=== PATIENT | female | born 1935 | race Caucasian/White ===

== ENCOUNTER → 2018-01-25 09:58 | Outpatient (CLI) | payer MEDICARE, SELFPAY ==
[2018-01-25 15:13] LABS: Absolute Lymphocyte Count 1.61 X10^3/ul (0.83-4.51); Absolute Neutrophil Count 2.5 X10^3/uL (2.0-7.7); Basophil# 0.03 X10^3/uL; Basophil% 0.6 % (0-1); Eosinophil# 0.58 X10^3/uL; Eosinophils% 10.9 % (0-5); Hematocrit 43.2 % (37-47); Hemoglobin 13.8 g/dl (12.0-15.0); Lymphocyte # 1.61 X10^3/ul (4.0); Lymphocyte % 30.4 % (19-41); Mean Corp Hgb Conc 31.9 g/gl (32-36); Mean Corpuscular Hgb 29.7 pg (27.0-32.0); Mean Corpuscular Volume 93.1 fL (81-99); Mean Platelet Vol. 12.2 fl (6.2-12.0); Monocyte# 0.53 X10^3/uL; Neutrophil # 2.53 X10^3/uL (2.7-7.7); Neutrophil % 47.7 % (47-70); Platelet Count 151 K/mm3 (150-450); RBC Distribution Width CV 14.1 % (11.6-14.6); RBC Distribution Width SD 47.9 fl (35.1-43.9); Red Blood Count 4.64 M/mm3 (4.2-5.4); White Blood Count 5.3 K/mm3 (4.4-11.0)
[2018-01-25 15:15] LABS: POSITIVE COUNT NO; POSITIVE DIFFERENTIAL NO; POSITIVE MORPHOLOGY NO
[2018-01-25 15:26] LABS: Vitamin D,25 Hydroxy 16.1 ng/mL (29.95-100.01)
[2018-01-25 15:31] LABS: ALB/GLOB Ratio 0.8 RATIO (0.9-2.4); AST(SGOT) 26 U/L (15-37); Alanine Aminotransfer ALT/SGPT 19 U/L (13-56); Albumin, Serum 3.4 g/dL (3.2-5.0); Alkaline Phosphatase 144 U/L (45-117); Anion Gap 7 (5-15); BUN 20 mg/dL (7-18); BUN/Creat Ratio 24.2 RATIO (10-20); Calcium,Total 8.3 mg/dL (8.5-10.1); Chloride 104 mmol/L (98-107); Creatinine, Serum 0.82 mg/dL (0.55-1.02); EST Glomerular Filtration Rate 70 mL/min (>60); Est Glom Filt Rate - Afr Amer 85 mL/min (>60); Globulin 4.1 g/dL (2.2-4.2); Glucose 105 mg/dL (74-106); Potassium 4.7 mmol/L (3.5-5.1); Protein, Total 7.5 g/dL (6.4-8.2); Sodium Level 142 mmol/L (136-145); Thyroid Stim Hormone (TSH) 3.83 uIU/mL (0.358-3.74)
== END ==
PROVIDERS: Family Provider Family Medicine Geriatric Medicine; PCP Family Medicine Geriatric Medicine; Visit Provider Family Medicine Geriatric Medicine
DX: R53.83 Other fatigue (principal); E55.9 Vitamin D deficiency, unspecified
CPT/HCPCS: 36415; 80053; 82306; 84443; 85025

== ENCOUNTER → 2018-03-12 11:39 | Outpatient (CLI) | payer MEDICARE, SELFPAY ==
[2018-03-12 12:35] LABS: Thyroid Stim Hormone (TSH) 0.64 uIU/mL (0.358-3.74)
== END ==
PROVIDERS: Family Provider Family Medicine Geriatric Medicine; PCP Family Medicine Geriatric Medicine; Visit Provider Family Medicine Geriatric Medicine
DX: E03.9 Hypothyroidism, unspecified (principal)
CPT/HCPCS: 36415; 84443

== ENCOUNTER → 2018-07-05 14:58 | Outpatient (CLI) | payer MEDICARE, SELFPAY ==
--- NOTE | 2018-07-05 15:28 | RAD_ITS ---
STUDY: X-RAY CHEST REASON FOR EXAM: Female, 82 years old. Cough and shortness of breath x1 week TECHNIQUE: PA and lateral views of the chest. COMPARISON: Prior study of 06/30/2013 FINDINGS: The lungs are clear and expanded. There is no demonstrated pleural abnormality. Normal size heart. Normal mediastinum and santy. Normal visualized pulmonary arteries. There are calcified plaques of the aortic arch. There are diffuse degenerative changes of the visualized thoracic spine. There is generalized osteopenia. There are degenerative changes of the shoulder joints. There is a an old fracture of the right humeral head/neck. There is no demonstrated abnormality of the visualized soft tissue structures of the upper abdomen. RAD/Chest PA and Lateral IMPRESSION: Calcified plaques of the aortic arch. Degenerative changes of the thoracic spine. Generalized osteopenia. Degenerative changes of the shoulder joints. Old fracture of the right humeral head/neck. Electronically Signed: Pasha Doe MD at 16:12 EST , Service support ,
== END ==
PROVIDERS: Family Provider Family Medicine Geriatric Medicine; PCP Family Medicine Geriatric Medicine; Referring Provider Family Medicine Geriatric Medicine; Visit Provider Family Medicine Geriatric Medicine
DX: R50.9 Fever, unspecified (principal); R05 Cough; R06.02 Shortness of breath
CPT/HCPCS: 71046; 87633

== ENCOUNTER → 2018-07-26 15:27 | Outpatient (CLI) | payer MEDICARE, SELFPAY ==
[2018-07-26 16:20] LABS: Vitamin D,25 Hydroxy 28.6 ng/mL (29.95-100.01)
[2018-07-26 16:21] LABS: ALB/GLOB Ratio 0.9 RATIO (0.9-2.4); AST(SGOT) 15 U/L (15-37); Alanine Aminotransfer ALT/SGPT 17 U/L (13-56); Albumin, Serum 3.4 g/dL (3.2-5.0); Alkaline Phosphatase 146 U/L (45-117); Anion Gap 10 (5-15); BUN 25 mg/dL (7-18); Calcium,Total 8.8 mg/dL (8.5-10.1); Chloride 104 mmol/L (98-107); Creatinine, Serum 0.89 mg/dL (0.55-1.02); EST Glomerular Filtration Rate 64 mL/min (>60); Est Glom Filt Rate - Afr Amer 78 mL/min (>60); Globulin 3.8 g/dL (2.2-4.2); Glucose 91 mg/dL (74-106); Potassium 4.4 mmol/L (3.5-5.1); Protein, Total 7.2 g/dL (6.4-8.2); Sodium Level 142 mmol/L (136-145); Thyroid Stim Hormone (TSH) 5.32 uIU/mL (0.358-3.74)
[2018-07-26 16:35] LABS: Absolute Lymphocyte Count 1.81 X10^3/ul (0.83-4.51); Absolute Neutrophil Count 3.5 X10^3/uL (2.0-7.7); Basophil# 0.02 X10^3/uL; Basophil% 0.3 % (0-1); Eosinophil# 0.27 X10^3/uL; Eosinophils% 4.4 % (0-5); Hematocrit 44.9 % (37-47); Hemoglobin 14.1 g/dl (12.0-15.0); Lymphocyte # 1.81 X10^3/ul (4.0); Lymphocyte % 29.5 % (19-41); Mean Corp Hgb Conc 31.4 g/gl (32-36); Mean Corpuscular Hgb 29.3 pg (27.0-32.0); Mean Corpuscular Volume 93.2 fL (81-99); Mean Platelet Vol. 12.3 fl (6.2-12.0); Monocyte# 0.55 X10^3/uL; Neutrophil # 3.48 X10^3/uL (2.7-7.7); Neutrophil % 56.8 % (47-70); Platelet Count 174 K/mm3 (150-450); RBC Distribution Width CV 13.9 % (11.6-14.6); Red Blood Count 4.82 M/mm3 (4.2-5.4); White Blood Count 6.1 K/mm3 (4.4-11.0)
[2018-07-26 16:36] LABS: POSITIVE COUNT NO; POSITIVE DIFFERENTIAL NO; POSITIVE MORPHOLOGY NO
== END ==
PROVIDERS: Family Provider Family Medicine Geriatric Medicine; PCP Family Medicine Geriatric Medicine; Visit Provider Family Medicine Geriatric Medicine
DX: E55.9 Vitamin D deficiency, unspecified (principal); R53.83 Other fatigue
CPT/HCPCS: 36415; 80053; 82306; 84443; 85025

== ENCOUNTER 2018-09-17 11:32 | Inpatient (IN) | payer MEDICARE, SELFPAY ==
[2018-09-17 11:32] VITALS: BP 164/100; PULSE 103; RESP 18; TEMP 36.8; O2SAT 98; BMI 31.4
--- NOTE | 2018-09-17 11:52 | RAD_ITS ---
STUDY: X-RAY - RIGHT KNEE REASON FOR EXAM: Female, 82 years old. Pain following a fall. TECHNIQUE: AP and lateral view(s) of the knee. COMPARISON: None. FINDINGS: I suspect a nondisplaced fracture in the distal medial aspect of the right femur just cephalad to the femoral component of the knee prosthesis. Normal visualized proximal tibia and fibula. Normal proximal tibiofibular articulation. Total knee replacement. There is good alignment. There are atherosclerotic calcifications. There is evidence of a moderate sized lipohemarthrosis. RAD/Knee 1 or 2 Views IMPRESSION: Moderate sized lipohemarthrosis. An occult fracture should be ruled out. I suspect a nondisplaced fracture along the distal metaphyseal area of the medial right femur. Electronically Signed: Domingo Ryan, at 13:05 EDT , Service support ,
[2018-09-17 11:53] VITALS: O2SAT 96
--- NOTE | 2018-09-17 11:57 | ED.VIS.GEN ---
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 back pain. Narrative: Patient states she fell about an hour ago, due to using her walker at her home and her right knee suddenly buckling from beneath her, causing her to fall. She does not think she injured anything else. However, she later states that she fell last night and basically laid on the floor, crawl to the phone this morning when she woke up, calling family who came to help and called EMS. She also states that she fell about a month ago when she tripped over something in her kitchen, falling forward and somehow injuring her back. She did not seek help for that but states since then she has had some soreness in her right low back. She had a right knee replacement around 25 years ago. She denies having any numbness distally now. - Past Medical History (1) Hypothyroid Status: Chronic Past Medical History - Allergies and Home Meds Allergies/Adverse Reactions: Allergies codeine Adverse Reaction (Verified 09/17/18 11:38) Vomiting morphine Adverse Reaction (Verified 09/17/18 11:38) Vomiting Primary Care Physician: Manohar Duran Chi, MD [Primary Care Provider] - Surgical History: total knee arthroplasty Lives: Alone Smoking Status: Never smoker Review of Systems General: Denies: Chills, Fever, Sweats Eyes: Denies: Visual changes - bilaterally, Diplopia ENT: Denies: Rhinorrhea, Sore throat Cardiovascular: Denies: Chest pain, Palpitations Respiratory: Denies: Dyspnea, Cough, Dyspnea on exertion Gastrointestinal: Denies: Abdominal pain, Nausea, Vomiting, Diarrhea, Melena, Hematochezia Genitourinary: Denies: Dysuria, Hematuria, Frequency Musculoskeletal: Reports: Back pain, Extremity Pain Skin: Denies: Rash, Wounds Neurological: Denies: Headache, Weakness, Numbness Hematologic: Reports: Easy bruising Physical Exam Vital Signs/Narrative: Vital Signs Temp Pulse Resp BP Pulse Ox 09/17/18 11:53 96 09/17/18 11:32 98.2 F 103 H 18 164/100 H 98 Inital Vital Signs reviewed: Yes General: Well nourished, Well developed, No Acute Distress Head: Normocephalic, Atraumatic Eyes: Perrl, EOMI ENT: Moist mucous membranes, No rhinorrhea, TM's clear - no HT or otorrhea., - - mastoids NT, no ecchymoses.. Negative for: Nasal congestion Neck: Supple, Nontender Cardiovascular: Regular rate, Regular rhythm, No murmurs Respiratory: No distress, CTA bilaterally, Chest nontender Abdomen: Soft, Nontender, Nondistended, Normal bowel sounds Back: Normal Inspection, - - mildly tender right lumbosacral area, possibly midline -- pt states difficult to tell. no significant tenderness. no step offs. no signs of rash or trauma. Extremities: No edema, Tenderness - proximal right tibia w/ large amt diffuse R knee swelling and poss deformity distal to joint line. limited ROM due to pain, but able to perform short arc. 2+ DP pulse distally. , - - mildly tender to palp at R greater trochanter. no hip/groin pain w/ internal and external rotation of the right hip. FROM throughout LLE and BUE w/o pain/apparent injury. Skin: Normal color, No rash Neurological: Alert, Oriented x3, Cranial nerves II-XII grossly intact, Normal Strength, Normal Sensation Psychological: Normal affect, Normal Mood Diagnostic/Tx/Re-eval Impressions Knee X-Ray 09/17/18 11:52 IMPRESSION: Moderate sized lipohemarthrosis. An occult fracture should be ruled out. I suspect a nondisplaced fracture along the distal metaphyseal area of the medial right femur. Electronically Signed: Domingo Ryan, at 13:05 EDT , Service support , Hip/Pelvis X-Ray 09/17/18 12:10 IMPRESSION: Degenerative changes of the hip. Electronically Signed: Domingo Ryan, at 13:03 EDT , Service support , Lumbar Spine X-Ray 09/17/18 12:35 IMPRESSION: Degenerative changes of the spine, as detailed above. Poor visualization of the superior endplate at the L4 vertebrae. This may represent other compression fracture or possible involvement with a metastatic deposit or infectious process. Grade 1 anterolisthesis of L4 on L5. Electronically Signed: Domingo Ryan, at 13:01 EDT , Service support , 09/17/18 11:52 Knee 1 or 2 Views [RAD] Stat 09/17/18 12:10 HIP, UNI W/ Pelvis 2-3 Views [RAD] Stat 09/17/18 12:35 Lumbar Spine 2 or 3 Views [RAD] Stat Laboratory Results 09/17/18 09/17/18 09/17/18 12:12 12:12 12:12 WBC 11.8 H RBC 4.78 Hgb 13.9 Hct 42.0 MCV 87.9 MCH 29.1 MCHC 33.1 RDW 13.6 RDW Differential 43.7 Plt Count 240 MPV 11.1 Immature Gran % (Auto) 0.300 Neut % (Auto) 88.4 H Lymph % (Auto) 4.1 L [place] % (Auto) 6.7 Eos % (Auto) 0.3 Baso % (Auto) 0.2 Absolute Neuts (auto) 10.5 H Absolute Lymphs (auto) 0.49 L Total Counted Not Reportable Sodium 136 Potassium 3.9 Chloride 101 Carbon Dioxide 28.0 Anion Gap 7 BUN 18 Creatinine 0.80 Estim Creat Clear Calc 42.88 Est GFR (MDRD) Af Amer 88 Est GFR (MDRD) Non-Af 73 BUN/Creatinine Ratio 22.5 H Glucose 147 H Calcium 8.7 Total Creatine Kinase 116 Urine Color Urine Clarity Urine pH Ur Specific [place] Urine Protein Urine Glucose (UA) Urine Ketones Urine Occult Blood Urine Nitrite Urine Bilirubin Urine Urobilinogen Ur Leukocyte Esterase Urine RBC Urine WBC Ur Squamous Epith Cells Urine Bacteria Urine Mucus 09/17/18 12:45 WBC RBC Hgb Hct MCV MCH MCHC RDW RDW Differential Plt Count MPV Immature Gran % (Auto) Neut % (Auto) Lymph % (Auto) [place] % (Auto) Eos % (Auto) Baso % (Auto) Absolute Neuts (auto) Absolute Lymphs (auto) Total Counted Sodium Potassium Chloride Carbon Dioxide Anion Gap BUN Creatinine Estim Creat Clear Calc Est GFR (MDRD) Af Amer Est GFR (MDRD) Non-Af BUN/Creatinine Ratio Glucose Calcium Total Creatine Kinase Urine Color Yellow Urine Clarity Sl. Cloudy Urine pH 6.5 Ur Specific [place] 1.010 Urine Protein Negative Urine Glucose (UA) Normal Urine Ketones 5 H Urine Occult Blood Negative Urine Nitrite Negative Urine Bilirubin Negative Urine Urobilinogen 4 H Ur Leukocyte Esterase Negative Urine RBC 0 SEEN Urine WBC 0 SEEN Ur Squamous Epith Cells 0-5 SEEN Urine Bacteria 0 SEEN Urine Mucus 0 SEEN - Medical Decision Making X-rays show possible nondisplaced fracture distal femur just proximal to the knee hardware. According to radiology this may need further testing to confirm. Discussed with orthopedics Dr. Gregorio who states he will see the patient in the hospital. Other x-ray showed no acute abnormalities, there is an abnormal L4 vertebral body that is nonspecifically demineralized at the superior endplate, the patient states she had x-rays about 2 weeks ago and orthopedics told her there was no fracture there. She is able to sit up and I agree she probably has no acute fracture there. The rest of her medical workup is unremarkable here. She is clinically and hemodynamically stable, given fentanyl for pain. She is unable to walk or put weight on this lower extremity and will be admitted to observation general medical floor. ED Disposition - Plan for ED Patient: Disposition: Acute Care Hospital [facility] Diagnosis: Right knee injury, Inability to ambulate due to right knee, Multiple falls Referrals: Manohar Duran Chi, MD [Primary Care Provider] -
--- NOTE | 2018-09-17 12:01 | ED.DCSUM_ITS ---
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 back pain. Narrative: Patient states she fell about an hour ago, due to using her walker at her home and her right knee suddenly buckling from beneath her, causing her to fall. She does not think she injured anything else. However, she later states that she fell last night and basically laid on the floor, crawl to the phone this morning when she woke up, calling family who came to help and called EMS. She also states that she fell about a month ago when she tripped over something in her kitchen, falling forward and somehow injuring her back. She did not seek help for that but states since then she has had some soreness in her right low back. She had a right knee replacement around 25 years ago. She denies having any numbness distally now. - Past Medical History (1) Hypothyroid Status: Chronic Past Medical History - Allergies and Home Meds Allergies/Adverse Reactions: Allergies codeine Adverse Reaction (Verified 09/17/18 11:38) Vomiting morphine Adverse Reaction (Verified 09/17/18 11:38) Vomiting Primary Care Physician: Manohar Duran Chi, MD [Primary Care Provider] - Surgical History: total knee arthroplasty Lives: Alone Smoking Status: Never smoker Review of Systems General: Denies: Chills, Fever, Sweats Eyes: Denies: Visual changes - bilaterally, Diplopia ENT: Denies: Rhinorrhea, Sore throat Cardiovascular: Denies: Chest pain, Palpitations Respiratory: Denies: Dyspnea, Cough, Dyspnea on exertion Gastrointestinal: Denies: Abdominal pain, Nausea, Vomiting, Diarrhea, Melena, Hematochezia Genitourinary: Denies: Dysuria, Hematuria, Frequency Musculoskeletal: Reports: Back pain, Extremity Pain Skin: Denies: Rash, Wounds Neurological: Denies: Headache, Weakness, Numbness Hematologic: Reports: Easy bruising Physical Exam Vital Signs/Narrative: Vital Signs Temp Pulse Resp BP Pulse Ox 09/17/18 11:53 96 09/17/18 11:32 98.2 F 103 H 18 164/100 H 98 Inital Vital Signs reviewed: Yes General: Well nourished, Well developed, No Acute Distress Head: Normocephalic, Atraumatic Eyes: Perrl, EOMI ENT: Moist mucous membranes, No rhinorrhea, TM's clear - no HT or otorrhea., - - mastoids NT, no ecchymoses.. Negative for: Nasal congestion Neck: Supple, Nontender Cardiovascular: Regular rate, Regular rhythm, No murmurs Respiratory: No distress, CTA bilaterally, Chest nontender Abdomen: Soft, Nontender, Nondistended, Normal bowel sounds Back: Normal Inspection, - - mildly tender right lumbosacral area, possibly midline -- pt states difficult to tell. no significant tenderness. no step offs. no signs of rash or trauma. Extremities: No edema, Tenderness - proximal right tibia w/ large amt diffuse R knee swelling and poss deformity distal to joint line. limited ROM due to pain, but able to perform short arc. 2+ DP pulse distally. , - - mildly tender to palp at R greater trochanter. no hip/groin pain w/ internal and external rotation of the right hip. FROM throughout LLE and BUE w/o pain/apparent injury. Skin: Normal color, No rash Neurological: Alert, Oriented x3, Cranial nerves II-XII grossly intact, Normal Strength, Normal Sensation Psychological: Normal affect, Normal Mood Diagnostic/Tx/Re-eval Impressions Knee X-Ray 09/17/18 11:52 IMPRESSION: Moderate sized lipohemarthrosis. An occult fracture should be ruled out. I suspect a nondisplaced fracture along the distal metaphyseal area of the medial right femur. Electronically Signed: Domingo Ryan, at 13:05 EDT , Service support , Hip/Pelvis X-Ray 09/17/18 12:10 IMPRESSION: Degenerative changes of the hip. Electronically Signed: Domingo Ryan, at 13:03 EDT , Service support , Lumbar Spine X-Ray 09/17/18 12:35 IMPRESSION: Degenerative changes of the spine, as detailed above. Poor visualization of the superior endplate at the L4 vertebrae. This may represent other compression fracture or possible involvement with a metastatic deposit or infectious process. Grade 1 anterolisthesis of L4 on L5. Electronically Signed: Domingo Ryan, at 13:01 EDT , Service support , 09/17/18 11:52 Knee 1 or 2 Views [RAD] Stat 09/17/18 12:10 HIP, UNI W/ Pelvis 2-3 Views [RAD] Stat 09/17/18 12:35 Lumbar Spine 2 or 3 Views [RAD] Stat Laboratory Results 09/17/18 09/17/18 09/17/18 12:12 12:12 12:12 WBC 11.8 H RBC 4.78 Hgb 13.9 Hct 42.0 MCV 87.9 MCH 29.1 MCHC 33.1 RDW 13.6 RDW Differential 43.7 Plt Count 240 MPV 11.1 Immature Gran % (Auto) 0.300 Neut % (Auto) 88.4 H Lymph % (Auto) 4.1 L [place] % (Auto) 6.7 Eos % (Auto) 0.3 Baso % (Auto) 0.2 Absolute Neuts (auto) 10.5 H Absolute Lymphs (auto) 0.49 L Total Counted Not Reportable Sodium 136 Potassium 3.9 Chloride 101 Carbon Dioxide 28.0 Anion Gap 7 BUN 18 Creatinine 0.80 Estim Creat Clear Calc 42.88 Est GFR (MDRD) Af Amer 88 Est GFR (MDRD) Non-Af 73 BUN/Creatinine Ratio 22.5 H Glucose 147 H Calcium 8.7 Total Creatine Kinase 116 Urine Color Urine Clarity Urine pH Ur Specific [place] Urine Protein Urine Glucose (UA) Urine Ketones Urine Occult Blood Urine Nitrite Urine Bilirubin Urine Urobilinogen Ur Leukocyte Esterase Urine RBC Urine WBC Ur Squamous Epith Cells Urine Bacteria Urine Mucus 09/17/18 12:45 WBC RBC Hgb Hct MCV MCH MCHC RDW RDW Differential Plt Count MPV Immature Gran % (Auto) Neut % (Auto) Lymph % (Auto) [place] % (Auto) Eos % (Auto) Baso % (Auto) Absolute Neuts (auto) Absolute Lymphs (auto) Total Counted Sodium Potassium Chloride Carbon Dioxide Anion Gap BUN Creatinine Estim Creat Clear Calc Est GFR (MDRD) Af Amer Est GFR (MDRD) Non-Af BUN/Creatinine Ratio Glucose Calcium Total Creatine Kinase Urine Color Yellow Urine Clarity Sl. Cloudy Urine pH 6.5 Ur Specific [place] 1.010 Urine Protein Negative Urine Glucose (UA) Normal Urine Ketones 5 H Urine Occult Blood Negative Urine Nitrite Negative Urine Bilirubin Negative Urine Urobilinogen 4 H Ur Leukocyte Esterase Negative Urine RBC 0 SEEN Urine WBC 0 SEEN Ur Squamous Epith Cells 0-5 SEEN Urine Bacteria 0 SEEN Urine Mucus 0 SEEN - Medical Decision Making X-rays show possible nondisplaced fracture distal femur just proximal to the knee hardware. According to radiology this may need further testing to confirm. Discussed with orthopedics Dr. Gregorio who states he will see the patient in the hospital. Other x-ray showed no acute abnormalities, there is an abnormal L4 vertebral body that is nonspecifically demineralized at the superior endplate, the patient states she had x-rays about 2 weeks ago and orthopedics told her there was no fracture there. She is able to sit up and I agree she probably has no acute fracture there. The rest of her medical workup is unremarkable here. She is clinically and hemodynamically stable, given fentanyl for pain. She is unable to walk or put weight on this lower extremity and will be admitted to observation general medical floor. ED Disposition - Plan for ED Patient: Disposition: Acute Care Hospital [facility] Diagnosis: Right knee injury, Inability to ambulate due to right knee, Multiple falls Referrals: Manohar Duran Chi, MD [Primary Care Provider] -
--- NOTE | 2018-09-17 12:10 | RAD_ITS ---
STUDY: X-RAY - RIGHT HIP REASON FOR EXAM: Female, 82 years old. Right hip pain following a fall. TECHNIQUE: 2 views of the hip. COMPARISON: None. FINDINGS: Degenerative changes of the sacroiliac joints as well as the symphysis pubis. Normal femoral head, neck, intertrochanteric region and visualized proximal femur. Normal acetabulum. There is mild articular joint space narrowing. Normal visualized superior and inferior pubic rami and ischial tuberosities. Atherosclerotic vascular calcification. RAD/HIP, UNI W/ Pelvis 2-3 Views IMPRESSION: Degenerative changes of the hip. Electronically Signed: Domingo Ryan, at 13:03 EDT , Service support ,
[2018-09-17 12:20] LABS: Absolute Lymphocyte Count 0.49 X10^3/ul (0.83-4.51); Absolute Neutrophil Count 10.5 X10^3/uL (2.0-7.7); Basophil# 0.02 X10^3/uL; Basophil% 0.2 % (0-1); Eosinophil# 0.03 X10^3/uL; Eosinophils% 0.3 % (0-5); Hemoglobin 13.9 g/dl (12.0-15.0); Lymphocyte # 0.49 X10^3/ul (4.0); Lymphocyte % 4.1 % (19-41); Mean Corp Hgb Conc 33.1 g/gl (32-36); Mean Corpuscular Hgb 29.1 pg (27.0-32.0); Mean Corpuscular Volume 87.9 fL (81-99); Mean Platelet Vol. 11.1 fl (6.2-12.0); Monocyte# 0.79 X10^3/uL; Monocyte% 6.7 % (0-10); Neutrophil # 10.46 X10^3/uL (2.7-7.7); Neutrophil % 88.4 % (47-70); Platelet Count 240 K/mm3 (150-450); RBC Distribution Width CV 13.6 % (11.6-14.6); RBC Distribution Width SD 43.7 fl (35.1-43.9); Red Blood Count 4.78 M/mm3 (4.2-5.4); White Blood Count 11.8 K/mm3 (4.4-11.0)
[2018-09-17 12:23] LABS: Differential Indicated SCAN CRITERIA MET; POSITIVE COUNT NO; POSITIVE DIFFERENTIAL YES; POSITIVE MORPHOLOGY NO
--- NOTE | 2018-09-17 12:35 | RAD_ITS ---
STUDY: X-RAY - LUMBAR SPINE REASON FOR EXAM: Female, 82 years old. Pain following a fall. TECHNIQUE: 3 view(s) of the lumbar spine were obtained. COMPARISON: None FINDINGS: Normal lumbar lordosis. There is no substantial scoliosis. Grade 1 anterolisthesis of L4 on L5. There appears to be loss of height and irregular density involving the superior endplate of the L4 vertebrae. This may represent either a compression fracture or possible metastatic deposit. Disc space narrowing at the L4-L5 and L5-S1 levels. Facet joint osteoarthritis. There is atherosclerotic calcification of the abdominal aorta without a demonstrated aneurysm. RAD/Lumbar Spine 2 or 3 Views IMPRESSION: Degenerative changes of the spine, as detailed above. Poor visualization of the superior endplate at the L4 vertebrae. This may represent other compression fracture or possible involvement with a metastatic deposit or infectious process. Grade 1 anterolisthesis of L4 on L5. Electronically Signed: Domingo Ryan, at 13:01 EDT , Service support ,
[2018-09-17 12:37] LABS: Anion Gap 7 (5-15); BUN 18 mg/dL (7-18); BUN/Creat Ratio 22.5 RATIO (10-20); Calcium,Total 8.7 mg/dL (8.5-10.1); Chloride 101 mmol/L (98-107); EST Glomerular Filtration Rate 73 mL/min (>60); Est Glom Filt Rate - Afr Amer 88 mL/min (>60); Estimated Creatinine Clearance 42.88 ml/min; Glucose 147 mg/dL (74-106); Potassium 3.9 mmol/L (3.5-5.1); Sodium Level 136 mmol/L (136-145)
[2018-09-17 12:55] LABS: Bacteria 0 SEEN /hpf (None Seen); Mucous, Urine 0 SEEN /hpf (<or=2+); Red Blood Cells-Urine 0 SEEN /hpf (0-5); White Blood Cells 0 SEEN /hpf (0-5)
[2018-09-17 13:06] LABS: Color, Urine Yellow (Yellow); Glucose, Dipstick Normal (Normal); Ketone-Dipstick 5 mg/dl (Negative); Leukocyte Esterase-Dipstick Negative /ul (Negative); Nitrite-Dipstick Negative (Negative); Occult Blood-Urine Negative /ul (Negative); Protein-Dipstick Negative (Negative); Urine Bilirubin Dipstick Negative (Negative); Urine Clarity Sl. Cloudy (Clear); Urine Urobilinogen 4 mg/dl (Normal); Urine pH 6.5 (5.0 - 8.0)
[2018-09-17 13:14] LABS: CPK Total, Creatine Kinase 116 U/L (26-192)
[2018-09-17 13:14] LABS: Squamous Epithelial Cells - UA 0-5 SEEN /hpf (5-10)
--- NOTE | 2018-09-17 14:34 | PCM.HP.STD ---
Problem List (1) Right knee injury Status: Acute Qualifiers: Encounter type: initial encounter Qualified Code(s): S89.91XA - Unspecified injury of right lower leg, initial encounter History of Present Illness Date of Admission: 09/17/18 Chief Complaint: right knee pain. The patient is a 82 year old F patient states that she was walking with her walker and describes that her right knee as opened up but on further discussion seems more buckled underneath her because of her fall. Patient thinks she may have landed on her right knee but denies hitting her head. Patient had swelling her knee and presented to the urgency room. X-ray of the right knee showed a moderate size lipohemarthrosis but no definitive fracture but it was suspected he may been in a displaced fracture along the distal metaphyseal area of the medial right femur. To do a lumbar spine x-ray that showed poor visualization of the superior endplate of L4 vertebrae. Agent and not necessarily describe any new pain in her back but just describes generalized pain all over. [] Past Medical History Past Medical History (Chronic Problems): Chronic Problems Hypothyroid (Chronic) Allergies codeine Adverse Reaction (Verified 09/17/18 11:38) Vomiting morphine Adverse Reaction (Verified 09/17/18 11:38) Vomiting Home Medications: Ambulatory Orders Medication Instructions Recorded Aspirin E.C. [Ecotrin] 81 mg PO DAILY@0800 09/17/18 Levothyroxine [Synthroid] 137 mcg PO DAILY 09/17/18 Naproxen Sodium [Aleve] 440 mg PO PRN PRN 09/17/18 Surgical History: total knee arthroplasty Lives: Alone Smoking Status: Never smoker - *Family History Maternal History Items: Heart Disease - CHF Review of Systems Constitutional: Denies: Anorexia, Chills Eyes: Denies: Blurred vision, Double vision HEENT: Denies: Head Aches, Sinus Congestion, Sinus Drainage Cardiovascular: Denies: Chest Pain, Palpitations Respiratory: Denies: Cough, Shortness of breath at rest, Sputum production Gastrointestinal: Denies: Abdominal Pain, Nausea, Vomiting Genitourinary: Denies: Dysuria Musculoskeletal: Denies: Joint Pain, Joint Tenderness Skin: Denies: Dryness, Jaundice Neurological: Reports: Balance problems, - - Falls, - - No paresthesias. Denies: Blurred vision, Double vision Psychiatric: Denies: Anxiety, Depression Hematologic/ Lymphatic: Denies: Easy Bruising, Easy Bleeding, Hx of blood clot Comment: A 10 point review of systems were negative except as mentioned in the history of present illness and the other review of systems. VTE Information - Inpt Only VTE Present on Admission: No VTE Mechan Device Prophylaxis: SCD's VTE Pharm Prophylaxis ordered?: No Reason prophylaxis not ordered:: Medical Contraindication Patient Problems: Active and Suspected Problems Right knee injury (Acute) Inability to ambulate due to right knee (Acute) Multiple falls (Acute) - Physical Exam General: Alert, No apparent distress, - - Slow to respond and was slightly tangential in her answers. HEENT: Atraumatic, Normocephalic Oral: Moist Mucosa, No Gingival or Mucosal Lesions/ Ulcerations Neck: No Nodes, Thyroid Normal Size and Texture Lungs: Clear to auscultation, Normal air movement, No rhonchi, No wheeze Cardiovascular: Regular rate, Regular Rhythm, Normal S1, Normal S2, No murmurs Abdomen: Bowel Sounds Present, Soft, Non Tender, Non-Distended, No Hepato-splenomegaly Extremities: No Calf Tenderness, - - Large hematoma over the medial right knee Skin: No rashes, No breakdown Musculoskeletal: Tenderness - We will right knee with the swelling. Psych/Mental Status: Appropriate, Flat Affect Vital Signs Temp Pulse Resp BP Pulse Ox 36.8 C 103 H 18 164/100 H 96 09/17/18 11:32 09/17/18 11:32 09/17/18 11:32 09/17/18 11:32 09/17/18 11:53 Oxygen Delivery Method Room Air Weight: 78 kg Body Mass Index (BMI) 31.4 Laboratory Tests Past 24 Hrs 09/17/18 09/17/18 09/17/18 12:12 12:12 12:12 WBC 11.8 H RBC 4.78 Hgb 13.9 Hct 42.0 MCV 87.9 MCH 29.1 MCHC 33.1 RDW 13.6 RDW Differential 43.7 Plt Count 240 MPV 11.1 Immature Gran % (Auto) 0.300 Neut % (Auto) 88.4 H Lymph % (Auto) 4.1 L [place] % (Auto) 6.7 Eos % (Auto) 0.3 Baso % (Auto) 0.2 Absolute Neuts (auto) 10.5 H Absolute Lymphs (auto) 0.49 L Total Counted Not Reportable Sodium 136 Potassium 3.9 Chloride 101 Carbon Dioxide 28.0 Anion Gap 7 BUN 18 Creatinine 0.80 Estim Creat Clear Calc 42.88 Est GFR (MDRD) Af Amer 88 Est GFR (MDRD) Non-Af 73 BUN/Creatinine Ratio 22.5 H Glucose 147 H Calcium 8.7 Total Creatine Kinase 116 Urine Color Urine Clarity Urine pH Ur Specific [place] Urine Protein Urine Glucose (UA) Urine Ketones Urine Occult Blood Urine Nitrite Urine Bilirubin Urine Urobilinogen Ur Leukocyte Esterase Urine RBC Urine WBC Ur Squamous Epith Cells Urine Bacteria Urine Mucus 09/17/18 12:45 WBC RBC Hgb Hct MCV MCH MCHC RDW RDW Differential Plt Count MPV Immature Gran % (Auto) Neut % (Auto) Lymph % (Auto) [place] % (Auto) Eos % (Auto) Baso % (Auto) Absolute Neuts (auto) Absolute Lymphs (auto) Total Counted Sodium Potassium Chloride Carbon Dioxide Anion Gap BUN Creatinine Estim Creat Clear Calc Est GFR (MDRD) Af Amer Est GFR (MDRD) Non-Af BUN/Creatinine Ratio Glucose Calcium Total Creatine Kinase Urine Color Yellow Urine Clarity Sl. Cloudy Urine pH 6.5 Ur Specific [place] 1.010 Urine Protein Negative Urine Glucose (UA) Normal Urine Ketones 5 H Urine Occult Blood Negative Urine Nitrite Negative Urine Bilirubin Negative Urine Urobilinogen 4 H Ur Leukocyte Esterase Negative Urine RBC 0 SEEN Urine WBC 0 SEEN Ur Squamous Epith Cells 0-5 SEEN Urine Bacteria 0 SEEN Urine Mucus 0 SEEN Clinical Impression(s) from Imaging Studies Knee X-Ray 09/17/18 11:52 IMPRESSION: Moderate sized lipohemarthrosis. An occult fracture should be ruled out. I suspect a nondisplaced fracture along the distal metaphyseal area of the medial right femur. Electronically Signed: Domingo Ryan, at 13:05 EDT , Service support , Hip/Pelvis X-Ray 09/17/18 12:10 IMPRESSION: Degenerative changes of the hip. Electronically Signed: Domingo Ryan, at 13:03 EDT , Service support , Lumbar Spine X-Ray 09/17/18 12:35 IMPRESSION: Degenerative changes of the spine, as detailed above. Poor visualization of the superior endplate at the L4 vertebrae. This may represent other compression fracture or possible involvement with a metastatic deposit or infectious process. Grade 1 anterolisthesis of L4 on L5. Electronically Signed: Domingo Ryan, at 13:01 EDT , Service support , Assessment/Plan All Active Problems Right knee injury (Acute) Inability to ambulate due to right knee (Acute) Multiple falls (Acute) 1. Right knee hemarthrosis Cannot rule out occult fracture at this time Orthopedics was contacted by the emergency room and I will be on consult. No recommendations were given to the emergency room physician. Pain control Nonweightbearing until evaluated by orthopedics of the right lower extremity Possible occult fracture, will check a 25-hydroxy vitamin D level Given the hemarthrosis, will hold aspirin for now 2. Falls/debility Patient was falling despite using a walker Physical and occupational therapy evaluate and treat Patient may require additional therapies upon discharge. 3. DVT prophylaxis with SCDs. Holding off on chemical prophylaxis given the hemarthrosis. Code Visit OBSV E&M: 86065 Initial observation care L2
--- NOTE | 2018-09-17 14:40 | HP.PCM_ITS ---
Problem List (1) Right knee injury Status: Acute Qualifiers: Encounter type: initial encounter Qualified Code(s): S89.91XA - Unspecified injury of right lower leg, initial encounter History of Present Illness Date of Admission: 09/17/18 Chief Complaint: right knee pain. The patient is a 82 year old F patient states that she was walking with her walker and describes that her right knee as opened up but on further discussion seems more buckled underneath her because of her fall. Patient thinks she may have landed on her right knee but denies hitting her head. Patient had swelling her knee and presented to the urgency room. X-ray of the right knee showed a moderate size lipohemarthrosis but no definitive fracture but it was suspected he may been in a displaced fracture along the distal metaphyseal area of the medial right femur. To do a lumbar spine x-ray that showed poor visualization of the superior endplate of L4 vertebrae. Agent and not necessarily describe any new pain in her back but just describes generalized pain all over. [] Past Medical History Past Medical History (Chronic Problems): Chronic Problems Hypothyroid (Chronic) Allergies codeine Adverse Reaction (Verified 09/17/18 11:38) Vomiting morphine Adverse Reaction (Verified 09/17/18 11:38) Vomiting Home Medications: Ambulatory Orders Medication Instructions Recorded Aspirin E.C. [Ecotrin] 81 mg PO DAILY@0800 09/17/18 Levothyroxine [Synthroid] 137 mcg PO DAILY 09/17/18 Naproxen Sodium [Aleve] 440 mg PO PRN PRN 09/17/18 Surgical History: total knee arthroplasty Lives: Alone Smoking Status: Never smoker - *Family History Maternal History Items: Heart Disease - CHF Review of Systems Constitutional: Denies: Anorexia, Chills Eyes: Denies: Blurred vision, Double vision HEENT: Denies: Head Aches, Sinus Congestion, Sinus Drainage Cardiovascular: Denies: Chest Pain, Palpitations Respiratory: Denies: Cough, Shortness of breath at rest, Sputum production Gastrointestinal: Denies: Abdominal Pain, Nausea, Vomiting Genitourinary: Denies: Dysuria Musculoskeletal: Denies: Joint Pain, Joint Tenderness Skin: Denies: Dryness, Jaundice Neurological: Reports: Balance problems, - - Falls, - - No paresthesias. Denies: Blurred vision, Double vision Psychiatric: Denies: Anxiety, Depression Hematologic/ Lymphatic: Denies: Easy Bruising, Easy Bleeding, Hx of blood clot Comment: A 10 point review of systems were negative except as mentioned in the history of present illness and the other review of systems. VTE Information - Inpt Only VTE Present on Admission: No VTE Mechan Device Prophylaxis: SCD's VTE Pharm Prophylaxis ordered?: No Reason prophylaxis not ordered:: Medical Contraindication Patient Problems: Active and Suspected Problems Right knee injury (Acute) Inability to ambulate due to right knee (Acute) Multiple falls (Acute) - Physical Exam General: Alert, No apparent distress, - - Slow to respond and was slightly tangential in her answers. HEENT: Atraumatic, Normocephalic Oral: Moist Mucosa, No Gingival or Mucosal Lesions/ Ulcerations Neck: No Nodes, Thyroid Normal Size and Texture Lungs: Clear to auscultation, Normal air movement, No rhonchi, No wheeze Cardiovascular: Regular rate, Regular Rhythm, Normal S1, Normal S2, No murmurs Abdomen: Bowel Sounds Present, Soft, Non Tender, Non-Distended, No Hepato- splenomegaly Extremities: No Calf Tenderness, - - Large hematoma over the medial right knee Skin: No rashes, No breakdown Musculoskeletal: Tenderness - We will right knee with the swelling. Psych/Mental Status: Appropriate, Flat Affect Vital Signs Temp Pulse Resp BP Pulse Ox 36.8 C 103 H 18 164/100 H 96 09/17/18 11:32 09/17/18 11:32 09/17/18 11:32 09/17/18 11:32 09/17/18 11:53 Oxygen Delivery Method Room Air Weight: 78 kg Body Mass Index (BMI) 31.4 Laboratory Tests Past 24 Hrs 09/17/18 09/17/18 09/17/18 12:12 12:12 12:12 WBC 11.8 H RBC 4.78 Hgb 13.9 Hct 42.0 MCV 87.9 MCH 29.1 MCHC 33.1 RDW 13.6 RDW Differential 43.7 Plt Count 240 MPV 11.1 Immature Gran % (Auto) 0.300 Neut % (Auto) 88.4 H Lymph % (Auto) 4.1 L [place] % (Auto) 6.7 Eos % (Auto) 0.3 Baso % (Auto) 0.2 Absolute Neuts (auto) 10.5 H Absolute Lymphs (auto) 0.49 L Total Counted Not Reportable Sodium 136 Potassium 3.9 Chloride 101 Carbon Dioxide 28.0 Anion Gap 7 BUN 18 Creatinine 0.80 Estim Creat Clear Calc 42.88 Est GFR (MDRD) Af Amer 88 Est GFR (MDRD) Non-Af 73 BUN/Creatinine Ratio 22.5 H Glucose 147 H Calcium 8.7 Total Creatine Kinase 116 Urine Color Urine Clarity Urine pH Ur Specific [place] Urine Protein Urine Glucose (UA) Urine Ketones Urine Occult Blood Urine Nitrite Urine Bilirubin Urine Urobilinogen Ur Leukocyte Esterase Urine RBC Urine WBC Ur Squamous Epith Cells Urine Bacteria Urine Mucus 09/17/18 12:45 WBC RBC Hgb Hct MCV MCH MCHC RDW RDW Differential Plt Count MPV Immature Gran % (Auto) Neut % (Auto) Lymph % (Auto) [place] % (Auto) Eos % (Auto) Baso % (Auto) Absolute Neuts (auto) Absolute Lymphs (auto) Total Counted Sodium Potassium Chloride Carbon Dioxide Anion Gap BUN Creatinine Estim Creat Clear Calc Est GFR (MDRD) Af Amer Est GFR (MDRD) Non-Af BUN/Creatinine Ratio Glucose Calcium Total Creatine Kinase Urine Color Yellow Urine Clarity Sl. Cloudy Urine pH 6.5 Ur Specific [place] 1.010 Urine Protein Negative Urine Glucose (UA) Normal Urine Ketones 5 H Urine Occult Blood Negative Urine Nitrite Negative Urine Bilirubin Negative Urine Urobilinogen 4 H Ur Leukocyte Esterase Negative Urine RBC 0 SEEN Urine WBC 0 SEEN Ur Squamous Epith Cells 0-5 SEEN Urine Bacteria 0 SEEN Urine Mucus 0 SEEN Clinical Impression(s) from Imaging Studies Knee X-Ray 09/17/18 11:52 IMPRESSION: Moderate sized lipohemarthrosis. An occult fracture should be ruled out. I suspect a nondisplaced fracture along the distal metaphyseal area of the medial right femur. Electronically Signed: Domingo Ryan, at 13:05 EDT , Service support , Hip/Pelvis X-Ray 09/17/18 12:10 IMPRESSION: Degenerative changes of the hip. Electronically Signed: Domingo Ryan, at 13:03 EDT , Service support , Lumbar Spine X-Ray 09/17/18 12:35 IMPRESSION: Degenerative changes of the spine, as detailed above. Poor visualization of the superior endplate at the L4 vertebrae. This may represent other compression fracture or possible involvement with a metastatic deposit or infectious process. Grade 1 anterolisthesis of L4 on L5. Electronically Signed: Domingo Ryan, at 13:01 EDT , Service support , Assessment/Plan All Active Problems Right knee injury (Acute) Inability to ambulate due to right knee (Acute) Multiple falls (Acute) 1. Right knee hemarthrosis * Cannot rule out occult fracture at this time * Orthopedics was contacted by the emergency room and I will be on consult. No recommendations were given to the emergency room physician. * Pain control * Nonweightbearing until evaluated by orthopedics of the right lower extremity * Possible occult fracture, will check a 25-hydroxy vitamin D level * Given the hemarthrosis, will hold aspirin for now 2. Falls/debility * Patient was falling despite using a walker * Physical and occupational therapy evaluate and treat * Patient may require additional therapies upon discharge. 3. DVT prophylaxis with SCDs. Holding off on chemical prophylaxis given the hemarthrosis. Code Visit OBSV E&M: 35991 Initial observation care L2
[2018-09-17] MEDS: fentaNYL 100 MCG/2 ML Ampul 25 MCG IV (14:45)
[2018-09-17 15:42] VITALS: BMI 29.7
[2018-09-17 16:14] LABS: Vitamin D,25 Hydroxy 24.7 ng/mL (29.95-100.01)
[2018-09-17 17:21] VITALS: BP 155/80; PULSE 114; RESP 18; TEMP 36.5; O2SAT 98
[2018-09-17] MEDS: oxyCODONE 5 MG Tablet PO ×2 (17:32→21:37)
[2018-09-17] MEDS: Acetaminophen 325 MG Tablet 650 MG PO (20:52)
[2018-09-17 21:03] VITALS: BP 143/79; PULSE 101; RESP 16; TEMP 36.7; O2SAT 97
[2018-09-18] MEDS: oxyCODONE 5 MG Tablet PO ×3 (02:31→22:33)
[2018-09-18 03:00] VITALS: BP 101/63; PULSE 80; RESP 16; TEMP 36.4; O2SAT 96
[2018-09-18] MEDS: 0.9% Normal Saline 1,000 ML 75 ML IV ×2 (03:23→16:07)
[2018-09-18] MEDS: Acetaminophen 325 MG Tablet 650 MG PO (06:42)
[2018-09-18] MEDS: Levothyroxine 137 MCG Tablet PO (06:43)
--- NOTE | 2018-09-18 07:15 | PCM.PN.HOSP ---
Patient Problems: Active and Suspected Problems Right knee injury (Acute) Inability to ambulate due to right knee (Acute) Multiple falls (Acute) Subjective: Patient with ongoing discomfort to the right knee especially with any palpation or movement attempts. Evaluation per orthopedic surgery this morning and felt likely a nondisplaced femur fracture with plan for immobilization and allowance of toe-touch weightbearing. Given periprosthetic unable to unfortunately aspirate with continued notable edema. Patient with no other acute plane otherwise. Patient denies fevers, chills, nausea, emesis, abdominal pain, chest pain or dyspnea. Objective: Physical Examination: General: awake, alert, oriented x 3 and cooperative, seated upright in bed, uncomfortable only with palpation of the right knee. Skin: normal color, turgor, no icterus, cyanosis. HEENT: AT/NC, EOMI, PERRLA, MMM. Lungs: CTA bilaterally, moderate effort, mild decrease BL bases, no rales, ronchi or wheezing. Heart: Regular rate and rhythm; no gallop, rub audible. Abdomen: soft, NTTP, ND, normal BS. Extremities: no cyanosis, clubbing, s/p fall w/ R knee notable TTP, effusion, limited ROM, awaiting immobilization for suspected fracture. Neurological: patient awake, alert, oriented x 3; cognitive function intact; pupils equally reactive to light and accomodation; cranial nerves II-XII grossly normal, moving all 4 extremities except expected limited right lower extremity movement given suspected fracture in the immobilization, strength accordingly severely globally decreased. Psychiatric: affect appears normal, no acute evidence of depressive or anxiety feelings. Vitals/I&O's: Vital Signs Temp Pulse Resp BP Pulse Ox 97.6 F L 80 16 101/63 96 09/18/18 03:00 09/18/18 03:00 09/18/18 03:00 09/18/18 03:00 09/18/18 03:00 Oxygen Delivery Method Room Air Weight: 162 lb 7.691 oz Body Mass Index (BMI) 29.7 Intake and Output for Last 24 Hours 09/16/18 09/17/18 09/18/18 23:59 23:59 23:59 Intake Total 120 / 120 1272 / 1272 Output Total 100 / 100 Balance 120 / 120 1172 / 1172 Laboratory Results 09/17/18 12:11: Vitamin D 25-Hydroxy 24.7 L 09/17/18 12:12: WBC 11.8 H, RBC 4.78, Hgb 13.9, Hct 42.0, MCV 87.9, MCH 29.1, MCHC 33.1, RDW 13.6, RDW Differential 43.7, Plt Count 240, MPV 11.1, Immature Gran % (Auto) 0.300, Neut % (Auto) 88.4 H, Lymph % (Auto) 4.1 L, [place] % (Auto) 6.7, Eos % (Auto) 0.3, Baso % (Auto) 0.2, Absolute Neuts (auto) 10.5 H, Absolute Lymphs (auto) 0.49 L, Total Counted Not Reportable 09/17/18 12:12: Sodium 136, Potassium 3.9, Chloride 101, Carbon Dioxide 28.0, Anion Gap 7, BUN 18, Creatinine 0.80, Estim Creat Clear Calc 42.88, Est GFR (MDRD) Af Amer 88, Est GFR (MDRD) Non-Af 73, BUN/Creatinine Ratio 22.5 H, Glucose 147 H, Calcium 8.7 09/17/18 12:12: Total Creatine Kinase 116 09/17/18 12:45: Urine Color Yellow, Urine Clarity Sl. Cloudy, Urine pH 6.5, Ur Specific [place] 1.010, Urine Protein Negative, Urine Glucose (UA) Normal, Urine Ketones 5 H, Urine Occult Blood Negative, Urine Nitrite Negative, Urine Bilirubin Negative, Urine Urobilinogen 4 H, Ur Leukocyte Esterase Negative, Urine RBC 0 SEEN, Urine WBC 0 SEEN, Ur Squamous Epith Cells 0-5 SEEN, Urine Bacteria 0 SEEN, Urine Mucus 0 SEEN Current Medications Acetaminophen (Tylenol) 650 mg PO Q6H PRN PRN PRN Reason: Mild Pain (1-3)/Temp > 100.7 F Last Admin: 09/18/18 06:42 Dose: 650 mg Sodium Chloride () 1,000 mls @ 75 mls/hr IV .[id number] [facility] Last Admin: 09/18/18 03:23 Dose: 75 mls/hr Levothyroxine Sodium (Synthroid) 137 mcg PO DAILY@0600 [facility] Last Admin: 09/18/18 06:43 Dose: 137 mcg Magnesium Hydroxide (Milk Of Magnesia) 30 ml PO DAILY PRN PRN PRN Reason: Constipation Oxycodone HCl (Oxyir) 5 mg PO Q4H PRN PRN PRN Reason: MOD-SEVERE PAIN (4-1010) Last Admin: 09/18/18 02:31 Dose: 5 mg Medical Necessity - Tobacco Use Smoking Status: Never smoker Assessment/Plan All Active Problems Right knee injury (Acute) Inability to ambulate due to right knee (Acute) Multiple falls (Acute) The patient is an 82 y/o F w/ PMHx: Hypothyroidism, OA, Urinary Incontinence who presents to the [facility] ED on 09/17/18 with history of walking with her walker, suddenly buckled secondary to right knee debility, landing on her knee and hitting her head with notable swelling to the knees following prompting ED evaluation. (1) Debility, Fall, R > L Knee Pain, Suspected Nondisplaced R Periprosthetic Femur Fx: ED plain films w/ R Knee w/ moderate sized lipohemarthrosis with a possible occult fracture suspected, nondisplaced along the distal metaphyseal area of the medial right femur, hip and pelvis with degenerative changes only, lumbar spine with poor visualization of the superior endplate of the L4 vertebra possibly a compression fracture or possibly involvement with a metastatic deposit or infectious process, grade 1 anterolisthesis of L4 on L5. Admitted to DC, fall precautions, pain management, bowel regimen. Orthopedic surgery consulted, allowance per their note for TTWB RLE, vitamin D level obtained and notably low, holding aspirin therapy given hemarthrosis. Noted that if remains nondisplaced will not require surgical intervention. Planned knee immobilizer placement. PT/OT/CM for discharge planning. (2) Vitamin D Deficiency: Vitamin D 25, Hydroxy 24.7, will initiate supplementation with 600-800 units of vitamin D3 daily. (3) Hyperglycemia: Admission glucose 147, HgbA1c 6.4%, pre-diabetic range. (4) Hypothyroidism: Continue home synthroid regimen, TSH 15.60, will obtain FT4. (5) DVT Prophylaxis: SCDs, holding chemoprophylaxis given hemarthroses. Code Visit Inpatient E&M: 68317 Subs Hosp L2
--- NOTE | 2018-09-18 07:23 | PN_ITS ---
Patient Problems: Active and Suspected Problems Right knee injury (Acute) Inability to ambulate due to right knee (Acute) Multiple falls (Acute) Subjective: Patient with ongoing discomfort to the right knee especially with any palpation or movement attempts. Evaluation per orthopedic surgery this morning and felt likely a nondisplaced femur fracture with plan for immobilization and allowance of toe-touch weightbearing. Given periprosthetic unable to unfortunately aspirate with continued notable edema. Patient with no other acute plane otherwise. Patient denies fevers, chills, nausea, emesis, abdominal pain, chest pain or dyspnea. Objective: Physical Examination: General: awake, alert, oriented x 3 and cooperative, seated upright in bed, uncomfortable only with palpation of the right knee. Skin: normal color, turgor, no icterus, cyanosis. HEENT: AT/NC, EOMI, PERRLA, MMM. Lungs: CTA bilaterally, moderate effort, mild decrease BL bases, no rales, ronchi or wheezing. Heart: Regular rate and rhythm; no gallop, rub audible. Abdomen: soft, NTTP, ND, normal BS. Extremities: no cyanosis, clubbing, s/p fall w/ R knee notable TTP, effusion, limited ROM, awaiting immobilization for suspected fracture. Neurological: patient awake, alert, oriented x 3; cognitive function intact; pupils equally reactive to light and accomodation; cranial nerves II-XII grossly normal, moving all 4 extremities except expected limited right lower extremity movement given suspected fracture in the immobilization, strength accordingly severely globally decreased. Psychiatric: affect appears normal, no acute evidence of depressive or anxiety feelings. Vitals/I&O's: Vital Signs Temp Pulse Resp BP Pulse Ox 97.6 F L 80 16 101/63 96 09/18/18 03:00 09/18/18 03:00 09/18/18 03:00 09/18/18 03:00 09/18/18 03:00 Oxygen Delivery Method Room Air Weight: 162 lb 7.691 oz Body Mass Index (BMI) 29.7 Intake and Output for Last 24 Hours 09/16/18 09/17/18 09/18/18 23:59 23:59 23:59 Intake Total 120 / 120 1272 / 1272 Output Total 100 / 100 Balance 120 / 120 1172 / 1172 Laboratory Results 09/17/18 12:11: Vitamin D 25-Hydroxy 24.7 L 09/17/18 12:12: WBC 11.8 H, RBC 4.78, Hgb 13.9, Hct 42.0, MCV 87.9, MCH 29.1, MCHC 33.1, RDW 13.6, RDW Differential 43.7, Plt Count 240, MPV 11.1, Immature Gran % (Auto) 0.300, Neut % (Auto) 88.4 H, Lymph % (Auto) 4.1 L, [place] % (Auto) 6.7, Eos % (Auto) 0.3, Baso % (Auto) 0.2, Absolute Neuts (auto) 10.5 H, Absolute Lymphs (auto) 0.49 L, Total Counted Not Reportable 09/17/18 12:12: Sodium 136, Potassium 3.9, Chloride 101, Carbon Dioxide 28.0, Anion Gap 7, BUN 18, Creatinine 0.80, Estim Creat Clear Calc 42.88, Est GFR (MDRD) Af Amer 88, Est GFR (MDRD) Non-Af 73, BUN/Creatinine Ratio 22.5 H, Glucose 147 H, Calcium 8.7 09/17/18 12:12: Total Creatine Kinase 116 09/17/18 12:45: Urine Color Yellow, Urine Clarity Sl. Cloudy, Urine pH 6.5, Ur Specific [place] 1.010, Urine Protein Negative, Urine Glucose (UA) Normal, Urine Ketones 5 H, Urine Occult Blood Negative, Urine Nitrite Negative, Urine Bilirubin Negative, Urine Urobilinogen 4 H, Ur Leukocyte Esterase Negative, Urine RBC 0 SEEN, Urine WBC 0 SEEN, Ur Squamous Epith Cells 0-5 SEEN, Urine Bacteria 0 SEEN, Urine Mucus 0 SEEN Current Medications Acetaminophen (Tylenol) 650 mg PO Q6H PRN PRN PRN Reason: Mild Pain (1-3)/Temp > 100.7 F Last Admin: 09/18/18 06:42 Dose: 650 mg Sodium Chloride () 1,000 mls @ 75 mls/hr IV .[id number] [facility] Last Admin: 09/18/18 03:23 Dose: 75 mls/hr Levothyroxine Sodium (Synthroid) 137 mcg PO DAILY@0600 [facility] Last Admin: 09/18/18 06:43 Dose: 137 mcg Magnesium Hydroxide (Milk Of Magnesia) 30 ml PO DAILY PRN PRN PRN Reason: Constipation Oxycodone HCl (Oxyir) 5 mg PO Q4H PRN PRN PRN Reason: MOD-SEVERE PAIN (4-1010) Last Admin: 09/18/18 02:31 Dose: 5 mg Medical Necessity - Tobacco Use Smoking Status: Never smoker Assessment/Plan All Active Problems Right knee injury (Acute) Inability to ambulate due to right knee (Acute) Multiple falls (Acute) The patient is an 82 y/o F w/ PMHx: Hypothyroidism, OA, Urinary Incontinence who presents to the [facility] ED on 09/17/18 with history of walking with her walker, suddenly buckled secondary to right knee debility, landing on her knee and hitting her head with notable swelling to the knees following prompting ED evaluation. (1) Debility, Fall, R > L Knee Pain, Suspected Nondisplaced R Periprosthetic Femur Fx: ED plain films w/ R Knee w/ moderate sized lipohemarthrosis with a possible occult fracture suspected, nondisplaced along the distal metaphyseal area of the medial right femur, hip and pelvis with degenerative changes only, lumbar spine with poor visualization of the superior endplate of the L4 vertebra possibly a compression fracture or possibly involvement with a metastatic deposit or infectious process, grade 1 anterolisthesis of L4 on L5. Admitted to [place], fall precautions, pain management, bowel regimen. Orthopedic surgery consulted, allowance per their note for TTWB RLE, vitamin D level obtained and notably low, holding aspirin therapy given hemarthrosis. Noted that if remains nondisplaced will not require surgical intervention. Planned knee immobilizer placement. PT/OT/CM for discharge planning. (2) Vitamin D Deficiency: Vitamin D 25, Hydroxy 24.7, will initiate supplementation with 600-800 units of vitamin D3 daily. (3) Hyperglycemia: Admission glucose 147, HgbA1c 6.4%, pre-diabetic range. (4) Hypothyroidism: Continue home synthroid regimen, TSH 15.60, will obtain FT4. (5) DVT Prophylaxis: SCDs, holding chemoprophylaxis given hemarthroses. Code Visit Inpatient E&M: 01679 Subs Hosp L2
[2018-09-18 07:57] LABS: Absolute Neutrophil Count 6.4 X10^3/uL (2.0-7.7); Basophil# 0.01 X10^3/uL; Basophil% 0.1 % (0-1); Eosinophil# 0.14 X10^3/uL; Eosinophils% 1.8 % (0-5); Hematocrit 36.9 % (37-47); Hemoglobin 11.8 g/dl (12.0-15.0); Lymphocyte % 11.3 % (19-41); Mean Corpuscular Hgb 28.5 pg (27.0-32.0); Mean Corpuscular Volume 89.1 fL (81-99); Monocyte# 0.54 X10^3/uL; Monocyte% 6.8 % (0-10); Neutrophil # 6.37 X10^3/uL (2.7-7.7); Neutrophil % 79.7 % (47-70); Platelet Count 192 K/mm3 (150-450); RBC Distribution Width SD 45.7 fl (35.1-43.9); Red Blood Count 4.14 M/mm3 (4.2-5.4)
[2018-09-18 07:58] LABS: POSITIVE COUNT NO; POSITIVE DIFFERENTIAL NO; POSITIVE MORPHOLOGY NO
[2018-09-18 08:19] LABS: Anion Gap 6 (5-15); BUN 22 mg/dL (7-18); BUN/Creat Ratio 21.2 RATIO (10-20); Chloride 101 mmol/L (98-107); Creatinine, Serum 1.04 mg/dL (0.55-1.02); EST Glomerular Filtration Rate 54 mL/min (>60); Est Glom Filt Rate - Afr Amer 65 mL/min (>60); Estimated Creatinine Clearance 32.99 ml/min; Glucose 120 mg/dL (74-106); Potassium 3.8 mmol/L (3.5-5.1); Sodium Level 136 mmol/L (136-145)
[2018-09-18 08:24] LABS: Hemoglobin A1c 6.4 % (4.2-6.3)
[2018-09-18 08:42] VITALS: BP 113/62; PULSE 78; RESP 18; TEMP 36.5; O2SAT 100
--- NOTE | 2018-09-18 09:10 | CON.PCM_ITS ---
Reason for Consult History of Present Illness: The patient is a 82 year old F [] Past Medical History Past Medical History (Chronic Problems): Chronic Problems Hypothyroid (Chronic) Allergies codeine Adverse Reaction (Verified 09/17/18 11:38) Vomiting morphine Adverse Reaction (Verified 09/17/18 11:38) Vomiting Home Medications: Ambulatory Orders Medication Instructions Recorded Aspirin E.C. [Ecotrin] 81 mg PO DAILY@0800 09/17/18 Levothyroxine [Synthroid] 137 mcg PO DAILY 09/17/18 Naproxen Sodium [Aleve] 440 mg PO PRN PRN 09/17/18 Surgical History: total knee arthroplasty Lives: Alone Smoking Status: Never smoker - *Family History Maternal History Items: Heart Disease - CHF Patient Problems: Active and Suspected Problems Right knee injury (Acute) Inability to ambulate due to right knee (Acute) Multiple falls (Acute) Subjective: Patient is a poor historian, but reports right knee pain which is acute after a fall yesterday and chronic LBP. Denies N/T/P. Objective: ROS, Past surgical Hx, Family Hx, Medical Hx, Allergies and Medications reviewed as per the H & P. - Physical Exam General: Alert, Cooperative, No apparent distress HEENT: Atraumatic Neck: Supple, No Nuchal Rigidity Extremities: Capillary Refill Less than 3 Seconds, Peripheral Pulses Normal, Tenderness - With 2+ efffusion right knee. Well healed TKR scar with no signs of infection. Mild low back pain to palpation. Gentle ROM well tolerated. Neurological: Neuro grossly intact Vital Signs Temp Pulse Resp BP Pulse Ox 97.7 F L 78 18 113/62 100 09/18/18 08:42 09/18/18 08:42 09/18/18 08:42 09/18/18 08:42 09/18/18 08:42 Oxygen Delivery Method Room Air Weight: 162 lb 7.691 oz Body Mass Index (BMI) 29.7 Intake and Output for Last 24 Hours 09/16/18 09/17/18 09/18/18 23:59 23:59 23:59 Intake Total 120 / 120 1272 / 1272 Output Total 100 / 100 Balance 120 / 120 1172 / 1172 Laboratory Tests Past 24 Hrs 09/17/18 09/17/18 09/17/18 12:11 12:12 12:12 WBC 11.8 H RBC 4.78 Hgb 13.9 Hct 42.0 MCV 87.9 MCH 29.1 MCHC 33.1 RDW 13.6 RDW Differential 43.7 Plt Count 240 MPV 11.1 Immature Gran % (Auto) 0.300 Neut % (Auto) 88.4 H Lymph % (Auto) 4.1 L [place] % (Auto) 6.7 Eos % (Auto) 0.3 Baso % (Auto) 0.2 Absolute Neuts (auto) 10.5 H Absolute Lymphs (auto) 0.49 L Total Counted Not Reportable Sodium 136 Potassium 3.9 Chloride 101 Carbon Dioxide 28.0 Anion Gap 7 BUN 18 Creatinine 0.80 Estim Creat Clear Calc 42.88 Est GFR (MDRD) Af Amer 88 Est GFR (MDRD) Non-Af 73 BUN/Creatinine Ratio 22.5 H Glucose 147 H Hemoglobin A1c Calcium 8.7 Magnesium Total Creatine Kinase Vitamin D 25-Hydroxy 24.7 L TSH Urine Color Urine Clarity Urine pH Ur Specific [place] Urine Protein Urine Glucose (UA) Urine Ketones Urine Occult Blood Urine Nitrite Urine Bilirubin Urine Urobilinogen Ur Leukocyte Esterase Urine RBC Urine WBC Ur Squamous Epith Cells Urine Bacteria Urine Mucus 09/17/18 09/17/18 09/18/18 12:12 12:45 07:40 WBC 8.0 RBC 4.14 L Hgb 11.8 L Hct 36.9 L MCV 89.1 MCH 28.5 MCHC 32.0 RDW 14.0 RDW Differential 45.7 H Plt Count 192 MPV 11.0 Immature Gran % (Auto) 0.300 Neut % (Auto) 79.7 H Lymph % (Auto) 11.3 L [place] % (Auto) 6.8 Eos % (Auto) 1.8 Baso % (Auto) 0.1 Absolute Neuts (auto) 6.4 Absolute Lymphs (auto) 0.90 Total Counted Not Reportable Sodium Potassium Chloride Carbon Dioxide Anion Gap BUN Creatinine Estim Creat Clear Calc Est GFR (MDRD) Af Amer Est GFR (MDRD) Non-Af BUN/Creatinine Ratio Glucose Hemoglobin A1c Calcium Magnesium Total Creatine Kinase 116 Vitamin D 25-Hydroxy TSH Urine Color Yellow Urine Clarity Sl. Cloudy Urine pH 6.5 Ur Specific [place] 1.010 Urine Protein Negative Urine Glucose (UA) Normal Urine Ketones 5 H Urine Occult Blood Negative Urine Nitrite Negative Urine Bilirubin Negative Urine Urobilinogen 4 H Ur Leukocyte Esterase Negative Urine RBC 0 SEEN Urine WBC 0 SEEN Ur Squamous Epith Cells 0-5 SEEN Urine Bacteria 0 SEEN Urine Mucus 0 SEEN 09/18/18 09/18/18 07:40 07:40 WBC RBC Hgb Hct MCV MCH MCHC RDW RDW Differential Plt Count MPV Immature Gran % (Auto) Neut % (Auto) Lymph % (Auto) [place] % (Auto) Eos % (Auto) Baso % (Auto) Absolute Neuts (auto) Absolute Lymphs (auto) Total Counted Sodium 136 Potassium 3.8 Chloride 101 Carbon Dioxide 29.0 Anion Gap 6 BUN 22 H Creatinine 1.04 H Estim Creat Clear Calc 32.99 Est GFR (MDRD) Af Amer 65 Est GFR (MDRD) Non-Af 54 L BUN/Creatinine Ratio 21.2 H Glucose 120 H Hemoglobin A1c 6.4 H Calcium 8.0 L Magnesium 2.0 Total Creatine Kinase Vitamin D 25-Hydroxy TSH 15.60 H Urine Color Urine Clarity Urine pH Ur Specific [place] Urine Protein Urine Glucose (UA) Urine Ketones Urine Occult Blood Urine Nitrite Urine Bilirubin Urine Urobilinogen Ur Leukocyte Esterase Urine RBC Urine WBC Ur Squamous Epith Cells Urine Bacteria Urine Mucus Assessment/Plan All Active Problems Right knee injury (Acute) Inability to ambulate due to right knee (Acute) Multiple falls (Acute) 1. Nondisplaced right periprosthetic femur fx -- If the fracture remains nondisplaced, she will require no surgery. I explained to her that this will likely take approximately [address] in immobilizer. Continue walker with TTWB RLE. 2. Chronic LBP with underlying DDD -- Doubt acute infectious process
[2018-09-18 09:25] VITALS: PULSE 72
[2018-09-18 10:16] LABS: T4 Free Direct 1.29 ng/dL (0.76-1.46)
--- NOTE | 2018-09-18 13:49 | CASEMGMT ---
SOCIAL WORK: Referral received this date from RN ALAINA for discharge planning. Chart reviewed. SW met with patient in her room; obtained her stated consent to meet with her in front of adult granddaughter and [id number], Clare, who were at her bedside. Patient laying in bed. Introduced self and SW role at [facility]; advised patient and family that primary SW will be available on Thursday to further discuss discharge planning needs and to provide assistance. Gently broached topic of anticipated discharge planning needs as patient has nondisplaced right periprosthetic femur fracture, requiring immobilizer and instruction to learn to walk with walker for TTWB on RL. Patient lives alone and she reports that family is not able to provide needed 24 hour supervision or assistance. Physician advised patient that anticipated recovery time is 3 months. When SW attempted to discuss tentative plans patient became irritable and stated that nothing has been decided yet. CM provided education to patient and family regarding skilled level of care and insurance reimbursement based on medical necessity. Discussed need for PT/OT evaluations for required pre-cert with patient's [facility] prior to patient discharge from hospital. Advised patient and family that insurance does not pay for [facility] placement. Therapists did enter room to attempt to engage patient in therapy session, however she refused to participate or even to sit to edge of bed despite their attempts to explain importance for referral and authorization process. SW acknowledged that perhaps patient is not feeling up to participating in therapies today, however she states like I said, my family is visiting and I am not doing it. Patient then stated that she doesn't even know if her doctor wants her to participate in therapy. This SW attempted to reassure her that physician ordered the therapy and that therapists cannot work with her without an order from physician. Patient remained adamant regarding refusal to participate. Listing printed off from [employer] website of panel SNF providers for [facility] and provided to [id number] for review with patient and other family members. Advised that primary social professionals will follow up with them on Thursday. No further issues at this time. MARIAMA Lanier
[2018-09-18 14:09] VITALS: BP 144/73; PULSE 94; RESP 16; TEMP 36.6; O2SAT 97
[2018-09-18 21:48] VITALS: BP 124/66; PULSE 102; RESP 14; TEMP 36.9; O2SAT 93
[2018-09-19 02:53] VITALS: BP 121/75; PULSE 103; RESP 14; TEMP 36.9; O2SAT 93
[2018-09-19] MEDS: 0.9% Normal Saline 1,000 ML 75 ML IV ×2 (06:14→20:32)
[2018-09-19] MEDS: Levothyroxine 137 MCG Tablet PO (06:14)
[2018-09-19 06:27] LABS: Absolute Lymphocyte Count 0.98 X10^3/ul (0.83-4.51); Basophil# 0.03 X10^3/uL; Basophil% 0.4 % (0-1); Eosinophil# 0.24 X10^3/uL; Eosinophils% 3.5 % (0-5); Hematocrit 35.8 % (37-47); Hemoglobin 11.6 g/dl (12.0-15.0); Lymphocyte # 0.98 X10^3/ul (4.0); Lymphocyte % 14.4 % (19-41); Mean Corp Hgb Conc 32.4 g/gl (32-36); Mean Corpuscular Hgb 28.4 pg (27.0-32.0); Mean Corpuscular Volume 87.7 fL (81-99); Mean Platelet Vol. 11.1 fl (6.2-12.0); Monocyte# 0.59 X10^3/uL; Monocyte% 8.7 % (0-10); Neutrophil # 4.95 X10^3/uL (2.7-7.7); Neutrophil % 72.7 % (47-70); Platelet Count 179 K/mm3 (150-450); RBC Distribution Width SD 44.5 fl (35.1-43.9); Red Blood Count 4.08 M/mm3 (4.2-5.4); White Blood Count 6.8 K/mm3 (4.4-11.0)
[2018-09-19 06:33] LABS: POSITIVE COUNT NO; POSITIVE DIFFERENTIAL NO; POSITIVE MORPHOLOGY NO
[2018-09-19 06:38] LABS: Anion Gap 9 (5-15); BUN 18 mg/dL (7-18); BUN/Creat Ratio 25.4 RATIO (10-20); Calcium,Total 7.9 mg/dL (8.5-10.1); Chloride 105 mmol/L (98-107); Creatinine, Serum 0.71 mg/dL (0.55-1.02); EST Glomerular Filtration Rate 84 mL/min (>60); Est Glom Filt Rate - Afr Amer 101 mL/min (>60); Glucose 116 mg/dL (74-106); Potassium 3.7 mmol/L (3.5-5.1); Sodium Level 137 mmol/L (136-145)
--- NOTE | 2018-09-19 07:04 | PCM.PN.HOSP ---
Patient Problems: Active and Suspected Problems Right knee injury (Acute) Inability to ambulate due to right knee (Acute) Multiple falls (Acute) Subjective: The patient is an 82 y/o F w/ PMHx: Hypothyroidism, OA, Urinary Incontinence who presents to the [facility] ED on 09/17/18 with history of walking with her walker, suddenly buckled secondary to right knee debility, landing on her knee and hitting her head with notable swelling to the knees following prompting ED evaluation. ED plain films w/ R Knee w/ moderate sized lipohemarthrosis with a possible occult fracture suspected, nondisplaced along the distal metaphyseal area of the medial right femur, hip and pelvis with degenerative changes only, lumbar spine with poor visualization of the superior endplate of the L4 vertebra possibly a compression fracture or possibly involvement with a metastatic deposit or infectious process, grade 1 anterolisthesis of L4 on L5. Admitted to [place], fall precautions, pain management, bowel regimen. Orthopedic surgery consulted, allowance per their note for TTWB RLE, vitamin D level obtained and notably low, holding aspirin therapy given hemarthrosis. Noted that if remains nondisplaced will not require surgical intervention. Continue knee immobilizer placement. PT/OT/CM for discharge planning. 09/19/18 Hgb 11.6, decreased from admission 13.9, not amenable to aspiration secondary to prior replacement unfortunately. Vitamin D 25, Hydroxy 24.7, will initiate supplementation with 600-800 units of vitamin D3 daily. TSH 15.60, FT4 1.29, subclinical, given presentation, increased synthroid. Patient with no acute events overnight per self and per nursing report. Patient continues to have discomfort to the right knee especially with any movement attempts. Patient is very reticent to perform therapies the day prior and declined but following discussions this morning about the importance of performing therapies and need for assessment prior to allowance of transition to shelter facility is amenable. Discussed the reason why aspiration was not being performed to the right knee and she understands that orthopedic surgery will avoid doing this given status post replacement to avoid possible joint infection. Patient denies fevers, chills, nausea, emesis, abdominal pain, chest pain or dyspnea. Objective: Physical Examination: General: awake, alert, oriented x 3 and cooperative, seated upright in bed, more comfortable appearing than day prior. Skin: normal color, turgor, no icterus, cyanosis. HEENT: AT/NC, EOMI, PERRLA, MMM. Lungs: CTA bilaterally, moderate effort, mild decrease BL bases, no rales, ronchi or wheezing. Heart: Regular rate and rhythm; no gallop, rub audible. Abdomen: soft, NTTP, ND, normal BS. Extremities: no cyanosis, clubbing, s/p fall w/ R knee notable TTP, effusion, limited ROM, knee immobilizer in place now. Neurological: patient awake, alert, oriented x 3; cognitive function intact; pupils equally reactive to light and accomodation; cranial nerves II-XII grossly normal, moving all 4 extremities except expected limited right lower extremity movement given fracture knee immobilizer in place, strength accordingly severely globally decreased. Psychiatric: affect appears normal, no acute evidence of depressive or anxiety feelings. Vitals/I&O's: Vital Signs Temp Pulse Resp BP Pulse Ox 98.4 F 103 H 14 121/75 H 93 09/19/18 02:53 09/19/18 02:53 09/19/18 02:53 09/19/18 02:53 09/19/18 02:53 Oxygen Delivery Method Room Air Weight: 162 lb 7.691 oz Body Mass Index (BMI) 29.7 Intake and Output for Last 24 Hours 09/17/18 09/18/18 09/19/18 23:59 23:59 23:59 Intake Total 120 / 120 2458 / 2458 869 / 869 Output Total 300 / 300 Balance 120 / 120 2158 / 2158 869 / 869 Laboratory Results 09/18/18 07:40: WBC 8.0, RBC 4.14 L, Hgb 11.8 L, Hct 36.9 L, MCV 89.1, MCH 28.5, MCHC 32.0, RDW 14.0, RDW Differential 45.7 H, Plt Count 192, MPV 11.0, Immature Gran % (Auto) 0.300, Neut % (Auto) 79.7 H, Lymph % (Auto) 11.3 L, [place] % (Auto) 6.8, Eos % (Auto) 1.8, Baso % (Auto) 0.1, Absolute Neuts (auto) 6.4, Absolute Lymphs (auto) 0.90, Total Counted Not Reportable 09/18/18 07:40: Sodium 136, Potassium 3.8, Chloride 101, Carbon Dioxide 29.0, Anion Gap 6, BUN 22 H, Creatinine 1.04 H, Estim Creat Clear Calc 32.99, Est GFR (MDRD) Af Amer 65, Est GFR (MDRD) Non-Af 54 L, BUN/Creatinine Ratio 21.2 H, Glucose 120 H, Calcium 8.0 L, Magnesium 2.0, TSH 15.60 H 09/18/18 07:40: Hemoglobin A1c 6.4 H 09/18/18 07:40: Free T4 1.29 09/19/18 06:05: WBC 6.8, RBC 4.08 L, Hgb 11.6 L, Hct 35.8 L, MCV 87.7, MCH 28.4, MCHC 32.4, RDW 14.0, RDW Differential 44.5 H, Plt Count 179, MPV 11.1, Immature Gran % (Auto) 0.300, Neut % (Auto) 72.7 H, Lymph % (Auto) 14.4 L, [place] % (Auto) 8.7, Eos % (Auto) 3.5, Baso % (Auto) 0.4, Absolute Neuts (auto) 5.0, Absolute Lymphs (auto) 0.98, Total Counted Not Reportable 09/19/18 06:05: Sodium 137, Potassium 3.7, Chloride 105, Carbon Dioxide 23.0, Anion Gap 9, BUN 18, Creatinine 0.71, Estim Creat Clear Calc 34.30, Est GFR (MDRD) Af Amer 101, Est GFR (MDRD) Non-Af 84, BUN/Creatinine Ratio 25.4 H, Glucose 116 H, Calcium 7.9 L Current Medications Acetaminophen (Tylenol) 650 mg PO Q6H PRN PRN PRN Reason: Mild Pain (1-3)/Temp > 100.7 F Last Admin: 09/18/18 06:42 Dose: 650 mg [facility]olecalcifer[facility] ([facility]itamin [facility]) [facility] Last Admin: 09/18/18 09:25 Dose: 1,000 unit Sodium Chloride () 1,000 mls @ 75 mls/hr IV .[id number] [facility] Last Admin: 09/19/18 06:14 Dose: 75 mls/hr Levothyroxine Sodium (Synthroid) 137 mcg PO DAILY@0600 [facility] Last Admin: 09/19/18 06:14 Dose: 137 mcg Magnesium Hydroxide (Milk Of Magnesia) 30 ml PO DAILY PRN PRN PRN Reason: Constipation Morphine Sulfate () 1 - 2 mg IV Q4H PRN PRN PRN Reason: PAIN Ondansetron HCl (Zofran) 4 mg IV Q8H PRN PRN PRN Reason: NAUSEA/VOMITING Oxycodone HCl (Oxyir) 5 mg PO Q4H PRN PRN PRN Reason: MOD-SEVERE PAIN (4-10/10) Last Admin: 09/18/18 22:33 Dose: 5 mg Medical Necessity - Tobacco Use Smoking Status: Never smoker Assessment/Plan All Active Problems Right knee injury (Acute) Inability to ambulate due to right knee (Acute) Multiple falls (Acute) The patient is an 82 y/o F w/ PMHx: Hypothyroidism, OA, Urinary Incontinence who presents to the [facility] ED on 09/17/18 with history of walking with her walker, suddenly buckled secondary to right knee debility, landing on her knee and hitting her head with notable swelling to the knees following prompting ED evaluation. (1) Debility, Fall, R > L Knee Pain, Suspected Nondisplaced R Periprosthetic Femur Fx: ED plain films w/ R Knee w/ moderate sized lipohemarthrosis with a possible occult fracture suspected, nondisplaced along the distal metaphyseal area of the medial right femur, hip and pelvis with degenerative changes only, lumbar spine with poor visualization of the superior endplate of the L4 vertebra possibly a compression fracture or possibly involvement with a metastatic deposit or infectious process, grade 1 anterolisthesis of L4 on L5. Admitted to [place], fall precautions, pain management, bowel regimen. Orthopedic surgery consulted, allowance per their note for TTWB RLE, vitamin D level obtained and notably low, holding aspirin therapy given hemarthrosis. Noted that if remains nondisplaced will not require surgical intervention. Continue knee immobilizer placement. PT/OT/CM for discharge planning. 09/19/18 Hgb 11.6, decreased from admission 13.9, not amenable to aspiration secondary to prior replacement unfortunately. (2) Vitamin D Deficiency: Vitamin D 25, Hydroxy 24.7, will initiate supplementation with 600-800 units of vitamin D3 daily. (3) Hyperglycemia: Admission glucose 147, HgbA1c 6.4%, pre-diabetic range. (4) Hypothyroidism: Continue home synthroid regimen, TSH 15.60, FT4 1.29, subclinical, given presentation, will increase synthroid. (5) DVT Prophylaxis: SCDs, holding chemoprophylaxis given hemarthroses. Code Visit Inpatient E&M: 58524 Subs Hosp L2
--- NOTE | 2018-09-19 07:08 | PN_ITS ---
Patient Problems: Active and Suspected Problems Right knee injury (Acute) Inability to ambulate due to right knee (Acute) Multiple falls (Acute) Subjective: The patient is an 82 y/o F w/ PMHx: Hypothyroidism, OA, Urinary Incontinence who presents to the [facility] ED on 09/17/18 with history of walking with her walker, suddenly buckled secondary to right knee debility, landing on her knee and hitting her head with notable swelling to the knees following prompting ED evaluation. ED plain films w/ R Knee w/ moderate sized lipohemarthrosis with a possible occult fracture suspected, nondisplaced along the distal metaphyseal area of the medial right femur, hip and pelvis with degenerative changes only, lumbar spine with poor visualization of the superior endplate of the L4 vertebra possibly a compression fracture or possibly involvement with a metastatic deposit or infectious process, grade 1 anterolisthesis of L4 on L5. Admitted to [place], fall precautions, pain management, bowel regimen. Orthopedic surgery consulted, allowance per their note for TTWB RLE, vitamin D level obtained and notably low, holding aspirin therapy given hemarthrosis. Noted that if remains nondisplaced will not require surgical intervention. Continue knee immobilizer placement. PT/OT/CM for discharge planning. 09/19/18 Hgb 11.6, decreased from admission 13.9, not amenable to aspiration secondary to prior replacement unfortunately. Vitamin D 25, Hydroxy 24.7, will initiate supplementation with 600-800 units of vitamin D3 daily. TSH 15.60, FT4 1.29, subclinical, given presentation, increased synthroid. Patient with no acute events overnight per self and per nursing report. Patient continues to have discomfort to the right knee especially with any movement attempts. Patient is very reticent to perform therapies the day prior and declined but following discussions this morning about the importance of performing therapies and need for assessment prior to allowance of transition to [facility] facility is amenable. Discussed the reason why aspiration was not being performed to the right knee and she understands that orthopedic surgery will avoid doing this given status post replacement to avoid possible joint infection. Patient denies fevers, chills, nausea, emesis, abdominal pain, chest pain or dyspnea. Objective: Physical Examination: General: awake, alert, oriented x 3 and cooperative, seated upright in bed, more comfortable appearing than day prior. Skin: normal color, turgor, no icterus, cyanosis. HEENT: AT/NC, EOMI, PERRLA, MMM. Lungs: CTA bilaterally, moderate effort, mild decrease BL bases, no rales, ronchi or wheezing. Heart: Regular rate and rhythm; no gallop, rub audible. Abdomen: soft, NTTP, ND, normal BS. Extremities: no cyanosis, clubbing, s/p fall w/ R knee notable TTP, effusion, limited ROM, knee immobilizer in place now. Neurological: patient awake, alert, oriented x 3; cognitive function intact; pupils equally reactive to light and accomodation; cranial nerves II-XII grossly normal, moving all 4 extremities except expected limited right lower extremity movement given fracture knee immobilizer in place, strength accordingly severely globally decreased. Psychiatric: affect appears normal, no acute evidence of depressive or anxiety feelings. Vitals/I&O's: Vital Signs Temp Pulse Resp BP Pulse Ox 98.4 F 103 H 14 121/75 H 93 09/19/18 02:53 09/19/18 02:53 09/19/18 02:53 09/19/18 02:53 09/19/18 02:53 Oxygen Delivery Method Room Air Weight: 162 lb 7.691 oz Body Mass Index (BMI) 29.7 Intake and Output for Last 24 Hours 09/17/18 09/18/18 09/19/18 23:59 23:59 23:59 Intake Total 120 / 120 2458 / 2458 869 / 869 Output Total 300 / 300 Balance 120 / 120 2158 / 2158 869 / 869 Laboratory Results 09/18/18 07:40: WBC 8.0, RBC 4.14 L, Hgb 11.8 L, Hct 36.9 L, MCV 89.1, MCH 28.5, MCHC 32.0, RDW 14.0, RDW Differential 45.7 H, Plt Count 192, MPV 11.0, Immature Gran % (Auto) 0.300, Neut % (Auto) 79.7 H, Lymph % (Auto) 11.3 L, [place] % (Auto) 6.8, Eos % (Auto) 1.8, Baso % (Auto) 0.1, Absolute Neuts (auto) 6.4, Absolute Lymphs (auto) 0.90, Total Counted Not Reportable 09/18/18 07:40: Sodium 136, Potassium 3.8, Chloride 101, Carbon Dioxide 29.0, Anion Gap 6, BUN 22 H, Creatinine 1.04 H, Estim Creat Clear Calc 32.99, Est GFR (MDRD) Af Amer 65, Est GFR (MDRD) Non-Af 54 L, BUN/Creatinine Ratio 21.2 H, Glu cose 120 H, Calcium 8.0 L, Magnesium 2.0, TSH 15.60 H 09/18/18 07:40: Hemoglobin A1c 6.4 H 09/18/18 07:40: Free T4 1.29 09/19/18 06:05: WBC 6.8, RBC 4.08 L, Hgb 11.6 L, Hct 35.8 L, MCV 87.7, MCH 28.4, MCHC 32.4, RDW 14.0, RDW Differential 44.5 H, Plt Count 179, MPV 11.1, Immature Gran % (Auto) 0.300, Neut % (Auto) 72.7 H, Lymph % (Auto) 14.4 L, [place] % (Auto) 8.7, Eos % (Auto) 3.5, Baso % (Auto) 0.4, Absolute Neuts (auto) 5.0, Absolute Lymphs (auto) 0.98, Total Counted Not Reportable 09/19/18 06:05: Sodium 137, Potassium 3.7, Chloride 105, Carbon Dioxide 23.0, Anion Gap 9, BUN 18, Creatinine 0.71, Estim Creat Clear Calc 34.30, Est GFR (MDRD) Af Amer 101, Est GFR (MDRD) Non-Af 84, BUN/Creatinine Ratio 25.4 H, Glucose 116 H, Calcium 7.9 L Current Medications Acetaminophen (Tylenol) 650 mg PO Q6H PRN PRN PRN Reason: Mild Pain (1-3)/Temp > 100.7 F Last Admin: 09/18/18 06:42 Dose: 650 mg [facility]ole[facility]ifer[facility] ([facility]itamin [facility]) [facility] Last Admin: 09/18/18 09:25 Dose: 1,000 unit Sodium Chloride () 1,000 mls @ 75 mls/hr IV .[id number] [facility] Last Admin: 09/19/18 06:14 Dose: 75 mls/hr Levothyroxine Sodium (Synthroid) 137 mcg PO DAILY@0600 [facility] Last Admin: 09/19/18 06:14 Dose: 137 mcg Magnesium Hydroxide (Milk Of Magnesia) 30 ml PO DAILY PRN PRN PRN Reason: Constipation Morphine Sulfate () 1 - 2 mg IV Q4H PRN PRN PRN Reason: PAIN Ondansetron HCl (Zofran) 4 mg IV Q8H PRN PRN PRN Reason: NAUSEA/VOMITING Oxycodone HCl (Oxyir) 5 mg PO Q4H PRN PRN PRN Reason: MOD-SEVERE PAIN (4-10/10) Last Admin: 09/18/18 22:33 Dose: 5 mg Medical Necessity - Tobacco Use Smoking Status: Never smoker Assessment/Plan All Active Problems Right knee injury (Acute) Inability to ambulate due to right knee (Acute) Multiple falls (Acute) The patient is an 82 y/o F w/ PMHx: Hypothyroidism, OA, Urinary Incontinence who presents to the [facility] ED on 09/17/18 with history of walking with her walker, suddenly buckled secondary to right knee debility, landing on her knee and hitting her head with notable swelling to the knees following prompting ED evaluation. (1) Debility, Fall, R > L Knee Pain, Suspected Nondisplaced R Periprosthetic Femur Fx: ED plain films w/ R Knee w/ moderate sized lipohemarthrosis with a possible occult fracture suspected, nondisplaced along the distal metaphyseal area of the medial right femur, hip and pelvis with degenerative changes only, lumbar spine with poor visualization of the superior endplate of the L4 vertebra possibly a compression fracture or possibly involvement with a metastatic deposit or infectious process, grade 1 anterolisthesis of L4 on L5. Admitted to [place], fall precautions, pain management, bowel regimen. Orthopedic surgery consulted, allowance per their note for TTWB RLE, vitamin D level obtained and notably low, holding aspirin therapy given hemarthrosis. Noted that if remains nondisplaced will not require surgical intervention. Continue knee immobilizer placement. PT/OT/CM for discharge planning. 09/19/18 Hgb 11.6, decreased from admission 13.9, not amenable to aspiration secondary to prior replacement unfortunately. (2) Vitamin D Deficiency: Vitamin D 25, Hydroxy 24.7, will initiate supplementation with 600-800 units of vitamin D3 daily. (3) Hyperglycemia: Admission glucose 147, HgbA1c 6.4%, pre-diabetic range. (4) Hypothyroidism: Continue home synthroid regimen, TSH 15.60, FT4 1.29, subclinical, given presentation, will increase synthroid. (5) DVT Prophylaxis: SCDs, holding chemoprophylaxis given hemarthroses. Code Visit Inpatient E&M: 64538 Subs Hosp L2
[2018-09-19 10:23] VITALS: BP 151/74; PULSE 104; RESP 18; TEMP 37.6; O2SAT 94
[2018-09-19] MEDS: Levothyroxine 150 MCG Tablet PO (10:45)
[2018-09-19] MEDS: oxyCODONE 5 MG Tablet PO ×3 (10:58→22:36)
[2018-09-19] MEDS: Acetaminophen 325 MG Tablet 650 MG PO ×2 (10:59→18:24)
[2018-09-19 16:16] VITALS: BP 156/84; PULSE 51; RESP 16; TEMP 37.1; O2SAT 95
[2018-09-19 20:15] VITALS: BP 134/70; PULSE 95; RESP 16; TEMP 36.9; O2SAT 94
[2018-09-20 02:23] VITALS: BP 139/101; PULSE 95; RESP 14; TEMP 36.4; O2SAT 97
[2018-09-20] MEDS: Levothyroxine 150 MCG Tablet PO (05:28)
[2018-09-20] MEDS: Acetaminophen 325 MG Tablet 650 MG PO ×2 (05:34→12:28)
[2018-09-20 06:41] LABS: Absolute Lymphocyte Count 1.18 X10^3/ul (0.83-4.51); Absolute Neutrophil Count 2.9 X10^3/uL (2.0-7.7); Basophil# 0.02 X10^3/uL; Basophil% 0.4 % (0-1); Eosinophil# 0.26 X10^3/uL; Eosinophils% 5.3 % (0-5); Hematocrit 32.4 % (37-47); Hemoglobin 10.6 g/dl (12.0-15.0); Lymphocyte # 1.18 X10^3/ul (4.0); Lymphocyte % 24.1 % (19-41); Mean Corp Hgb Conc 32.7 g/gl (32-36); Mean Corpuscular Volume 88.5 fL (81-99); Mean Platelet Vol. 10.8 fl (6.2-12.0); Monocyte# 0.54 X10^3/uL; Neutrophil # 2.89 X10^3/uL (2.7-7.7); Platelet Count 175 K/mm3 (150-450); RBC Distribution Width CV 14.2 % (11.6-14.6); Red Blood Count 3.66 M/mm3 (4.2-5.4); White Blood Count 4.9 K/mm3 (4.4-11.0)
[2018-09-20 06:46] LABS: POSITIVE COUNT NO; POSITIVE DIFFERENTIAL NO; POSITIVE MORPHOLOGY NO
[2018-09-20 07:06] LABS: Anion Gap 6 (5-15); BUN 17 mg/dL (7-18); BUN/Creat Ratio 25.1 RATIO (10-20); Calcium,Total 7.7 mg/dL (8.5-10.1); Chloride 107 mmol/L (98-107); Creatinine, Serum 0.68 mg/dL (0.55-1.02); EST Glomerular Filtration Rate 89 mL/min (>60); Est Glom Filt Rate - Afr Amer 107 mL/min (>60); Glucose 108 mg/dL (74-106); Potassium 3.9 mmol/L (3.5-5.1); Sodium Level 140 mmol/L (136-145)
[2018-09-20 09:34] VITALS: BP 128/71; PULSE 111; RESP 18; TEMP 37.4; O2SAT 97
[2018-09-20] MEDS: 0.9% Normal Saline 1,000 ML 75 ML IV (09:36)
--- NOTE | 2018-09-20 10:06 | NURSING ---
MUCH ENCOURAGEMENT/EDUCATION PROVIDED ON REPOSITOINING NEEDS FOR SKIN- PT STATES SHE IS NOT TURNING- REINFORCEMENT PROVIDED AGAIN TO RISKS/RAMIFICATIONS ON LACK OF REPOSITIONING. PT DAUGHTER REINFORCES STAFF DESIRE AND EDUCATION TO REPOSITION PATIENT AND PT GIVING DEMANDS TO NURSING STAFF ON REPOSITIONING. PT THEN AGREES TO GET OOB TO [facility] FOR HER REQUEST SHE MAY HAVE TO GO TO THE BATHROOM. PT ASSISTED OOB TO [facility]. MUCH ENCOURAGEMENT/CUEING NEEDED, PT NOT ALWAYS RECEPTIVE TO INSTRUCTIONS AND YELLS AT STAFF AT TIMES.
--- NOTE | 2018-09-20 11:00 | CASEMGMT ---
Social Work Note SW met with pt and pt's daughter Winter present in room. Pt gave this worker permission to speak to her in front of her guest. Pt is alert and orientated but looked at her daughter to answer questions. SW asked about discharge plans. Winter confirms that pt will need to go to SNF for rehab as pt lives alone. Winter states she reviewed list that was provided to her and listed their choices. [facility] choice [facility] second [facility], and third choice is [facility]. SW explained referral process and that pt will need pre-cert. SW had reviewed PT/OT notes before entering room and pt has refused therapy everyday thus far. SW explained to pt and Winter that pt will need to stop refusing therapy and work with them to pre-cert is able to be obtained. SW explained that insurance is going to review PT/OT and see that pt is refusing PT/OT and will likely not pay for pt to go to SNF. SW explained that it would be private pay. Pt states Ok I get it. SW explained that working with PT/OT can be participating in bed exercises if that is all pt can do at this time. SW explained that [facility] and again encouraged pt to work with PT/OT so SNF placement can be approved. Pt and Winter state understanding. SW placed a call to Janiya Holman at [facility] in admissions and faxed [facility]. [facility] Shelley Beavers [employer] MAN, CHILD CARE CENTRE MANAGER
--- NOTE | 2018-09-20 12:13 | CASEMGMT ---
Addendum entered by Shelley Beavers 09/20/18 13:01: AMIE faxed referral to Ludmila at [facility] Original Note: Social Work Note SW received call from Janiya Holman at [facility] stating she is able to accept pt. AMIE informed Janiya Holman that pt will be ready for discharge once pre-cert is obtained. SW to submit for pre-cert through [facility]. SW reviewed PT/OT. Pt again refused therapy today. AMIE spoke with Charge Nurse who states she called PT/OT to work with pt again today. SW will submit for pre-cert once pt participates in therapy. [facility] Shelley Beavers [employer] CYLIND[employer] MECHANIC, INSERTER PROMOTIONAL ITEM
--- NOTE | 2018-09-20 14:47 | PCM.PN.HOSP ---
Patient Problems: Active and Suspected Problems Right knee injury (Acute) Inability to ambulate due to right knee (Acute) Multiple falls (Acute) Subjective: No issues overnight, she says she has some slight discomfort in her right knee but is otherwise doing okay. She has refused to work with physical therapy though that was corrected this afternoon. Vitals/I&O's: Vital Signs Temp Pulse Resp BP Pulse Ox 99.3 F H 111 H 18 128/71 H 97 09/20/18 09:34 09/20/18 09:34 09/20/18 09:34 09/20/18 09:34 09/20/18 09:34 Oxygen Delivery Method Room Air Weight: 162 lb 7.691 oz Body Mass Index (BMI) 29.7 Intake and Output for Last 24 Hours 09/18/18 09/19/18 09/20/18 23:59 23:59 23:59 Intake Total 2458 / 2458 2744 / 2744 1552 / 1552 Output Total 300 / 300 200 / 200 400 / 400 Balance 2158 / 2158 2544 / 2544 1152 / 1152 General: Alert, Oriented x3, Cooperative, No apparent distress HEENT: Atraumatic, PERRLA, EOMI, Normocephalic Oral: Moist Mucosa Neck: Supple, No JVD, Trachea Midline Lungs: Clear to auscultation, Normal air movement, No rhonchi, No wheeze, No rales Cardiovascular: Regular rate, Regular Rhythm, Normal S1, Normal S2, No murmurs Abdomen: Soft, Non Tender, Non-Distended, No Hepato-splenomegaly Extremities: No edema, Capillary Refill Less than 3 Seconds, Tenderness - Right knee, - - Slight effusion the right knee and is currently in an immobilizer Skin: No rashes, No breakdown Neurological: Neuro grossly intact, Sensory exam intact to light touch and pain Psych/Mental Status: Normal Affect, Appropriate Laboratory Results 09/20/18 06:25: WBC 4.9, RBC 3.66 L, Hgb 10.6 L, Hct 32.4 L, MCV 88.5, MCH 29.0, MCHC 32.7, RDW 14.2, RDW Differential 46.0 H, Plt Count 175, MPV 10.8, Immature Gran % (Auto) 0.200, Neut % (Auto) 59.0, Lymph % (Auto) 24.1, [place] % (Auto) 11.0 H, Eos % (Auto) 5.3 H, Baso % (Auto) 0.4, Absolute Neuts (auto) 2.9, Absolute Lymphs (auto) 1.18, Total Counted Not Reportable 09/20/18 06:25: Sodium 140, Potassium 3.9, Chloride 107, Carbon Dioxide 27.0, Anion Gap 6, BUN 17, Creatinine 0.68, Estim Creat Clear Calc 34.30, Est GFR (MDRD) Af Amer 107, Est GFR (MDRD) Non-Af 89, BUN/Creatinine Ratio 25.1 H, Glucose 108 H, Calcium 7.7 L Current Medications Acetaminophen (Tylenol) 650 mg PO Q6H PRN PRN PRN Reason: Mild Pain (1-3)/Temp > 100.7 F Last Admin: 09/20/18 12:28 Dose: 650 mg Cholecalciferol (Vitamin D) 1,000 unit PO DAILYCM [facility] Last Admin: 09/20/18 09:37 Dose: 1,000 unit Sodium Chloride () 1,000 mls @ 75 mls/hr IV .[id number] [facility] Last Admin: 09/20/18 09:36 Dose: 75 mls/hr Levothyroxine Sodium (Synthroid) 150 mcg PO DAILY@0600 [facility] Last Admin: 09/20/18 05:28 Dose: 150 mcg Magnesium Hydroxide (Milk Of Magnesia) 30 ml PO DAILY PRN PRN PRN Reason: Constipation Morphine Sulfate () 1 - 2 mg IV Q4H PRN PRN PRN Reason: PAIN Nutritional Formula (Lactose Free) (Ensure Enlive) 120 ml PO 4X/DAY [facility] Last Admin: 09/20/18 12:27 Dose: Not Given Ondansetron HCl (Zofran) 4 mg IV Q8H PRN PRN PRN Reason: NAUSEA/VOMITING Oxycodone HCl (Oxyir) 5 mg PO Q4H PRN PRN PRN Reason: MOD-SEVERE PAIN (4-10/10) Last Admin: 09/19/18 22:36 Dose: 5 mg Medical Necessity - Tobacco Use Smoking Status: Never smoker Assessment/Plan All Active Problems Right knee injury (Acute) Inability to ambulate due to right knee (Acute) Multiple falls (Acute) 1. Debility status post fall with nondisplaced right periprosthetic femur fracture/vitamin D deficiency -Since the fracture is nondisplaced it is nonoperative -Appreciate orthopedic surgery input -Continue with pain meds for comfort and the knee immobilizer -She is toe-touch weightbearing in the right lower extremity -Continue to hold aspirin for hemarthrosis -She has very slight deficiency at 24.7, will continue with her vitamin D3 replacement 2. Hypothyroidism -Free T4 is 1.29 and her TSH was 15.6, should her Synthroid was increased to 137 mcg 250 mcg -She will need repeat TSH in 4-6 weeks DVT: SCDs Code Visit Inpatient E&M: [id number] Subs Hosp L2
--- NOTE | 2018-09-20 14:52 | PN_ITS ---
Patient Problems: Active and Suspected Problems Right knee injury (Acute) Inability to ambulate due to right knee (Acute) Multiple falls (Acute) Subjective: No issues overnight, she says she has some slight discomfort in her right knee but is otherwise doing okay. She has refused to work with physical therapy though that was corrected this afternoon. Vitals/I&O's: Vital Signs Temp Pulse Resp BP Pulse Ox 99.3 F H 111 H 18 128/71 H 97 09/20/18 09:34 09/20/18 09:34 09/20/18 09:34 09/20/18 09:34 09/20/18 09:34 Oxygen Delivery Method Room Air Weight: 162 lb 7.691 oz Body Mass Index (BMI) 29.7 Intake and Output for Last 24 Hours 09/18/18 09/19/18 09/20/18 23:59 23:59 23:59 Intake Total 2458 / 2458 2744 / 2744 1552 / 1552 Output Total 300 / 300 200 / 200 400 / 400 Balance 2158 / 2158 2544 / 2544 1152 / 1152 General: Alert, Oriented x3, Cooperative, No apparent distress HEENT: Atraumatic, PERRLA, EOMI, Normocephalic Oral: Moist Mucosa Neck: Supple, No JVD, Trachea Midline Lungs: Clear to auscultation, Normal air movement, No rhonchi, No wheeze, No rales Cardiovascular: Regular rate, Regular Rhythm, Normal S1, Normal S2, No murmurs Abdomen: Soft, Non Tender, Non-Distended, No Hepato-splenomegaly Extremities: No edema, Capillary Refill Less than 3 Seconds, Tenderness - Right knee, - - Slight effusion the right knee and is currently in an immobilizer Skin: No rashes, No breakdown Neurological: Neuro grossly intact, Sensory exam intact to light touch and pain Psych/Mental Status: Normal Affect, Appropriate Laboratory Results 09/20/18 06:25: WBC 4.9, RBC 3.66 L, Hgb 10.6 L, Hct 32.4 L, MCV 88.5, MCH 29.0, MCHC 32.7, RDW 14.2, RDW Differential 46.0 H, Plt Count 175, MPV 10.8, Immature Gran % (Auto) 0.200, Neut % (Auto) 59.0, Lymph % (Auto) 24.1, [place] % (Auto) 11.0 H, Eos % (Auto) 5.3 H, Baso % (Auto) 0.4, Absolute Neuts (auto) 2.9, Absolute Lymphs (auto) 1.18, Total Counted Not Reportable 09/20/18 06:25: Sodium 140, Potassium 3.9, Chloride 107, Carbon Dioxide 27.0, Anion Gap 6, BUN 17, Creatinine 0.68, Estim Creat Clear Calc 34.30, Est GFR (MDRD) Af Amer 107, Est GFR (MDRD) Non-Af 89, BUN/Creatinine Ratio 25.1 H, Glucose 108 H, Calcium 7.7 L Current Medications Acetaminophen (Tylenol) 650 mg PO Q6H PRN PRN PRN Reason: Mild Pain (1-3)/Temp > 100.7 F Last Admin: 09/20/18 12:28 Dose: 650 mg Cholecalciferol (Vitamin D) 1,000 unit PO DAILYCM [facility] Last Admin: 09/20/18 09:37 Dose: 1,000 unit Sodium Chloride () 1,000 mls @ 75 mls/hr IV .[id number] [facility] Last Admin: 09/20/18 09:36 Dose: 75 mls/hr Levothyroxine Sodium (Synthroid) 150 mcg PO DAILY@0600 [facility] Last Admin: 09/20/18 05:28 Dose: 150 mcg Magnesium Hydroxide (Milk Of Magnesia) 30 ml PO DAILY PRN PRN PRN Reason: Constipation Morphine Sulfate () 1 - 2 mg IV Q4H PRN PRN PRN Reason: PAIN Nutritional Formula (Lactose Free) (Ensure Enlive) 120 ml PO 4X/DAY [facility] Last Admin: 09/20/18 12:27 Dose: Not Given Ondansetron HCl (Zofran) 4 mg IV Q8H PRN PRN PRN Reason: NAUSEA/VOMITING Oxycodone HCl (Oxyir) 5 mg PO Q4H PRN PRN PRN Reason: MOD-SEVERE PAIN (4-10/10) Last Admin: 09/19/18 22:36 Dose: 5 mg Medical Necessity - Tobacco Use Smoking Status: Never smoker Assessment/Plan All Active Problems Right knee injury (Acute) Inability to ambulate due to right knee (Acute) Multiple falls (Acute) 1. Debility status post fall with nondisplaced right periprosthetic femur fracture/vitamin D deficiency -Since the fracture is nondisplaced it is nonoperative -Appreciate orthopedic surgery input -Continue with pain meds for comfort and the knee immobilizer -She is toe-touch weightbearing in the right lower extremity -Continue to hold aspirin for hemarthrosis -She has very slight deficiency at 24.7, will continue with her vitamin D3 replacement 2. Hypothyroidism -Free T4 is 1.29 and her TSH was 15.6, should her Synthroid was increased to 137 mcg 250 mcg -She will need repeat TSH in 4-6 weeks DVT: SCDs Code Visit Inpatient E&M: [id number] Subs Hosp L2
--- NOTE | 2018-09-20 14:54 | NURSING ---
female phoned in states she is pt daughter omari dillon- inquiring about discharge status- updated that authorization just approved per case management- daughter asks that she be notified time of discharge- Shelley case management aware.
--- NOTE | 2018-09-20 15:16 | PCM.TXEXTCAR ---
- Diet 09/17/18 15:41 Diet: Regular Diet Food consistency:: Regular Liquid Consistency:: Regular/Thin Is pt able to select menu?: No - Routine Orders/Code Status Code Status: Full Code - Wound(s) RIGHT ELBOW Wound Type: SCAB - Therapies Weight Bearing: Toe-touch weight bearing - RLE Physical Therapy: Eval and Treat Occupational Therapy: Eval and Treat - Allergies/Procedures Done in Hospital Allergies/Adverse Reactions: Allergies codeine Adverse Reaction (Verified 09/17/18 11:38) Vomiting morphine Adverse Reaction (Verified 09/17/18 11:38) Vomiting - Type of Care/Length of Stay Estimated LOS: Convalescent Care Less Than 30 days Type of Care Needed: Skilled Rehab Potential: Good Prognosis: Good - Additional Orders/Day of Discharge Day of Discharge: 09/20/18 - Follow Up Care Primary Care Physician: Manohar Duran Chi, MD [Primary Care Provider] - Please follow up with your Primary Care Physician in: 3-5 days
[2018-09-20 15:18] VITALS: BP 146/82; PULSE 99; RESP 18; TEMP 37.1; O2SAT 98
--- NOTE | 2018-09-20 15:30 | CASEMGMT ---
Social Work Note AMIE placed a call to Ludmila at [facility] who approves for pt to discharge to [facility] today. Physician updated. AMIE faxed completed discharge paperwork to [facility] including transfer to extended care facility, signed medication list and any scripts. Originals in SNF folder and copy on pt's chart. AMIE completed convalescent 7000 in [facility]. Original in SNF folder and copy on pt's chart. AMIE arranged transportation via cot through [facility] for 5:00pm. Transportation form on SNF folder and copy on pt's chart. AMIE placed a call to Janet at [facility], updated her on approval from [facility] and transportation time. AMIE placed a call to pt's daughter Winter Barksdale ([phone]) and updated her on transportation time. RN updated on transportation time. Plan: Pt to discharge to [facility] today skilled with [facility] transportation via cot at 5:00pm Shelley Beavers PHARMACY RESIDENT, POST HOLE DIGGER
--- NOTE | 2018-09-20 16:10 | PCM.DC.SUM ---
Discharge Date and Diagnosis - Problem List Patient Problems: Active and Suspected Problems Right knee injury (Acute) Inability to ambulate due to right knee (Acute) Multiple falls (Acute) Date of Admission: 09/17/18 Date of Discharge: 09/20/18 - Primary Discharge Diagnosis Active and Suspected Problems Right knee injury (Acute) Inability to ambulate due to right knee (Acute) Multiple falls (Acute) - Secondary Discharge Diagnosis Chronic Problems Hypothyroid (Chronic) Hospital Course and Treatment Imaging Results: R Knee XR: IMPRESSION: Moderate sized lipohemarthrosis. An occult fracture should be ruled out. I suspect a nondisplaced fracture along the distal metaphyseal area of the medial right femur. R Hip XR: IMPRESSION: Degenerative changes of the hip. LUmbar XR: IMPRESSION: Degenerative changes of the spine, as detailed above. Poor visualization of the superior endplate at the L4 vertebrae. This may represent other compression fracture or possible involvement with a metastatic deposit or infectious process. Grade 1 anterolisthesis of L4 on L5. Consults: Orthopedic Surgery Operations: None Procedures: None Summary of Care Provided: Per HPI: The patient is a 82 year old F patient states that she was walking with her walker and describes that her right knee as opened up but on further discussion seems more buckled underneath her because of her fall. Patient thinks she may have landed on her right knee but denies hitting her head. Patient had swelling her knee and presented to the urgency room. X-ray of the right knee showed a moderate size lipohemarthrosis but no definitive fracture but it was suspected he may been in a displaced fracture along the distal metaphyseal area of the medial right femur. To do a lumbar spine x-ray that showed poor visualization of the superior endplate of L4 vertebrae. Agent and not necessarily describe any new pain in her back but just describes generalized pain all over. Hospital Course: 1. Debility status post fall with nondisplaced right periprosthetic femur fracture/vitamin D [id number]-ghik-old female who was in otherwise pretty good health presents with a fall at home. She was found to have a nondisplaced periprosthetic femur fracture which is nonoperative per Ortho. She is toe-touch weightbearing on the right and is in a knee immobilizer which should be continued at the [facility]. She has not needed any significant narcotic dosage I believe she took 1 oxycodone during her entire stay here therefore I feel like she would be better served with Tylenol as needed. Of note there was a possibility of hemarthrosis and therefore the aspirin that she was on at home was held and should continue to be held until her knee effusion has improved. Her vitamin D level was slightly low at 4.7 and she was started on 600-800 of vitamin D replacement which can be continued as an outpatient. 2. Hypothyroidism-on admission her TSH was 15.6 but her free T4 was 1.29, she was increased on her Synthroid from 137 mcg to 150 mcg. She will need to have a repeat TSH in 4-6 weeks as an outpatient. Patient Problems: Active and Suspected Problems Right knee injury (Acute) Inability to ambulate due to right knee (Acute) Multiple falls (Acute) - Physical Exam Vital Signs Temp Pulse Resp BP Pulse Ox 98.8 F 99 18 146/82 H 98 09/20/18 15:18 09/20/18 15:18 09/20/18 15:18 09/20/18 15:18 09/20/18 15:18 Oxygen Delivery Method Room Air Weight: 162 lb 7.691 oz Body Mass Index (BMI) 29.7 Intake and Output for Last 24 Hours 09/18/18 09/19/18 09/20/18 23:59 23:59 23:59 Intake Total 2458 / 2458 2744 / 2744 1552 / 1552 Output Total 300 / 300 200 / 200 400 / 400 Balance 2158 / 2158 2544 / 2544 1152 / 1152 Laboratory Tests Past 24 Hrs 09/20/18 09/20/18 06:25 06:25 WBC 4.9 RBC 3.66 L Hgb 10.6 L Hct 32.4 L MCV 88.5 MCH 29.0 MCHC 32.7 RDW 14.2 RDW Differential 46.0 H Plt Count 175 MPV 10.8 Immature Gran % (Auto) 0.200 Neut % (Auto) 59.0 Lymph % (Auto) 24.1 [place] % (Auto) 11.0 H Eos % (Auto) 5.3 H Baso % (Auto) 0.4 Absolute Neuts (auto) 2.9 Absolute Lymphs (auto) 1.18 Total Counted Not Reportable Sodium 140 Potassium 3.9 Chloride 107 Carbon Dioxide 27.0 Anion Gap 6 BUN 17 Creatinine 0.68 Estim Creat Clear Calc 34.30 Est GFR (MDRD) Af Amer 107 Est GFR (MDRD) Non-Af 89 BUN/Creatinine Ratio 25.1 H Glucose 108 H Calcium 7.7 L Home Medications: Medications to take at Discharge Cholecalciferol (VIT D3) [Vitamin D3] 1,000 unit PO DAILYCM tablet 09/20/18 Ensure Enlive 120 ml PO 4X/DAY liquid 09/20/18 Levothyroxine [Synthroid] 150 mcg PO DAILY@0600 tablet 09/20/18 Primary Care Physician: Manohar Duran Chi, MD [Primary Care Provider] - Please follow up with your Primary Care Physician in: 3-5 days Disposition: Care Home facility Minutes spent on discharge:: 35 Patient Condition:: Stable Medical Necessity - Tobacco Use Smoking Status: Never smoker Meaningful Use Info Meaningful Use Diagnoses (Choose all that apply): None applicable Code Visit Inpatient E&M: 98217 Disch Hosp
== END 2018-09-20 17:09 | disposition skilled nursing facility (03) | DRG 534 ==
LOC: ED 14:22 → MS3 09-18 06:51
PROVIDERS: Family Medicine; Emergency Provider Emergency Medicine; Family Provider Family Medicine Geriatric Medicine; PCP Family Medicine Geriatric Medicine; Visit Provider Family Medicine
DX: S72.491A Other fracture of lower end of right femur, initial encounter for closed fracture (principal); M97.11XA Periprosthetic fracture around internal prosthetic right knee joint, initial encounter; W18.30XA Fall on same level, unspecified, initial encounter; Z91.81 History of falling; Y93.01 Activity, walking, marching and hiking; Y92.019 Unspecified place in single-family (private) house as the place of occurrence of the external cause; Z96.651 Presence of right artificial knee joint; E03.9 Hypothyroidism, unspecified; E55.9 Vitamin D deficiency, unspecified
CPT/HCPCS: 36415; 72100; 73502; 73560; 80048; 81001; 82306; 82550; 83036; 83735; 84439; 84443; 85025; 97110; 97162; 97165; 97530; 99285; J7030; P9612; A4216

== ENCOUNTER → 2019-02-25 11:47 | Outpatient (CLI) | payer MEDICARE, SELFPAY ==
[2019-02-25 11:47] VITALS: BMI 31.4
[2019-02-25 12:57] LABS: Absolute Lymphocyte Count 1.33 X10^3/uL (0.83-4.51); Absolute Neutrophil Count 7.7 X10^3/uL (2.0-7.7); Basophil# 0.04 X10^3/uL; Basophil% 0.4 % (0-1); Eosinophil# 0.07 X10^3/uL; Eosinophils% 0.7 % (0-5); Hematocrit 36.7 % (37-47); Hemoglobin 11.7 g/dL (12.0-15.0); Lymphocyte # 1.33 X10^3/ul (4.0); Lymphocyte % 13.5 % (19-41); Mean Corp Hgb Conc 31.9 g/dL (32-36); Mean Corpuscular Hgb 28.6 pg (27.0-32.0); Mean Corpuscular Volume 89.7 fL (81-99); Mean Platelet Vol. 11.2 fl (6.2-12.0); Monocyte% 6.1 % (0-10); NRBC Flagged by Analyzer 0 % (0-5); Neutrophil # 7.72 X10^3/uL (2.7-7.7); Neutrophil % 78.7 % (47-70); Platelet Count 411 K/mm3 (150-450); RBC Distribution Width CV 15.2 % (11.6-14.6); RBC Distribution Width SD 49.8 fl (35.1-43.9); Red Blood Count 4.09 M/mm3 (4.2-5.4); White Blood Count 9.8 K/mm3 (4.4-11.0)
[2019-02-25 13:39] LABS: Vitamin D,25 Hydroxy 34.3 ng/mL (29.95-100.01)
[2019-02-25 13:44] LABS: ALB/GLOB Ratio 0.5 RATIO (0.9-2.4); AST(SGOT) 11 U/L (15-37); Alanine Aminotransfer ALT/SGPT 11 U/L (13-56); Albumin, Serum 2.1 g/dL (3.2-5.0); Alkaline Phosphatase 132 U/L (45-117); Anion Gap 5 (5-15); BUN 13 mg/dL (7-18); BUN/Creat Ratio 16.8 RATIO (10-20); Calcium,Total 7.6 mg/dL (8.5-10.1); Chloride 101 mmol/L (98-107); Cholesterol 117 mg/dL (200); Creatinine, Serum 0.77 mg/dL (0.55-1.02); EST Glomerular Filtration Rate 76 mL/min (>60); Est Glom Filt Rate - Afr Amer 92 mL/min (>60); Globulin 4.3 g/dL (2.2-4.2); Glucose 171 mg/dL (74-106); High Density Lipoprotein 54 mg/dL; Potassium 3.1 mmol/L (3.5-5.1); Protein, Total 6.4 g/dL (6.4-8.2); Sodium Level 135 mmol/L (136-145); Thyroid Stim Hormone (TSH) 0.04 uIU/mL (0.358-3.74); Triglycerides 96 mg/dL; Very Low Density Lipoprotein 19 mg/dL (5-40)
== END ==
PROVIDERS: Family Provider Family Medicine Geriatric Medicine; PCP Family Medicine Geriatric Medicine; Visit Provider Family Medicine Geriatric Medicine
DX: E78.5 Hyperlipidemia, unspecified (principal); E55.9 Vitamin D deficiency, unspecified; R53.83 Other fatigue
CPT/HCPCS: 36415; 80053; 80061; 82306; 84443; 85025

== ENCOUNTER → 2019-03-07 09:38 | Outpatient (CLI) | payer MEDICARE, SELFPAY ==
[2019-02-25 11:47] VITALS: BMI 31.4
--- NOTE | 2019-03-07 09:46 | MRI_ITS ---
STUDY: MRI LEFT HIP REASON FOR EXAM: Female, 83 years old. Pressure ulcer of the left buttock TECHNIQUE: Standardized fat and water weighted pulse sequences were obtained in all 3 orthogonal planes. COMPARISON: None. FINDINGS: There is soft tissue ulcer posterior to the sacrum, series 10 image 8/30. There is marrow edema with osteomyelitis of the sacrum, series 8 images 1240 through 15. There is subcutaneous edema There is mild articular narrowing of the hip joint, with less than 50% loss of the hyaline cartilage. Normal acetabulum. Normal labrum. Normal femoral head. Normal femoral neck and intratrochanteric region. There is no demonstrated fracture. Normal gluteus minimus, medius and iliopsoas tendons and distal insertions. There is no trochanteric, iliopsoas or iliopectineal bursitis. Normal superior and inferior pubic rami. There is spurring of the pubic symphysis. Normal ischial tuberosity. Normal origin of the hamstring tendons. Normal visualized iliac wing, sacroiliac joint, and sacral ala. There is colonic diverticulosis. There are no dilated loops of bowel. MRI/Lower Ext Joint Only W/WO Cont IMPRESSION: Osteomyelitis of the sacrum. Electronically Signed: Nolan Driscoll MD at 21:51 EDT , Service support ,
== END ==
PROVIDERS: Family Provider Family Medicine Geriatric Medicine; PCP Family Medicine Geriatric Medicine; Referring Provider Family Medicine Geriatric Medicine; Visit Provider Family Medicine Geriatric Medicine
DX: L89.329 Pressure ulcer of left buttock, unspecified stage (principal); E87.6 Hypokalemia
CPT/HCPCS: 36415; 73723; 80048; A9575

== ENCOUNTER → 2019-03-07 11:35 | Outpatient (CLI) | payer MEDICARE, SELFPAY ==
[2019-02-25 11:47] VITALS: BMI 31.4
[2019-03-07 12:48] LABS: Anion Gap 9 (5-15); BUN 15 mg/dL (7-18); BUN/Creat Ratio 21.6 RATIO (10-20); Chloride 103 mmol/L (98-107); Creatinine, Serum 0.69 mg/dL (0.55-1.02); EST Glomerular Filtration Rate 86 mL/min (>60); Est Glom Filt Rate - Afr Amer 104 mL/min (>60); Glucose 91 mg/dL (74-106); Potassium 4.4 mmol/L (3.5-5.1); Sodium Level 138 mmol/L (136-145)
== END ==
PROVIDERS: Family Provider Family Medicine Geriatric Medicine; PCP Family Medicine Geriatric Medicine; Visit Provider Family Medicine Geriatric Medicine
DX: E87.6 Hypokalemia (principal)
CPT/HCPCS: 36415; 80048

== ENCOUNTER → 2019-03-09 16:14 | Outpatient (CLI) | payer MEDICARE, SELFPAY ==
[2019-02-25 11:47] VITALS: BMI 31.4
== END ==
PROVIDERS: Family Provider Family Medicine Geriatric Medicine; PCP Family Medicine Geriatric Medicine; Referring Provider Internal Medicine Infectious Disease; Visit Provider Internal Medicine Infectious Disease
DX: M46.28 Osteomyelitis of vertebra, sacral and sacrococcygeal region (principal)
CPT/HCPCS: 87070; 87077; 87186; 87205

== ENCOUNTER 2019-03-15 14:30 | Outpatient (RCR) | payer MEDICARE, SELFPAY ==
[2019-02-25 11:47] VITALS: BMI 31.4
[2019-03-15 14:43] VITALS: BP 125/70; PULSE 102; RESP 16; TEMP 36.1; BMI 26.3
--- NOTE | 2019-03-16 16:48 | PCM.WC.HP ---
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 She was sent to [facility] where she was unable to ambulate due to her knee and she was not repositioned properly and developed an ulcer on her left buttock at the end of October 2018. She is now home with [employer] [facility] 3 times per week and her daughter and grand-daughter helping her at home. She is able to ambulate short distances with her walker. She spends the majority of her time in a wheelchair. Her wound care has been Santyl daily. Wound culture from 03/09/19 grew Escherichia coli, Proteus mirabilis and Streptococcus group A. MRI of left hip showed osteomyelitis of the sacrum. She is to meet with RIVKA Parks next Thursday about the osteomyelitis. I will start her on Bactrim since it is sensitive to her wound cultures until then, then he can change her to what he thinks is appropriate. 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 Surgical History: total knee arthroplasty Allergies/Adverse Reactions: Allergies codeine Adverse Reaction (Verified 03/15/19 16:17) Vomiting morphine Adverse Reaction (Verified 03/15/19 16:17) Vomiting Home Medications: Ambulatory Orders Medication Instructions Recorded Cholecalciferol (VIT D3) [Vitamin 1,000 unit PO DAILYCM tablet 09/20/18 D3] Aspirin [Aspirin, Baby] 81 mg PO DAILY@0800 03/15/19 Ensure Enlive 120 ml PO DAILY 03/15/19 Levothyroxine [Synthroid] 0.125 mcg PO DAILY@0600 03/15/19 Potassium mg PO DAILY 03/15/19 - Family History Maternal Heart Disease - CHF Smoking Status: Never smoker Review of Systems Constitutional: Denies: Chills, Fever, Weight Change Eyes: Denies: Pain, Vision Change HEENT: Denies: Difficulty Hearing, Difficulty Swallowing, Sinus Congestion Cardiovascular: Denies: Chest Pain, Palpitations Respiratory: Denies: Cough, Shortness of Breath Gastrointestinal: Denies: Diarrhea, Nausea, Vomiting Genitourinary: Denies: Dysuria, Hematuria Musculoskeletal: Reports: Joint stiffness - knee Skin: Reports: Wounds - left buttocks stage IV ulcer Neurological: Reports: Balance problems Psychiatric: Reports: Anxiety, Depression Endocrine: Denies: Heat/ Cold Intolerance, Polydipsia, Polyuria Hematologic/ Lymphatic: Denies: Easy Bruising, Easy Bleeding - Physical Exam Vital Signs Temp Pulse Resp BP 96.9 F L 102 H 16 125/70 H 03/15/19 14:43 03/15/19 14:43 03/15/19 14:43 03/15/19 14:43 General: Alert, Oriented x3, Cooperative HEENT: Atraumatic Oral: Moist Mucosa Lungs: Normal air movement Cardiovascular: Regular Rhythm Abdomen: Soft Extremities: Capillary Refill Less than 3 Seconds, Peripheral Pulses Normal Skin: Ulcer/ Wound - Left buttock with ulcer that undermines and tunnels. Wound Measurements and Assessment WC - Nurse 1 - General Ulcer Measurement Start: 03/15/19 14:42 Freq: Status: Active Protocol: Activity Type Activity Date Activity User E-Sign Co-Sign Detail Recorded Client Recorded Date Recorded By Document 03/15/19 14:43 [facility] [id number] 03/15/19 15:09 [facility] 03/15/19 14:43 Wound Center Nurse 1 [Ulcer Assessment] #1-LEFT BUTTOCK -Combined with other wound No -Current Size (cm) - Length 1.3 -Current Size (cm) - Width 1 -Current Size (cm) - Depth 3.9 -Total Square Cm 1.3 -Date of Last Picture (Recall this 03/15/19 field) -Photo Taken Yes -Epithelialization None Present -Tunneling Yes -Tunneling Position (O'clock) 11 -Tunneling Distance (cm) 6.1 -Undermining/Tunneling No -Circular Undermining No -Exudate Amt Small -Exudate Type Serous -Wound Margin Distinct, Outline Attached -Granulation Amt Large (67-100%) -Granulation Quality Red -Slough/Fibrin No -Necrosis Amt None Present (0 %) -Texture (Jane-wound Skin Appearance) Assessed -Moisture (Jane-wound Skin Appearance Assessed ) -Color (Jane-wound Skin Appearance) Assessed -Temperature (Jane-wound Skin No Abnormality Appearance) (Pt Warm) -Tenderness on Palpation (Jane-wound No Skin Appearance) -Ulcer Cleansing SOAP AND WATER -Foul Odor after Cleansing No -Anesthetic Used 5% Lidocaine Gel WC - Nurse 2 - General Ulcer CM Notes Start: 03/15/19 14:42 Freq: Status: Active Protocol: Activity Type Activity Date Activity User E-Sign Co-Sign Detail Recorded Client Recorded Date Recorded By Document 03/15/19 15:37 [id number] 03/15/19 15:41 03/15/19 15:37 Wound Center Nurse 2 [Procedure/Treatment] -Time 15:37 -Correct Patient Yes -Correct Side, Site, Position Yes -Correct Procedure Yes -Procedure Performed Yes -Type of Procedure Debridement -Clinical Debridement Muscle -Post Debridement Size (cm) - Length 1.5 -Post Debridement Size (cm) - Width 1.5 -Post Debridement Size (cm) - Depth 2.5 -Total Square Cm 2.25 -Wound/Ulcer Outcome Not Healed -Ulcer Cleansing Rinsed/ Irrigated with Saline -Foul Odor after Cleansing No -Bioengineered Tissue No -Other underminin. 7cm 4.0cm -Offloading No -Treatment Response Procedure Tolerated Well [See Physician Procedure note for Specifics] Pain Scale: 0-10 Numeric [Pain] -Is Patient Pain Free? Yes Musculoskeletal: No Tenderness to Palpation of Joints or Extremities Neurological: Neuro grossly intact Psych/Mental Status: Normal Affect, Appropriate Debridement Note Post-Debridement Measurements/Treatment - Nurse 2 - General Ulcer CM Notes Start: 03/15/19 14:42 Freq: Status: Active Protocol: Activity Type Activity Date Activity User E-Sign Co-Sign Detail Recorded Client Recorded Date Recorded By Document 03/15/19 15:37 [id number] 03/15/19 15:41 03/15/19 15:37 Wound Center Nurse 2 #1-LEFT BUTTOCK -Time 15:37 -Correct Patient Yes -Correct Side, Site, Position Yes -Correct Procedure Yes -Procedure Performed Yes -Type of Procedure Debridement -Clinical Debridement Muscle -Post Debridement Size (cm) - Length 1.5 -Post Debridement Size (cm) - Width 1.5 -Post Debridement Size (cm) - Depth 2.5 -Total Square Cm 2.25 -Wound/Ulcer Outcome Not Healed -Ulcer Cleansing Rinsed/ Irrigated with Saline -Foul Odor after Cleansing No -Bioengineered Tissue No -Other underminin. 7cm 4.0cm -Offloading No -Treatment Response Procedure Tolerated Well Pain Scale: 0-10 Numeric Is Patient Pain Free? 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 2. Right knee injury. 3. Decreased mobility Plan: Patient fell in August of 2018 and fractured her right knee. She was sent to [facility] where she was unable to ambulate due to her knee and she was not repositioned properly and developed an ulcer on her left buttock at the end of October 2018. She is now home with [facility] 3 times per week and her daughter and grand-daughter helping her at home. She is able to ambulate short distances with her walker. She spends the majority of her time in a wheelchair. Her wound care has been Santyl daily. Wound culture from 03/09/19 grew Escherichia coli, Proteus mirabilis and Streptococcus group A. MRI of left hip showed osteomyelitis of the sacrum. She is to meet with RIVKA Parks next Thursday about the osteomyelitis. I will start her on Bactrim since it is sensitive to her wound cultures until then, then he can change her to what he thinks is appropriate. She will most likely need an operative debridement to open up the sacral ulcer with the undermining and 9 cm tunneling. Will stop the santyl and start Dakins solution dressing packed into the ulcer. Will have home health do it 3 times per week because the family does not feel comfortable packing the ucler. She will follow up on 03/[address] Blake to discuss her surgical options. Code Visit Office Visits / Consults: [id number] OV L3 Est - 25 modifier [id number]: [id number] Analy musc/fascia 20 sq cm/<
== END 2019-03-21 23:59 ==
LOC: WC 14:30
PROVIDERS: Family Provider Family Medicine Geriatric Medicine; PCP Family Medicine Geriatric Medicine; Visit Provider Nurse Practitioner Family
DX: L89.324 Pressure ulcer of left buttock, stage 4 (principal); M46.28 Osteomyelitis of vertebra, sacral and sacrococcygeal region; B96.20 Unspecified Escherichia coli [E. coli] as the cause of diseases classified elsewhere; B96.4 Proteus (mirabilis) (morganii) as the cause of diseases classified elsewhere; B95.0 Streptococcus, group A, as the cause of diseases classified elsewhere; E03.9 Hypothyroidism, unspecified; K21.9 Gastro-esophageal reflux disease without esophagitis; Z79.899 Other long term (current) drug therapy; Z79.82 Long term (current) use of aspirin; M81.0 Age-related osteoporosis without current pathological fracture; G62.9 Polyneuropathy, unspecified
CPT/HCPCS: 11043; 99213; G0463

== ENCOUNTER → 2019-03-23 13:36 | Outpatient (CLI) | payer MEDICARE, SELFPAY ==
[2019-03-15 14:43] VITALS: BMI 26.3
[2019-03-23 14:28] LABS: Hematocrit 32.6 % (37-47); Hemoglobin 9.9 g/dL (12.0-15.0); Mean Corp Hgb Conc 30.4 g/dL (32-36); Mean Corpuscular Hgb 27.9 pg (27.0-32.0); Mean Corpuscular Volume 91.8 fL (81-99); Mean Platelet Vol. 11.3 fl (6.2-12.0); Platelet Count 219 K/mm3 (150-450); RBC Distribution Width CV 16.1 % (11.6-14.6); Red Blood Count 3.55 M/mm3 (4.2-5.4); White Blood Count 4.7 K/mm3 (4.4-11.0)
[2019-03-23 14:53] LABS: Anion Gap 5 (5-15); BUN 29 mg/dL (7-18); BUN/Creat Ratio 35.4 RATIO (10-20); Calcium,Total 8.1 mg/dL (8.5-10.1); Chloride 104 mmol/L (98-107); Creatinine, Serum 0.82 mg/dL (0.55-1.02); EST Glomerular Filtration Rate 71 mL/min (>60); Est Glom Filt Rate - Afr Amer 86 mL/min (>60); Glucose 116 mg/dL (74-106); Potassium 4.3 mmol/L (3.5-5.1); Sodium Level 135 mmol/L (136-145)
== END ==
PROVIDERS: Family Provider Family Medicine Geriatric Medicine; PCP Family Medicine Geriatric Medicine; Referring Provider Internal Medicine Infectious Disease; Visit Provider Internal Medicine Infectious Disease
DX: M86.9 Osteomyelitis, unspecified (principal)
CPT/HCPCS: 36415; 80048; 85027

== ENCOUNTER 2019-04-04 16:33 | Inpatient (IN) | payer MEDICARE, SELFPAY ==
[2019-03-28 09:25] VITALS: BMI 26.3
--- NOTE | 2019-04-03 21:46 | HP.PCM_ITS ---
History and Physical Date of Admission: 04/04/19 History of Present Illness Date of Service: 03/28/19 - WOUND CENTER CONSULT REFERRING PROVIDER: Yeni Patino CNP. OUTSIDE MACHINIST HELPER: Dr. Blake. 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 History of Wound: 83 year old woman presents with a left buttock pressure sore extending medially to the sacrum that developed after falling in August,. She sustained a right periprosthetic femur fracture and was placed in an immobilizer. She was discharged to an ECF. With lack of mobility, she developed the pressure sore. It was treated with Santyl initially and has been changed to Dakin's dressing changes daily. It was noted there was substantial undermining medially toward the sacrum. She had an MRI done on 03/07/19 which showed osteomyelitis. Wound culture from 03/09/19 showed E. coli, Proteus mirabilis, and Streptococcus group A. She initially was placed on Bactrim and Augmentin was added. Anticipate increased metabolic demands from this pressure sore and nutritional supplementation with protein was encourage to help the healing process. The patient can ambulate sometimes with the walker. Due to the substantial amount of undermining, wound care has been less than optimal and with the suspicion of osteomyelitis on MRI, I was asked to evaluate this patient for surgical options for treatment. Today she denies fever. Her appetite is ok. 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 Arthritis. History of right knee prosthesis. History of right periprosthetic femur fracture. Surgical History: total knee arthroplasty - right. Allergies/Adverse Reactions: Allergies codeine Adverse Reaction (Verified 03/31/19 15:39) Vomiting morphine Adverse Reaction (Verified 03/31/19 15:39) Vomiting Home Medications: Ambulatory Orders Medication Instructions Recorded Aspirin [Aspirin, Baby] 81 mg PO DAILY@0800 03/15/19 Ensure Enlive 120 ml PO DAILY 03/15/19 Levothyroxine [Synthroid] 125 mcg PO DAILY@0600 03/15/19 Amoxicillin [Amoxil] 500 mg PO Q8H 03/31/19 Potassium Chloride [Klor-Con M10] 10 meq PO DAILY 03/31/19 - Family History Maternal Heart Disease - CHF Lives: With Family Smoking Status: Never smoker Tobacco Use: Non-smoker Alcohol: None Drugs: None Review of Systems Constitutional: Denies: Fever, Weakness, Fatigue Eyes: Denies: Pain HEENT: Denies: Nasal Congestion, Sore Throat Cardiovascular: Denies: Chest Pain Respiratory: Denies: Cough, Shortness of Breath Gastrointestinal: Denies: Constipation, Diarrhea, Nausea, Vomiting Genitourinary: Denies: Frequency, Hematuria Musculoskeletal: Reports: Joint Pain. Denies: Back Pain, Hand Pain, Leg Pain, Neck Pain Skin: Reports: Wounds - has left buttock pressure sore extending medially to the sacrum, Stage IV. Neurological: Denies: Headaches Psychiatric: Denies: Depression Endocrine: Denies: Polydipsia, Polyuria Hematologic/ Lymphatic: Denies: Easy Bruising - Physical Exam Vital Signs Temp Pulse Resp BP 97 F L 85 16 117/64 03/28/19 09:25 03/28/19 09:25 03/28/19 09:25 03/28/19 09:25 General: Alert, Oriented x3 HEENT: PERRLA, EOMI Oral: Moist Mucosa Neck: Supple Lungs: Clear to auscultation Cardiovascular: Regular rate, Regular Rhythm Abdomen: Soft, Non-Distended Extremities: No clubbing, No cyanosis, Edema - mild edema lower extremities., Peripheral Pulses Normal Skin: Ulcer/ Wound - has left buttock pressure sore extending superomedially to the sacrum. 9 cm of undermining. Bone is palpable. No cellulitis, fluctuance, or purulent drainage. Wound Measurements and Assessment WC - Nurse 1 - General Ulcer Measurement Start: 03/28/19 09:25 Freq: Status: Active Protocol: Activity Type Activity Date Activity User E-Sign Co-Sign Detail Recorded Client Recorded Date Recorded By Document 03/28/19 09:25 DL [id number] 03/28/19 09:34 DL 03/28/19 09:25 Wound Center Nurse 1 [Ulcer Assessment] #1-LEFT BUTTOCK -Current Size (cm) - Length 0.8 -Current Size (cm) - Width 0.9 -Current Size (cm) - Depth 3 -Total Square Cm 0.72 -Photo Taken No -Undermining/Tunneling Starts (O' 11 clock) -Undermining/Tunneling Ends (O'clock) 4 -Maximum Distance (cm) 6 -Exudate Amt Medium -Exudate Type Serosanguineous -Wound Margin Distinct, Outline Attached -Granulation Amt Large (67-100%) -Granulation Quality Red -Necrosis Amt None Present (0 %) -Structure Exposed N/A -Texture (Jane-wound Skin Appearance) Scarring -Moisture (Jane-wound Skin Appearance No Abnormality ) -Color (Jane-wound Skin Appearance) No Abnormality -Temperature (Jane-wound Skin No Abnormality Appearance) (Pt Warm) -Tenderness on Palpation (Jane-wound No Skin Appearance) -Ulcer Cleansing Rinsed/ Irrigated with Saline -Foul Odor after Cleansing No -Anesthetic Used 4% Lidocaine Solution WC - Nurse 2 - General Ulcer CM Notes Start: 03/28/19 09:25 Freq: Status: Active Protocol: Activity Type Activity Date Activity User E-Sign Co-Sign Detail Recorded Client Recorded Date Recorded By Document 03/28/19 10:05 [id number] 03/28/19 10:11 TERRI 03/28/19 10:05 Wound Center Nurse 2 [Procedure/Treatment] -Time 10:05 -Correct Patient Yes -Correct Side, Site, Position Yes -Correct Procedure Yes -Procedure Performed Yes -Type of Procedure Debridement -Clinical Debridement Muscle -Post Debridement Size (cm) - Length 0.8 -Post Debridement Size (cm) - Width 1.0 -Post Debridement Size (cm) - Depth 3.0 -Total Square Cm 0.80 -Wound/Ulcer Outcome Not Healed -Ulcer Cleansing Rinsed/ Irrigated with Saline -Foul Odor after Cleansing No -Bioengineered Tissue No -Bleeding Controlled with Pressure -Other undermining 5cm -12:00 11:00- 8.0cm -Offloading No -Treatment Response Procedure Tolerated Well [See Physician Procedure note for Specifics] Pain Scale: 0-10 Numeric [Pain] -Is Patient Pain Free? Yes Lymphatic: - - no inguinal adenopathy. Neurological: Cranial nerves II-XII grossly intact Psych/Mental Status: Normal Affect, Appropriate Debridement Note Post-Debridement Measurements/Treatment WC - Nurse 2 - General Ulcer CM Notes Start: 03/28/19 09:25 Freq: Status: Active Protocol: Activity Type Activity Date Activity User E-Sign Co-Sign Detail Recorded Client Recorded Date Recorded By Document 03/28/19 10:05 TERRI [id number] 03/28/19 10:11 TERRI 03/28/19 10:05 Wound Center Nurse 2 #1-LEFT BUTTOCK -Time 10:05 -Correct Patient Yes -Correct Side, Site, Position Yes -Correct Procedure Yes -Procedure Performed Yes -Type of Procedure Debridement -Clinical Debridement Muscle -Post Debridement Size (cm) - Length 0.8 -Post Debridement Size (cm) - Width 1.0 -Post Debridement Size (cm) - Depth 3.0 -Total Square Cm 0.80 -Wound/Ulcer Outcome Not Healed -Ulcer Cleansing Rinsed/ Irrigated with Saline -Foul Odor after Cleansing No -Bioengineered Tissue No -Bleeding Controlled with Pressure -Other undermining 5cm -12:00 11:00- 8.0cm -Offloading No -Treatment Response Procedure Tolerated Well Pain Scale: 0-10 Numeric Is Patient Pain Free? Yes Wound debrided: #1 Left buttock extending medially to the sacrum. Laterality: Left Wound Grade/Stage: IV. Type of Debridement: Excisional debridement Anesthesia Used: 4% Lidocaine Solution Depth: Down to and including healthy tissue, in the subcutaneous layer, to muscle, to bone - bone is palpable but not debrided. Percentage of wound debrided: 100 Instrument Used: 5mm curette Tissue Removed: subcutaneous tissue and muscle. Severity: Fat Layer Exposed - muscle is exposed. bone is palpable but not debrided. Amount of bleeding with debridement: Mild Bleeding Controlled with: Pressure Patient tolerated procedure well Assessment/Plan Assessment: 1. Left buttock pressure sore extending medially to the sacrum, Stage IV. 2. Osteomyelitis posterior aspect of pelvis in sacral area. 3. L ate effect right periprosthetic femur fracture. 4. History of right knee replacement. Plan: MRI reviewed. Evidence of osteomyelitis. Continue Dakin's dressing changes to the pressure sore. Reviewed recent wound culture from 03/09/19. It showed E. coli, Proteus mirabilis, and Streptococcus group A. She was placed on Bactrim and Augmentin. Due to the amount of undermining, this pressure will not heal because wound care is suboptimal. The area of undermining needs to unroofed and opened up to make wound care more effective. Also a partial ostectomy for osteomyelitis will be done as well. After surgery, can begin wound care with the VAC. Tissue and bone will be sent to Pathology to rule out carcinoma and to check for osteomyelitis and to Microbiology for culture. A positive culture will necessitate antibiotic therapy. Depending on the sensitivity, if IV antibiotics are needed, a PICC line will be placed. Anticipate increased metabolic demands from the pressure sore. Will check a Prealbumin and encourage nutritional supplementation with protein to help the healing process. The patient is ambulatory and with aggressive wound care with the VAC and with maximizing nutrition and controlling any infection with antibiotics, the pressure sore may decrease in size and eventually heal. However with the presence of osteomyelitis, it may not. HBO treatments may be beneficial in controlling the infection and allow better healing. If a flap becomes necessary in the future, will avoid the gluteus muscle because she is ambulatory. Will use a gluteal fasciocutaneous flap with possible skin grafting of the donor area laterally. Also a vastus lateralis muscle flap can be used as well. If enough healing occurs, a skin graft may be a possibility as well. Generally skin grafts aren't durable in pressure sores. But since she is ambulatory and being 83 years old, if bone is covered with granulation tissue, an initial skin graft is reasonable. If not succesful, can always do the fasciocutaneous flap or muscle flap. If a flap is done, it would require 6 weeks of bedrest. A skin graft would not require that. Surgery would be under general anesthesia with a surgical observation overnight stay in the hospital. Patient was informed of the risks and complications of the procedure including alternatives to surgery. These were discussed with her personally. She voices understanding and wishes to proceed. She voices understanding that the surgical wound will be much larger to encompass the degree of undermining. Will schedule the surgery in the next couple of weeks. Until then continue Bactrim and Augmentin. Followup one week for continued wound care.
[2019-04-04] VITALS (13 sets, daily range): BP systolic 101–145; BP diastolic 67–98; PULSE 76–125; RESP 14–18; TEMP 36.2–37; O2SAT 98–100; BMI 25.7
--- NOTE | 2019-04-04 10:17 | EKG12_ITS ---
Test Reason : PRE-OP Blood Pressure : / mmHG Vent. Rate : 086 BPM Atrial Rate : 086 BPM P-R Int : 148 ms QRS Dur : 080 ms QT Int : 350 ms P-R-T Axes : 070 014 096 degrees QTc Int : 418 ms Normal sinus rhythm Septal infarct , age undetermined Abnormal ECG Confirmed by CAROL RICE ([id number]), department editor SHADIA SIFUENTES ([id number]) on 04/08/2019 10:26:57 AM Referred By: Sammy Blake Confirmed By:CAROL RICE
[2019-04-04] MEDS: Lactated Ringers 1,000 ML 100 ML IV ×2 (11:07→16:50)
--- NOTE | 2019-04-04 11:45 | PRES_PTH ---
PATIENT: JEFRY MARINO LOC: MS3 U#:[id number] AGE/SX: 83/F ROOM: MS317 RE04/04/[address]: Dr. Sammy Blake MD : [id number] BED: 1 DIS: 04/06/2019 SPEC #: [id number] RECD: 04/05/19 08:41 STATUS: SOUGail REQ #: [id number] RANJIT: 04/04/19 11:[address]: Sammy Blake DEPT: SURGICAL PATHOLOGY RECD BY: Juanito Huitron ENTERED: 04/05/19 10:04 SP TYPE: PRESS SORE OTHR DR: Dr. 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 Skin and soft tissue of sacral region, excision: Ulceration with associated acute and chronic inflammation and granulation. B. Sacral bone debridement: Bone with chronic reactive and reparative change. Trilineage hematopoiesis. No evidence of acute osteomyelitis. Rare lymphoid aggregates. AM:kristel 04/08/19 MICROSCOPIC DESCRIPTION Slides are reviewed. GROSS DESCRIPTION A - Received in fixative is one container labeled with the patient's name and designated debrided sacral tissue. The specimen consists of four irregular fragments of indurated, anderson-pink soft tissue ranging in size from 4 cm to 8 cm. Two of the larger fragments contain skin ranging in size from 7 cm to 8.5 cm. The largest fragment contains a cutaneous ulcer measuring 1 cm in greatest dimension. Serial sections do not reveal mass lesions. Kier Boiler sections are submitted in two cassettes. Cassette 1 contains the cutaneous ulcer region. / AM:kristel 04/05/19 B - Received in fixative is one container labeled with the patient's name and designated debrided sacral bone. The specimen consists of multiple pieces of bone that in aggregate measure 2.5 x 2.5 x 0.4 cm. The entire specimen is submitted in one cassette after decalcification. / SJ:kristel 04/05/19 TC:2 CPT: 90537 x2, 65062
--- NOTE | 2019-04-04 16:24 | PCM.OPRPT ---
Report of Operation Date of Procedure: 04/04/19 Pre-Operative Diagnosis: 1. Left buttock pressure sore extending medially to the sacrum, Stage IV. 2. Osteomyelitis posterior aspect of pelvis in sacral area. 3. Late effect right periprosthetic femur fracture. 4. History of right knee replacement. Post-Operative Diagnosis: 1. Left sacral pressure sore with superomedial undermining at posterior aspect of pelvis, Stage IV. 2. Osteomyelitis posterior aspect of pelvis in sacral area. 3. Late effect right periprosthetic femur fracture. 4. History of right knee replacement. Surgery/Procedure Performed:: 1. Excision left sacral pressure sore with superomedial undermining at posterior aspect of pelvis, Stage IV, (120 cm2). 2. Partial ostectomy for osteomyelitis. Description of Surgical Findings:: 83 year old woman presents with a left buttock pressure sore extending medially to the sacrum that developed after falling in August,. She sustained a right periprosthetic femur fracture and was placed in an immobilizer. She was discharged to an ECF. With lack of mobility, she developed the pressure sore. It was treated with Santyl initially and has been changed to Dakin's dressing changes daily. It was noted there was substantial undermining medially toward the sacrum. She had an MRI done on 03/07/19 which showed osteomyelitis. Wound culture from 03/09/19 showed E. coli, Proteus mirabilis, and Streptococcus group A. She initially was placed on Bactrim and Augmentin was added. Anticipate increased metabolic demands from this pressure sore and nutritional supplementation with protein was encourage to help the healing process. The patient can ambulate sometimes with the walker. Due to the substantial amount of undermining, wound care has been less than optimal and with the suspicion of osteomyelitis on MRI, I was asked to evaluate this patient for surgical options for treatment. Today she denies fever. Her appetite is ok. Patient was informed of the risks and complications of the procedure including alternatives to surgery. These were discussed with the patient personally. Patient voices understanding and wishes to proceed. Size of defect left sacral area with superomedial undermining - 15 x 8 x 2 cm. tapper helper: None Type of Anesthesia:: General Specimen's removed: 1. Left sacral pressure sore with superomedial undermining soft tissue to Pathology and Microbiology. 2. Left sacral pressure sore with superomedial undermining bone to Pathology and Microbiology. Drains: None. Estimated Blood Loss (mL): 250 ml. Description of Procedure: Patient was taken to OR in supine position and was placed under general anesthesia. She was then placed in the prone position. The sacral and buttock areas were prepped and draped in the usual fashion. SCD's were placed for DVT prophylaxis. Perioperative antibiotics were given intravenously. Using xylocaine with epinephrine, the left sacral pressure sore with superomedial undermining was infiltrated. After waiting 5 minutes for the anesthetic to take effect, I excised the left sacral pressure sore with extension superiorly and medially over the sacral bone to include the undermined areas as well. Dissection was carried down into the subcutaneous tissue through the scarred muscle which was adherent to the underlying bone. A partial ostectomy was then performed using rongeurs. The bone looked grayish and was not very hard. Clinically the bone looked suspicious for osteomyelitis. Several areas of bone were debrided. A rasp was used to smooth out the bony edges. After excising the abnormal bursal scar tissue, the remaining soft tissue showed good bleeding. Hemostasis was obtained with electrocautery. The size of the sacral pressure sore after excision was 15 x 8 x 2 cm. The wound was irrigated with saline. I then dressed the wound with Mepitel nonadherent dressing followed by Kerlix gauze and Betadine and dry Kerlix gauze followed by ABD pads compression dressing. Half the soft tissue and half the bone was sent to Pathology for analysis to rule out carcinoma and to evaluate for osteomyelitis. Half the soft tissue and half the bone was sent to Microbiology for culture. A positive culture will necessitate antibiotic therapy. If pathology is positive for osteomyelitis, then [facility] IV antibiotics would be needed through a PICC line. She would also be evaluated at the [facility] for HBO treatments. Patient tolerated the procedure well and was sent to PACU in satisfactory condition. Patient will be sent upstairs for continued postop care. The VAC will be placed tomorrow. Anticipate increased metabolic demands. Will check a Prealbumin and encourage nutritional supplementation with protein to help the healing process. Grafts/Implants Used: None. - Complications None. - Admit VTE Documentation VTE Present on Admission: No VTE Mechan Device Prophylaxis: SCD's VTE Pharm Prophylaxis ordered?: No Code Visit Surgery Charges CPT - 39679 ICD-10 - L89.154, M86.9, M97.11xS, Z96.651, R29.6
--- NOTE | 2019-04-04 16:43 | EKG12_ITS ---
Test Reason : POST OP ARRYTHMIA Blood Pressure : / mmHG Vent. Rate : 114 BPM Atrial Rate : 114 BPM P-R Int : 162 ms QRS Dur : 080 ms QT Int : 308 ms P-R-T Axes : 072 031 168 degrees QTc Int : 424 ms Sinus tachycardia Low voltage QRS ST & T wave abnormality, consider lateral ischemia Abnormal ECG When compared with ECG of 04-APR-2019 10:28, MANUAL COMPARISON REQUIRED, DATA IS UNCONFIRMED Confirmed by CAROL RICE ([id number]), editor at large SHADIA SIFUENTES ([id number]) on 04/08/2019 10:27:53 AM Referred By: Sammy Blake Confirmed By:CAROL RICE
[2019-04-04] MEDS: Lactated Ringers 1,000 ML 60 ML IV (16:50)
[2019-04-04] MEDS: Docusate Sodium 100 MG Capsule PO (20:29)
[2019-04-05] MEDS: Lactated Ringers 1,000 ML 100 ML IV (04:12)
[2019-04-05 04:30] VITALS: BP 142/84; PULSE 108; RESP 18; TEMP 37.1; O2SAT 95
[2019-04-05] MEDS: Lactated Ringers 1,000 ML 60 ML IV ×2 (05:16→23:40)
[2019-04-05 05:56] VITALS: PULSE 100
[2019-04-05 07:28] LABS: Hematocrit 32.2 % (37-47); Hemoglobin 9.8 g/dL (12.0-15.0); Mean Corp Hgb Conc 30.4 g/dL (32-36); Mean Corpuscular Hgb 28.4 pg (27.0-32.0); Mean Corpuscular Volume 93.3 fL (81-99); Mean Platelet Vol. 10.9 fl (6.2-12.0); Platelet Count 222 K/mm3 (150-450); RBC Distribution Width CV 16.6 % (11.6-14.6); RBC Distribution Width SD 57.1 fl (35.1-43.9); Red Blood Count 3.45 M/mm3 (4.2-5.4); White Blood Count 7.4 K/mm3 (4.4-11.0)
[2019-04-05 07:44] LABS: Erythrocyte Sedimentation Rate 22 mm/hr (0-30)
[2019-04-05 08:01] LABS: Anion Gap 8 (5-15); BUN 18 mg/dL (7-18); BUN/Creat Ratio 31.2 RATIO (10-20); Calcium,Total 8.2 mg/dL (8.5-10.1); Chloride 107 mmol/L (98-107); Creatinine, Serum 0.58 mg/dL (0.55-1.02); EST Glomerular Filtration Rate 106 mL/min (>60); Est Glom Filt Rate - Afr Amer 128 mL/min (>60); Estimated Creatinine Clearance 33.71 ml/min; Glucose 105 mg/dL (74-106); Prealbumin 8.6 mg/dL (20.0-40.0); Sodium Level 142 mmol/L (136-145)
[2019-04-05] MEDS: HYDROmorphone 0.5 MG/0.5 ML SYRINGE IV (09:28)
[2019-04-05] MEDS: Docusate Sodium 100 MG Capsule PO ×2 (09:30→21:13)
[2019-04-05 10:30] VITALS: BP 131/70; PULSE 97; RESP 18; TEMP 36.7; O2SAT 98
--- NOTE | 2019-04-05 10:44 | NURSING ---
wound photo: sacrum
--- NOTE | 2019-04-05 11:49 | PCM.PN.SRG ---
- Physical Exam General: Alert, Cooperative, Confused - she has had some intermittent confusion through the night HEENT: Atraumatic Oral: Moist Mucosa Lungs: Normal air movement Abdomen: Bowel Sounds Present Extremities: No edema Skin: Ulcer/ Wound - Left sacral ulcer looks beefy pink. Wound VAC dressing being placed now. Musculoskeletal: No Tenderness to Palpation of Joints or Extremities Neurological: Neuro grossly intact Psych/Mental Status: Appropriate Vital Signs Temp Pulse Resp BP Pulse Ox 98.0 F 97 18 131/70 H 98 04/05/19 10:30 04/05/19 10:30 04/05/19 10:30 04/05/19 10:30 04/05/19 10:30 Oxygen Delivery Method Room Air Weight: 140 lb 6.951 oz Body Mass Index (BMI) 25.7 Intake and Output for Last 24 Hours 04/03/19 04/04/19 04/05/19 23:59 23:59 23:59 Intake Total 2044.33 / 2164.33 649.33 / 649.33 Output Total 500 / 500 Balance 2044.33 / 2164.33 149.33 / 149.33 Microbiology Past 72 Hours 04/04/19 15:50 Wound Culture - Preliminary Bone - Other No growth-Final to follow 04/04/19 15:45 Wound Culture - Preliminary Tissue - Other No growth-Final to follow Laboratory Tests Past 24 Hrs 04/04/19 04/05/19 04/05/19 17:18 06:23 06:23 WBC 7.4 RBC 3.45 L Hgb 9.8 L Hct 32.2 L MCV 93.3 MCH 28.4 MCHC 30.4 L RDW Std Deviation 57.1 H RDW Coeff of Eusebio 16.6 H Plt Count 222 MPV 10.9 ESR 22 Sodium 142 Potassium 4.0 Chloride 107 Carbon Dioxide 27.0 Anion Gap 8 BUN 18 Creatinine 0.58 Estim Creat Clear Calc 33.71 Est GFR (MDRD) Af Amer 128 Est GFR (MDRD) Non-Af 106 BUN/Creatinine Ratio 31.2 H Glucose 105 Calcium 8.2 L Troponin I < 0.015 C-React Prot Ext Range 10.70 H Prealbumin 8.6 L Medical Necessity - Tobacco Use Smoking Status: Never smoker Tobacco Use: Non-smoker Assessment/Plan All Active Problems Multiple falls (Acute) Post op #1 Patient is awake. She currently denies pain. She as recently medicated for pain before her wound VAC placement. Wound VAC placed this morning. She has had some episodes of confusion throughout the night. Will continue to monitor her closely Hgb 9.8 this morning. Vital signs are stable.
--- NOTE | 2019-04-05 13:40 | CASEMGMT ---
MAYO FOLEY Face to Face with patient for initial transition planning/care coordination assessment. MAYO FOLEY introduced self and role at [facility]. Patient lying in bed, alert and oriented. Patient willing to participate in assessment and is able to answer all questions appropriately. Care providers, pharmacy, and demographics verified. Patient wishes to discharge home with resumption of HHC with [facility]. Patient states she has no further needs or concerns at this time. CM to follow for discharge planning needs that may arise. PCP: Roger Specialists: alex Blake; RIVKA Del Rosario Preferred Pharmacy: [facility] Insurance: [facility] [employer] Prescription Benefit:yes Living Will/HPOA: yes, Evelyn Barksdale daughter LNOK: daughter Living Arrangements: Patient lives alone in single story home with 1 step to enter the home. Patient states that she is independent at home. Patient states family is supportive and checks on her. Transportation: daughter DME/HHC: Patient states she has a shower chair, raised toilet, cane, walker, grab bars, and wheelchair at home. Patient is current with [facility]. MAYO FOLEY received call from Radha at [place] that patient is active for snf, PT/OT, PERSONNEL CLERK. P: [phone] F: [phone]. Disposition Plan: Patient to discharge home with resumption of HHC, family support, and follow-up plans in place. Shelley HART, RN, CM
[2019-04-05 16:30] VITALS: BP 112/64; PULSE 85; RESP 18; TEMP 36.8; O2SAT 99
[2019-04-05] MEDS: oxyCODONE 5 MG Tablet PO ×2 (17:15→21:13)
[2019-04-05 20:45] VITALS: BP 125/98; PULSE 98; RESP 18; TEMP 36.9; O2SAT 94
[2019-04-06 02:30] VITALS: BP 98/51; PULSE 94; RESP 18; TEMP 36.7; O2SAT 96
[2019-04-06 08:30] VITALS: BP 123/71; PULSE 89; RESP 18; TEMP 36.7; O2SAT 99
[2019-04-06] MEDS: Docusate Sodium 100 MG Capsule PO (10:27)
--- NOTE | 2019-04-06 12:00 | NURSING ---
Pt switched over to the home VAC. had talked with Dr Blake and he plans on coming in to discharge patient early afternoon. no family present in room at this time, but did review alarms and how to change the canister with the patient. there is a booklet that gets sent home with patient as well. Nursing can review any questions that family may have. family may not be able to pick patient up until early evening d/t working. pt denies further questions at this time.
--- NOTE | 2019-04-06 15:03 | CASEMGMT ---
MAYO FOLEY called daughter Evelyn to discuss discharge needs. MAYO FOLEY updated daughter how patient did with therapy and recommendation for family to stay with patient 24 hrs. Daughter inquired about SNF days and when they reset. MAYO FOLEY updated daughter that SNF days reset after 60 day break in care. Daughter states that patient was in SNF and used all 100 days and was paying privately prior to discharge home. Daughter agreeable to patient discharging home with resumption of C. MAYO FOLEY updated [facility] to planned discharge this evening. MAYO FOLEY will fax discharge paperwork when available.
[2019-04-06] MEDS: oxyCODONE 5 MG Tablet PO (16:03)
--- NOTE | 2019-04-06 17:10 | PCM.PN.SRG ---
Subjective: Postop #2 Patient is resting comfortably. Did ok with ambulation with PT. - Physical Exam General: Alert, Oriented x3 HEENT: PERRLA, EOMI Oral: Moist Mucosa Neck: Supple Abdomen: Soft, Non-Distended Skin: Ulcer/ Wound - sacral pressure sore wound is stable. VAC in place. Minimal drainage in the canister. Neurological: Cranial nerves II-XII grossly intact Psych/Mental Status: Normal Affect, Appropriate Vital Signs Temp Pulse Resp BP Pulse Ox 98.1 F 89 18 123/71 H 99 04/06/19 08:30 04/06/19 08:30 04/06/19 08:30 04/06/19 08:30 04/06/19 08:30 Oxygen Delivery Method Room Air Weight: 140 lb 6.951 oz Body Mass Index (BMI) 25.7 Intake and Output for Last 24 Hours 04/04/19 04/05/19 04/06/19 23:59 23:59 23:59 Intake Total 2044.33 / 2164.33 1877.33 / 1877.33 641 / 641 Output Total 1300 / 1600 600 / 600 Balance 2044.33 / 2164.33 577.33 / 277.33 41 / 41 Microbiology Past 72 Hours 04/04/19 15:50 Gram Stain - Final Bone - Other Wound Culture - Preliminary No growth-Final to follow 04/04/19 15:45 Gram Stain - Final Tissue - Other Wound Culture - Preliminary No growth-Final to follow Medical Necessity - Tobacco Use Smoking Status: Never smoker Tobacco Use: Non-smoker Assessment/Plan All Active Problems Multiple falls (Acute) 1. Left sacral pressure sore with superomedial undermining at posterior aspect of pelvis, Stage IV. 2. Osteomyelitis posterior aspect of pelvis in sacral area. 3. Late effect right periprosthetic femur fracture. 4. History of right knee replacement. 5. s/p excision left sacral pressure sore with superomedial undermining at posterior aspect of pelvis, Stage IV, (120 cm2) and partial ostectomy for osteomyelitis. 6. Anemia of chronic disease. VAC in place. Minimal drainage in the canister. VAC to be changed three times per week at 150 mmHg continuous suction. Did ok with PT. Able to ambulate with assist with the walker. More steady on her feet. Prealbumin was 8.6. Encourage nutritional supplementation with protein to help the healing process. Hgb is 9.8. She has anemia of chronic disease. No evidence of bleeding. She is on Iron supplementation. Will continue after discharge. Discharge home today. She must have a family member stay with her for a couple of weeks. Followup at [facility] one week. Operative culture negative thus far. Will send home on Augmentin for preop culture that showed E coli, Proteus mirabilis, Streptococcus group A, and Anaerobes. Wrote scripts for Percocet for pain (40 tabs) and for Valium for spasm, 2 mg, (20 tabs). Wrote scripts for Colace for constipation (60 tabs) and for Iron supplementation (30 tabs) and 3 refills.
--- NOTE | 2019-04-06 17:26 | PCM.DC ---
You will use the following diet at home:: No restrictions, Other - encourage nutritional supplementation with protein to help the healing process. Discharge Activity: May Shower - on the days the vac is changed. May shower in (days): 2 - may shower on the days the vac is changed. Weight Bearing Status: Weight bearing as tolerated Additional Activity Instructions:: Patient may ambulate with assist only. May use a walker. Patient needs to have a familiy member staying with her for the next couple of weeks at least. Call your doctor if your incision/area has: Continuous Slow Oozing, Sudden Increased Bleeding, Increased Pain/ Swelling, Increased Redness, Foul Smelling Discharge, Swelling at the incision site Call your doctor if you observe: Fever of 101 or Higher, Coldness, Increased Pain, Shortness of breath, Chest pain, Increased palpitations (irregular heartbeat), Calf discomfort Suture Line Care: - - vac changes three times per week at 150 mmHg continuous suction. Change Dressing in (Days):: 2 - vac changes three times per week Cleanse incision/area with: Soap & Water - may cleanse the wound with soap and water on the days the vac is changed., - - may shower on the days the vac is changed. Allergies/Adverse Reactions: Allergies codeine Adverse Reaction (Verified 03/31/19 15:39) Vomiting morphine Adverse Reaction (Verified 03/31/19 15:39) Vomiting Medications to take at Discharge Aspirin [Aspirin, Baby] 81 mg PO DAILY@0800 03/15/19 Ensure Enlive 120 ml PO DAILY 03/15/19 Levothyroxine [Synthroid] 125 mcg PO DAILY@0600 03/15/19 Potassium Chloride [Klor-Con M10] 10 meq PO DAILY 03/31/19 Amox/Clavulanate Tablet [Augmentin Tablet] 875 mg PO Q12H #42 tab 04/06/19 Diazepam [Valium] 2 mg PO TID PRN PRN #20 tab 04/06/19 Docusate Sodium [Colace] 100 mg PO BID #60 cap 04/06/19 Iron Poly/Vit C [Niferex-150] 150 mg PO DAILYCM #30 cap 04/06/19 Oxycodone HCl/Acetaminophen [Percocet 5/325] 1 tab PO Q4H PRN PRN 7 Days #40 tab 04/06/19 The following prescriptions were given: Amox/Clavulanate Tablet [Augmentin Tablet] 875 mg PO Q12H #42 tab Prescription Printed Docusate Sodium [Colace] 100 mg PO BID #60 cap Prescription Printed Iron Poly/Vit C [Niferex-150] 150 mg PO DAILYCM #30 cap Prescription Printed Oxycodone HCl/Acetaminophen [Percocet 5/325] 1 tab PO Q4H PRN PRN 7 Days #40 tab PRN Reason: Pain Prescription Printed Diazepam [Valium] 2 mg PO TID PRN PRN #20 tab PRN Reason: Spasms Prescription Printed Primary Care Physician: Manohar Duran Chi, MD [Primary Care Provider] - Test Results: Test results from this visit will be discussed in further detail at your follow-up appointment, if applicable. Please Follow Up With: Sammy Blake MD When: thursday04/11/19 at [facility]. call [phone] for a time. Proposed Discharge Date: 04/06/19
== END 2019-04-06 20:00 | disposition home or self-care (01) | DRG 571 ==
LOC: SDC 17:00 → MS3 18:21
PROVIDERS: Anesthesiology; Admitting Provider Surgery; Family Provider Family Medicine Geriatric Medicine; PCP Family Medicine Geriatric Medicine; Referring Provider Surgery; Visit Provider Surgery
PROC: 0JB70ZZ Excision of Back Subcutaneous Tissue and Fascia, Open Approach (ICD-10-PCS; CPT 15999; principal; 2019-04-04 11:30)
DX: L89.154 Pressure ulcer of sacral region, stage 4 (principal); M86.8X8 Other osteomyelitis, other site; Z96.651 Presence of right artificial knee joint; D63.8 Anemia in other chronic diseases classified elsewhere; Z23 Encounter for immunization
CPT/HCPCS: 36415; 80048; 84134; 84484; 85027; 85652; 86140; 87070; 87075; 87102; 87176; 87205; 87206; 88305; 88311; 93005; 97163; 97166; 97802; J7120; 90686; J0295

== ENCOUNTER 2019-04-07 20:48 | Emergency (ER) | payer MEDICARE, SELFPAY ==
[2019-04-04 18:53] VITALS: BMI 25.7
[2019-04-07 20:49] VITALS: BP 105/64; PULSE 90; RESP 18; TEMP 36.3; O2SAT 98; BMI 25.6
--- NOTE | 2019-04-07 21:31 | ED.DCSUM_ITS ---
- ER Visit Summary Date of Service: 04/07/19 Chief Complaint: Wound VAC leaking History of Present Illness: The patient is a [address] Blake and Dr. Duran. She had debridement of a decubitus ulcer 3 days ago and had a wound VAC placed by Dr. Blake. She was discharged yesterday. Daughter reports the patient went to the restroom [facility] and was getting a sponge bath while she was on the commode. She noticed blood running into the toilet.. That the wound VAC was expanded was not working well. Patient does complain of pain. However, they have not gotten the pain medications filled for home. Patient denies any fever or chills. She denies any other complaints. Physical Examination: Vitals: Stable. Afebrile. General: Well-nourished and well-developed. Head: Normocephalic atraumatic. Neck: Supple, no lymphadenopathy. No JVD. Nontender. Cardiovascular: Regular rate and rhythm. No murmurs. Respiratory: No respiratory distress. Clear to auscultation bilaterally. Abdominal: Soft, nontender, nondistended, normal bowel sounds. No guarding, rebound, or peritoneal signs. Back: Nontender. Extremities: Nontender, no edema. Skin: Wound VAC that extends from the left hip posteriorly over the decubitus area on the left. There is no surrounding erythema or induration. A corner of the dressing has curled up and is wears leaking in. Neurologic: Alert and oriented ?3. Cranial nerves II through XII are intact. Normal strength and sensation. Psych: Normal affect. Emergency Department Course and Treatment: Patient had a new OpSite placed. The wound VAC is now functioning appropriately. She was given a dose of Percocet p.o. Treatment Plan: Patient will be discharged instructions follow-up Dr. Blake as previously scheduled. She actually has wound care coming to her house tomorrow. Return to the emergency department for any worsening symptoms. Disposition: To home in improved and stable condition. Impression: 1. Wound check. This note was generated with mangofizz jobsation software. It may contain incorrect words, spelling, and punctuation that were not noted in review of the chart prior to signing ED Disposition - Plan for ED Patient: Disposition: Home or Assisted Living Instructions: POST OP WOUND CHECK, General Referrals: Sammy Blake MD [STAFF PHYSICIAN] - Keep Kristyn appointment
[2019-04-07] MEDS: Acetaminophen 500 MG Tablet 1000 MG PO (21:45)
[2019-04-07] MEDS: oxyCODONE 5 MG Tablet 10 MG PO (21:45)
== END 2019-04-07 21:56 | disposition home or self-care (01) ==
LOC: ED 21:31
PROVIDERS: Emergency Provider Emergency Medicine; Family Provider Family Medicine Geriatric Medicine; PCP Family Medicine Geriatric Medicine
DX: Z46.89 Encounter for fitting and adjustment of other specified devices (principal); L89.229 Pressure ulcer of left hip, unspecified stage; Z79.82 Long term (current) use of aspirin; Z79.899 Other long term (current) drug therapy
CPT/HCPCS: 99283

== ENCOUNTER → 2019-04-11 11:12 | Outpatient (CLI) | payer MEDICARE, SELFPAY ==
[2019-02-25 11:47] VITALS: BMI 31.4
[2019-04-11 09:44] VITALS: BMI 26.3
== END ==
PROVIDERS: Family Provider Family Medicine Geriatric Medicine; PCP Family Medicine Geriatric Medicine; Referring Provider Family Medicine Geriatric Medicine; Visit Provider Family Medicine Geriatric Medicine
DX: E03.9 Hypothyroidism, unspecified (principal)
CPT/HCPCS: 36415; 84443

== ENCOUNTER 2019-04-18 10:30 | Outpatient (RCR) | payer MEDICARE, SELFPAY ==
[2019-03-22 01:20] VITALS: BP 125/70; PULSE 102; RESP 16; TEMP 36.1
[2019-03-28 09:25] VITALS: BP 117/64; PULSE 85; RESP 16; TEMP 36.1; BMI 26.3
--- NOTE | 2019-03-28 23:07 | HP.PCM_ITS ---
History of Present Illness Date of Service: 03/28/19 - WOUND CENTER CONSULT REFERRING PROVIDER: Yeni Patino CNP. BELLMAN CAPTAIN: Dr. Blake. 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 History of Wound: 83 year old woman presents with a left buttock pressure sore extending medially to the sacrum that developed after falling in August,. She sustained a right periprosthetic femur fracture and was placed in an immobilizer. She was discharged to an ECF. With lack of mobility, she developed the pressure sore. It was treated with Santyl initially and has been changed to Dakin's dressing changes daily. It was noted there was substantial undermining medially toward the sacrum. She had an MRI done on 03/07/19 which showed osteomyelitis. Wound culture from 03/09/19 showed E. coli, Proteus mirabilis, and Streptococcus group A. She initially was placed on Bactrim and Augmentin was added. Anticipate increased metabolic demands from this pressure sore and nutritional supplementation with protein was encourage to help the healing process. The patient can ambulate sometimes with the walker. Due to the substantial amount of undermining, wound care has been less than optimal and with the suspicion of osteomyelitis on MRI, I was asked to evaluate this patient for surgical options for treatment. Today she denies fever. Her appetite is ok. 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 Arthritis. History of right knee prosthesis. History of right periprosthetic femur fracture. Surgical History: total knee arthroplasty - right. Allergies/Adverse Reactions: Allergies codeine Adverse Reaction (Verified 03/31/19 15:39) Vomiting morphine Adverse Reaction (Verified 03/31/19 15:39) Vomiting Home Medications: Ambulatory Orders Medication Instructions Recorded Aspirin [Aspirin, Baby] 81 mg PO DAILY@0800 03/15/19 Ensure Enlive 120 ml PO DAILY 03/15/19 Levothyroxine [Synthroid] 125 mcg PO DAILY@0600 03/15/19 Amoxicillin [Amoxil] 500 mg PO Q8H 03/31/19 Potassium Chloride [Klor-Con M10] 10 meq PO DAILY 03/31/19 - Family History Maternal Heart Disease - CHF Lives: With Family Smoking Status: Never smoker Tobacco Use: Non-smoker Alcohol: None Drugs: None Review of Systems Constitutional: Denies: Fever, Weakness, Fatigue Eyes: Denies: Pain HEENT: Denies: Nasal Congestion, Sore Throat Cardiovascular: Denies: Chest Pain Respiratory: Denies: Cough, Shortness of Breath Gastrointestinal: Denies: Constipation, Diarrhea, Nausea, Vomiting Genitourinary: Denies: Frequency, Hematuria Musculoskeletal: Reports: Joint Pain. Denies: Back Pain, Hand Pain, Leg Pain, Neck Pain Skin: Reports: Wounds - has left buttock pressure sore extending medially to the sacrum, Stage IV. Neurological: Denies: Headaches Psychiatric: Denies: Depression Endocrine: Denies: Polydipsia, Polyuria Hematologic/ Lymphatic: Denies: Easy Bruising - Physical Exam Vital Signs Temp Pulse Resp BP 97 F L 85 16 117/64 03/28/19 09:25 03/28/19 09:25 03/28/19 09:25 03/28/19 09:25 General: Alert, Oriented x3 HEENT: PERRLA, EOMI Oral: Moist Mucosa Neck: Supple Lungs: Clear to auscultation Cardiovascular: Regular rate, Regular Rhythm Abdomen: Soft, Non-Distended Extremities: No clubbing, No cyanosis, Edema - mild edema lower extremities., Peripheral Pulses Normal Skin: Ulcer/ Wound - has left buttock pressure sore extending superomedially to the sacrum. 9 cm of undermining. Bone is palpable. No cellulitis, fluctuance, or purulent drainage. Wound Measurements and Assessment WC - Nurse 1 - General Ulcer Measurement Start: 03/28/19 09:25 Freq: Status: Active Protocol: Activity Type Activity Date Activity User E-Sign Co-Sign Detail Recorded Client Recorded Date Recorded By Document 03/28/19 09:25 DL [id number] 03/28/19 09:34 DL 03/28/19 09:25 Wound Center Nurse 1 [Ulcer Assessment] #1-LEFT BUTTOCK -Current Size (cm) - Length 0.8 -Current Size (cm) - Width 0.9 -Current Size (cm) - Depth 3 -Total Square Cm 0.72 -Photo Taken No -Undermining/Tunneling Starts (O' 11 clock) -Undermining/Tunneling Ends (O'clock) 4 -Maximum Distance (cm) 6 -Exudate Amt Medium -Exudate Type Serosanguineous -Wound Margin Distinct, Outline Attached -Granulation Amt Large (67-100%) -Granulation Quality Red -Necrosis Amt None Present (0 %) -Structure Exposed N/A -Texture (Jane-wound Skin Appearance) Scarring -Moisture (Jane-wound Skin Appearance No Abnormality ) -Color (Jane-wound Skin Appearance) No Abnormality -Temperature (Jane-wound Skin No Abnormality Appearance) (Pt Warm) -Tenderness on Palpation (Jane-wound No Skin Appearance) -Ulcer Cleansing Rinsed/ Irrigated with Saline -Foul Odor after Cleansing No -Anesthetic Used 4% Lidocaine Solution - Nurse 2 - General Ulcer CM Notes Start: 03/28/19 09:25 Freq: Status: Active Protocol: Activity Type Activity Date Activity User E-Sign Co-Sign Detail Recorded Client Recorded Date Recorded By Document 03/28/19 10:05 TERRI [id number] 03/28/19 10:11 03/28/19 10:05 Wound Center Nurse 2 [Procedure/Treatment] -Time 10:05 -Correct Patient Yes -Correct Side, Site, Position Yes -Correct Procedure Yes -Procedure Performed Yes -Type of Procedure Debridement -Clinical Debridement Muscle -Post Debridement Size (cm) - Length 0.8 -Post Debridement Size (cm) - Width 1.0 -Post Debridement Size (cm) - Depth 3.0 -Total Square Cm 0.80 -Wound/Ulcer Outcome Not Healed -Ulcer Cleansing Rinsed/ Irrigated with Saline -Foul Odor after Cleansing No -Bioengineered Tissue No -Bleeding Controlled with Pressure -Other undermining 5cm -12:00 11:00- 8.0cm -Offloading No -Treatment Response Procedure Tolerated Well [See Physician Procedure note for Specifics] Pain Scale: 0-10 Numeric [Pain] -Is Patient Pain Free? Yes Lymphatic: - - no inguinal adenopathy. Neurological: Cranial nerves II-XII grossly intact Psych/Mental Status: Normal Affect, Appropriate Debridement Note Post-Debridement Measurements/Treatment - Nurse 2 - General Ulcer CM Notes Start: 03/28/19 09:25 Freq: Status: Active Protocol: Activity Type Activity Date Activity User E-Sign Co-Sign Detail Recorded Client Recorded Date Recorded By Document 03/28/19 10:05 TERRI [id number] 03/28/19 10:11 TERRI 03/28/19 10:05 Wound Center Nurse 2 #1-LEFT BUTTOCK -Time 10:05 -Correct Patient Yes -Correct Side, Site, Position Yes -Correct Procedure Yes -Procedure Performed Yes -Type of Procedure Debridement -Clinical Debridement Muscle -Post Debridement Size (cm) - Length 0.8 -Post Debridement Size (cm) - Width 1.0 -Post Debridement Size (cm) - Depth 3.0 -Total Square Cm 0.80 -Wound/Ulcer Outcome Not Healed -Ulcer Cleansing Rinsed/ Irrigated with Saline -Foul Odor after Cleansing No -Bioengineered Tissue No -Bleeding Controlled with Pressure -Other undermining 5cm -12:00 11:00- 8.0cm -Offloading No -Treatment Response Procedure Tolerated Well Pain Scale: 0-10 Numeric Is Patient Pain Free? Yes Wound debrided: #1 Left buttock extending medially to the sacrum. Laterality: Left Wound Grade/Stage: IV. Type of Debridement: Excisional debridement Anesthesia Used: 4% Lidocaine Solution Depth: Down to and including healthy tissue, in the subcutaneous layer, to muscle, to bone - bone is palpable but not debrided. Percentage of wound debrided: 100 Instrument Used: 5mm curette Tissue Removed: subcutaneous tissue and muscle. Severity: Fat Layer Exposed - muscle is exposed. bone is palpable but not debrided. Amount of bleeding with debridement: Mild Bleeding Controlled with: Pressure Patient tolerated procedure well Assessment/Plan Assessment: 1. Left buttock pressure sore extending medially to the sacrum, Stage IV. 2. Osteomyelitis posterior aspect of pelvis in sacral area. 3. Late effect right periprosthetic femur fracture. 4. History of right knee replacement. Plan: MRI reviewed. Evidence of osteomyelitis. Continue Dakin's dressing changes to the pressure sore. Reviewed recent wound culture from 03/09/19. It showed E. coli, Proteus mirabilis, and Streptococcus group A. She was placed on Bactrim and Augmentin. Due to the amount of undermining, this pressure will not heal because wound care is suboptimal. The area of undermining needs to unroofed and opened up to make wound care more effective. Also a partial ostectomy for osteomyelitis will be done as well. After surgery, can begin wound care with the VAC. Tissue and bone will be sent to Pathology to rule out carcinoma and to check for osteomyelitis and to Microbiology for culture. A positive culture will necessitate antibiotic therapy. Depending on the sensiti vity, if IV antibiotics are needed, a PICC line will be placed. Anticipate increased metabolic demands from the pressure sore. Will check a Prealbumin and encourage nutritional supplementation with protein to help the healing process. The patient is ambulatory and with aggresive wound care with the VAC and with maximizing nutrition and controlling any infection with antibiotics, the pressure sore may decrease in size and eventually heal. However with the presence of osteomyelitis, it may not. HBO treatments may be beneficial in controlling the infection and allow better healing. If a flap becomes necessary in the future, will avoid the gluteus muscle because she is ambulatory. Will use a gluteal fasciocutaneous flap with possible skin grafting of the donor area laterally. Also a vastus lateralis muscle flap can be used as well. If enough healing occurs, a skin graft may be a possibility as well. Generally skin grafts aren't durable in pressure sores. But since she is ambulatory and being 83 years old, if bone is covered with granulation tissue, an initial skin graft is reasonable. If not succesful, can always do the fasciocutaneous flap or muscle flap. If a flap is done, it would require 6 weeks of bedrest. A skin graft would not require that. Surgery would be under general anesthesia with a surgical observation overnight stay in the hospital. Patient was informed of the risks and complications of the procedure including alternatives to surgery. These were discussed with her personally. She voices understanding and wishes to proceed. She voices understanding that the surgical wound will be much larger to encompass the degree of undermining. Will schedule the surgery in the next couple of weeks. Until then continue Bactrim and Augmentin. Followup one week for continued wound care.
[2019-04-11 09:44] VITALS: BP 118/48; PULSE 94; RESP 16; TEMP 36; BMI 26.3
--- NOTE | 2019-04-11 14:31 | PCM.WC.PN ---
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 She was sent to [facility] where she was unable to ambulate due to her knee and she was not repositioned properly and developed an ulcer on her left buttock at the end of October 2018. She is now home with [facility] 3 times per week and her daughter and grand-daughter helping her at home. She is able to ambulate short distances with her walker. She spends the majority of her time in a wheelchair. Her wound care has been Santyl daily. Wound culture from 03/09/19 grew Escherichia coli, Proteus mirabilis and Streptococcus group A. MRI of left hip showed osteomyelitis of the sacrum. She met with Dr. Del Rosario, ID next about the osteomyelitis. On 04/04 she underwent excision left sacral pressure sore with superomedial undermining at posterior aspect of pelvis, Stage IV, (120 cm2). 2. Partial ostectomy for osteomyelitis. Pathology was negative for osteomyelitis. Surgical cultures were negative for bacterial growth. Today she denies fever and states her appetite is good. Progress of Wound: Stable - Physical Exam Vital Signs Temp Pulse Resp BP 96.8 F L 94 16 118/48 L 04/11/19 09:44 04/11/19 09:44 04/11/19 09:44 04/11/19 09:44 General: Alert, Oriented x3, Cooperative HEENT: Atraumatic Oral: Moist Mucosa Lungs: Normal air movement Cardiovascular: Regular rate Extremities: Capillary Refill Less than 3 Seconds Skin: Ulcer/ Wound - stage IV buttock ulcer Wound Measurements and Assessment WC - Nurse 1 - General Ulcer Measurement Start: 03/28/19 09:25 Freq: Status: Active Protocol: Activity Type Activity Date Activity User E-Sign Co-Sign Detail Recorded Client Recorded Date Recorded By Document 04/11/19 09:44 [facility] [id number] 04/11/19 09:57 BMF 04/11/19 09:44 Wound Center Nurse 1 [Ulcer Assessment] #1-LEFT BUTTOCK -Combined with other wound No -Current Size (cm) - Length 9.1 -Current Size (cm) - Width 12.8 -Current Size (cm) - Depth 4.4 -Total Square Cm 116.48 -Date of Last Picture (Recall this 04/11/19 field) -Photo Taken Yes -Epithelialization None Present -Tunneling No -Undermining/Tunneling Yes -Undermining/Tunneling Starts (O' 8 clock) -Undermining/Tunneling Ends (O'clock) 11 -Maximum Distance (cm) 5.3 -Circular Undermining No -Classification - Thickness Full Thickness with Exposed Support Structure -Exudate Amt Large -Exudate Type Sanguineous -Wound Margin Distinct, Outline Attached -Granulation Amt Large (67-100%) -Granulation Quality Red -Slough/Fibrin Yes -Necrosis Amt Small (1-33%) -Necrotic Tissue Type Adherent Slough -Structure Exposed Bone -Texture (Jane-wound Skin Appearance) Assessed -Moisture (Jane-wound Skin Appearance Assessed ) -Color (Jane-wound Skin Appearance) Assessed -Temperature (Jane-wound Skin No Abnormality Appearance) (Pt Warm) -Tenderness on Palpation (Jane-wound No Skin Appearance) -Ulcer Cleansing soap and water -Foul Odor after Cleansing No -Anesthetic Used 4% Lidocaine Solution WC - Nurse 2 - General Ulcer CM Notes Start: 03/28/19 09:25 Freq: Status: Active Protocol: Activity Type Activity Date Activity User E-Sign Co-Sign Detail Recorded Client Recorded Date Recorded By Document 04/11/19 10:09 TERRI [id number] 04/11/19 10:16 TERRI 04/11/19 10:09 Wound Center Nurse 2 [Procedure/Treatment] -Time 10:10 -Correct Patient Yes -Correct Side, Site, Position Yes -Correct Procedure Yes -Procedure Performed Yes -Type of Procedure Debridement -Clinical Debridement Muscle -Post Debridement Size (cm) - Length 9.5 -Post Debridement Size (cm) - Width 12.8 -Post Debridement Size (cm) - Depth 4.7 -Total Square Cm 121.60 -Wound/Ulcer Outcome Not Healed -Ulcer Cleansing Rinsed/ Irrigated with Saline -Foul Odor after Cleansing No -Bioengineered Tissue No -Bleeding Controlled with Pressure -Offloading No -Treatment Response Procedure Tolerated Well [See Physician Procedure note for Specifics] Pain Scale: 0-10 Numeric [Pain] -Is Patient Pain Free? Yes Musculoskeletal: No Tenderness to Palpation of Joints or Extremities Neurological: Deep Tendon Reflexes 2+/4 and Symmetrical Psych/Mental Status: Normal Affect, Appropriate Debridement Note Post-Debridement Measurements/Treatment - Nurse 2 - General Ulcer CM Notes Start: 03/28/19 09:25 Freq: Status: Active Protocol: Activity Type Activity Date Activity User E-Sign Co-Sign Detail Recorded Client Recorded Date Recorded By Document 03/28/19 10:05 [id number] 03/28/19 10:11 Document 04/11/19 10:09 [id number] 04/11/19 10:16 03/28/19 04/11/19 10:05 10:09 Wound Center Nurse 2 #1-LEFT BUTTOCK -Time 10:05 10:10 -Correct Patient Yes Yes -Correct Side, Site, Position Yes Yes -Correct Procedure Yes Yes -Procedure Performed Yes Yes -Type of Procedure Debridement Debridement -Clinical Debridement Subcutaneous Muscle -Post Debridement Size (cm) - Length 0.8 9.5 -Post Debridement Size (cm) - Width 1.0 12.8 -Post Debridement Size (cm) - Depth 3.0 4.7 -Total Square Cm 0.80 121.60 -Wound/Ulcer Outcome Not Healed Not Healed -Ulcer Cleansing Rinsed/ Rinsed/ Irrigated with Irrigated with Saline Saline -Foul Odor after Cleansing No No -Bioengineered Tissue No No -Bleeding Controlled with Pressure Pressure -Other undermining 5cm -12:00 11:00- 8.0cm -Offloading No No -Treatment Response Procedure Procedure Tolerated Well Tolerated Well Pain Scale: 0-10 Numeric Is Patient Pain Free? Yes Yes Wound debrided: Buttock Laterality: Left Wound Grade/Stage: Stage IV Type of Debridement: Excisional debridement Anesthesia Used: 4% Lidocaine Solution, 5% Lidocaine Gel Depth: Down to and including healthy tissue, in the subcutaneous layer, to muscle Percentage of wound debrided: 100 Instrument Used: 7mm curette Tissue Removed: Subcutaneous tissue and slough Severity: Fat Layer Exposed Amount of bleeding with debridement: Mild Bleeding Controlled with: Pressure, Compression and gauze Patient tolerated procedure well Assessment/Plan Assessment: 1. 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 2. Right knee injury. 3. Decreased mobility Plan: Patient fell in August of 2018 and fractured her right knee. She was sent to [facility] where she was unable to ambulate due to her knee and she was not repositioned properly and developed an ulcer on her left buttock at the end of October 2018. She is now home with [facility] 3 times per week and her daughter and grand-daughter helping her at home. She is able to ambulate short distances with her walker. She spends the majority of her time in a wheelchair. Her wound care has been Santyl daily. Wound culture from 03/09/19 grew Escherichia coli, Proteus mirabilis and Streptococcus group A. MRI of left hip showed osteomyelitis of the sacrum. She met with RIVKA Parks about the osteomyelitis. On 04/04 she underwent excision left sacral pressure sore with superomedial undermining at posterior aspect of pelvis, Stage IV, (120 cm2). 2. Partial ostectomy for osteomyelitis. Pathology was negative for osteomyelitis. Surgical cultures were negative for bacterial growth. Prealbumin 8.6 from 04/05/19. Wound care is Wound VAC at 150 mmHg with changes 3 times per week. She currently is on augmentin. Renewed her Percocet (28). OARRS report reviewed. Encouraged increased protein. She is drinking a couple ensure shakes per day and sometimes will use Jueven. Follow up in one week. Code Visit [id number]
[2019-04-18 11:01] VITALS: BP 105/65; PULSE 121; RESP 16; TEMP 35.9; BMI 26.3
--- NOTE | 2019-04-18 18:33 | PN.PCM_ITS ---
Type of Wound Date of Service: 04/18/19 Chief Complaint: Left sacral pressure sore, Stage IV. History of Wound: Surgery 04/04/19 - excision left sacral pressure sore with superomedial undermining at posterior aspect of pelvis, Stage IV, (120 cm2) and partial ostectomy for osteomyelitis. Wound care - VAC. Operative culture - soft tissue - negative, bone - negative. She was treated at discharge with Augmentin for a preoperative wound culture from 03/09/19 that grew Escherichia coli, Proteus mirabilis and Streptococcus group A. She has finished the Augmentin. Pathology - negative for osteomyelitis. Prealbumin from 04/05/18 was 8.6. Encourage nutritional supplementation with protein to help the healing process. MRI of left hip showed osteomyelitis of the sacrum. Today she denies fever. Her appetite is ok. Progress of Wound: Recent surgery on 04/04/19. - Physical Exam Vital Signs Temp Pulse Resp BP 96.6 F L 121 H 16 105/65 04/18/19 11:01 04/18/19 11:01 04/18/19 11:01 04/18/19 11:01 Wound Measurements and Assessment WC - Nurse 1 - General Ulcer Measurement Start: 03/28/19 09:25 Freq: Status: Active Protocol: Activity Type Activity Date Activity User E-Sign Co-Sign Detail Recorded Client Recorded Date Recorded By Document 04/18/19 11:01 MW [id number] 04/18/19 11:04 MW 04/18/19 11:01 Wound Center Nurse 1 [Ulcer Assessment] #1-LEFT BUTTOCK -Combined with other wound No -Current Size (cm) - Length 8.5 -Current Size (cm) - Width 11.5 -Current Size (cm) - Depth 3.7 -Total Square Cm 97.75 -Photo Taken No -Epithelialization None Present -Tunneling No -Undermining/Tunneling No -Circular Undermining No -Exudate Amt Large -Exudate Type Sanguineous -Wound Margin Distinct, Outline Attached -Granulation Amt Large (67-100%) -Granulation Quality Red -Slough/Fibrin Yes -Necrosis Amt Small (1-33%) -Necrotic Tissue Type Adherent Slough -Structure Exposed Bone -Texture (Jane-wound Skin Appearance) Assessed, Scarring -Moisture (Jane-wound Skin Appearance Assessed, ) Maceration -Color (Jane-wound Skin Appearance) No Abnormality, Assessed -Temperature (Jane-wound Skin No Abnormality Appearance) (Pt Warm) -Tenderness on Palpation (Jane-wound No Skin Appearance) -Ulcer Cleansing soap and water -Foul Odor after Cleansing No -Anesthetic Used 4% Lidocaine Solution [Edema Assessment] -Lower Limb Edema Present NA - Nurse 2 - General Ulcer CM Notes Start: 03/28/19 09:25 Freq: Status: Active Protocol: Activity Type Activity Date Activity User E-Sign Co-Sign Detail Recorded Client Recorded Date Recorded By Document 04/18/19 11:23 [id number] 04/18/19 11:25 04/18/19 11:23 Wound Center Nurse 2 [Procedure/Treatment] #1-LEFT BUTTOCK -Time 11:23 -Correct Patient Yes -Correct Side, Site, Position Yes -Correct Procedure Yes -Procedure Performed Yes -Type of Procedure Debridement -Clinical Debridement Muscle -Post Debridement Size (cm) - Length 8.5 -Post Debridement Size (cm) - Width 11.6 -Post Debridement Size (cm) - Depth 3.8 -Total Square Cm 98.60 -Wound/Ulcer Outcome Not Healed -Ulcer Cleansing Rinsed/ Irrigated with Saline -Foul Odor after Cleansing No -Bioengineered Tissue No -Bleeding Controlled with Pressure -Offloading No -Treatment Response Procedure Tolerated Well [See Physician Procedure note for Specifics] Pain Scale: 0-10 Numeric [Pain] -Is Patient Pain Free? Yes Debridement Note Post-Debridement Measurements/Treatment - Nurse 2 - General Ulcer CM Notes Start: 03/28/19 09:25 Freq: Status: Active Protocol: Activity Type Activity Date Activity User E-Sign Co-Sign Detail Recorded Client Recorded Date Recorded By Document 03/28/19 10:05 [id number] 03/28/19 10:11 Document 04/11/19 10:09 [id number] 04/11/19 10:16 Document 04/18/19 11:23 [id number] 04/18/19 11:25 03/28/19 04/11/19 04/18/19 10:05 10:09 11:23 Wound Center Nurse 2 #1-LEFT BUTTOCK -Time 10:05 10:10 11:23 -Correct Patient Yes Yes Yes -Correct Side, Site, Position Yes Yes Yes -Correct Procedure Yes Yes Yes -Procedure Performed Yes Yes Yes -Type of Procedure Debridement Debridement Debridement -Clinical Debridement Subcutaneous Muscle Muscle -Post Debridement Size (cm) - Length 0.8 9.5 8.5 -Post Debridement Size (cm) - Width 1.0 12.8 11.6 -Post Debridement Size (cm) - Depth 3.0 4.7 3.8 -Total Square Cm 0.80 121.60 98.60 -Wound/Ulcer Outcome Not Healed Not Healed Not Healed -Ulcer Cleansing Rinsed/ Rinsed/ Rinsed/ Irrigated with Irrigated with Irrigated with Saline Saline Saline -Foul Odor after Cleansing No No No -Bioengineered Tissue No No No -Bleeding Controlled with Pressure Pressure Pressure -Other undermining 5cm -12:00 11:00- 8.0cm -Offloading No No No -Treatment Response Procedure Procedure Procedure Tolerated Well Tolerated Well Tolerated Well Pain Scale: 0-10 Numeric Is Patient Pain Free? Yes Yes Yes Wound debrided: #1 Left sacral area. Laterality: Left Wound Grade/Stage: IV. Type of Debridement: Excisional debridement Anesthesia Used: 4% Lidocaine Solution Depth: Down to and including healthy tissue, in the subcutaneous layer, to muscle, to bone - bone is exposed but not debrided. Percentage of wound debrided: 100 Instrument Used: 7mm curette Tissue Removed: subcutaneous tissue and muscle. Severity: Fat Layer Exposed - muscle is exposed. bone is exposed but not debrided. Amount of bleeding with debridement: Mild Bleeding Controlled with: Pressure Patient tolerated procedure well Assessment/Plan Assessment: 1. Left sacral pressure sore with superomedial undermining at posterior aspect of pelvis, Stage IV. 2. Osteomyelitis posterior aspect of pelvis in sacral area. 3. Late effect right periprosthetic femur fracture. 4. History of right knee replacement. 5. s/p excision left sacral pressure sore with superomedial undermining at posterior aspect of pelvis, Stage IV, (120 cm 2) and partial ostectomy for osteomyelitis. Plan: Continue the VAC. Operative culture was negative in soft tissue and bone. She was treated perioperatively with Augmentin and has finished them. A preop culture on 03/09/19 showed E. coli, Proteus mirabilis, and Streptococcus group A. Prealbumin from 04/05/19 was 8.6. Encouraged nutritional supplementation wtih protein to help the healing process. Renewed Percocet for pain (30 tabs). Renewed Valium for spasm (30 tabs). Followup 2 weeks.
== END 2019-04-21 23:59 ==
LOC: WC 10:30
PROVIDERS: Family Provider Family Medicine Geriatric Medicine; PCP Family Medicine Geriatric Medicine; Visit Provider Nurse Practitioner Family
DX: L89.324 Pressure ulcer of left buttock, stage 4 (principal); M19.90 Unspecified osteoarthritis, unspecified site; E03.9 Hypothyroidism, unspecified; E07.9 Disorder of thyroid, unspecified; Z79.899 Other long term (current) drug therapy; Z79.82 Long term (current) use of aspirin; M97.11XS Periprosthetic fracture around internal prosthetic right knee joint, sequela; X58.XXXS Exposure to other specified factors, sequela
CPT/HCPCS: 11043; 11046; 36415; 84443; 97606

== ENCOUNTER 2019-05-09 10:00 | Outpatient (RCR) | payer MEDICARE, SELFPAY ==
[2019-04-22 01:17] VITALS: BP 105/65; PULSE 121; RESP 16; TEMP 35.9; BMI 25.6
[2019-05-02 09:30] VITALS: BP 97/53; PULSE 112; RESP 18; TEMP 35.5; BMI 25.6
--- NOTE | 2019-05-02 10:59 | PN.PCM_ITS ---
(1) Pressure ulcer of sacral region, stage 4 Status: Chronic Code(s): L89.154 - Pressure ulcer of sacral region, stage 4 Comment: Left sacral area with superomedial undermining (2) Pressure injury of deep tissue of left hip Status: Acute Code(s): L89.226 - Pressure-induced deep tissue damage of left hip (3) Osteomyelitis of left side of pelvis Status: Chronic Code(s): M86.9 - Osteomyelitis, unspecified Type of Wound Date of Service: 05/02/19 Chief Complaint: Left sacral pressure sore, Stage IV. History of Wound: Surgery 04/04/19 - excision left sacral pressure sore with superomedial undermining at posterior aspect of pelvis, Stage IV, (120 cm2) and partial ostectomy for osteomyelitis. Wound care - VAC. Operative culture - soft tissue - negative, bone - negative. She was treated at discharge with Augmentin for a preoperative wound culture from 03/09/19 that grew Escherichia coli, Proteus mirabilis and Streptococcus group A. She has finished the Augmentin. Pathology - negative for osteomyelitis. Prealbumin from 04/05/18 was 8.6. Encourage nutritional supplementation with protein to help the healing process. MRI of left hip showed osteomyelitis of the sacrum. She has some bruising on her left hip that is indicative possible deep tissue injury. She has been sleeping on her left side and even when the family puts a pillow to prevent her from going to her left side she will pull it out and turn back onto her left side. Today she denies fever. Her appetite is poor according to her family. She has not been eating well and is not drinking protein shakes as she should. Progress of Wound: Recent surgery on 04/04/19. Wound stable. - Physical Exam Vital Signs Temp Pulse Resp BP 96 F L 112 H 18 97/53 L 05/02/19 09:30 05/02/19 09:30 05/02/19 09:30 05/02/19 09:30 General: Alert HEENT: Atraumatic Oral: Moist Mucosa Lungs: Normal air movement Cardiovascular: Regular rate Extremities: Capillary Refill Less than 3 Seconds Skin: Ulcer/ Wound - sacral ulcer. New bruising on left hip that is indicative of possible deep tissue injury. Skin is intact Wound Measurements and Assessment WC - Nurse 1 - General Ulcer Measurement Start: 11/11/19 09:30 Freq: Status: Active Protocol: Activity Type Activity Date Activity User E-Sign Co-Sign Detail Recorded Client Recorded Date Recorded By Document 05/02/19 09:30 DL [id number] 05/02/19 09:44 DL 05/02/19 09:30 Wound Center Nurse 1 [Ulcer Assessment] #1-LEFT BUTTOCK -Combined with other wound No -Current Size (cm) - Length 8 -Current Size (cm) - Width 10.5 -Current Size (cm) - Depth 6.7 -Total Square Cm 84.0 -Photo Taken No -Epithelialization None Present -Tunneling No -Undermining/Tunneling Yes -Undermining/Tunneling Starts (O' 5 clock) -Undermining/Tunneling Ends (O'clock) 6 -Maximum Distance (cm) 5.5 -Circular Undermining No -Exudate Amt Large -Exudate Type Serosanguineous -Wound Margin Distinct, Outline Attached -Granulation Amt Large (67-100%) -Granulation Quality Red -Slough/Fibrin Yes -Necrosis Amt Small (1-33%) -Necrotic Tissue Type Adherent Slough -Structure Exposed Bone -Texture (Jane-wound Skin Appearance) Assessed, Scarring -Moisture (Jane-wound Skin Appearance Assessed ) -Color (Jane-wound Skin Appearance) Assessed -Temperature (Jane-wound Skin No Abnormality Appearance) (Pt Warm) -Tenderness on Palpation (Jane-wound No Skin Appearance) -Ulcer Cleansing soapy water -Foul Odor after Cleansing No -Anesthetic Used 4% Lidocaine Solution WC - Nurse 2 - General Ulcer CM Notes Start: 05/02/19 09:30 Freq: Status: Active Protocol: Activity Type Activity Date Activity User E-Sign Co-Sign Detail Recorded Client Recorded Date Recorded By Document 05/02/19 09:55 TERRI [id number] 05/02/19 10:04 05/02/19 09:55 Wound Center Nurse 2 [Procedure/Treatment] -Time 09:55 -Correct Patient Yes -Correct Side, Site, Position Yes -Correct Procedure Yes -Procedure Performed Yes -Type of Procedure Debridement -Clinical Debridement Muscle -Post Debridement Size (cm) - Length 8.5 -Post Debridement Size (cm) - Width 11 -Post Debridement Size (cm) - Depth 3.3 -Total Square Cm 93.5 -Wound/Ulcer Outcome Not Healed -Ulcer Cleansing Rinsed/ Irrigated with Saline -Foul Odor after Cleansing No -Bioengineered Tissue No -Bleeding Controlled with Pressure -Other DTI 10.5x5.5x0. 1 left lateral thigh -Offloading No -Treatment Response Procedure Tolerated Well [See Physician Procedure note for Specifics] Pain Scale: 0-10 Numeric [Pain] -Is Patient Pain Free? Yes Musculoskeletal: Tenderness - left hip Neurological: Neuro grossly intact Psych/Mental Status: Appropriate, Flat Affect Debridement Note Post-Debridement Measurements/Treatment WC - Nurse 2 - General Ulcer CM Notes Start: 05/02/19 09:30 Freq: Status: Active Protocol: Activity Type Activity Date Activity User E-Sign Co-Sign Detail Recorded Client Recorded Date Recorded By Document 05/02/19 09:55 [id number] 05/02/19 10:04 TERRI 05/02/19 09:55 Wound Center Nurse 2 #1-LEFT BUTTOCK -Time 09:55 -Correct Patient Yes -Correct Side, Site, Position Yes -Correct Procedure Yes -Procedure Performed Yes -Type of Procedure Debridement -Clinical Debridement Muscle -Post Debridement Size (cm) - Length 8.5 -Post Debridement Size (cm) - Width 11 -Post Debridement Size (cm) - Depth 3.3 -Total Square Cm 93.5 -Wound/Ulcer Outcome Not Healed -Ulcer Cleansing Rinsed/ Irrigated with Saline -Foul Odor after Cleansing No -Bioengineered Tissue No -Bleeding Controlled with Pressure -Other DTI 10.5x5.5x0. 1 left lateral thigh -Offloading No -Treatment Response Procedure Tolerated Well Pain Scale: 0-10 Numeric Is Patient Pain Free? Yes Wound debrided: sacral ulcer Laterality: Not Applicable Type of Debridement: Excisional debridement Anesthesia Used: 5% Lidocaine Gel Depth: Down to and including healthy tissue, in the subcutaneous layer, to muscle Percentage of wound debrided: 100 Instrument Used: 7mm curette Tissue Removed: subcutaneous tissue and slough into the muscle Severity: Fat Layer Exposed Amount of bleeding with debridement: Mild Bleeding Controlled with: Pressure, Compression and gauze Patient tolerated procedure well Assessment/Plan Assessment: 1. Left sacral pressure sore with superomedial undermining at posterior aspect of pelvis, Stage IV. 2. Osteomyelitis posterior aspect of pelvis in sacral area. 3. Late effect right periprosthetic femur fracture. 4. History of right knee replacement. 5. s/p excision left sacral pressure sore with superomedial undermining at posterior aspect of pelvis, Stage IV, (120 cm2) and partial ostectomy for osteomyelitis. Plan: Continue the VAC to sacral ulcer. No adaptic. Operative culture was negative in soft tissue and bone. She was treated perioperatively with Augmentin and has finished them. A preop culture on 03/09/19 showed E. coli, Proteus mirabilis, and Streptococcus group A. Prealbumin from 04/05/19 was 8.6. Encouraged nutritional supplementation wtih protein to help the healing pr ocess. Today she presents with some bruising on her left hip. The skin is intact, but suspect this deep tissue injury from not turning off of her left side. Discussed with patient and her family that she needs to be off her left side. She needs frequent position changes (hourly). The goal is to prevent the left hip from opening and preventing further injury. Will order a hospital bed with an air mattress for home. The daughter is not thrilled about the hospital bed but instructed her it was needed. Patient had been placed on Bactrim for UTI symptoms last week. Those symptoms have improved. Follow up in one week. Code Visit [id number]: 35972 Analy musc/fascia 20 sq cm/< Add On Codes: 15842 Analy musc/fascia add-on - x4
[2019-05-09 10:18] VITALS: BP 118/79; PULSE 113; RESP 18; TEMP 35.5; BMI 25.6
--- NOTE | 2019-05-09 13:12 | PCM.WC.PN ---
Type of Wound Date of Service: 05/09/19 Chief Complaint: Left sacral pressure sore, Stage IV, and new onset left trochanteric pressure sore, Unstageable. History of Wound: Surgery 04/04/19 - excision left sacral pressure sore with superomedial undermining at posterior aspect of pelvis, Stage IV, (120 cm2) and partial ostectomy for osteomyelitis. Wound care - VAC. Operative culture - soft tissue - negative, bone - negative. She was treated at discharge with Augmentin for a preoperative wound culture from 03/09/19 that grew Escherichia coli, Proteus mirabilis and Streptococcus group A. She has finished the Augmentin. Pathology - negative for osteomyelitis. Prealbumin from 04/05/18 was 8.6. Encourage nutritional supplementation with protein to help the healing process. MRI of left hip showed osteomyelitis of the sacrum. Her appetite is decreased. Family states it is becoming more difficult to care for her at home. Besides the worsening of the sacral pressure sore, there is a new onset left trochanteric pressure sore with overlying necrotic skin. Progress of Wound: Worsening sacral pressure sore with necrosis inferiorly from recent stool contamination and new onset left trochanteric pressure sore with eschar. - Physical Exam Vital Signs Temp Pulse Resp BP 95.9 F L 113 H 18 118/79 05/09/19 10:18 05/09/19 10:18 05/09/19 10:18 05/09/19 10:18 Wound Measurements and Assessment WC - Nurse 1 - General Ulcer Measurement Start: 05/02/19 09:30 Freq: Status: Active Protocol: Activity Type Activity Date Activity User E-Sign Co-Sign Detail Recorded Client Recorded Date Recorded By Document 05/09/19 10:18 TERRI [id number] 05/09/19 10:21 TERRI 05/09/19 10:18 Wound Center Nurse 1 [Ulcer Assessment] 2-left hip -Combined with other wound No -Current Size (cm) - Length 0.1 -Current Size (cm) - Width 0.1 -Current Size (cm) - Depth 0.1 -Total Square Cm 0.01 -Photo Taken Yes -Epithelialization None Present -Tunneling No -Undermining/Tunneling No -Circular Undermining No -Classification - Thickness Unclassifiable (Eschar Covered ) -Exudate Amt None Present -Wound Margin Flat & Intact -Granulation Amt None Present (0 %) -Slough/Fibrin Yes -Necrosis Amt Large (67-100%) -Necrotic Tissue Type Eschar -Structure Exposed N/A -Texture (Jane-wound Skin Appearance) Assessed -Moisture (Jane-wound Skin Appearance Assessed,Dry/ ) Scaly -Color (Jane-wound Skin Appearance) Assessed -Temperature (Jane-wound Skin No Abnormality Appearance) (Pt Warm) -Tenderness on Palpation (Jane-wound No Skin Appearance) -Ulcer Cleansing Rinsed/ Irrigated with Saline -Foul Odor after Cleansing No -Anesthetic Used 5% Lidocaine Gel #1-LEFT BUTTOCK -Combined with other wound No -Current Size (cm) - Length 6.5 -Current Size (cm) - Width 9.0 -Current Size (cm) - Depth 6.0 -Total Square Cm 58.50 -Photo Taken Yes -Epithelialization None Present -Tunneling No -Undermining/Tunneling No -Circular Undermining No -Exudate Amt Large -Exudate Type Serosanguineous -Wound Margin Flat & Intact -Granulation Amt Large (67-100%) -Granulation Quality Red -Slough/Fibrin Yes -Necrosis Amt Small (1-33%) -Necrotic Tissue Type Adherent Slough -Structure Exposed N/A -Texture (Jane-wound Skin Appearance) Assessed, Excoriation -Moisture (Jane-wound Skin Appearance Assessed,Dry/ ) Scaly -Color (Jane-wound Skin Appearance) Assessed -Temperature (Jane-wound Skin No Abnormality Appearance) (Pt Warm) -Tenderness on Palpation (Jane-wound No Skin Appearance) -Ulcer Cleansing Wound Cleanser -Foul Odor after Cleansing No -Anesthetic Used 4% Lidocaine Solution [Edema Assessment] -Lower Limb Edema Present NA WC - Nurse 2 - General Ulcer CM Notes Start: 05/02/19 09:30 Freq: Status: Active Protocol: Activity Type Activity Date Activity User E-Sign Co-Sign Detail Recorded Client Recorded Date Recorded By Document 05/09/19 10:35 TERRI [id number] 05/09/19 10:41 TERRI 05/09/19 10:35 Wound Center Nurse 2 [Procedure/Treatment] 2-left hip -Correct Patient No -Correct Side, Site, Position No -Correct Procedure No -Procedure Performed No -Wound/Ulcer Outcome Not Healed #1-LEFT BUTTOCK -Time 10:35 -Correct Patient Yes -Correct Side, Site, Position Yes -Correct Procedure Yes -Procedure Performed Yes -Type of Procedure Debridement -Clinical Debridement Muscle -Post Debridement Size (cm) - Length 6.6 -Post Debridement Size (cm) - Width 9.1 -Post Debridement Size (cm) - Depth 6.1 -Total Square Cm 60.06 -Wound/Ulcer Outcome Not Healed -Ulcer Cleansing Rinsed/ Irrigated with Saline -Foul Odor after Cleansing No -Bioengineered Tissue No -Bleeding Controlled with Pressure -Offloading No -Treatment Response Procedure Tolerated Well [See Physician Procedure note for Specifics] Pain Scale: 0-10 Numeric [Pain] -Is Patient Pain Free? Yes Debridement Note Post-Debridement Measurements/Treatment WC - Nurse 2 - General Ulcer CM Notes Start: 05/02/19 09:30 Freq: Status: Active Protocol: Activity Type Activity Date Activity User E-Sign Co-Sign Detail Recorded Client Recorded Date Recorded By Document 05/02/19 09:55 [id number] 05/02/19 10:04 Document 05/09/19 10:35 [id number] 05/09/19 10:41 05/02/19 05/09/19 09:55 10:35 Wound Center Nurse 2 2-left hip -Correct Patient No -Correct Side, Site, Position No -Correct Procedure No -Procedure Performed No -Wound/Ulcer Outcome Not Healed #1-LEFT BUTTOCK -Time 09:55 10:35 -Correct Patient Yes Yes -Correct Side, Site, Position Yes Yes -Correct Procedure Yes Yes -Procedure Performed Yes Yes -Type of Procedure Debridement Debridement -Clinical Debridement Muscle Muscle -Post Debridement Size (cm) - Length 8.5 6.6 -Post Debridement Size (cm) - Width 11 9.1 -Post Debridement Size (cm) - Depth 3.3 6.1 -Total Square Cm 93.5 60.06 -Wound/Ulcer Outcome Not Healed Not Healed -Ulcer Cleansing Rinsed/ Rinsed/ Irrigated with Irrigated with Saline Saline -Foul Odor after Cleansing No No -Bioengineered Tissue No No -Bleeding Controlled with Pressure Pressure -Other DTI 10.5x5.5x0. 1 left lateral thigh -Offloading No No -Treatment Response Procedure Procedure Tolerated Well Tolerated Well Pain Scale: 0-10 Numeric Is Patient Pain Free? Yes Yes Wound debrided: #1 Sacrum. Laterality: Not Applicable Wound Grade/Stage: IV. Type of Debridement: Excisional debridement Anesthesia Used: 4% Lidocaine Solution Depth: Down to and including healthy tissue, in the subcutaneous layer, to muscle, to bone - bone is exposed but not debrided. Percentage of wound debrided: 100 Instrument Used: 7mm curette Tissue Removed: subcutaneous tissue and muscle. Severity: Fat Layer Exposed - muscle is exposed. bone is exposed but not debrided. Amount of bleeding with debridement: Mild Bleeding Controlled with: Pressure Patient tolerated procedure well Assessment/Plan Assessment: 1. Infected sacral pressure sore with necrosis, Stage IV. 2. Clinical osteomyelitis posterior aspect of pelvis in sacral area. 3. Left trochanteric pressure injury with skin necrosis, unstageable. 4. Late effect right periprosthetic femur fracture. 5. History of right knee replacement. 6. Recent stool contamination. Plan: With the worsening of the sacral pressure sore with necrosis from recent stool contamination and the new onset left trochanteric pressure sore, I recommend admission to the hospital for more aggressive wound care with Dakin's and to start IV antibiotics. Will closely observe the new onset left trochanteric pressure sore. It may need debridement at some point. Right now the eschar is dry. With the necrosis, will need additional operative excision. Will send tissue to Pathology and to Microbiology for culture. Bone will be excised as well and sent to Pathology and to Microbiology for culture to evaluate for osteomyelitis. Will discuss with the family about a diverting colostomy to help divert the stool during the healing process. They will let me know. Will also evaluate for placement at an ECF until the wounds stabilize and show improvement in the healing process. Patient was in agreement with the admission and will go to hospital after the appointment. Prealbumin from 04/05/19 was 8.6. Encouraged nutritional supplementation wtih protein to help the healing process. Will check another one during the admission. Code Visit Wound Center Charges CPT - 35974 ICD-10 - V58.49, L89.154, M86.9, M97.11xS, Z96.651, L89.226, R29.6
== END 2019-05-21 23:59 ==
LOC: WC 10:00
PROVIDERS: Family Provider Family Medicine Geriatric Medicine; PCP Family Medicine Geriatric Medicine; Visit Provider Nurse Practitioner Family
DX: L89.154 Pressure ulcer of sacral region, stage 4 (principal); M46.28 Osteomyelitis of vertebra, sacral and sacrococcygeal region; Z86.14 Personal history of Methicillin resistant Staphylococcus aureus infection; Z86.19 Personal history of other infectious and parasitic diseases; S70.02XA Contusion of left hip, initial encounter; X58.XXXA Exposure to other specified factors, initial encounter
CPT/HCPCS: 11043; 11046; 97606

== ENCOUNTER 2019-05-09 13:59 | Inpatient (IN) | payer MEDICARE, SELFPAY ==
[2019-05-09 10:18] VITALS: BMI 25.6
[2019-05-09 11:59] VITALS: BMI 23.3
[2019-05-09 12:01] VITALS: BMI 23.4
[2019-05-09 12:40] VITALS: PULSE 107
[2019-05-09 13:00] VITALS: BP 103/65; PULSE 107; RESP 14; TEMP 36.3; O2SAT 99
--- NOTE | 2019-05-09 14:20 | CT_ITS ---
STUDY: CT PELVIS WITHOUT CONTRAST REASON FOR EXAM: Female, 83 years old. Sacral wound. Left hip injury. RADIATION DOSAGE (If Supplied By Facility): CTDIvol = ( 8.81 ) mGy, DLP = ( 330.97 ) mGycm TECHNIQUE: Transaxial imaging of the pelvis was performed with oral contrast, and without intravenous administration of contrast material. Individualized dose optimization techniques were used for this CT. COMPARISON: None. FINDINGS: There is evidence of a 2.77 x 5.7 cm ulcerated lesion in the medial aspect of the left buttock. This extends into the overlying sacrum with areas of sclerosis in the sacrum. This may represent chronic osteomyelitis. A small collection of air is also seen along the medial aspect of the right buttock. The subcutaneous tissue deep to the ulceration overlying the left buttock shows evidence of edema. Normal visualized small intestine. Normal visualized colon. There is no pelvic fluid. There is no pelvic mass lesion or lymphadenopathy. There is diffuse atherosclerotic calcification of the pelvic arteries. Normal abdominal wall. There are diffuse degenerative changes of the visualized lumbar spine. CT/Pelvis without IV Contrast IMPRESSION: Large ulcerated lesion in the left medial buttock with the extension to the underlying sacrum suggestive of a chronic osseous myelitis. Subcutaneous edema. Tiny air collection in the aspect of the right buttock as well. Electronically Signed: Domingo Ryan, at 15:38 EST , Service support ,
[2019-05-09 14:51] LABS: Hematocrit 31.4 % (37-47); Hemoglobin 9.9 g/dL (12.0-15.0); Mean Corp Hgb Conc 31.5 g/dL (32-36); Mean Corpuscular Hgb 28.3 pg (27.0-32.0); Mean Corpuscular Volume 89.7 fL (81-99); Mean Platelet Vol. 9.2 fl (6.2-12.0); Platelet Count 372 K/mm3 (150-450); RBC Distribution Width CV 15.2 % (11.6-14.6); RBC Distribution Width SD 49.2 fl (35.1-43.9); White Blood Count 10.6 K/mm3 (4.4-11.0)
[2019-05-09 15:02] LABS: Erythrocyte Sedimentation Rate 51 mm/hr (0-30)
--- NOTE | 2019-05-09 15:10 | NURSING ---
wound photo: right hip
--- NOTE | 2019-05-09 15:12 | NURSING ---
wound photo: sacrum
--- NOTE | 2019-05-09 15:14 | NURSING ---
wound photo: left hip
[2019-05-09 15:21] LABS: ALB/GLOB Ratio 0.4 RATIO (0.9-2.4); AST(SGOT) 38 U/L (15-37); Alanine Aminotransfer ALT/SGPT 16 U/L (13-56); Albumin, Serum 1.7 g/dL (3.2-5.0); Alkaline Phosphatase 306 U/L (45-117); Anion Gap 7 (5-15); BUN 24 mg/dL (7-18); BUN/Creat Ratio 33.2 RATIO (10-20); Calcium,Total 7.8 mg/dL (8.5-10.1); Chloride 103 mmol/L (98-107); Creatinine, Serum 0.72 mg/dL (0.55-1.02); EST Glomerular Filtration Rate 82 mL/min (>60); Est Glom Filt Rate - Afr Amer 99 mL/min (>60); Estimated Creatinine Clearance 33.71 ml/min; Globulin 4.8 g/dL (2.2-4.2); Glucose 102 mg/dL (74-106); Potassium 4.7 mmol/L (3.5-5.1); Prealbumin 6.1 mg/dL (20.0-40.0); Protein, Total 6.5 g/dL (6.4-8.2); Sodium Level 133 mmol/L (136-145)
[2019-05-09 16:54] LABS: M R Staph aureus DNA By PCR Negative (Negative); Probe Check PASS; Staph aureus DNA By PCR POSITIVE (Negative)
[2019-05-09] MEDS: Lactated Ringers 1,000 ML 60 ML IV (17:11)
[2019-05-09 18:15] VITALS: BP 126/78; PULSE 106; RESP 14; TEMP 36.6; O2SAT 100
--- NOTE | 2019-05-09 20:30 | PCM.CONS.GEN ---
Problem List (1) Osteomyelitis of left side of pelvis Status: Chronic Reason for Consult Date of Consultation: 05/09/19 Reason for Consultation: Medical Management History of Present Illness: The patient is a 83 year old F who sustained a fall in 08/2018 and had a fx of her R femur. She subsequently ended up in a longterm and developed pressures ulcers 2/2 immobility. She has been under the care of Dr. Blake at the wound center. She was admitted today 2/2 concerns for infection of the wound. She has had debridement in the past 07/05/18 and a VAC was being used. She has undergone a CT which is c/w osteomyelitis and cx are pending. Operative cx from previously were neg. She was treated with Augmentin for preop would cx that was polymicrobial (Escherichia coli, Proteus mirabilis and Streptococcus group A). She has not been eating and drinking well per the family and lost a considerable amt of weight. She is currently living alone at home but has 24 hr care/supervision. We have been consulted for medical mgt. She is denying pain at the present time. Her overall function has declined considerably since August. 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 Smoking Status: Never smoker Tobacco Use: Non-smoker Alcohol: None Drugs: None - *Family History Maternal History Items: Heart Disease - CHF Review of Systems Constitutional: Reports: Anorexia, Weakness, Weight Change, Fatigue. Denies: Chills, Fever, Night Sweats, Malaise Eyes: Denies: Blurred vision, Cataracts, Conjunctivae Inflammation, Double vision, Drainage, Eyelid Inflammation, Pain, Redness, Vision Change HEENT: Denies: Difficulty Hearing, Difficulty Swallowing, Dysphasia, Ear Pain, Eye Pain, Hard of Hearing, Head Aches, Hearing Changes, Nasal bleeding, Nasal Congestion, Post Nasal Drip, Sinus Congestion, Sinus Drainage, Sore Throat, Visual Changes Cardiovascular: Reports: Edema. Denies: Chest Pain, Claudication, Chest Pressure, Chest Tightness, Heaviness, Light Headedness, Orthopnea, Palpitations, Paroxysmal Noc. Dyspnea, Syncope Respiratory: Denies: Cough, Hemoptysis, Pleuritic Pain, Shortness of Breath, Shortness of breath at rest, Shortness of breath upon exertion, Sputum production, Wheezing Gastrointestinal: Denies: Abdominal Pain, Constipation, Diarrhea, Dyspepsia, Hematemesis, Hematochezia, Nausea, Melena, Vomiting Genitourinary: Reports: Incontinence. Denies: Dysuria, Frequency, Hematuria, Hesitancy, Nocturia, Retention, Urgency Musculoskeletal: Reports: Back Pain, Joint stiffness, Leg Pain. Denies: Arm Pain, Foot Pain, Hand Pain, Joint Pain, Joint swelling, Joint Tenderness, Muscle pain, Neck Pain, Shoulder Pain Skin: Reports: Wounds - see notes. Denies: Dryness, Jaundice, Lesions, Pruritis, Rash, Skin Changes Neurological: Reports: Balance problems. Denies: Blurred vision, Double vision, Change in Speech, Slurred speech, Confusion, Difficulty swallowing, Focal weakness, Headaches, Incoordination, Numbness, Tingling, Tremor, Seizures Psychiatric: Denies: Anxiety, Depression, Suicidal Ideations Endocrine: Denies: Change in Body Habitus, Heat/ Cold Intolerance, Polydipsia, Polyuria Hematologic/ Lymphatic: Reports: Anemia, Easy Bruising, Hx of blood clot. Denies: Adenopathy, Easy Bleeding, Petechiae, Purpura, Hx of blood transfusion - Physical Exam Vitals/I&O's: Vital Signs Temp Pulse Resp BP Pulse Ox 97.8 F 106 H 14 126/78 H 100 05/09/19 18:15 05/09/19 18:15 05/09/19 18:15 05/09/19 18:15 05/09/19 18:15 Oxygen Delivery Method Room Air Weight: 58 kg Body Mass Index (BMI) 23.3 Intake and Output for Last 24 Hours 05/07/19 05/08/19 05/09/19 23:59 23:59 23:59 Intake Total 376 / 376 Output Total 0 / 0 Balance 376 / 376 General: Alert, Oriented x3, Cooperative, No apparent distress, - - thin, appears tired, family at bedside HEENT: Atraumatic, PERRLA, EOMI, Normocephalic Oral: Moist Mucosa, No Gingival or Mucosal Lesions/ Ulcerations, - - dentures upper Neck: Supple, No JVD, Negative Carotid Bruits, Negative Hepatojugular Reflux, No Nodes, No Nuchal Rigidity, Trachea Midline, Thyroid Normal Size and Texture, - - murmur with radiation to B carotids Lungs: Clear to auscultation, Normal air movement, No rhonchi, No wheeze, No rales Cardiovascular: Regular rate, Regular Rhythm, Normal S1, Normal S2, No Ectopic Activity, Murmur - 3-4/6 SM with radiation to carotids, No rub noted, No Gallop Abdomen: Bowel Sounds Present, Soft, Non Tender, Non-Distended, No Hepato-splenomegaly, No hernias noted, - - thin Extremities: No clubbing, No cyanosis, No edema, Capillary Refill Less than 3 Seconds, Edema - B LE L> R Skin: No rashes, Ulcer/ Wound, - - old well healed TKA incicion R Knee Musculoskeletal: No Tenderness to Palpation of Joints or Extremities, No Muscle Wasting Lymphatic: No Cervical, Supraclavicular, or Inguinal Adenopathy Neurological: Cranial nerves II-XII grossly intact, Deep Tendon Reflexes 2+/4 and Symmetrical, Neuro grossly intact, - - generalized weakness Psych/Mental Status: - - flat affect with minimal interaction Laboratory Results 05/09/19 14:30: S.aureus Protein A PCR POSITIVE H, MRSA (PCR) Negative 05/09/19 14:40: WBC 10.6, RBC 3.50 L, Hgb 9.9 L, Hct 31.4 L, MCV 89.7, MCH 28.3, MCHC 31.5 L, RDW Std Deviation 49.2 H, RDW Coeff of Eusebio 15.2 H, Plt Count 372, MPV 9.2, ESR 51 H 05/09/19 14:40: Sodium 133 L, Potassium 4.7, Chloride 103, Carbon Dioxide 23.0, Anion Gap 7, BUN 24 H, Creatinine 0.72, Estim Creat Clear Calc 33.71, Est GFR (MDRD) Af Amer 99, Est GFR (MDRD) Non-Af 82, BUN/Creatinine Ratio 33.2 H, Glucose 102, Calcium 7.8 L, Total Bilirubin 0.50, AST 38 H, ALT 16, Alkaline Phosphatase 306 H, C-React Prot Ext Range 53.40 H, Total Protein 6.5, Albumin 1.7 L, Globulin 4.8 H, Albumin/Globulin Ratio 0.4 L, Prealbumin 6.1 L Current Medications Diazepam (Valium) 2 mg PO QHS PRN PRN PRN Reason: MUSCLE SPASM Docusate Sodium (Colace) 100 mg PO BID [facility] Ampicillin Sodium/Sulbactam (Sodium 3 gm/ Sodium Chloride) 112 mls @ 150 mls/hr IV Q6 [facility] Last Admin: 05/09/19 17:36 Dose: Not Given Documented by: Lactated Ringer's () 1,000 mls @ 60 mls/hr IV .[id number] [facility] Last Infusion: 05/09/19 18:15 Dose: 60 mls/hr Documented by: Sodium Chloride () 250 mls @ 15 mls/hr IV .[id number] PRN PRN Reason: Saline Flush Levothyroxine Sodium (Synthroid) 125 mcg PO DAILY@0600 [facility] Nutritional Formula (Donte - [place] Flavor) 1 packet PO BIDCM [facility] Last Admin: 05/09/19 17:53 Dose: 1 packet Documented by: Nutritional Formula (Lactose Free) (Ensure Enlive) 120 ml PO DAILY [facility] Ondansetron HCl (Zofran) 4 mg IV Q6H PRN PRN PRN Reason: NAUSEA Oxycodone HCl (Oxyir) 5 mg PO Q4H PRN PRN PRN Reason: Pain Score 6-10/10 Potassium Chloride (K-Dur) 10 meq PO DAILY@0800 [facility] Promethazine HCl (Phenergan Tablet) 25 mg PO Q4H PRN PRN PRN Reason: NAUSEA/VOMITING Sodium Chloride () 10 - 40 ml IV UD PRN PRN Reason: SALINE FLUSH Sodium Hypochlorite (Dakins Solution 0.25% (1/2 Strength)) 1 applic TOPICAL BID GRADY; Protocol Assessment/Plan All Active Problems Pressure injury of deep tissue of left hip (Acute) Multiple falls (Acute) L Sacral Pressure Wound with Undermining-Stage 4 -mgt per plastics -continue ABX -may need to change depending on cx -? ID needed Osteomyelitis of sacrum -? ID involvement rivas if not surgical candidate Edema B LE h/o DVT -will assess with dopplers -dvt prophylaxis with heparin BID 5000 u Systolic Murmur -suspect aortic valve issue -consider ECHO if surgical intervention required -would not w/u otherwise as pt is not a candidate for valve surgery/TAVR Failure to Thrive in the Adult -add supplements with meals -unrestricted meals -consider palliative care involvement as overall prognosis is extremely poor -pt is currently a full code as per d/w family and pt -PT/OT consulted Hypothyroidism -continue home levothyroxine -check TSH with wgt loss Anemia -on active bleeding -stable -will trend Hyponatremia-hypovolemic -suspect dehydration with BUN of 24 -IVF as ordered and monitor Code Visit Inpatient E&M: 38507 Init Hosp L3
--- NOTE | 2019-05-09 20:43 | VDLE_ITS ---
Reason For Study: Swelling RIGHT LEFT GSV is normal. GSV is normal. CFV is compressible, spontaneous, phasic, Left CFV is partially compressible with competent and demonstrates normal minimal flow noted. augmentation. FV is compressible, spontaneous, phasic, FV is compressible, spontaneous, phasic, competent and demonstrates normal competent and demonstrates normal augmentation. augmentation. POP V is compressible, spontaneous, phasic, POP V is compressible, spontaneous, phasic, competent and demonstrates normal competent and demonstrates normal augmentation. augmentation. T/P Trunk is compressible. T/P Trunk is compressible. PTV is compressible. PTV is compressible. LT PerV is compressible. RT PerV is compressible. Procedure Exam performed portable in patient room. Techically difficult due to vessel size. A preliminary report was called and/or faxed to [facility] Nurse. Interpretation Summary There is no evidence of right lower extremity deep vein thrombosis. Deep venous thrombosis left common femoral vein Patent and compressible bilateral great saphenous veins Technically difficult examination Ordering Physician: Rhina Juarez Referring Physician: Manohar Duran Chi Performed By: Shelley Jang RVT
[2019-05-09 22:00] VITALS: PULSE 97
[2019-05-09] MEDS: Docusate Sodium 100 MG Capsule PO (22:10)
[2019-05-09] MEDS: DAKIN'S SOL HALF STRENGTH (=0.25%) 1 APPLIC TOPICAL (22:11)
--- NOTE | 2019-05-09 22:45 | HP.PCM_ITS ---
History and Physical Date of Admission: 05/09/19 HISTORY OF PRESENT ILLNESS 83 year old woman presents with a left buttock pressure sore extending medially to the sacrum that developed after falling in August,. She sustained a right periprosthetic femur fracture and was placed in an immobilizer. She was discharged to an ECF. With lack of mobility, she developed the pressure sore. It was treated with Santyl initially and has been changed to Dakin's dressing changes daily. It was noted there was substantial undermining medially toward the sacrum. She had an MRI done on 03/07/19 which showed osteomyelitis. Wound culture from 03/09/19 showed E. coli, Proteus mirabilis, and Streptococcus group A. She initially was placed on Bactrim and Augmentin was added. Due to the amount of undermining present, surgical excision was recommended to unroof the sore to help with the wound care postoperatively. It is hard to pack a wound adequately when it is done through a blind tunnel. She was taken to surgery on 04/04/19 where she underwent excision left sacral pressure sore with superomedial undermining at posterior aspect of pelvis, Stage IV, (120 cm2) and partial ostectomy for osteomyelitis. She tolerated the procedure well and was discharged home with the VAC. Since being at home for about a month since the surgery, she has gotten weaker and finds it very difficult to get out of bed and her legs are getting weaker. She also had recent stool contamination of the pressure sore and there is now odor in the wound along with increasing size and necrotic ulceration inferiorly and some necrotic soft tissue at the base of the wound inferiorly. Will stop the VAC initially and clean up the wound with D cara's dressing changes. Also in this short time span she has developed a severe pressure injury on the left trochanteric area with necrotic eschar. I suspect the pressure injury to be at least a Stage III-IV. Also while hospitalized, she will be evaluated for an ECF as the family is finding it more difficult to care for her at home. 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 Excision left sacral pressure sore with superomedial undermining at posterior aspect of pelvis, Stage IV, (120 cm2) and partial ostectomy for osteomyelitis - 04/04/19 ALLERGIES codeine morphine MEDICATIONS Valium Colace Ensure Synthroid Potassium FAMILY HISTORY Maternal - Heart Disease - CHF SOCIAL HISTORY Smoking Status: Never smoker Tobacco Use: Non-smoker Alcohol: None Drugs: None REVIEW OF SYSTEMS Constitutional: Denies: Fever, Weakness, Fatigue Eyes: Denies: Pain HEENT: Denies: Nasal Congestion, Sore Throat Cardiovascular: Denies: Chest Pain Respiratory: Denies: Cough, Shortness of Breath Gastrointestinal: Denies: Constipation, Diarrhea, Nausea, Vomiting Genitourinary: Denies: Frequency, Hematuria Musculoskeletal: Reports: Joint Pain. Denies: Back Pain, Hand Pain, Leg Pain, Neck Pain Skin: Reports: Wounds - has sacral pressure sore, Stage IV, with tissue necrosis. Neurological: Denies: Headaches Psychiatric: Denies: Depression Endocrine: Denies: Polydipsia, Polyuria Hematologic/ Lymphatic: Denies: Easy Bruising PHYSICAL EXAMINATION General: Alert, Oriented x3 HEENT: PERRLA, EOMI Oral: Moist Mucosa Neck: Supple Lungs: Clear to auscultation Cardiovascular: Regular rate, Regular Rhythm Abdomen: Soft, Non-Distended Extremities: No clubbing, No cyanosis, Edema - mild edema lower extremities., Peripheral Pulses Normal Skin: has large sacral pressure sore after recent excision. It has worsened since the patient has had recent stool contamination. Bone is exposed. No cellulitis, fluctuance, or purulent drainage. Some necrotic tissue seen in the base of the sore inferiorly. Some odor present with exudate. There is some skin compromise with ulceration inferiorly. Sacral pressure sore measures 9.5 x 11 x 4.5 cm. Stage IV. On the left trochanteric area is a recent pressure injury with dry eschar. No purulent drainage noted. Measures 9.5 x 5.5 cm. Unstageable at the present time but I suspect at least a Stage III-IV. Lymphatic: - - no inguinal adenopathy. Neurological: Cranial nerves II-XII grossly intact Psych/Mental Status: Normal Affect, Appropriate Assessment: 1. Sacral pressure sore with necrosis, Stage IV. 2. Clinical osteomyelitis posterior aspect of pelvis in sacral area. 3. Left trochanteric pressure injury with skin necrosis, at least Stage III-IV. 4. Late effect right periprosthetic femur fracture. 5. History of right knee replacement. 6. Recent stool contamination. Plan: Recent wound cultures in 03/10 showed E. coli, Proteus mirabilis, and Streptococcus. Will start Unasyn. Will order a CT Pelvis to look for osteomyelitis. Will stop the VAC at this time and start Dakin's dressing changes twice a day. At the time of the Dakin's dressing change, a wound culture will be obtained. A positive culture will necessitate antibiotic therapy. Patient needs a specialty bed such as a low air loss bed. It has been very difficult taking care of the patient at home as evidenced by wo rsening of the sacral pressure sore and the rapid progression of a pressure injury left trochanteric area. The family seems overwhelmed at the present time. While hospitalized, the patient will be evaluated for an ECF. Will order PT for ambulation and strengthening. Anticipate increased metabolic demands from the pressure sores. Will repeat the Prealbumin and encourage nutritional supplementation with protein to help the healing process. Depending on how well the pressure sore responds to the Dakin's dressing changes will determine if additional operative excision of the pressure sore is needed. Also if the pressure injury left trochanteric area worsens, then operative excision of that pressure sore would be needed as well. If it extends down to bone, then a partial ostectomy for osteomyelitis would be needed. Tissue and bone that is removed will be sent both to Pathology and to Microbiology. Because of the recent stool contamination, will discuss with the patient and family about considering a diverting colostomy to minimize further stool contamination and to help the healing process. When the wounds have improved with no further evidence of infection, then can consider resuming the VAC. Will consult Hospitalist service to help with medical management. Patient and family understand that further surgical excision of the pressure sores may be necessary. If needed, surgery would be under general anesthesia.
[2019-05-10 00:15] VITALS: BP 97/50; PULSE 97; RESP 16; TEMP 36.6; O2SAT 97
[2019-05-10 05:42] LABS: Absolute Lymphocyte Count 1.46 X10^3/uL (0.83-4.51); Absolute Neutrophil Count 3.3 X10^3/uL (2.0-7.7); Basophil# 0.02 X10^3/uL; Basophil% 0.4 % (0-1); Eosinophil# 0.13 X10^3/uL; Eosinophils% 2.4 % (0-5); Hematocrit 26.3 % (37-47); Hemoglobin 8.2 g/dL (12.0-15.0); Lymphocyte # 1.46 X10^3/ul (4.0); Lymphocyte % 26.4 % (19-41); Mean Corp Hgb Conc 31.2 g/dL (32-36); Mean Corpuscular Hgb 28.1 pg (27.0-32.0); Mean Corpuscular Volume 90.1 fL (81-99); Mean Platelet Vol. 9.6 fl (6.2-12.0); Monocyte# 0.54 X10^3/uL; Monocyte% 9.8 % (0-10); NRBC Flagged by Analyzer 0 % (0-5); Neutrophil # 3.33 X10^3/uL (2.7-7.7); Neutrophil % 60.3 % (47-70); Platelet Count 304 K/mm3 (150-450); RBC Distribution Width CV 15.3 % (11.6-14.6); RBC Distribution Width SD 49.4 fl (35.1-43.9); Red Blood Count 2.92 M/mm3 (4.2-5.4); White Blood Count 5.5 K/mm3 (4.4-11.0)
[2019-05-10] MEDS: Levothyroxine 125 MCG Tablet PO (05:50)
[2019-05-10 06:15] VITALS: BP 99/53; PULSE 103; RESP 16; TEMP 36.8; O2SAT 97
[2019-05-10 06:17] LABS: Anion Gap 7 (5-15); BUN 27 mg/dL (7-18); BUN/Creat Ratio 43.2 RATIO (10-20); Calcium,Total 7.6 mg/dL (8.5-10.1); Chloride 101 mmol/L (98-107); Creatinine, Serum 0.62 mg/dL (0.55-1.02); EST Glomerular Filtration Rate 97 mL/min (>60); Est Glom Filt Rate - Afr Amer 117 mL/min (>60); Estimated Creatinine Clearance 33.71 ml/min; Glucose 89 mg/dL (74-106); Potassium 4.2 mmol/L (3.5-5.1); Sodium Level 133 mmol/L (136-145); Thyroid Stim Hormone (TSH) 0.36 uIU/mL (0.358-3.74)
--- NOTE | 2019-05-10 08:18 | PCA ---
Ariela at [facility] called in to let us know that patient is active with them for HH.
--- NOTE | 2019-05-10 08:39 | CT_ITS ---
STUDY: CT ABDOMEN AND PELVIS WITH CONTRAST REASON FOR EXAM: Female, 83 years old. Elevated alkaline phosphatase and liver enzymes. History of sacral pressure ulcerations. RADIATION DOSAGE (If Supplied By Facility): CTDIvol = ( 11.42 ) mGy, DLP = ( 692.54 ) mGycm TECHNIQUE: Transaxial images were obtained from the dome of the diaphragm to the symphysis pubis with oral contrast. IV/Oral Isovue 300 75mL was administered. Sagittal and coronal images were reconstructed. Individualized dose optimization techniques were used for this CT. COMPARISON: Comparison is made with prior CT scan the pelvis dated May 09, 2019. FINDINGS: Small bilateral pleural effusions slightly worse on the right side. Coronary artery calcification. Normal liver. Colonic interposition. There are surgical clips in the gallbladder fossa consistent with a prior cholecystectomy. Normal spleen. There is diffuse atrophy of the pancreas. Normal bilateral adrenal glands. Normal right kidney. Normal left kidney. Normal visualized stomach. Normal small intestine. Normal colon. The appendix is visualized and appears normal. There is diffuse atherosclerotic calcification of the abdominal aorta and the major visceral branches., without a demonstrated aneurysm. Normal inferior vena cava. Normal retroperitoneum. Distended urinary bladder. Once again, there is a 2.8 cm x 5.7 cm ulceration in the midline posteriorly overlying the sacrum. This is slightly more prominent on the left side. There are diffuse degenerative changes of the visualized lumbar spine. Almost complete collapse of the L4 vertebrae. CT/Abdomen/Pelvis WITH Contrast IMPRESSION: Tiny bilateral pleural effusions slightly worse on the right side. Distended urinary bladder. Known decubitus ulcers overlying the posterior aspect of the sacrum. Electronically Signed: Domingo Ryan, at 12:45 EST , Service support ,
--- NOTE | 2019-05-10 09:59 | PCM.HP.ID ---
Problem List (1) Sacral osteomyelitis Status: Acute Reason for Consult: osteo Consulted by: Dr. Blake History of Present Illness: The patient is a 83 year old F with large sacral wound. Concern for osteo on MRI 02/2019, seen by me in wound center, referred her to Dr. Blake. Wound cx with ecoli, GAS, and proteus. Given several weeks of augmentin, taken to OR 04/04/[address] Blake for I&D and wound vac. Bone path neg for osteo. Has been off abx for several weeks. Now new worsening of her wound with recent fecal contamination, increased odor and pain. No fever. Admitted, started on unasyn, surgery planned. Full ROS performed and neg except as noted above. - Medical History Past Medical History (Chronic Problems): Chronic Problems History of total right knee replacement (Chronic) Periprosthetic fracture around internal prosthetic right knee joint, sequela (Chronic) right periprosthetic femur fracture Osteomyelitis of left side of pelvis (Chronic) Pressure ulcer of sacral region, stage 4 (Chronic) Left sacral area with superomedial undermining Hypothyroid (Chronic) Right knee injury (Chronic) Inability to ambulate due to right knee (Chronic) Stage IV pressure ulcer of left buttock (Chronic) Decreased mobility (Chronic) Allergies/Adverse Reactions: Allergies codeine Adverse Reaction (Verified 04/07/19 20:52) Vomiting morphine Adverse Reaction (Verified 04/07/19 20:52) Vomiting Home Medications: Ambulatory Orders Medication Instructions Recorded Ensure Enlive 120 ml PO DAILY 03/15/19 Levothyroxine [Synthroid] 125 mcg PO DAILY@0600 03/15/19 Potassium Chloride [Klor-Con M10] 10 meq PO DAILY 03/31/19 Diazepam [Valium] 2 mg PO QHS PRN PRN 05/09/19 Docusate Sodium [Colace] 100 mg PO BID 05/09/19 - Social History SMOKING STATUS:: Never smoker Vital Signs Temp Pulse Resp BP Pulse Ox 98.2 F 103 H 16 99/53 L 97 05/10/19 06:15 05/10/19 06:15 05/10/19 06:15 05/10/19 06:15 05/10/19 06:15 Oxygen Delivery Method Room Air Weight: 58 kg Body Mass Index (BMI) 23.3 Microbiology Past 72 Hours 05/09/19 14:30 Wound Culture - Preliminary Wound - Sacral Mixed Gram Pos & Gram Neg Org Laboratory Tests Past 24 Hrs 05/09/19 05/09/19 05/09/19 14:30 14:40 14:40 WBC 10.6 RBC 3.50 L Hgb 9.9 L Hct 31.4 L MCV 89.7 MCH 28.3 MCHC 31.5 L RDW Std Deviation 49.2 H RDW Coeff of Eusebio 15.2 H Plt Count 372 MPV 9.2 Immature Gran % (Auto) Neut % (Auto) Lymph % (Auto) [place] % (Auto) Eos % (Auto) Baso % (Auto) Absolute Neuts (auto) Absolute Lymphs (auto) Nucleated RBC % ESR 51 H Sodium 133 L Potassium 4.7 Chloride 103 Carbon Dioxide 23.0 Anion Gap 7 BUN 24 H Creatinine 0.72 Estim Creat Clear Calc 33.71 Est GFR (MDRD) Af Amer 99 Est GFR (MDRD) Non-Af 82 BUN/Creatinine Ratio 33.2 H Glucose 102 Calcium 7.8 L Total Bilirubin 0.50 AST 38 H ALT 16 Alkaline Phosphatase 306 H C-React Prot Ext Range 53.40 H Total Protein 6.5 Albumin 1.7 L Globulin 4.8 H Albumin/Globulin Ratio 0.4 L Prealbumin 6.1 L TSH S.aureus Protein A PCR POSITIVE H MRSA (PCR) Negative 05/10/19 05/10/19 05:20 05:20 WBC 5.5 RBC 2.92 L Hgb 8.2 L Hct 26.3 L MCV 90.1 MCH 28.1 MCHC 31.2 L RDW Std Deviation 49.4 H RDW Coeff of Eusebio 15.3 H Plt Count 304 MPV 9.6 Immature Gran % (Auto) 0.700 Neut % (Auto) 60.3 Lymph % (Auto) 26.4 [place] % (Auto) 9.8 Eos % (Auto) 2.4 Baso % (Auto) 0.4 Absolute Neuts (auto) 3.3 Absolute Lymphs (auto) 1.46 Nucleated RBC % 0 ESR Sodium 133 L Potassium 4.2 Chloride 101 Carbon Dioxide 25.0 Anion Gap 7 BUN 27 H Creatinine 0.62 Estim Creat Clear Calc 33.71 Est GFR (MDRD) Af Amer 117 Est GFR (MDRD) Non-Af 97 BUN/Creatinine Ratio 43.2 H Glucose 89 Calcium 7.6 L Total Bilirubin AST ALT Alkaline Phosphatase C-React Prot Ext Range Total Protein Albumin Globulin Albumin/Globulin Ratio Prealbumin TSH 0.36 S.aureus Protein A PCR MRSA (PCR) - Other Studies Radiology: [] reviewed Other Studies: [] Route of nutrition/ use of supplements: [] Nutritional Intake: [] IV Site: [] Liao Catheter: [] - Physical Exam General: Alert, Cooperative, No apparent distress HEENT: Atraumatic, PERRLA, EOMI Neck: Supple, No Nodes Lungs: Clear to auscultation, Normal air movement Cardiovascular: Irregular Rate, Murmur Abdomen: Soft, Non Tender, Non-Distended Extremities: No edema Skin: Ulcer/ Wound - reviewed photos IV Site: Peripheral, without redness Musculoskeletal: No Tenderness to Palpation of Joints or Extremities Neurological: Cranial nerves II-XII grossly intact - Assessment/Plan Antibiotics: [] Assessment/Plan: [] sacral osteo - reported recent fecal contamination. Wound cx pending. Cx 02/2019 with ecoli, proteus, and GAS. PCR of wound here with mssa. Will broaden unasyn to zosyn. Surgery for I&D with Dr. Blake planned. May need diverting ostomy. Will follow, thank you.
[2019-05-10 10:20] VITALS: BP 99/45; PULSE 100; RESP 18; TEMP 36.6; O2SAT 94
--- NOTE | 2019-05-10 10:22 | CASEMGMT ---
Physician is recommending SNF at d/c. Per CM note from last admission in March patient is out of her 100 custodial days. SW called [employer]. Patient has not been in the custodial since December per their records and she did not come back to the hospital until March therefore she has had her 60 day break so she is starting over at day 1. SW will talk with patient and family about d/c plan. Joan STAHL MSW
[2019-05-10] MEDS: Docusate Sodium 100 MG Capsule PO ×2 (10:23→22:05)
[2019-05-10] MEDS: Lactated Ringers 1,000 ML 60 ML IV (10:24)
[2019-05-10] MEDS: DAKIN'S SOL HALF STRENGTH (=0.25%) 1 APPLIC TOPICAL ×3 (10:25→21:55)
[2019-05-10] MEDS: Heparin Injection (Vial) 5,000 UNIT/ML VIAL 5000 UNIT SC (10:50)
--- NOTE | 2019-05-10 10:59 | PCM.PROGNOTE ---
<Fortunato Mejias - Last Filed: 05/10/19 10:59> Patient Problems: Active and Suspected Problems Sacral osteomyelitis (Acute) Subjective: Pt has no increased pain in the sacral/pelvic area. No fever chills, no SOB/cough, no nausea/vomiting, no diarrhea. - Physical Exam Vitals/I&O's: Vital Signs Temp Pulse Resp BP Pulse Ox 98 F 100 18 99/45 L 94 05/10/19 10:20 05/10/19 10:20 05/10/19 10:20 05/10/19 10:20 05/10/19 10:20 Oxygen Delivery Method Room Air Weight: 127 lb 13.89 oz Body Mass Index (BMI) 23.3 Intake and Output for Last 24 Hours 05/08/19 05/09/19 05/10/19 23:59 23:59 23:59 Intake Total 376 / 616 1673 / 1673 Output Total 0 / 0 Balance 376 / 616 1673 / 1673 General: Alert, Oriented x3, Cooperative, - - frail HEENT: Atraumatic, PERRLA, EOMI, Normocephalic Neck: Supple, No JVD, Negative Carotid Bruits Lungs: Clear to auscultation, Normal air movement Cardiovascular: Regular rate, Murmur - 3/6 systolic murmur LSB 2nd ICS Abdomen: Bowel Sounds Present, Soft, Non Tender Extremities: No edema, Capillary Refill Less than 3 Seconds, Edema - 1+ edema BL LE Skin: No rashes, No breakdown Musculoskeletal: No Tenderness to Palpation of Joints or Extremities Neurological: Cranial nerves II-XII grossly intact Psych/Mental Status: Normal Affect, Appropriate, Alert and oriented to time, place, person, mood and affect Microbiology Past 72 Hours 05/09/19 14:30 Wound - Sacral Wound Culture - Preliminary Mixed Gram Pos & Gram Neg Org Laboratory Results 05/09/19 14:30: S.aureus Protein A PCR POSITIVE H, MRSA (PCR) Negative 05/09/19 14:40: WBC 10.6, RBC 3.50 L, Hgb 9.9 L, Hct 31.4 L, MCV 89.7, MCH 28.3, MCHC 31.5 L, RDW Std Deviation 49.2 H, RDW Coeff of Eusebio 15.2 H, Plt Count 372, MPV 9.2, ESR 51 H 05/09/19 14:40: Sodium 133 L, Potassium 4.7, Chloride 103, Carbon Dioxide 23.0, Anion Gap 7, BUN 24 H, Creatinine 0.72, Estim Creat Clear Calc 33.71, Est GFR (MDRD) Af Amer 99, Est GFR (MDRD) Non-Af 82, BUN/Creatinine Ratio 33.2 H, Glucose 102, Calcium 7.8 L, Total Bilirubin 0.50, AST 38 H, ALT 16, Alkaline Phosphatase 306 H, C-React Prot Ext Range 53.40 H, Total Protein 6.5, Albumin 1.7 L, Globulin 4.8 H, Albumin/Globulin Ratio 0.4 L, Prealbumin 6.1 L 05/10/19 05:20: Sodium 133 L, Potassium 4.2, Chloride 101, Carbon Dioxide 25.0, Anion Gap 7, BUN 27 H, Creatinine 0.62, Estim Creat Clear Calc 33.71, Est GFR (MDRD) Af Amer 117, Est GFR (MDRD) Non-Af 97, BUN/Creatinine Ratio 43.2 H, Glucose 89, Calcium 7.6 L, TSH 0.36 05/10/19 05:20: WBC 5.5, RBC 2.92 L, Hgb 8.2 L, Hct 26.3 L, MCV 90.1, MCH 28.1, MCHC 31.2 L, RDW Std Deviation 49.4 H, RDW Coeff of Eusebio 15.3 H, Plt Count 304, MPV 9.6, Immature Gran % (Auto) 0.700, Neut % (Auto) 60.3, Lymph % (Auto) 26.4, [place] % (Auto) 9.8, Eos % (Auto) 2.4, Baso % (Auto) 0.4, Absolute Neuts (auto) 3.3, Absolute Lymphs (auto) 1.46, Nucleated RBC % 0 Current Medications Diazepam (Valium) 2 mg PO QHS PRN PRN PRN Reason: MUSCLE SPASM Docusate Sodium (Colace) 100 mg PO BID [facility] Last Admin: 05/10/19 10:23 Dose: 100 mg Documented by: Enteral Nutritional Formula (Ensure Surgery) 237 ml PO 0600,1300,2000 [facility] Last Admin: 05/10/19 05:50 Dose: Not Given Documented by: Heparin Sodium (Porcine) (Heparin Na) 5,000 unit SC Q12 [facility] Last Admin: 05/10/19 10:50 Dose: 5,000 unit Documented by: Lactated Ringer's () 1,000 mls @ 60 mls/hr IV .[id number] [facility] Last Admin: 05/10/19 10:24 Dose: 60 mls/hr Documented by: Sodium Chloride () 250 mls @ 15 mls/hr IV .[id number] PRN PRN Reason: Saline Flush Piperacillin Sod/Tazobactam (Sod 3.375 gm/ Sodium Chloride) 50 mls @ 12.5 mls/hr IV Q8 [facility] Levothyroxine Sodium (Synthroid) 125 mcg PO DAILY@0600 [facility] Last Admin: 05/10/19 05:50 Dose: 125 mcg Documented by: Nutritional Formula ([facility]te - [place] Fl[facility]) [facility] Last Admin: 05/10/19 10:24 Dose: 1 packet Documented by: Nutritional Formula (Lactose Free) (Ensure Enlive) 120 ml PO DAILY [facility] Last Admin: 05/10/19 10:25 Dose: 120 ml Documented by: Ondansetron HCl (Zofran) 4 mg IV Q6H PRN PRN PRN Reason: NAUSEA Oxycodone HCl (Oxyir) 5 mg PO Q4H PRN PRN PRN Reason: Pain Score 6-10/10 Potassium Chloride (K-Dur) 10 meq PO DAILY@0800 [facility] Last Admin: 05/10/19 10:24 Dose: 10 meq Documented by: Promethazine HCl (Phenergan Tablet) 25 mg PO Q4H PRN PRN PRN Reason: NAUSEA/VOMITING Sodium Chloride () 10 - 40 ml IV UD PRN PRN Reason: SALINE FLUSH Sodium Hypochlorite (Dakins Solution 0.25% (1/2 Strength)) 1 applic TOPICAL BID [facility]; Protocol Last Admin: 05/10/19 10:25 Dose: 1 applicatio Documented by: Medical Necessity - Tobacco Use Smoking Status: Never smoker Tobacco Use: Non-smoker Assessment/Plan All Active Problems Pressure injury of deep tissue of left hip (Acute) Sacral osteomyelitis (Acute) Multiple falls (Acute) 1. Recurrent osteomyelitis suspected - stage III-IV sacral pressure injury. Elevated CRP/ESR. No fever/leukocytosis. Unasyn to Zosyn per ID given stool contamination until cultures back. MSSA + MRSA negative. CT done, subcutaneous edema, air collection right buttock, large lesion, chronic osseous myelitis. 2. normocytic anemia - tsh normal. check iron/tibc. trend. type and screen as surgery may be needed. 3. Suspect malnutrition - dietary consult. 4. Hypothyroidism - continue synthroid, tsh normal 5. Hyponatremia - unclear etiolgoy. mild. on ringers. not on medications that would contribute to this. 6. Systolic murmur - no echo in records. no documented hx of valvular heart dz. consider preop echo 7. LE edema - LE venous duplex pending. DVT ppx: heparin Thank you for the opportunity to participate in the care of this patient. This patient was seen by Fortunato Mejias PA-C under the supervision of Doctor Kenyon. <Lefty Prescott - Last Filed: 05/10/19 15:04> - Physical Exam Vitals/I&O's: Vital Signs Temp Pulse Resp BP Pulse Ox 98 F 100 18 99/45 L 94 05/10/19 10:20 05/10/19 10:20 05/10/19 10:20 05/10/19 10:20 05/10/19 10:20 Oxygen Delivery Method Room Air Weight: 58 kg Body Mass Index (BMI) 23.3 Intake and Output for Last 24 Hours 05/08/19 05/09/19 05/10/19 23:59 23:59 23:59 Intake Total 376 / 616 2873 / 2873 Output Total 0 / 0 Balance 376 / 616 2873 / 2873 Microbiology Past 72 Hours 05/09/19 14:30 Wound - Sacral Gram Stain - Final 05/09/19 14:30 Wound - Sacral Wound Culture - Preliminary Mixed Gram Pos & Gram Neg Org Laboratory Results 05/09/19 14:30: S.aureus Protein A PCR POSITIVE H, MRSA (PCR) Negative 05/09/19 14:40: ESR 51 H 05/09/19 14:40: Sodium 133 L, Potassium 4.7, Chloride 103, Carbon Dioxide 23.0, Anion Gap 7, BUN 24 H, Creatinine 0.72, Estim Creat Clear Calc 33.71, Est GFR (MDRD) Af Amer 99, Est GFR (MDRD) Non-Af 82, BUN/Creatinine Ratio 33.2 H, Glucose 102, Calcium 7.8 L, Total Bilirubin 0.50, AST 38 H, ALT 16, Alkaline Phosphatase 306 H, C-React Prot Ext Range 53.40 H, Total Protein 6.5, Albumin 1.7 L, Globulin 4.8 H, Albumin/Globulin Ratio 0.4 L, Prealbumin 6.1 L 05/10/19 05:20: Sodium 133 L, Potassium 4.2, Chloride 101, Carbon Dioxide 25.0, Anion Gap 7, BUN 27 H, Creatinine 0.62, Estim Creat Clear Calc 33.71, Est GFR (MDRD) Af Amer 117, Est GFR (MDRD) Non-Af 97, BUN/Creatinine Ratio 43.2 H, Glucose 89, Calcium 7.6 L, TSH 0.36 05/10/19 05:20: WBC 5.5, RBC 2.92 L, Hgb 8.2 L, Hct 26.3 L, MCV 90.1, MCH 28.1, MCHC 31.2 L, RDW Std Deviation 49.4 H, RDW Coeff of Eusebio 15.3 H, Plt Count 304, MPV 9.6, Immature Gran % (Auto) 0.700, Neut % (Auto) 60.3, Lymph % (Auto) 26.4, [place] % (Auto) 9.8, Eos % (Auto) 2.4, Baso % (Auto) 0.4, Absolute Neuts (auto) 3.3, Absolute Lymphs (auto) 1.46, Nucleated RBC % 0 05/10/19 13:02: Iron 16 L, TIBC 91 L, Iron Saturation 17.6, Ferritin 667 H 05/10/19 13:02: Blood Type A POSITIVE, Antibody Screen NEGATIVE Current Medications Diazepam (Valium) 2 mg PO QHS PRN PRN PRN Reason: MUSCLE SPASM Docusate Sodium (Colace) 100 mg PO BID [facility] Last Admin: 05/10/19 10:23 Dose: 100 mg Documented by: Enoxaparin Sodium (Lovenox) 60 mg SC Q12@0600,1800 [facility] Last Admin: 05/10/19 14:50 Dose: 60 mg Documented by: Enteral Nutritional Formula (Ensure Surgery) 237 ml PO 0600,1300,2000 [facility] Last Admin: 05/10/19 12:18 Dose: Not Given Documented by: Lactated Ringer's () 1,000 mls @ 60 mls/hr IV .[id number] [facility] Last Admin: 05/10/19 10:24 Dose: 60 mls/hr Documented by: Sodium Chloride () 250 mls @ 15 mls/hr IV .[id number] PRN PRN Reason: Saline Flush Piperacillin Sod/Tazobactam (Sod 3.375 gm/ Sodium Chloride) 50 mls @ 12.5 mls/hr IV Q8 [facility] Levothyroxine Sodium (Synthroid) 125 mcg PO DAILY@0600 [facility] Last Admin: 05/10/19 05:50 Dose: 125 mcg Documented by: Nutritional Formula (Donte - [place] Flavor) [facility] Last Admin: 05/10/19 10:24 Dose: 1 packet Documented by: Nutritional Formula (Lactose Free) (Ensure Enlive) 120 ml PO DAILY [facility] Last Admin: 05/10/19 10:25 Dose: 120 ml Documented by: Ondansetron HCl (Zofran) 4 mg IV Q6H PRN PRN PRN Reason: NAUSEA Oxycodone HCl (Oxyir) 5 mg PO Q4H PRN PRN PRN Reason: Pain Score 6-10/10 Potassium Chloride (K-Dur) 10 meq PO DAILY@0800 [facility] Last Admin: 05/10/19 10:24 Dose: 10 meq Documented by: Promethazine HCl (Phenergan Tablet) 25 mg PO Q4H PRN PRN PRN Reason: NAUSEA/VOMITING Sodium Chloride () 10 - 40 ml IV UD PRN PRN Reason: SALINE FLUSH Sodium Hypochlorite (Dakins Solution 0.25% (1/2 Strength)) 1 applic TOPICAL BID [facility]; Protocol Last Admin: 05/10/19 10:25 Dose: 1 applicatio Documented by: Assessment/Plan This patient was seen in conjunction with Fortunato Mejias PA-C . I have independently interviewed and examined the patient and reviewed pertinent historical, laboratory, and other data. Please refer to Fortunato Mejias PA-C note for details of this patient's presentation, findings, and recommendations. I have reviewed Fortunato Mejias PA-C note and concur with documented findings. In brief, patient is an 83-year-old female admitted with stage IV sacral pressure ulcer. Patient admitted by plastic surgery with consultation placed to medicine. Patient was noted to have left lower extremity swelling venous duplex came back positive for DVT involving the femoral vein. Physical Examination: GENERAL: cooperative HEENT: Atraumatic; EYES; Anicteric, NECK; supple, normal thyroid, RESPIRATORY: Diminished to auscultation CARDIOVASCULAR: Regular S1 S2, NEURO: Awake; no lateralizing signs. PSYCH; Flat affect Assessment: 1. 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 Left lower extremity DVT 3. Hypothyroidism 4. Hyponatremia 5. Moderate protein calorie malnutrition 6. Anemia secondary to anemia of chronic disorder 7. Systolic murmur echo ordered for subsequent evaluation Recommendations: 1. I have discussed the results of my overview and impressions with the patient 2. Options for management were reviewed Code Visit Inpatient E&M: 95095 Subs Hosp L3
--- NOTE | 2019-05-10 12:34 | PN.SURG_ITS ---
Subjective: Patient sitting in bed, being assisted with lunch. Denies complaints of shortness of breath and pain is well controlled. - Physical Exam Vitals/I&O's: Vital Signs Temp Pulse Resp BP Pulse Ox 98 F 100 18 99/45 L 94 05/10/19 10:20 05/10/19 10:20 05/10/19 10:20 05/10/19 10:20 05/10/19 10:20 Oxygen Delivery Method Room Air Weight: 127 lb 13.89 oz Body Mass Index (BMI) 23.3 Intake and Output for Last 24 Hours 05/08/19 05/09/19 05/10/19 23:59 23:59 23:59 Intake Total 376 / 616 2873 / 2873 Output Total 0 / 0 Balance 376 / 616 2873 / 2873 General: Alert, Disoriented HEENT: Atraumatic Oral: Moist Mucosa Lungs: Clear to auscultation, Normal air movement Cardiovascular: Regular rate, Regular Rhythm Abdomen: Bowel Sounds Present, Soft, Non Tender Extremities: Capillary Refill Less than 3 Seconds Skin: Ulcer/ Wound - left hip ulcer with Mepilex dressing Sacral ulcer stable. Right hip with mepilex dressing. Musculoskeletal: No Tenderness to Palpation of Joints or Extremities Neurological: Cranial nerves II-XII grossly intact Psych/Mental Status: Normal Affect, Appropriate Microbiology Past 72 Hours 05/09/19 14:30 Wound - Sacral Gram Stain - Final 05/09/19 14:30 Wound - Sacral Wound Culture - Preliminary Mixed Gram Pos & Gram Neg Org Laboratory Results 05/09/19 14:30: S.aureus Protein A PCR POSITIVE H, MRSA (PCR) Negative 05/09/19 14:40: WBC 10.6, RBC 3.50 L, Hgb 9.9 L, Hct 31.4 L, MCV 89.7, MCH 28.3, MCHC 31.5 L, RDW Std Deviation 49.2 H, RDW Coeff of Eusebio 15.2 H, Plt Count 372, MPV 9.2, ESR 51 H 05/09/19 14:40: Sodium 133 L, Potassium 4.7, Chloride 103, Carbon Dioxide 23.0, Anion Gap 7, BUN 24 H, Creatinine 0.72, Estim Creat Clear Calc 33.71, Est GFR (MDRD) Af Amer 99, Est GFR (MDRD) Non-Af 82, BUN/Creatinine Ratio 33.2 H, Glucose 102, Calcium 7.8 L, Total Bilirubin 0.50, AST 38 H, ALT 16, Alkaline Phosphatase 306 H, C-React Prot Ext Range 53.40 H, Total Protein 6.5, Albumin 1.7 L, Globulin 4.8 H, Albumin/Globulin Ratio 0.4 L, Prealbumin 6.1 L 05/10/19 05:20: Sodium 133 L, Potassium 4.2, Chloride 101, Carbon Dioxide 25.0, Anion Gap 7, BUN 27 H, Creatinine 0.62, Estim Creat Clear Calc 33.71, Est GFR (MDRD) Af Amer 117, Est GFR (MDRD) Non-Af 97, BUN/Creatinine Ratio 43.2 H, Glucose 89, Calcium 7.6 L, TSH 0.36 05/10/19 05:20: WBC 5.5, RBC 2.92 L, Hgb 8.2 L, Hct 26.3 L, MCV 90.1, MCH 28.1, MCHC 31.2 L, RDW Std Deviation 49.4 H, RDW Coeff of Eusebio 15.3 H, Plt Count 304, MPV 9.6, Immature Gran % (Auto) 0.700, Neut % (Auto) 60.3, Lymph % (Auto) 26.4, [place] % (Auto) 9.8, Eos % (Auto) 2.4, Baso % (Auto) 0.4, Absolute Neuts (auto) 3.3, Absolute Lymphs (auto) 1.46, Nucleated RBC % 0 Current Medications Diazepam (Valium) 2 mg PO QHS PRN PRN PRN Reason: MUSCLE SPASM Docusate Sodium (Colace) 100 mg PO BID [facility] Last Admin: 05/10/19 10:23 Dose: 100 mg Documented by: Enoxaparin Sodium (Lovenox) 60 mg SC Q12@0600,1800 [facility] Enteral Nutritional Formula (Ensure Surgery) 237 ml PO 0600,1300,2000 [facility] Last Admin: 05/10/19 12:18 Dose: Not Given Documented by: Heparin Sodium (Porcine) (Heparin Na) 5,000 unit SC Q12 [facility] Last Admin: 05/10/19 10:50 Dose: 5,000 unit Documented by: Lactated Ringer's () 1,000 mls @ 60 mls/hr IV .[id number] [facility] Last Admin: 05/10/19 10:24 Dose: 60 mls/hr Documented by: Sodium Chloride () 250 mls @ 15 mls/hr IV .[id number] PRN PRN Reason: Saline Flush Piperacillin Sod/Tazobactam (Sod 3.375 gm/ Sodium Chloride) 50 mls @ 12.5 ml s/hr IV Q8 [facility] Levothyroxine Sodium (Synthroid) 125 mcg PO DAILY@0600 [facility] Last Admin: 05/10/19 05:50 Dose: 125 mcg Documented by: Nutritional Formula (Donte - [place] Flavor) [facility] Last Admin: 05/10/19 10:24 Dose: 1 packet Documented by: Nutritional Formula (Lactose Free) (Ensure Enlive) 120 ml PO DAILY [facility] Last Admin: 05/10/19 10:25 Dose: 120 ml Documented by: Ondansetron HCl (Zofran) 4 mg IV Q6H PRN PRN PRN Reason: NAUSEA Oxycodone HCl (Oxyir) 5 mg PO Q4H PRN PRN PRN Reason: Pain Score 6-10/10 Potassium Chloride (K-Dur) 10 meq PO DAILY@0800 [facility] Last Admin: 05/10/19 10:24 Dose: 10 meq Documented by: Promethazine HCl (Phenergan Tablet) 25 mg PO Q4H PRN PRN PRN Reason: NAUSEA/VOMITING Sodium Chloride () 10 - 40 ml IV UD PRN PRN Reason: SALINE FLUSH Sodium Hypochlorite (Dakins Solution 0.25% (1/2 Strength)) 1 applic TOPICAL BID [facility]; Protocol Last Admin: 05/10/19 10:25 Dose: 1 applicatio Documented by: Medical Necessity - Tobacco Use Smoking Status: Never smoker Tobacco Use: Non-smoker Assessment/Plan All Active Problems Pressure injury, stage 4, with infection (Acute) Skin necrosis (Acute) Incontinence of feces (Acute) Pressure injury of deep tissue of left hip (Acute) Sacral osteomyelitis (Acute) Multiple falls (Acute) 1. Sacral pressure ulcer with infection, stage IV 2. Sacral osteomyelitis Continue Dakin's dressing changes daily. Preliminary wound cultures show Mixed Gram positive and Gram negative- on Zosyn per ID Prealbumin 6.1- encourage increase protein intake and nutritional supplements CT of abdomen and pelvis done today- awaiting results. 3. Left trochanter pressure injury with skin necrosis, unstageable Continue Mepilex dressings to hip areas 4. Multiple Falls Monitor closely and have on fall precaution
--- NOTE | 2019-05-10 13:17 | CASEMGMT ---
SW went to room to meet with patient. A couple was entering the room. The lady said she is not patient's daughter, but she is one of her caregivers. AMIE Introduced self and role at [facility]. AMIE let patient know that SW called her insurance and she does have skilled days left. Patient was confused as what she was saying did not make sense. AMIE told her we will follow along for assistance. Patient's friend then spoke to SW in the [place]. She said patient works better with her than she does her daughter or granddaughter. Patient did not have a good experience at [facility]. She developed the sores at the detention. She said patient must be confused as she normally would have yelled at for talking about detention. AMIE and RN CM to follow for d/c planning. Joan LUNA
[2019-05-10 13:55] LABS: Ferritin 667 ng/mL (8-252); Iron 16 ug/dL (50-170); Iron Binding Capacity,Total 91 ug/dL (250-450); PERCENT IRON SATURATION 17.6 % (15.0-55.0)
[2019-05-10] MEDS: Enoxaparin 60 MG/0.6 ML Syringe SC ×2 (14:50→22:05)
--- NOTE | 2019-05-10 15:02 | ECHOD_ITS ---
Reason For Study: MURMUR Procedure This was a 2D Doppler, Color Flow transthoracic echocardiogram. The study was technically difficult. Exam performed portable in patient room. Left Ventricle Normal size and thickness. The estimated ejection fraction is 65 %. Stage 1 diastolic dysfunction. Septal motion consistent with IVCD. No regional wall motion abnormalities noted. Right Ventricle Normal size and thickness. Normal systolic function. Atria Normal left atrium. Normal right atrium. Normal atrial septum. Mitral Valve The mitral valve is structurally normal. No prolapse or stenosis seen. Tricuspid Valve Normal tricuspid valve. Trivial tricuspid valve insufficiency. Right ventricular systolic pressure estimated to be 33 mmHg. Aortic Valve Trisinus/trileaflet aortic valve. Moderate focal aortic valve thickening. Moderate restriction of the aortic valve. Mild to moderate aortic stenosis. Peak aortic valve gradient 29 mmHg. Mean aortic valve gradient 19 mmHg. Calculated aortic valve area (continuity equation) is 1.1 cm2. Pulmonic Valve Normal pulmonic valve. Great Vessels Normal aortic root. Normal arch. The inferior vena cava is dilated. No collapse of the inferior vena cava. Pericardium/Pleural No pericardial effusion. MMode/2D Measurements & Calculations LVIDd: 4.7 cm IVSd: 1.1 cm LVOT diam: 2.0 cm LVIDs: 3.4 cm LVPWd: 1.0 cm LVOT area: 3.0 cm2 RVDd: 3.2 cm FS: 28.0 % Ao root diam: 3.2 cm LAV(MOD-bp): 37.6 ml EDV(MOD-sp4): 70.9 ml LAV(MOD-bp) Indexed: 23.9 ml/m2 ESV(MOD-sp4): 30.1 ml LAV(MOD-sp2): 44.5 ml EF(MOD-sp4): 57.6 % LAV(MOD-sp4): 25.2 ml SV(MOD-sp4): 40.9 ml Aortic Valve Planimetry: 1.1 cm2 LA A4 area: 11.1 cm2 LA dimension(2D): 3.7 cm RA A4 area: 9.4 cm2 Time Measurements MV dec time: 0.20 sec Doppler Measurements & Calculations MV E max heath: 63.7 cm/sec Lat Peak E' Heath: 2.8 cm/sec Med Peak E' Heath: 3.8 cm/sec MV A max heath: 129.0 cm/sec E/E' lat: 22.4 E/E' med: 16.7 MV E/A: 0.49 Ao V2 max: 268.6 cm/sec LV V1 max: 92.9 cm/sec SV(LVOT): 57.0 ml Ao max P.9 mmHg LV V1 max P.5 mmHg Ao V2 mean: 208.3 cm/sec LV V1 mean P.7 mmHg Ao mean P.5 mmHg LV V1 mean: 61.4 cm/sec Ao V2 VTI: 52.9 cm LV V1 VTI: 19.0 cm KAELA(I,D): 1.1 cm2 KAELA(V,D): 1.0 cm2 PA V2 max: 76.9 cm/sec TR max heath: 265.1 cm/sec TR max P.1 mmHg Interpretation Summary The estimated ejection fraction is 65 %. Stage 1 diastolic dysfunction. Trivial tricuspid valve insufficiency. Right ventricular systolic pressure estimated to be 33 mmHg. Mild to moderate aortic stenosis. May be underestimated by peak/mean gradients. The inferior vena cava is dilated There is no comparison study available. Ordering Physician: Fortunato Mejias Referring Physician: LORRAINE GAUTHIER CHI Performed By: Lucero Hernandez, GIO, RVT
[2019-05-10 16:00] VITALS: BP 111/63; PULSE 109; RESP 18; TEMP 36.8; O2SAT 97
--- NOTE | 2019-05-10 19:15 | NURSING ---
Please call brittany Merritt for all questions/concerns @ [phone]
[2019-05-10 21:30] VITALS: BP 93/53; PULSE 103; RESP 16; TEMP 37.3; O2SAT 95
[2019-05-11 02:45] VITALS: BP 103/58; PULSE 65; RESP 16; TEMP 37.7; O2SAT 95
[2019-05-11] MEDS: Levothyroxine 125 MCG Tablet PO (05:25)
[2019-05-11] MEDS: Enoxaparin 60 MG/0.6 ML Syringe SC (05:27)
[2019-05-11 06:06] LABS: Absolute Lymphocyte Count 1.46 X10^3/uL (0.83-4.51); Absolute Neutrophil Count 2.3 X10^3/uL (2.0-7.7); Basophil# 0.02 X10^3/uL; Basophil% 0.5 % (0-1); Eosinophil# 0.01 X10^3/uL; Eosinophils% 0.2 % (0-5); Hematocrit 31.9 % (37-47); Hemoglobin 10.1 g/dL (12.0-15.0); Lymphocyte # 1.46 X10^3/ul (4.0); Lymphocyte % 33.8 % (19-41); Mean Corp Hgb Conc 31.7 g/dL (32-36); Mean Corpuscular Hgb 28.2 pg (27.0-32.0); Mean Corpuscular Volume 89.1 fL (81-99); Mean Platelet Vol. 9.9 fl (6.2-12.0); Monocyte# 0.55 X10^3/uL; Monocyte% 12.7 % (0-10); NRBC Flagged by Analyzer 0 % (0-5); Neutrophil # 2.26 X10^3/uL (2.7-7.7); Neutrophil % 52.3 % (47-70); Platelet Count 192 K/mm3 (150-450); RBC Distribution Width CV 15.8 % (11.6-14.6); RBC Distribution Width SD 50.4 fl (35.1-43.9); Red Blood Count 3.58 M/mm3 (4.2-5.4); White Blood Count 4.3 K/mm3 (4.4-11.0)
[2019-05-11 06:07] LABS: Anion Gap 6 (5-15); BUN 28 mg/dL (7-18); BUN/Creat Ratio 47.9 RATIO (10-20); Calcium,Total 7.1 mg/dL (8.5-10.1); Chloride 105 mmol/L (98-107); Creatinine, Serum 0.58 mg/dL (0.55-1.02); EST Glomerular Filtration Rate 104 mL/min (>60); Est Glom Filt Rate - Afr Amer 126 mL/min (>60); Estimated Creatinine Clearance 33.71 ml/min; Glucose 94 mg/dL (74-106); Potassium 3.9 mmol/L (3.5-5.1); Sodium Level 138 mmol/L (136-145)
--- NOTE | 2019-05-11 09:43 | CASEMGMT ---
AMIE spoke with Dr. Blake and MARGUERITE Bucio. Both talked with patient's daughter and she would like patient to go to [facility]. Patient is currently confused. AMIE spoke with Tammie in TCU and they will accept patient. AMIE called patient's daughter Evelyn and left her a voice mail with above information and SW's name and number. Plan: [facility] pending patient being medically ready and insurance approval. Joan STAHL MSW
[2019-05-11 10:39] VITALS: BP 102/61; PULSE 72; RESP 18; TEMP 36.9; O2SAT 96
[2019-05-11] MEDS: Lactated Ringers 1,000 ML 60 ML IV (10:49)
[2019-05-11] MEDS: DAKIN'S SOL HALF STRENGTH (=0.25%) 1 APPLIC TOPICAL ×2 (10:51→22:30)
[2019-05-11] MEDS: Docusate Sodium 100 MG Capsule PO ×2 (10:51→22:19)
[2019-05-11] MEDS: Ensure Surgery 237 ML LIQUID PO ×2 (11:53→22:17)
--- NOTE | 2019-05-11 11:58 | PN_ITS ---
<Fortunato Mejias - Last Filed: 05/11/19 13:02> Patient Problems: Active and Suspected Problems Sacral osteomyelitis (Acute) Subjective: Pt more confused today. She states her arms hurts as it had surgery yesterday. She does not know she is in a hospital - states this is a body building. States the year is 1919. She is otherwise comfortable in bed NAD. D/w daugther Winter - she is normally lucid however when she receives opiates she becomes very confused and hallucinates. Daughter also conveyed that the patient's desires are to be full code. - Physical Exam Vitals/I&O's: Vital Signs Temp Pulse Resp BP Pulse Ox 98.5 F 72 18 102/61 96 05/11/19 10:39 05/11/19 10:39 05/11/19 10:39 05/11/19 10:39 05/11/19 10:39 Oxygen Delivery Method Room Air Weight: 127 lb 13.89 oz Body Mass Index (BMI) 23.3 Intake and Output for Last 24 Hours 05/09/19 05/10/19 05/11/19 23:59 23:59 23:59 Intake Total 376 / 616 3739.25 / 3979.25 1968.00 / 1968.00 Output Total 0 / 0 451 / 451 Balance 376 / 616 3739.25 / 3679.25 1517.00 / 1517.00 General: Alert, Cooperative, Confused HEENT: Atraumatic, PERRLA, EOMI, Normocephalic Neck: Supple, No JVD, Negative Carotid Bruits Lungs: Clear to auscultation, Normal air movement Cardiovascular: Regular rate, No murmurs Abdomen: Bowel Sounds Present, Soft, Non Tender Extremities: No edema, Capillary Refill Less than 3 Seconds Skin: No rashes, No breakdown Musculoskeletal: No Tenderness to Palpation of Joints or Extremities Neurological: Cranial nerves II-XII grossly intact Psych/Mental Status: Normal Affect, - - pleasantly confused Microbiology Past 72 Hours 05/09/19 14:30 Wound - Sacral Gram Stain - Final 05/09/19 14:30 Wound - Sacral Wound Culture - Preliminary GNR lactose assistant branch operations manager Staphylococcus species Gram positive organism Laboratory Results 05/10/19 13:02: Iron 16 L, TIBC 91 L, Iron Saturation 17.6, Ferritin 667 H 05/10/19 13:02: Blood Type A POSITIVE, Antibody Screen NEGATIVE 05/11/19 05:30: WBC 4.3 L, RBC 3.58 L, Hgb 10.1 L, Hct 31.9 L, MCV 89.1, MCH 28.2, MCHC 31.7 L, RDW Std Deviation 50.4 H, RDW Coeff of Eusebio 15.8 H, Plt Count 192, MPV 9.9, Immature Gran % (Auto) 0.500, Neut % (Auto) 52.3, Lymph % (Auto) 33.8, [place] % (Auto) 12.7 H, Eos % (Auto) 0.2, Baso % (Auto) 0.5, Absolute Neuts (auto) 2.3, Absolute Lymphs (auto) 1.46, Nucleated RBC % 0 05/11/19 05:30: Sodium 138, Potassium 3.9, Chloride 105, Carbon Dioxide 27.0, Anion Gap 6, BUN 28 H, Creatinine 0.58, Estim Creat Clear Calc 33.71, Est GFR (MDRD) Af Amer 126, Est GFR (MDRD) Non-Af 104, BUN/Creatinine Ratio 47.9 H, Glucose 94, Calcium 7.1 L 05/11/19 05:30: Alk Phos Iso-Intestine Pending, Alk Phos Iso-Bone Pending, Alk Phos Iso-Liver Pending, Alk Phos Isoenzymes Pending Current Medications Diazepam (Valium) 2 mg PO QHS PRN PRN PRN Reason: MUSCLE SPASM Docusate Sodium (Colace) 100 mg PO BID [facility] Last Admin: 05/11/19 10:51 Dose: 100 mg Documented by: Enoxaparin Sodium (Lovenox) 60 mg SC Q12@0600,1800 [facility] Last Admin: 05/11/19 05:27 Dose: 60 mg Documented by: Enteral Nutritional Formula (Ensure Surgery) 237 ml PO 0600,1300,2000 [facility] Last Admin: 05/11/19 11:53 Dose: 237 ml Documented by: Lactated Ringer's () 1,000 mls @ 60 mls/hr IV .[id number] [facility] Last Admin: 05/11/19 10:49 Dose: 60 mls/hr Documented by: Sodium Chloride () 250 mls @ 15 mls/hr IV .[id number] PRN PRN Reason: Saline Flush Last Infusion: 05/11/19 10:49 Dose: 0 mls/hr Documented by: Piperacillin Sod/Tazobactam (Sod 3.375 gm/ Sodium Chloride) 50 mls @ 12.5 mls/hr IV Q8 [facility] Last Infusion: 05/11/19 09:51 Dose: Infused Documented by: Levothyroxine Sodium (Synthroid) 125 mcg PO DAILY@0600 [facility] Last Admin: 05/11/19 05:25 Dose: 125 mcg Documented by: Nutritional Formula (Donte - [place]be[place] Flavor) 1 packet PO BIDCM [facility] Last Admin: 05/11/19 10:51 Dose: 1 packet Documented by: Nutritional Formula (Lactose Free) (Ensure Enlive) 120 ml PO DAILY [facility] Last Admin: 05/11/19 10:53 Dose: 120 ml Documented by: Ondansetron HCl (Zofran) 4 mg IV Q6H PRN PRN PRN Reason: NAUSEA Oxycodone HCl (Oxyir) 5 mg PO Q6H PRN PRN PRN Reason: Pain Score 6-10/10 Potassium Chloride (K-Dur) 10 meq PO DAILY@0800 [facility] Last Admin: 05/11/19 10:51 Dose: 10 meq Documented by: Promethazine HCl (Phenergan Tablet) 25 mg PO Q4H PRN PRN PRN Reason: NAUSEA/VOMITING Sodium Chloride () 10 - 40 ml IV UD PRN PRN Reason: SALINE FLUSH Sodium Hypochlorite (Dakins Solution 0.25% (1/2 Strength)) 1 applic TOPICAL BID [facility]; Protocol Last Admin: 05/11/19 10:51 Dose: 1 applicatio Documented by: Medical Necessity - Tobacco Use Smoking Status: Never smoker Tobacco Use: Non-smoker Assessment/Plan All Active Problems Pressure injury of deep tissue of left hip (Acute) Sacral osteomyelitis (Acute) Multiple falls (Acute) 1. Recurrent osteomyelitis suspected - continue zosyn. May need debridement and or diverting colostomy. Daughter is pushing for TCU at [place]. The patient normally lives alone but has family and home health aids but lately has become weaker and only can take a few steps to get from a wheelchair to the toilet. 2. normocytic anemia - tsh normal. check iron/tibc. trend. type and screen as surgery may be needed. 3. Severe protein calorie malnutrition- dietary consult. Supplements to optimize wound healing. 4. Hypothyroidism - continue synthroid, tsh normal 5. Hyponatremia - unclear etiology. Resolved. 6. Systolic murmur - echo pending. 7. DVT left femoral vein on lower extremity duplex - lovenox started. DVT ppx: heparin Clarified code status with POA as pt A/Ox1 : Full code. Thank you for the opportunity to participate in the care of this patient. This patient was seen by Fortunato Mejias PA-C under the supervision of Doctor Kenyon. <Lefty Prescott - Last Filed: 05/11/19 14:31> - Physical Exam Vitals/I&O's: Vital Signs Temp Pulse Resp BP Pulse Ox 97.8 F 95 18 99/64 98 05/11/19 14:03 05/11/19 14:03 05/11/19 14:03 05/11/19 14:03 05/11/19 14:03 Oxygen Delivery Method Room Air Weight: 58 kg Body Mass Index (BMI) 23.3 Intake and Output for Last 24 Hours 05/09/19 05/10/19 05/11/19 23:59 23:59 23:59 Intake Total 376 / 616 3739.25 / 3979.25 1968.00 / 1968.00 Output Total 0 / 0 451 / 451 Balance 376 / 616 3739.25 / 3679.25 1517.00 / 1517.00 Microbiology Past 72 Hours 05/09/19 14:30 Wound - Sacral Gram Stain - Final 05/09/19 14:30 Wound - Sacral Wound Culture - Preliminary GNR lactose assistant branch operations manager Staphylococcus species Gram positive organism Laboratory Results 05/10/19 13:02: Blood Type A POSITIVE, Antibody Screen NEGATIVE 05/11/19 05:30: WBC 4.3 L, RBC 3.58 L, Hgb 10.1 L, Hct 31.9 L, MCV 89.1, MCH 28.2, MCHC 31.7 L, RDW Std Deviation 50.4 H, RDW Coeff of Eusebio 15.8 H, Plt Count 192, MPV 9.9, Immature Gran % (Auto) 0.500, Neut % (Auto) 52.3, Lymph % (Auto) 33.8, [place] % (Auto) 12.7 H, Eos % (Auto) 0.2, Baso % (Auto) 0.5, Absolute Neuts (auto) 2.3, Absolute Lymphs (auto) 1.46, Nucleated RBC % 0 05/11/19 05:30: Sodium 138, Potassium 3.9, Chloride 105, Carbon Dioxide 27.0, Anion Gap 6, BUN 28 H, Creatinine 0.58, Estim Creat Clear Calc 33.71, Est GFR (MDRD) Af Amer 126, Est GFR (MDRD) Non-Af 104, BUN/Creatinine Ratio 47.9 H, Glucose 94, Calcium 7.1 L 05/11/19 05:30: Alk Phos Iso-Intestine Pending, Alk Phos Iso-Bone Pending, Alk Phos Iso-Liver Pending, Alk Phos Isoenzymes Pending Current Medications Diazepam (Valium) 2 mg PO QHS PRN PRN PRN Reason: MUSCLE SPASM Docusate Sodium (Colace) 100 mg PO BID [facility] Last Admin: 05/11/19 10:51 Dose: 100 mg Documented by: Enoxaparin Sodium (Lovenox) 60 mg SC Q12@0600,1800 [facility] Last Admin: 05/11/19 05:27 Dose: 60 mg Documented by: Enteral Nutritional Formula (Ensure Surgery) 237 ml PO 0600,1300,2000 [facility] Last Admin: 05/11/19 11:53 Dose: 237 ml Documented by: Lactated Ringer's () 1,000 mls @ 60 mls/hr IV .[id number] [facility] Last Admin: 05/11/19 10:49 Dose: 60 mls/hr Documented by: Sodium Chloride () 250 mls @ 15 mls/hr IV .[id number] PRN PRN Reason: Saline Flush Last Infusion: 05/11/19 10:49 Dose: 0 mls/hr Documented by: Piperacillin Sod/Tazobactam (Sod 3.375 gm/ Sodium Chloride) 50 mls @ 12.5 mls/hr IV Q8 [facility] Last Admin: 05/11/19 14:04 Dose: 12.5 mls/hr Documented by: Levothyroxine Sodium (Synthroid) 125 mcg PO DAILY@0600 [facility] Last Admin: 05/11/19 05:25 Dose: 125 mcg Documented by: Nutritional Formula (Donte - [place] Flavor) 1 packet PO BIDCM [facility] Last Admin: 05/11/19 10:51 Dose: 1 packet Documented by: Nutritional Formula (Lactose Free) (Ensure Enlive) 120 ml PO DAILY [facility] Last Admin: 05/11/19 10:53 Dose: 120 ml Documented by: Ondansetron HCl (Zofran) 4 mg IV Q6H PRN PRN PRN Reason: NAUSEA Oxycodone HCl (Oxyir) 5 mg PO Q6H PRN PRN PRN Reason: Pain Score 6-10/10 Potassium Chloride (K-Dur) 10 meq PO DAILY@0800 [facility] Last Admin: 05/11/19 10:51 Dose: 10 meq Documented by: Promethazine HCl (Phenergan Tablet) 25 mg PO Q4H PRN PRN PRN Reason: NAUSEA/VOMITING Sodium Chloride () 10 - 40 ml IV UD PRN PRN Reason: SALINE FLUSH Sodium Hypochlorite (Dakins Solution 0.25% (1/2 Strength)) 1 applic TOPICAL BID [facility]; Protocol Last Admin: 05/11/19 10:51 Dose: 1 applicatio Documented by: Assessment/Plan This patient was seen in conjunction with Fortunato Mejias PA-C . I have independently interviewed and examined the patient and reviewed pertinent historical, laboratory, and other data. Please refer to Fortunato Mejias PA-C note for details of this patient's presentation, findings, and recommendations. I have reviewed Fortunato Mejias PA-C note and concur with documented findings. In brief, patient is an 83-year-old female admitted with stage IV sacral pressure ulcer. Patient admitted by plastic surgery with consultation placed to medicine. Patient was noted to have left lower extremity swelling venous duplex came back positive for DVT involving the femoral vein. 05/11/2019 patient was noted to be delirious this a.m. polymicrobial results are as below. Discussions were held with patient's daughter AGUSTO regarding her current state prognosis as well as plans moving forward. Also did discuss advance planning. Physical Examination: GENERAL: cooperative HEENT: Atraumatic; EYES; Anicteric, NECK; supple, normal thyroid, RESPIRATORY: Diminished to auscultation CARDIOVASCULAR: Regular S1 S2, NEURO: Awake; no lateralizing signs. PSYCH; Flat affect Assessment: 1. 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 Left lower extremity DVT 3. Hypothyroidism 4. Hyponatremia 5. Moderate protein calorie malnutrition 6. Anemia secondary to anemia of chronic disorder 7. Systolic murmur echo ordered for subsequent evaluation( results of echo pe nding at the time of this dictation) Recommendations: 1. I have discussed the results of my overview and impressions with the patient 2. Options for management were reviewed Advance planning; did discuss with her daughter (her POA) regarding advanced directives as well as CODE STATUS. Did explain the various scenarios involved ( FULL CODE, DNR CCA, DNR CCA with no intubation, and DNR CC and what each meant) daughter wanted patient to remain full code with CPR and intubation if warranted. Order was placed. Time spent on discussion 25 minutes. Microbiology 05/09/19 14:30 Wound - Sacral Gram Stain - Final 05/09/19 14:30 Wound - Sacral Wound Culture - Preliminary GNR lactose assistant branch operations manager Staphylococcus species Gram positive organism Code Visit Inpatient E&M: 14456 Subs Hosp L2 Procedures: 98320 Advncd Care Plan 30 Min
--- NOTE | 2019-05-11 12:43 | CASEMGMT ---
SW spoke with patient's daughter. She had some questions which SW answered. She is happy that patient will be able to go to TCU. SW did tell her that if patient is not able to return home at discharge she will have to transition to another nursing facility as TCU is not exterminator helper termite. She said she is confident patient will be able to get strong enough to return home. She thanked AMIE for calling her. SW to follow for d/c to TCU when ready. Joan STAHL MSW
[2019-05-11 14:03] VITALS: BP 99/64; PULSE 95; RESP 18; TEMP 36.6; O2SAT 98
--- NOTE | 2019-05-11 14:35 | PN.SURG_ITS ---
Subjective: Postop #37 Patient is resting comfortably. Not much of an appetite. - Physical Exam Vitals/I&O's: Vital Signs Temp Pulse Resp BP Pulse Ox 97.8 F 95 18 99/64 98 05/11/19 14:03 05/11/19 14:03 05/11/19 14:03 05/11/19 14:03 05/11/19 14:03 Oxygen Delivery Method Room Air Weight: 127 lb 13.89 oz Body Mass Index (BMI) 23.3 Intake and Output for Last 24 Hours 05/09/19 05/10/19 05/11/19 23:59 23:59 23:59 Intake Total 376 / 616 3739.25 / 3979.25 1968.00 / 1968.00 Output Total 0 / 0 451 / 451 Balance 376 / 616 3739.25 / 3679.25 1517.00 / 1517.00 General: Alert, Oriented x3 HEENT: PERRLA, EOMI Oral: Moist Mucosa Neck: Supple Abdomen: Soft, Non-Distended Skin: Ulcer/ Wound - sacral wound is a little better with the Dakin's dressing changes. Tissue necrosis present inferiorly. No progression seen., - - left trochanteric pressure injury shows stable dry eschar. No fluctuance noted. No redness or drainage noted. Neurological: Cranial nerves II-XII grossly intact Psych/Mental Status: Normal Affect, Appropriate Microbiology Past 72 Hours 05/09/19 14:30 Wound - Sacral Gram Stain - Final 05/09/19 14:30 Wound - Sacral Wound Culture - Preliminary GNR lactose dock guard Staphylococcus species Gram positive organism Laboratory Results 05/11/19 05:30: WBC 4.3 L, RBC 3.58 L, Hgb 10.1 L, Hct 31.9 L, MCV 89.1, MCH 28.2, MCHC 31.7 L, RDW Std Deviation 50.4 H, RDW Coeff of Eusebio 15.8 H, Plt Count 192, MPV 9.9, Immature Gran % (Auto) 0.500, Neut % (Auto) 52.3, Lymph % (Auto) 33.8, [place] % (Auto) 12.7 H, Eos % (Auto) 0.2, Baso % (Auto) 0.5, Absolute Neuts (auto) 2.3, Absolute Lymphs (auto) 1.46, Nucleated RBC % 0 05/11/19 05:30: Sodium 138, Potassium 3.9, Chloride 105, Carbon Dioxide 27.0, Anion Gap 6, BUN 28 H, Creatinine 0.58, Estim Creat Clear Calc 33.71, Est GFR (MDRD) Af Amer 126, Est GFR (MDRD) Non-Af 104, BUN/Creatinine Ratio 47.9 H, Glucose 94, Calcium 7.1 L 05/11/19 05:30: Alk Phos Iso-Intestine Pending, Alk Phos Iso-Bone Pending, Alk Phos Iso-Liver Pending, Alk Phos Isoenzymes Pending Diagnostic Data Pelvis CT 05/09/19 14:20 IMPRESSION: Large ulcerated lesion in the left medial buttock with the extension to the underlying sacrum suggestive of a chronic osseous myelitis. Subcutaneous edema. Tiny air collection in the aspect of the right buttock as well. Electronically Signed: Domingo Ryan, at 15:38 EST , Service support , Abdomen/Pelvis CT 05/10/19 08:39 IMPRESSION: Tiny bilateral pleural effusions slightly worse on the right side. Distended urinary bladder. Known decubitus ulcers overlying the posterior aspect of the sacrum. Electronically Signed: Domingo Ryan, at 12:45 EST , Service support , Current Medications Diazepam (Valium) 2 mg PO QHS PRN PRN PRN Reason: MUSCLE SPASM Docusate Sodium (Colace) 100 mg PO BID [facility] Last Admin: 05/11/19 10:51 Dose: 100 mg Documented by: Enoxaparin Sodium (Lovenox) 60 mg SC Q12@0600,1800 [facility] Last Admin: 05/11/19 05:27 Dose: 60 mg Documented by: Enteral Nutritional Formula (Ensure Surgery) 237 ml PO 0600,1300,2000 [facility] Last Admin: 05/11/19 11:53 Dose: 237 ml Documented by: Lactated Ringer's () 1,000 mls @ 60 mls/hr IV .[id number] [facility] Last Admin: 05/11/19 10:49 Dose: 60 mls/hr Documented by: Sodium Chloride () 250 mls @ 15 mls/hr IV .[id number] PRN PRN Reason: Saline Flush Last Infusion: 05/11/19 10:49 Dose: 0 mls/hr Documented by: Piperacillin Sod/Tazobactam (Sod 3.375 gm/ Sodium Chloride) 50 mls @ 12.5 mls/hr IV Q8 [facility] Last Admin: 05/11/19 14:04 Dose: 12.5 mls/hr Documented by: Levothyroxine Sodium (Synthroid) 125 mcg PO DAILY@0600 [facility] Last Admin: 05/11/19 05:25 Dose: 125 mcg Documented by: Nutritional Formula (Donte - [place] Flavor) 1 packet PO BIDCM [facility] Last Admin: 05/11/19 10:51 Dose: 1 packet Documented by: Nutritional Formula (Lactose Free) (Ensure Enlive) 120 ml PO DAILY [facility] Last Admin: 05/11/19 10:53 Dose: 120 ml Documented by: Ondansetron HCl (Zofran) 4 mg IV Q6H PRN PRN PRN Reason: NAUSEA Oxycodone HCl (Oxyir) 5 mg PO Q6H PRN PRN PRN Reason: Pain Score 6-10/10 Potassium Chloride (K-Dur) 10 meq PO DAILY@0800 [facility] Last Admin: 05/11/19 10:51 Dose: 10 meq Documented by: Promethazine HCl (Phenergan Tablet) 25 mg PO Q4H PRN PRN PRN Reason: NAUSEA/VOMITING Sodium Chloride () 10 - 40 ml IV UD PRN PRN Reason: SALINE FLUSH Sodium Hypochlorite (Dakins Solution 0.25% (1/2 Strength)) 1 applic TOPICAL BID [facility]; Protocol Last Admin: 05/11/19 10:51 Dose: 1 applicatio Documented by: Medical Necessity - Tobacco Use Smoking Status: Never smoker Tobacco Use: Non-smoker Assessment/Plan All Active Problems Pressure injury, stage 4, with infection (Acute) Skin necrosis (Acute) Incontinence of feces (Acute) Pressure injury of deep tissue of left hip (Acute) Sacral osteomyelitis (Acute) Multiple falls (Acute) 1. Sacral pressure sore with necrosis, Stage IV. 2. Clinical osteomyelitis posterior aspect of pelvis in sacral area. 3. Left trochanteric pressure injury with skin necrosis, Unstageable, suspect at least Stage III-IV. 4. Late effect right periprosthetic femur fracture. 5. History of right knee replacement. 6. Recent stool contamination. 7. Left lower extremity DVT. Continue Dakin's dressing changes to the sacral pressure sore. Continue Mepilex dressings to the hip areas. Wound culture shows Gram negative kianna lactose dock guard, Staphylococcus species, and Gram positive organism. She is currently on Zosyn. Prealbumin was 6.1. Encourage nutritional supplementation with protein to help the healing process. In order to maximize her nutritional status, she may benefit from a temporary feeding tube. Discussed with the family. For her left lower extremity DVT, she was started on Lovenox. Her Alkaline Phosphatase was 306. CT Abdomen and Pelvis show a normal liver and s/p cholecystectomy. Checking Alkaline Phosphatase isoenyzmes. She is being evaluated for an ECF and has been accepted to TCU when medically able. After discussion with the family, they may be interested in a diverting colostomy. They will let me know tomorrow at the time of surgery. Recommend further operative excision of her infected necrotic sacral pressure sore. Will then be able to put the VAC back on. It will be safer to clean up the necrotic part of the pressure sore before going to TCU. At this time will continue to observe the left trochanteric pressure injury. The eschar is dry. There is no fluctuance or purulent drainage. Discussed with the family that surgical excision may be necessary in the future. They voice un derstanding. Patient was informed of the risks and complications of the procedure including alternatives to surgery. These were discussed with the patient personally. Patient voices understanding and wishes to proceed. Surgery is scheduled for tomorrow morning.
--- NOTE | 2019-05-11 15:30 | PN.ID_ITS ---
Patient Problems: Active and Suspected Problems Sacral osteomyelitis (Acute) Subjective: Feeling weak, no fever - Physical Exam Vitals/I&O's: Vital Signs Temp Pulse Resp BP Pulse Ox 97.8 F 95 18 99/64 98 05/11/19 14:03 05/11/19 14:03 05/11/19 14:03 05/11/19 14:03 05/11/19 14:03 Oxygen Delivery Method Room Air Weight: 58 kg Body Mass Index (BMI) 23.3 Intake and Output for Last 24 Hours 05/09/19 05/10/19 05/11/19 23:59 23:59 23:59 Intake Total 376 / 616 3739.25 / 3979.25 1968.00 / 1968.00 Output Total 0 / 0 451 / 451 Balance 376 / 616 3739.25 / 3679.25 1517.00 / 1517.00 General: Cooperative, No apparent distress Lungs: Clear to auscultation, Normal air movement Cardiovascular: Regular rate, Regular Rhythm Abdomen: Soft, Non Tender, Non-Distended Skin: Ulcer/ Wound Microbiology Past 72 Hours 05/09/19 14:30 Wound - Sacral Gram Stain - Final 05/09/19 14:30 Wound - Sacral Wound Culture - Preliminary GNR lactose dicer operator Staphylococcus species Gram positive organism Laboratory Results 05/11/19 05:30: WBC 4.3 L, RBC 3.58 L, Hgb 10.1 L, Hct 31.9 L, MCV 89.1, MCH 28.2, MCHC 31.7 L, RDW Std Deviation 50.4 H, RDW Coeff of Eusebio 15.8 H, Plt Count 192, MPV 9.9, Immature Gran % (Auto) 0.500, Neut % (Auto) 52.3, Lymph % (Auto) 33.8, [place] % (Auto) 12.7 H, Eos % (Auto) 0.2, Baso % (Auto) 0.5, Absolute Neuts (auto) 2.3, Absolute Lymphs (auto) 1.46, Nucleated RBC % 0 05/11/19 05:30: Sodium 138, Potassium 3.9, Chloride 105, Carbon Dioxide 27.0, Anion Gap 6, BUN 28 H, Creatinine 0.58, Estim Creat Clear Calc 33.71, Est GFR (MDRD) Af Amer 126, Est GFR (MDRD) Non-Af 104, BUN/Creatinine Ratio 47.9 H, Glucose 94, Calcium 7.1 L 05/11/19 05:30: Alk Phos Iso-Intestine Pending, Alk Phos Iso-Bone Pending, Alk Phos Iso-Liver Pending, Alk Phos Isoenzymes Pending Current Medications Diazepam (Valium) 2 mg PO QHS PRN PRN PRN Reason: MUSCLE SPASM Docusate Sodium (Colace) 100 mg PO BID [facility] Last Admin: 05/11/19 10:51 Dose: 100 mg Documented by: Enoxaparin Sodium (Lovenox) 60 mg SC Q12@0600,1800 [facility] Last Admin: 05/11/19 05:27 Dose: 60 mg Documented by: Enteral Nutritional Formula (Ensure Surgery) 237 ml PO 0600,1300,2000 [facility] Last Admin: 05/11/19 11:53 Dose: 237 ml Documented by: Lactated Ringer's () 1,000 mls @ 60 mls/hr IV .[id number] [facility] Last Admin: 05/11/19 10:49 Dose: 60 mls/hr Documented by: Sodium Chloride () 250 mls @ 15 mls/hr IV .[id number] PRN PRN Reason: Saline Flush Last Infusion: 05/11/19 10:49 Dose: 0 mls/hr Documented by: Piperacillin Sod/Tazobactam (Sod 3.375 gm/ Sodium Chloride) 50 mls @ 12.5 mls/hr IV Q8 [facility] Last Admin: 05/11/19 14:04 Dose: 12.5 mls/hr Documented by: Levothyroxine Sodium (Synthroid) 125 mcg PO DAILY@0600 [facility] Last Admin: 05/11/19 05:25 Dose: 125 mcg Documented by: Nutritional Formula (Donte - [place] Flavor) 1 packet PO BIDCM [facility] Last Admin: 05/11/19 10:51 Dose: 1 packet Documented by: Nutritional Formula (Lactose Free) (Ensure Enlive) 120 ml PO DAILY [facility] Last Admin: 05/11/19 10:53 Dose: 120 ml Documented by: Ondansetron HCl (Zofran) 4 mg IV Q6H PRN PRN PRN Reason: NAUSEA Oxycodone HCl (Oxyir) 5 mg PO Q6H PRN PRN PRN Reason: Pain Score 6-10/10 Potassium Chloride (K-Dur) 10 meq PO DAILY@0800 [facility] Last Admin: 05/11/19 10:51 Dose: 10 meq Documented by: Promethazine HCl (Phenergan Tablet) 25 mg PO Q4H PRN PRN PRN Reason: NAUSEA/VOMITING Sodium Chloride () 10 - 40 ml IV UD PRN PRN Reason: SALINE FLUSH Sodium Hypochlorite (Dakins Solution 0.25% (1/2 Strength)) 1 applic TOPICAL BID [facility]; Protocol Last Admin: 05/11/19 10:51 Dose: 1 applicatio Documented by: Medical Necessity - Tobacco Use Smoking Status: Never smoker Tobacco Use: Non-smoker Route of nutrition/ use of supplements: [] Nutritional Intake: [] IV Site: [] Liao Catheter: [] - Assessment/Plan Antibiotics: [] Assessment/Plan: [] sacral osteo - reported recent fecal contamination. Wound cx pending. Cx 02/2019 with ecoli, proteus, and GAS. PCR of wound here with mssa. Cont zosyn. Surgery for I&D with Dr. Blake planned. May need diverting ostomy, but concern about overall goals of care and overall level of debility/chance of fdc improvement. Will follow, d/w case managers
--- NOTE | 2019-05-11 17:11 | NURSING ---
Call placed to daughter Shanthi, attempted to get consent for surgery 05/12... messaged left to call the hospital when available
[2019-05-11 21:00] VITALS: BP 96/61; PULSE 99; RESP 18; TEMP 37; O2SAT 95
[2019-05-11] MEDS: oxyCODONE 5 MG Tablet PO (23:19)
[2019-05-12] VITALS (15 sets, daily range): BP systolic 69–125; BP diastolic 39–76; PULSE 56–120; RESP 14–20; TEMP 36.4–37.9; O2SAT 94–100; BMI 23.3; BMI 23.4
[2019-05-12] MEDS: Lactated Ringers 1,000 ML 60 ML IV ×2 (03:23→13:24)
[2019-05-12] MEDS: 0.9% Saline Lock 10 ML Syringe IV ×2 (05:35→21:24)
[2019-05-12 05:48] LABS: Absolute Lymphocyte Count 1.83 X10^3/uL (0.83-4.51); Absolute Neutrophil Count 2.4 X10^3/uL (2.0-7.7); Basophil# 0.02 X10^3/uL; Basophil% 0.4 % (0-1); Eosinophil# 0.05 X10^3/uL; Hematocrit 23.8 % (37-47); Hemoglobin 7.3 g/dL (12.0-15.0); Lymphocyte # 1.83 X10^3/ul (4.0); Mean Corp Hgb Conc 30.7 g/dL (32-36); Mean Corpuscular Volume 91.2 fL (81-99); Mean Platelet Vol. 9.7 fl (6.2-12.0); Monocyte# 0.54 X10^3/uL; Monocyte% 11.2 % (0-10); NRBC Flagged by Analyzer 0 % (0-5); Neutrophil # 2.37 X10^3/uL (2.7-7.7); Neutrophil % 49.2 % (47-70); POSITIVE MORPHOLOGY YES; Platelet Count 235 K/mm3 (150-450); RBC Distribution Width CV 15.9 % (11.6-14.6); Red Blood Count 2.61 M/mm3 (4.2-5.4); White Blood Count 4.8 K/mm3 (4.4-11.0)
[2019-05-12 05:52] LABS: Differential Indicated SCAN CRITERIA MET
--- NOTE | 2019-05-12 06:00 | EKG12_ITS ---
Test Reason : AM Blood Pressure : / mmHG Vent. Rate : 089 BPM Atrial Rate : 089 BPM P-R Int : 148 ms QRS Dur : 080 ms QT Int : 346 ms P-R-T Axes : 010 021 141 degrees QTc Int : 420 ms Sinus rhythm with Premature atrial complexes Low voltage QRS Septal infarct , age undetermined Abnormal ECG When compared with ECG of 04-APR-2019 16:42, Premature atrial complexes are now Present Septal infarct is now Present Confirmed by KAYLEIGH MIRZA, JENA ([id number]), editorial manager JOSE MANUEL VELARDE ([id number]) on 05/16/2019 10:01:48 AM Referred By: JAIMIE Confirmed By:JENA VICTOR MD
[2019-05-12 06:06] LABS: ALB/GLOB Ratio 0.3 RATIO (0.9-2.4); AST(SGOT) 18 U/L (15-37); Alanine Aminotransfer ALT/SGPT 9 U/L (13-56); Albumin, Serum 1.2 g/dL (3.2-5.0); Alkaline Phosphatase 172 U/L (45-117); Anion Gap 5 (5-15); BUN 32 mg/dL (7-18); BUN/Creat Ratio 56.5 RATIO (10-20); Chloride 107 mmol/L (98-107); Creatinine, Serum 0.57 mg/dL (0.55-1.02); EST Glomerular Filtration Rate 108 mL/min (>60); Est Glom Filt Rate - Afr Amer 131 mL/min (>60); Estimated Creatinine Clearance 33.71 ml/min; Globulin 3.5 g/dL (2.2-4.2); Glucose 81 mg/dL (74-106); Potassium 3.7 mmol/L (3.5-5.1); Protein, Total 4.7 g/dL (6.4-8.2); Sodium Level 140 mmol/L (136-145)
[2019-05-12] MEDS: 0.9% Normal Saline 1,000 ML 100 ML IV (07:36)
--- NOTE | 2019-05-12 08:40 | NURSING ---
report called to AC
[2019-05-12 09:06] LABS: Hematocrit 24.3 % (37-47); Hemoglobin 7.4 g/dL (12.0-15.0)
--- NOTE | 2019-05-12 09:25 | PRES_PTH ---
PATIENT: JEFRY MARINO LOC: [facility] U#:[id number] AGE/SX: 83/F ROOM: ICU07 RE05/09/[address]: Dr. Bridget Galicia MD : [id number] BED: 1 DIS: 05/15/2019 SPEC #: [id number] RECD: 05/12/19 12:18 STATUS: LOKESH REQ #: [id number] RANJIT: 05/12/19 09:[address]: Sammy Blake DEPT: SURGICAL PATHOLOGY RECD BY: Juanito Huitron ENTERED: 05/12/19 13:08 SP TYPE: PRESS SORE OTHR DR: MD Dr. Rhina Richardson DO Dr. Robert Leininger, MD Dr. Tai Chi Kwok, MD Tissues: A - Ischium, NOS B - Ischium, NOS Procedures: Decalcification bone/plaque Surgery Specimen Level IV HEADER OPERATION: Excision necrotic sacral pressure sore with partial ostectomy PRE-OP DIAGNOSIS: Acute pressure injury of deep tissue of left hip; acute sacral osteomyelitis TISSUE SUBMITTED: A - Sacral wound soft tissue, B - Sacral bone MICROSCOPIC DIAGNOSIS A. Skin and soft tissue of sacral region, excision: Ulceration with associated acute and chronic inflammation and granulation. B. Sacral bone, biopsy: Acute osteomyelitis. AM:kristel 05/18/19 MICROSCOPIC DESCRIPTION Slides are reviewed. GROSS DESCRIPTION A - Received in fixative is one container labeled with the patient's name and designated sacral wound soft tissue. The specimen consists of a piece of skin with underlying tissue measuring 7 x 2.5 cm and up to 2.5 cm in thickness. The skin surface shows a focal area of ulceration. The tissue underlying reveals brownish discoloration. Also received is a fragment of brownish tissue measuring 3.5 x 2 x 1 cm. Sections do not reveal any mass lesion. Sustainability Coach sections are submitted in two cassettes. B - Received in fixative is one container labeled with the patient's name and designated sacral bone. The specimen consists of multiple pieces of bone that in aggregate measure 2 x 2 x 0.4 cm. The entire specimen is submitted in one cassette after decalcification. / MELISSA:kristel 05/12/19 TC:2 CPT: 13014 x2, 62643
--- NOTE | 2019-05-12 10:55 | PCM.OPRPT ---
Report of Operation Date of Procedure: 05/12/19 Pre-Operative Diagnosis: 1. Infected sacral pressure sore with necrosis, Stage IV. 2. Clinical osteomyelitis posterior aspect of pelvis in sacral area. 3. Left trochanteric pressure injury with skin necrosis, unstageable. 4. Late effect right periprosthetic femur fracture. 5. History of right knee replacement. 6. Recent stool contamination. Post-Operative Diagnosis: Same. Surgery/Procedure Performed:: Excision infected necrotic sacral pressure sore, Stage IV, with partial ostectomy for osteomyeltis. Description of Surgical Findings:: 83 year old woman presents with a left buttock pressure sore extending medially to the sacrum that developed after falling in August,. She sustained a right periprosthetic femur fracture and was placed in an immobilizer. She was discharged to an F. With lack of mobility, she developed the pressure sore. It was treated with Santyl initially and has been changed to Dakin's dressing changes daily. It was noted there was substantial undermining medially toward the sacrum. She had an MRI done on 03/07/19 which showed osteomyelitis. Wound culture from 03/09/19 showed E. coli, Proteus mirabilis, and Streptococcus group A. She initially was placed on Bactrim and Augmentin was added. Due to the amount of undermining present, surgical excision was recommended to unroof the sore to help with the wound care postoperatively. It is hard to pack a wound adequately when it is done through a blind tunnel. She was taken to surgery on 04/04/19 where she underwent excision left sacral pressure sore with superomedial undermining at posterior aspect of pelvis, Stage IV, (120 cm2) and partial ostectomy for osteomyelitis. She tolerated the procedure well and was discharged home with the VAC. Since being at home for about a month since the surgery, she has gotten weaker and finds it very difficult to get out of bed and her legs are getting weaker. She also had recent stool contamination of the pressure sore and there is now odor in the wound along with increasing size and necrotic ulceration inferiorly and some necrotic soft tissue at the base of the wound inferiorly. Will stop the VAC initially and clean up the wound with Dakin's dressing changes. Also in this short time span she has developed a severe pressure injury on the left trochanteric area with necrotic eschar which is unstageable. I suspect the pressure injury to be a Stage III-IV. Also while hospitalized, she will be evaluated for an ECF as the family is finding it more difficult to care for her at home. Patient was informed of the risks and complications of the procedure including alternatives to surgery. These were discussed with the patient personally. Patient voices understanding and wishes to proceed. Size of sacral pressure sore - 11 x 15 x 2.5 cm. vacuum truck driver: None Type of Anesthesia:: General Specimen's removed: 1. Infected necrotic sacral pressure sore soft tissue to Pathology and Microbiology. 2. Infected necrotic sacral pressure sore bone to Pathology and Microbiology. Drains: None. Estimated Blood Loss (mL): 50 ml. Description of Procedure: Patient was taken to OR in supine position and was placed under general anesthesia. She was then placed in the prone position. The sacral and buttock areas were prepped and draped in the usual fashion. SCD's were placed for DVT prophylaxis. Perioperative antibiotics were given intravenously. Using xylocaine with epinephrine, the sacral pressure sore was infiltrated. After waiting 5 minutes for the anesthetic to take effect, I excised the sacral pressure sore mostly in the inferior area where there is tissue necrosis. The necrotic tissue was excised which was adherent to the bone. A partial ostectomy was then performed using rongeurs. The bone looked grayish and was not very hard. Clinically the bone looked suspicious for osteomyelitis. Several areas of bone were debrided. A rasp was used to smooth out the bony edges. After excising the infected necrotic tissue, the remaining soft tissue showed good bleeding. I used a curette and further debrided the remaining pressure sore. Hemostasis was obtained with electrocautery. The size of the sacral pressure sore after excision was 11 x 15 x 2.5 cm. The wound was irrigated with saline. I then dressed the wound with Mepitel nonadherent dressing followed by Kerlix gauze and Betadine and dry Kerlix gauze followed by ABD pads compression dressing. Half the soft tissue and half the bone was sent to Pathology for analysis to rule out carcinoma and to evaluate for osteomyelitis. Half the soft tissue and half the bone was sent to Microbiology for culture. A positive culture will necessitate antibiotic therapy. If pathology is positive for osteomyelitis, then skilled nursing IV antibiotics would be needed through a PICC line. She would also be evaluated at [facility] for HBO treatments. Patient tolerated the procedure well and was sent to PACU in satisfactory condition. Patient will be sent upstairs for continued postop care. The VAC may be placed tomorrow. Anticipate increased metabolic demands. Will check a Prealbumin and encourage nutritional supplementation with protein to help the healing process. To minimize further stool contamination, will discuss with the family regarding a diverting colostomy. Grafts/Implants Used: None. - Complications None. - Admit VTE Documentation VTE Present on Admission: No VTE Mechan Device Prophylaxis: SCD's VTE Pharm Prophylaxis ordered?: No Code Visit Surgery Charges CPT - 27721-68 ICD-10 - L89.154, I96, L89.94, M86.9, L89.226, M97.11xS, Z96.651, R15.9
--- NOTE | 2019-05-12 13:20 | CASEMGMT ---
Social Work Note AMIE spoke with physician. Pt is getting diverting colostomy Thursday and will be at [facility] until likely Thursday. AMIE placed a call to Tammie in TCU and left her a message updating her on above information. Plan: TCU next week pending pre-cert Shelley Beavers REINFORCEMENT MAKER, MEDICAID ANALYST
--- NOTE | 2019-05-12 17:34 | PN_ITS ---
Subjective: Patient was seen and examined. Denied any new complaint. Had surgery today for infected sacral ulcer debridement with partial ostectomy. Patient denies any dizziness or chest pain or fever or chills. Objective: Physical exam: General: Alert, Cooperative, Confused HEENT: Atraumatic, PERRLA, EOMI, Normocephalic Neck: Supple, No JVD, Negative Carotid Bruits Lungs: Clear to auscultation, Normal air movement Cardiovascular: Regular rate, No murmurs Abdomen: Bowel Sounds Present, Soft, Non Tender Extremities: No edema, Capillary Refill Less than 3 Seconds Skin: No rashes, No breakdown Musculoskeletal: No Tenderness to Palpation of Joints or Extremities Neurological: Cranial nerves II-XII grossly intact Psych/Mental Status: Normal Affect, - - pleasantly confused Vitals/I&O's: Vital Signs Temp Pulse Resp BP Pulse Ox 98.4 F 94 18 89/57 L 100 05/12/19 14:48 05/12/19 14:48 05/12/19 14:48 05/12/19 14:48 05/12/19 14:48 Oxygen Delivery Method Room Air Weight: 58 kg Body Mass Index (BMI) 23.3 Intake and Output for Last 24 Hours 05/10/19 05/11/19 05/12/19 23:59 23:59 23:59 Intake Total 3739.25 / 3979.25 2756.00 / 2956.00 3061.75 / 3061.75 Output Total 751 / 851 100 / 100 Balance 3739.25 / 3679.25 2005.00 / 2105.00 2961.75 / 2961.75 Microbiology Past 72 Hours 05/12/19 10:40 Bone - Other Gram Stain - Final 05/12/19 10:35 Tissue - Other Gram Stain - Final 05/09/19 14:30 Wound - Sacral Gram Stain - Final 05/09/19 14:30 Wound - Sacral Wound Culture - Final Citrobacter freundii Staphylococcus aureus Corynebacterium striatum Laboratory Results 05/12/19 05:30: WBC 4.8, RBC 2.61 L, Hgb 7.3 L, Hct 23.8 L, MCV 91.2, MCH 28.0, MCHC 30.7 L, RDW Std Deviation 51.0 H, RDW Coeff of Eusebio 15.9 H, Plt Count 235, MPV 9.7, Immature Gran % (Auto) 0.200, Neut % (Auto) 49.2, Lymph % (Auto) 38.0, [facility] % (Auto) 11.2 H, Eos % (Auto) 1.0, Baso % (Auto) 0.4, Absolute Neuts (auto) 2.4, Absolute Lymphs (auto) 1.83, Nucleated RBC % 0 05/12/19 05:30: Sodium 140, Potassium 3.7, Chloride 107, Carbon Dioxide 28.0, Anion Gap 5, BUN 32 H, Creatinine 0.57, Estim Creat Clear Calc 33.71, Est GFR (MDRD) Af Amer 131, Est GFR (MDRD) Non-Af 108, BUN/Creatinine Ratio 56.5 H, Glucose 81, Calcium 7.0 L, Total Bilirubin 0.30, AST 18, ALT 9 L, Alkaline Phosphatase 172 H, Total Protein 4.7 L, Albumin 1.2 L, Globulin 3.5, Albumin/Globulin Ratio 0.3 L 05/12/19 08:30: Hgb 7.4 L, Hct 24.3 L Current Medications Diazepam (Valium) 2 mg PO QHS PRN PRN PRN Reason: MUSCLE SPASM Docusate Sodium (Colace) 100 mg PO BID [facility] Last Admin: 05/12/19 13:53 Dose: Not Given Documented by: Enoxaparin Sodium (Lovenox) 60 mg SC Q12@0600,1800 [facility] Last Admin: 05/12/19 05:09 Dose: Not Given Documented by: Enteral Nutritional Formula (Ensure Surgery) 237 ml PO 0600,1300,2000 [facility] Last Admin: 05/12/19 13:53 Dose: Not Given Documented by: Lactated Ringer's () 1,000 mls @ 60 mls/hr IV .[id number] [facility] Last Admin: 05/12/19 13:24 Dose: 60 mls/hr Documented by: Sodium Chloride () 250 mls @ 15 mls/hr IV .[id number] PRN PRN Reason: Saline Flush Last Infusion: 05/12/19 06:29 Dose: Infused Documented by: Piperacillin Sod/Tazobactam (Sod 3.375 gm/ Sodium Chloride) 50 mls @ 12.5 mls/hr IV Q8 [facility] Last Infusion: 05/12/19 10:00 Dose: Infused Documented by: Sodium Chloride () 1,000 mls @ 100 mls/hr IV .Q10H [facility] Last Infusion: 05/12/19 11:15 Dose: Infused Documented by: Levothyroxine Sodium (Synthroid) 125 mcg PO DAILY@0600 [facility] Last Admin: 05/12/19 05:09 Dose: Not Given Documented by: Nutritional Formula (Donte - Cochran Flavor) 1 packet PO BIDCM [facility] Last Admin: 05/12/19 13:53 Dose: Not Given Documented by: Nutritional Formula (Lactose Free) (Ensure Enlive) 120 ml PO DAILY [facility] Last Admin: 05/12/19 13:53 Dose: Not Given Documented by: Ondansetron HCl (Zofran) 4 mg IV Q6H PRN PRN PRN Reason: NAUSEA Oxycodone HCl (Oxyir) 5 mg PO Q6H PRN PRN PRN Reason: Pain Score 6-10/10 Last Admin: 05/11/19 23:19 Dose: 5 mg Documented by: Potassium Chloride (K-Dur) 10 meq PO DAILY@0800 [facility] Last Admin: 05/12/19 13:53 Dose: Not Given Documented by: Promethazine HCl (Phenergan Tablet) 25 mg PO Q4H PRN PRN PRN Reason: NAUSEA/VOMITING Sodium Chloride () 10 - 40 ml IV UD PRN PRN Reason: SALINE FLUSH Last Admin: 05/12/19 05:35 Dose: 20 ml Documented by: Sodium Hypochlorite (Dakins Solution 0.25% (1/2 Strength)) 1 applic TOPICAL BID [facility]; Protocol Last Admin: 05/12/19 13:53 Dose: Not Given Documented by: STROKE Vital Signs/Narrative: Vital Signs Temp Pulse Resp BP Pulse Ox 05/12/19 14:48 98.4 F 94 18 89/57 L 100 Medical Necessity - Tobacco Use Smoking Status: Never smoker Tobacco Use: Non-smoker Assessment/Plan All Active Problems Pressure injury, stage 4, with infection (Acute) Skin necrosis (Acute) Incontinence of feces (Acute) Pressure injury of deep tissue of left hip (Acute) Sacral osteomyelitis (Acute) Multiple falls (Acute) 1. POD #0, status post partial ostectomy for recurrent sacral osteomyelitis/stage IV sacral decubitus ulcer Previous wound cultures growing Citrobacter, MSSA, corynebacterium Intra-op cultures pending, ID following, continue on Zosyn Tinea with pain control 2. Blood loss anemia, drop in hemoglobin from 10.1-7.3, will type and cross against 2 units of blood Will transfuse when hemoglobin is less than 7 3. Severe protein calorie malnutrition, on supplements, nutrition is following 4. Hypothyroidism, on Synthroid 5. Acute DVT of the left femoral vein, on Lovenox SC 6. Code status - Full code Code Visit Inpatient E&M: 73771 Subs Hosp L2
[2019-05-12] MEDS: Enoxaparin 60 MG/0.6 ML Syringe SC (18:30)
[2019-05-12] MEDS: Ensure Surgery 237 ML LIQUID PO (21:22)
--- NOTE | 2019-05-12 21:56 | RAD_ITS ---
HISTORY: FEVER ADDITIONAL HISTORY: None provided. TECHNIQUE: Frontal chest radiograph. Number of images including paperwork: 1 COMPARISON: 07/05/2018. CT abdomen 05/10/2019 FINDINGS: LUNGS AND PLEURA: Elevated right hemidiaphragm. Linear right basilar opacity, likely subsegmental atelectasis. Small right pleural effusion better seen on CT. No dense consolidation. Skin fold overlies the upper chest bilaterally. CARDIAC SILHOUETTE: Unremarkable. MEDIASTINUM AND CHAMP: Unchanged aortic calcification and tortuosity. UPPER ABDOMEN: Right upper quadrant surgical clips. SKELETON AND SOFT TISSUES: No acute findings. Degenerative changes. Chronic right proximal humeral deformity. OTHER DEVICES AND HARDWARE: Right PICC tip in the distal superior vena cava. RAD/Chest 1 View (Portable) IMPRESSION: Linear right basilar opacity suggestive of subsegmental atelectasis. at 2225 Reported and signed by: Heather Woodruff MD Electronically Signed: Heather Woodruff MD at 22:25 EST Tel , Service support ,
--- NOTE | 2019-05-12 22:10 | NURSING ---
New orders received from Dr. Mora for patient to receive blood products. Patient is unable to sign consent form. Daughter Winter attempted to be called and voicemail placed requesting call back.
--- NOTE | 2019-05-12 23:00 | NURSING ---
Pt's daughter, Evelyn Barksdale, called in wondering if she needed to come in at this time. I told her that the current scenario with this pt is not a new one. We are giving a bolus for low blood pressure and administering a unit of blood for a low hemoglobin. I reassured her that if the doctor was concerned, she would be transferring the pt to another floor. I further reassured her that I work with Dr. Mora frequently and trust her judgment. Encouraged the daughter to call the floor if she becomes concerned during the night. She was very appreciative.
[2019-05-13] VITALS (30 sets, daily range): BP systolic 61–126; BP diastolic 37–99; PULSE 65–122; RESP 15–24; TEMP 36.9–38.1; O2SAT 91–400
[2019-05-13 00:08] LABS: Bacteria 0 SEEN /hpf (None Seen); Mucous, Urine 0 SEEN /hpf (<or=2+); Red Blood Cells-Urine 0 SEEN /hpf (0-5); Squamous Epithelial Cells - UA 0 SEEN /hpf (5-10)
[2019-05-13] MEDS: oxyCODONE 5 MG Tablet PO ×2 (00:15→07:40)
[2019-05-13 00:17] LABS: Color, Urine Yellow (Yellow); Glucose, Dipstick Normal (Normal); Ketone-Dipstick Negative (Negative); Leukocyte Esterase-Dipstick 25 /ul (Negative); Nitrite-Dipstick Negative (Negative); Occult Blood-Urine Negative /ul (Negative); Protein-Dipstick Negative (Negative); Specific Gravity, Urine 1.015 (1.002-1.030); Urine Bilirubin Dipstick Negative (Negative); Urine Clarity Sl. Cloudy (Clear); Urine Urobilinogen Normal (Normal)
[2019-05-13 00:29] LABS: White Blood Cells 10-25 SEEN /hpf (0-5)
[2019-05-13 00:30] LABS: Amorphous Sediment 1+
[2019-05-13] MEDS: 0.9% Saline Lock 10 ML Syringe IV ×3 (03:17→10:55)
[2019-05-13] MEDS: 0.9% Normal Saline 1,000 ML 125 ML IV ×3 (03:17→17:16)
[2019-05-13 05:04] LABS: Absolute Lymphocyte Count 1.93 X10^3/uL (0.83-4.51); Absolute Neutrophil Count 3.2 X10^3/uL (2.0-7.7); Basophil# 0.03 X10^3/uL; Basophil% 0.5 % (0-1); Eosinophil# 0.14 X10^3/uL; Eosinophils% 2.3 % (0-5); Hematocrit 27.9 % (37-47); Hemoglobin 8.8 g/dL (12.0-15.0); Lymphocyte # 1.93 X10^3/ul (4.0); Lymphocyte % 32.2 % (19-41); Mean Corp Hgb Conc 31.5 g/dL (32-36); Mean Corpuscular Hgb 28.8 pg (27.0-32.0); Mean Corpuscular Volume 91.2 fL (81-99); Mean Platelet Vol. 9.9 fl (6.2-12.0); Monocyte# 0.64 X10^3/uL; Monocyte% 10.7 % (0-10); NRBC Flagged by Analyzer 0 % (0-5); Neutrophil # 3.24 X10^3/uL (2.7-7.7); Neutrophil % 54.1 % (47-70); Platelet Count 231 K/mm3 (150-450); RBC Distribution Width CV 15.8 % (11.6-14.6); RBC Distribution Width SD 51.8 fl (35.1-43.9); Red Blood Count 3.06 M/mm3 (4.2-5.4)
[2019-05-13] MEDS: Levothyroxine 125 MCG Tablet PO (05:38)
[2019-05-13] MEDS: Enoxaparin 60 MG/0.6 ML Syringe SC ×2 (05:38→17:15)
[2019-05-13 05:44] LABS: ALB/GLOB Ratio 0.3 RATIO (0.9-2.4); AST(SGOT) 19 U/L (15-37); Alanine Aminotransfer ALT/SGPT 8 U/L (13-56); Albumin, Serum 1.2 g/dL (3.2-5.0); Alkaline Phosphatase 164 U/L (45-117); Anion Gap 6 (5-15); BUN 29 mg/dL (7-18); BUN/Creat Ratio 53.5 RATIO (10-20); Chloride 110 mmol/L (98-107); Creatinine, Serum 0.54 mg/dL (0.55-1.02); EST Glomerular Filtration Rate 114 mL/min (>60); Est Glom Filt Rate - Afr Amer 138 mL/min (>60); Estimated Creatinine Clearance 33.71 ml/min; Globulin 3.7 g/dL (2.2-4.2); Glucose 93 mg/dL (74-106); Potassium 3.7 mmol/L (3.5-5.1); Prealbumin 3.9 mg/dL (20.0-40.0); Protein, Total 4.9 g/dL (6.4-8.2); Sodium Level 141 mmol/L (136-145)
[2019-05-13] MEDS: Docusate Sodium 100 MG Capsule PO ×2 (07:42→22:07)
--- NOTE | 2019-05-13 08:10 | NURSING ---
pt asking to call her . Pt is a . pt thinks she is at the [employer] and its 1920. Bed exit on at this time. Just recently gave oxycodone. BP low, will call and notify dr. hunt.
--- NOTE | 2019-05-13 08:59 | NURSING ---
wound photo: sacrum
--- NOTE | 2019-05-13 09:17 | CASEMGMT ---
Social Work Note Pt is getting diverting colostomy Thursday, will be at [facility] throughout weekend. SW will submit for pre-cert next week. Plan: TCU next week pending pre-cert Shelley LUNA, SENIOR PROJECT ARCHITECT
--- NOTE | 2019-05-13 09:32 | NURSING ---
Dr. Ramirez aware of BP of 80/50, HR 109. Since blood is ready, she wants me to give the blood and check a manual bp.
--- NOTE | 2019-05-13 09:46 | PN_ITS ---
Subjective: Follow-up on infected sacral decubitus ulcer: Patient was seen and examined. She is hypotensive this morning with blood pressure 87/55. She is also tachycardic. She is 1 unit of packed RBC last night. Developed a low-grade temperature. Recheck of UA was unremarkable. Urine and blood cultures are pending taken from peripheral line and PICC line. Patient complains of feeling very tired when she was seen. Denied any chest pain or dizziness. She is not eating well. Appetite is very poor Objective: Physical exam: General: Alert, Cooperative, Confused, not on oxygen HEENT: Atraumatic, PERRLA, EOMI, Normocephalic Neck: Supple, No JVD, Negative Carotid Bruits Lungs: Clear to auscultation, Normal air movement Cardiovascular: Regular rate, No murmurs Abdomen: Bowel Sounds Present, Soft, Non Tender Extremities: No edema, Capillary Refill Less than 3 Seconds Skin: Wound VAC to the sacral region, wound pictures seen, see under nurse's n otes Musculoskeletal: No Tenderness to Palpation of Joints or Extremities Neurological: Cranial nerves II-XII grossly intact Psych/Mental Status: Normal Affect, - - pleasantly confused Vitals/I&O's: Vital Signs Temp Pulse Resp BP Pulse Ox 98.9 F 109 H 18 80/50 L 91 05/13/19 09:08 05/13/19 09:08 05/13/19 09:08 05/13/19 09:08 05/13/19 09:08 Oxygen Flow Rate (L/min) 2 Oxygen Delivery Method Room Air Weight: 58 kg Body Mass Index (BMI) 23.3 Intake and Output for Last 24 Hours 05/11/19 05/12/19 05/13/19 23:59 23:59 23:59 Intake Total 2756.00 / 2956.00 3789.25 / 3789.25 1504.25 / 1504.25 Output Total 751 / 851 450 / 450 Balance 2004. / 2104.00 3339.25 / 3339.25 1504.25 / 1504.25 Microbiology Past 72 Hours 05/12/19 10:40 Bone - Other Gram Stain - Final 05/12/19 10:35 Tissue - Other Gram Stain - Final 05/09/19 14:30 Wound - Sacral Gram Stain - Final 05/09/19 14:30 Wound - Sacral Wound Culture - Final Citrobacter freundii Staphylococcus aureus Corynebacterium striatum Laboratory Results 05/10/19 13:02: Crossmatch See Detail 05/10/19 13:02: Crossmatch See Detail 05/12/19 23:50: Urine Color Yellow, Urine Clarity Sl. Cloudy, Urine pH 6.0, Ur Specific [place] 1.015, Urine Protein Negative, Urine Glucose (UA) Normal, Urine Ketones Negative, Urine Occult Blood Negative, Urine Nitrite Negative, Urine Bilirubin Negative, Urine Urobilinogen Normal, Ur Leukocyte Esterase 25 H, Urine RBC 0 SEEN, Urine WBC 10-25 SEEN, Ur Squamous Epith Cells 0 SEEN, Amorphous Sediment 1+, Urine Bacteria 0 SEEN, Urine Mucus 0 SEEN 05/13/19 04:53: WBC 6.0, RBC 3.06 L, Hgb 8.8 L, Hct 27.9 L, MCV 91.2, MCH 28.8, MCHC 31.5 L, RDW Std Deviation 51.8 H, RDW Coeff of Eusebio 15.8 H, Plt Count 231, MPV 9.9, Immature Gran % (Auto) 0.200, Neut % (Auto) 54.1, Lymph % (Auto) 32.2, [place] % (Auto) 10.7 H, Eos % (Auto) 2.3, Baso % (Auto) 0.5, Absolute Neuts (auto) 3.2, Absolute Lymphs (auto) 1.93, Nucleated RBC % 0 05/13/19 04:53: Sodium 141, Potassium 3.7, Chloride 110 H, Carbon Dioxide 25.0, Anion Gap 6, BUN 29 H, Creatinine 0.54 L, Estim Creat Clear Calc 33.71, Est GFR (MDRD) Af Amer 138, Est GFR (MDRD) Non-Af 114, BUN/Creatinine Ratio 53.5 H, Glucose 93, Calcium 7.0 L, Total Bilirubin 0.40, AST 19, ALT 8 L, Alkaline Phosphatase 164 H, Total Protein 4.9 L, Albumin 1.2 L, Globulin 3.7, Albumin/Globulin Ratio 0.3 L, Prealbumin 3.9 L Current Medications Acetaminophen (Tylenol) 1,000 mg PO Q8 [facility] Docusate Sodium (Colace) 100 mg PO BID [facility] Last Admin: 05/13/19 07:42 Dose: 100 mg Documented by: Enoxaparin Sodium (Lovenox) 60 mg SC Q12@0600,1800 [facility] Last Admin: 05/13/19 05:38 Dose: 60 mg Documented by: Enteral Nutritional Formula (Ensure Surgery) 237 ml PO 0600,1300,2000 [facility] Last Admin: 05/13/19 05:37 Dose: Not Given Documented by: Sodium Chloride () 250 mls @ 15 mls/hr IV .[id number] PRN PRN Reason: Saline Flush Last Infusion: 05/13/19 08:08 Dose: 0 mls/hr Documented by: Piperacillin Sod/Tazobactam (Sod 3.375 gm/ Sodium Chloride) 50 mls @ 12.5 mls/hr IV Q8 [facility] Last Admin: 05/13/19 05:37 Dose: 12.5 mls/hr Documented by: Sodium Chloride () 1,000 mls @ 125 mls/hr IV .Q8H [facility] Last Admin: 05/13/19 03:17 Dose: 125 mls/hr Documented by: Levothyroxine Sodium (Synthroid) 125 mcg PO DAILY@0600 [facility] Last Admin: 05/13/19 05:38 Dose: 125 mcg Documented by: Nutritional Formula (Donte - Jerome Flavor) 1 packet PO BIDCM [facility] Last Admin: 05/13/19 07:41 Dose: 1 packet Documented by: Ondansetron HCl (Zofran) 4 mg IV Q6H PRN PRN PRN Reason: NAUSEA Oxycodone HCl (Oxyir) 5 mg PO Q6H PRN PRN PRN Reason: Pain Score 6-10/10 Last Admin: 05/13/19 07:40 Dose: 5 mg Documented by: Potassium Chloride (K-Dur) 10 meq PO DAILY@0800 [facility] Last Admin: 05/13/19 07:41 Dose: 10 meq Documented by: Sodium Chloride () 10 - 40 ml IV UD PRN PRN Reason: SALINE FLUSH Last Admin: 05/13/19 05:37 Dose: 20 ml Documented by: STROKE Vital Signs/Narrative: Vital Signs Temp Pulse Resp BP Pulse Ox 05/13/19 09:08 98.9 F 109 H 18 80/50 L 91 05/13/19 08:03 98.7 F 111 H 20 H 87/55 L 98 05/13/19 08:00 111 H Medical Necessity - Tobacco Use Smoking Status: Never smoker Tobacco Use: Non-smoker Assessment/Plan All Active Problems Pressure injury, stage 4, with infection (Acute) Skin necrosis (Acute) Incontinence of feces (Acute) Pressure injury of deep tissue of left hip (Acute) Sacral osteomyelitis (Acute) Multiple falls (Acute) 1. Hypotension, etiology for now, likely post-op related vs medications vs sepsis Patient had a low-grade fever with tachycardia Blood and urine cultures are pending On IV Zosyn We will continue to hydrate to keep map more than 65 2. POD #1, status post excision infected necrotic sacral pressure ulcer, stage IV with partial ostectomy Status post wound VAC placement Previous wound cultures growing Citrobacter, MSSA, corynebacterium Intra-op cultures pending, ID following, continue on Zosyn Continue with pain control 3. Anemia, acute blood loss, status post 1 unit packed RBC Globin this morning is 8.8, will transfuse 1 more unit of packed RBCs making a total of 2 because of patient hemodynamic instability 4. Severe protein calorie malnutrition, on supplements, nutrition is following 5. Hypothyroidism, on Synthroid 6. Acute DVT of the left femoral vein, on Lovenox SC 7. Code status - Full code Code Visit Inpatient E&M: 09659 Subs Hosp L2
--- NOTE | 2019-05-13 11:00 | NURSING ---
this is the correct set of vitals taken prior to 1st unit of PRBC infusing.
--- NOTE | 2019-05-13 12:31 | PCM.PN.ID ---
Subjective: OR yesterday, low grade fever overnight, some pain. - Physical Exam Vitals/I&O's: Vital Signs Temp Pulse Resp BP Pulse Ox 99.0 F 97 20 H 97/50 L 99 05/13/19 12:00 05/13/19 12:00 05/13/19 12:00 05/13/19 12:00 05/13/19 12:00 Oxygen Flow Rate (L/min) 2 Oxygen Delivery Method Room Air Weight: 58 kg Body Mass Index (BMI) 23.3 Intake and Output for Last 24 Hours 05/11/19 05/12/19 05/13/19 23:59 23:59 23:59 Intake Total 2756.00 / 2956.00 3789.25 / 3789.25 2554.25 / 2554.25 Output Total 751 / 851 450 / 450 Balance 2005.00 / 210.00 3339.25 / 3339.25 2554.25 / 2554.25 General: Cooperative, No apparent distress Lungs: Clear to auscultation, Normal air movement Cardiovascular: Regular rate, Regular Rhythm Abdomen: Soft, Non Tender, Non-Distended Skin: Ulcer/ Wound - reviewed photo Microbiology Past 72 Hours 05/12/19 10:40 Bone - Other Gram Stain - Final 05/12/19 10:40 Bone - Other Wound Culture - Preliminary Gram positive organism 05/12/19 10:35 Tissue - Other Gram Stain - Final 05/12/19 10:35 Tissue - Other Wound Culture - Preliminary Mixed Gram Pos & Gram Neg Org 05/09/19 14:30 Wound - Sacral Gram Stain - Final 05/09/19 14:30 Wound - Sacral Wound Culture - Final Citrobacter freundii Staphylococcus aureus Corynebacterium striatum Laboratory Results 05/10/19 13:02: Crossmatch See Detail 05/10/19 13:02: Crossmatch See Detail 05/12/19 23:50: Urine Color Yellow, Urine Clarity Sl. Cloudy, Urine pH 6.0, Ur Specific [place] 1.015, Urine Protein Negative, Urine Glucose (UA) Normal, Urine Ketones Negative, Urine Occult Blood Negative, Urine Nitrite Negative, Urine Bilirubin Negative, Urine Urobilinogen Normal, Ur Leukocyte Esterase 25 H, Urine RBC 0 SEEN, Urine WBC 10-25 SEEN, Ur Squamous Epith Cells 0 SEEN, Amorphous Sediment 1+, Urine Bacteria 0 SEEN, Urine Mucus 0 SEEN 05/13/19 04:53: WBC 6.0, RBC 3.06 L, Hgb 8.8 L, Hct 27.9 L, MCV 91.2, MCH 28.8, MCHC 31.5 L, RDW Std Deviation 51.8 H, RDW Coeff of Eusebio 15.8 H, Plt Count 231, MPV 9.9, Immature Gran % (Auto) 0.200, Neut % (Auto) 54.1, Lymph % (Auto) 32.2, [place] % (Auto) 10.7 H, Eos % (Auto) 2.3, Baso % (Auto) 0.5, Absolute Neuts (auto) 3.2, Absolute Lymphs (auto) 1.93, Nucleated RBC % 0 05/13/19 04:53: Sodium 141, Potassium 3.7, Chloride 110 H, Carbon Dioxide 25.0, Anion Gap 6, BUN 29 H, Creatinine 0.54 L, Estim Creat Clear Calc 33.71, Est GFR (MDRD) Af Amer 138, Est GFR (MDRD) Non-Af 114, BUN/Creatinine Ratio 53.5 H, Glucose 93, Calcium 7.0 L, Total Bilirubin 0.40, AST 19, ALT 8 L, Alkaline Phosphatase 164 H, Total Protein 4.9 L, Albumin 1.2 L, Globulin 3.7, Albumin/Globulin Ratio 0.3 L, Prealbumin 3.9 L Current Medications Acetaminophen (Tylenol) 1,000 mg PO Q8 [facility] Docusate Sodium (Colace) 100 mg PO BID [facility] Last Admin: 05/13/19 07:42 Dose: 100 mg Documented by: Enoxaparin Sodium (Lovenox) 60 mg SC Q12@0600,1800 [facility] Last Admin: 05/13/19 05:38 Dose: 60 mg Documented by: Enteral Nutritional Formula (Ensure Surgery) 237 ml PO 0600,1300,2000 [facility] Last Admin: 05/13/19 05:37 Dose: Not Given Documented by: Sodium Chloride () 250 mls @ 15 mls/hr IV .[id number] PRN PRN Reason: Saline Flush Last Infusion: 05/13/19 08:08 Dose: 0 mls/hr Documented by: Piperacillin Sod/Tazobactam (Sod 3.375 gm/ Sodium Chloride) 50 mls @ 12.5 mls/hr IV Q8 [facility] Last Infusion: 05/13/19 10:09 Dose: Infused Documented by: Sodium Chloride () 1,000 mls @ 125 mls/hr IV .Q8H [facility] Last Infusion: 05/13/19 12:04 Dose: Infused Documented by: Levothyroxine Sodium (Synthroid) 125 mcg PO DAILY@0600 [facility] Last Admin: 05/13/19 05:38 Dose: 125 mcg Documented by: Nutritional Formula (Donte - [place] Flavor) 1 packet PO BIDCM [facility] Last Admin: 05/13/19 07:41 Dose: 1 packet Documented by: Ondansetron HCl (Zofran) 4 mg IV Q6H PRN PRN PRN Reason: NAUSEA Oxycodone HCl (Oxyir) 5 mg PO Q6H PRN PRN PRN Reason: Pain Score 6-10/10 Last Admin: 05/13/19 07:40 Dose: 5 mg Documented by: Potassium Chloride (K-Dur) 10 meq PO DAILY@0800 [facility] Last Admin: 05/13/19 07:41 Dose: 10 meq Documented by: Sodium Chloride () 10 - 40 ml IV UD PRN PRN Reason: SALINE FLUSH Last Admin: 05/13/19 10:55 Dose: 10 ml Documented by: Medical Necessity - Tobacco Use Smoking Status: Never smoker Tobacco Use: Non-smoker Route of nutrition/ use of supplements: [] Nutritional Intake: [] IV Site: [] Liao Catheter: [] - Assessment/Plan Antibiotics: [] Assessment/Plan: [] sacral osteo - reported recent fecal contamination. Wound cx with citrobacter, MSSA, corynebacteria. Cx 02/2019 with ecoli, proteus, and GAS. PCR of wound here with mssa. Cont zosyn. Surgery for I&D with Dr. Blake done 05/12. May need diverting ostomy, but concern about overall goals of care and overall level of debility/chance of long-term improvement. Patient and family have not decided yet. They are interested in talking with palliative care as well. Will follow, d/w Dr. Galicia
[2019-05-13] MEDS: Ensure Surgery 237 ML LIQUID PO ×2 (14:16→22:05)
[2019-05-13] MEDS: Acetaminophen 500 MG Tablet 1000 MG PO ×2 (14:18→22:06)
--- NOTE | 2019-05-13 15:48 | NURSING ---
Report given to Barbie at this time. Barbie is aware that this nurse brought to her attention that PICC line romulo says 05/10/19 and has a cotton ball to where the PICC is.
--- NOTE | 2019-05-13 16:24 | PCM.PN.BLA ---
Progress Note Patient's blood pressure has remained low. Has received IV fluid bolus 500 mils. Continued on normal saline 125 mils per hour. Received 1 unit packed RBC. Remains hypotensive. I was made aware the family requests for palliative care and no more diverging colostomy surgery. I subsequently had a family meeting with patient's daughter and 2 sisters at the bedside. Daughter states that patient appears tired and states that she does not want any more surgeries. They are reluctant to go forward with the colostomy. She however stated that she is confused about what her options and the next plan of care for her mother. I explained the reasons for a diverging colostomy. I confirmed that discharge planning were in the works for possible discharge to TCU. She appeared confused, I discussed the option of palliative care or hospice. She was open to having palliative care, come talk to them. I went on to discuss patient's CODE STATUS being full code. I discussed the various types of CODE STATUS and the meaning of the CODE STATUS in terms of what exactly goes on during the resuscitation. Her daughter says she is leaning toward was a DNR CC but feels overwhelmed with everything. I discussed patient's current low blood pressure, and the probable need for ICU for pressors. She appears open to that. I empathize with her and suggested she involves her other 2 siblings in the decision process so she does not feel burdened. She will communicate back to the health team what the CODE STATUS should be and how aggressive she wants her mother's care to be. STROKE Vital Signs/Narrative: Vital Signs Temp Pulse Resp BP BP Pulse Ox 05/13/19 16:10 88/52 L 05/13/19 16:05 87/55 L 05/13/19 15:20 99.1 F 103 H 18 87/52 L 97 05/13/19 13:00 98.8 F 100 18 93/39 L 99 Code Visit Procedures: [id number] Advncd Care Plan 30 Min
[2019-05-13 16:33] LABS: Alkaline Phosphatase, Serum 184 IU/L (39-117); Bone Fraction 40 % (14-68); Liver Fraction 60 % (18-85)
[2019-05-13] MEDS: Alteplase 2 MG/2 ML Vial IV (17:16)
--- NOTE | 2019-05-13 23:46 | PCM.PN.SRG ---
Subjective: Postop #1 VAC applied today. Above events noted. Patient was moved to ICU for hypotension. - Physical Exam Vitals/I&O's: Vital Signs Temp Pulse Resp BP Pulse Ox 99.1 F 79 19 H 98/58 L 97 05/13/19 16:00 05/13/19 23:00 05/13/19 23:00 05/13/19 23:00 05/13/19 23:00 Oxygen Flow Rate (L/min) 2 Oxygen Delivery Method Room Air Weight: 127 lb 13.89 oz Body Mass Index (BMI) 23.3 Intake and Output for Last 24 Hours 05/11/19 05/12/19 05/13/19 23:59 23:59 23:59 Intake Total 2756.00 / 2956.00 3789.25 / 3789.25 3627.17 / 3627.17 Output Total 751 / 851 450 / 450 125 / 125 Balance 2005.00 / 2105.00 3339.25 / 3339.25 3502.17 / 3502.17 Skin: Ulcer/ Wound - sacral wound is stable. No active bleeding noted. VAC applied. Microbiology Past 72 Hours 05/12/19 10:40 Bone - Other Gram Stain - Final 05/12/19 10:40 Bone - Other Wound Culture - Preliminary Gram positive organism 05/12/19 10:35 Tissue - Other Gram Stain - Final 05/12/19 10:35 Tissue - Other Wound Culture - Preliminary Mixed Gram Pos & Gram Neg Org 05/09/19 14:30 Wound - Sacral Gram Stain - Final 05/09/19 14:30 Wound - Sacral Wound Culture - Final Citrobacter freundii Staphylococcus aureus Corynebacterium striatum Laboratory Results 05/10/19 13:02: Crossmatch See Detail 05/10/19 13:02: Crossmatch See Detail 05/12/19 23:50: Urine Color Yellow, Urine Clarity Sl. Cloudy, Urine pH 6.0, Ur Specific [place] 1.015, Urine Protein Negative, Urine Glucose (UA) Normal, Urine Ketones Negative, Urine Occult Blood Negative, Urine Nitrite Negative, Urine Bilirubin Negative, Urine Urobilinogen Normal, Ur Leukocyte Esterase 25 H, Urine RBC 0 SEEN, Urine WBC 10-25 SEEN, Ur Squamous Epith Cells 0 SEEN, Amorphous Sediment 1+, Urine Bacteria 0 SEEN, Urine Mucus 0 SEEN 05/13/19 04:53: WBC 6.0, RBC 3.06 L, Hgb 8.8 L, Hct 27.9 L, MCV 91.2, MCH 28.8, MCHC 31.5 L, RDW Std Deviation 51.8 H, RDW Coeff of Eusebio 15.8 H, Plt Count 231, MPV 9.9, Immature Gran % (Auto) 0.200, Neut % (Auto) 54.1, Lymph % (Auto) 32.2, [place] % (Auto) 10.7 H, Eos % (Auto) 2.3, Baso % (Auto) 0.5, Absolute Neuts (auto) 3.2, Absolute Lymphs (auto) 1.93, Nucleated RBC % 0 05/13/19 04:53: Sodium 141, Potassium 3.7, Chloride 110 H, Carbon Dioxide 25.0, Anion Gap 6, BUN 29 H, Creatinine 0.54 L, Estim Creat Clear Calc 33.71, Est GFR (MDRD) Af Amer 138, Est GFR (MDRD) Non-Af 114, BUN/Creatinine Ratio 53.5 H, Glucose 93, Calcium 7.0 L, Total Bilirubin 0.40, AST 19, ALT 8 L, Alkaline Phosphatase 164 H, Total Protein 4.9 L, Albumin 1.2 L, Globulin 3.7, Albumin/Globulin Ratio 0.3 L, Prealbumin 3.9 L Current Medications Acetaminophen (Tylenol) 1,000 mg PO Q8 [facility] Last Admin: 05/13/19 22:06 Dose: 1,000 mg Documented by: Docusate Sodium (Colace) 100 mg PO BID [facility] Last Admin: 05/13/19 22:07 Dose: 100 mg Documented by: Enoxaparin Sodium (Lovenox) 60 mg SC Q12@0600,1800 [facility] Last Admin: 05/13/19 17:15 Dose: 60 mg Documented by: Enteral Nutritional Formula (Ensure Surgery) 237 ml PO 0600,1300,2000 [facility] Last Admin: 05/13/19 22:05 Dose: 237 ml Documented by: Sodium Chloride () 250 mls @ 15 mls/hr IV .[id number] PRN PRN Reason: Saline Flush Last Infusion: 05/13/19 08:08 Dose: 0 mls/hr Documented by: Piperacillin Sod/Tazobactam (Sod 3.375 gm/ Sodium Chloride) 50 mls @ 12.5 mls/hr IV Q8 [facility] Last Admin: 05/13/19 22:06 Dose: 12.5 mls/hr Documented by: Sodium Chloride () 1,000 mls @ 125 mls/hr IV .Q8H [facility] Last Admin: 05/13/19 17:16 Dose: 125 mls/hr Documented by: Norepinephrine Bitartrate 8 mg (/ Sodium Chloride) 250 mls @ 9.375 mls/hr CONT INF .[id number] [facility]; Protocol Last Admin: 05/13/19 22:36 Dose: Not Given Documented by: Levothyroxine Sodium (Synthroid) 125 mcg PO DAILY@0600 [facility] Last Admin: 05/13/19 05:38 Dose: 125 mcg Documented by: Nutritional Formula (Donte - [place] Flavor) 1 packet PO BIDCM [facility] Last Admin: 05/13/19 17:15 Dose: 1 packet Documented by: Ondansetron HCl (Zofran) 4 mg IV Q6H PRN PRN PRN Reason: NAUSEA Oxycodone HCl (Oxyir) 5 mg PO Q6H PRN PRN PRN Reason: Pain Score 6-10/10 Last Admin: 05/13/19 07:40 Dose: 5 mg Documented by: Potassium Chloride (K-Dur) 10 meq PO DAILY@0800 [facility] Last Admin: 05/13/19 07:41 Dose: 10 meq Documented by: Sodium Chloride () 10 - 40 ml IV UD PRN PRN Reason: SALINE FLUSH Last Admin: 05/13/19 10:55 Dose: 10 ml Documented by: Medical Necessity - Tobacco Use Smoking Status: Never smoker Tobacco Use: Non-smoker Assessment/Plan All Active Problems Pressure injury, stage 4, with infection (Acute) Skin necrosis (Acute) Incontinence of feces (Acute) Pressure injury of deep tissue of left hip (Acute) Sacral osteomyelitis (Acute) Multiple falls (Acute) 1. Sacral pressure sore with necrosis, Stage IV. 2. Clinical osteomyelitis posterior aspect of pelvis in sacral area. 3. Left trochanteric pressure injury with skin necrosis, Unstageable, suspect at least Stage III-IV. 4. Late effect right periprosthetic femur fracture. 5. History of right knee replacement. 6. Recent stool contamination. 7. Left lower extremity DVT. 8. Anemia of chronic disease, acute on chronic. VAC applied to the sacral pressure sore. To be changed three times per week at 150 mmHg continuous suction. Continue Mepilex dressings to the hip areas. Wound culture shows Citrobacter freundii, Staphylococcus aureus, and Corynebacterium striatum. She is currently on Zosyn. Operative culture from yesterday shows Mixed Gram positive and Gram negative organisms thus far. Prealbumin was 6.1. Encourage nutritional supplementation with protein to help the healing process. For her left lower extremity DVT, she was started on Lovenox. Her Alkaline Phosphatase was 306. CT Abdomen and Pelvis show a normal liver and s/p cholecystectomy. Checking Alkaline Phosphatase isoenyzmes. She is being evaluated for an ECF and has been accepted to TCU when medically able. Initially the patient expressed interest in a diverting colostomy. However, with the recent events, they have decided to not proceed with the diverting colostomy at this time. They are in discussions for palliative care. Patient has anemia of chronic disease, acute on chronic. Her Hgb had decreased to 7.3 and received PRBC and is now 8.8. The sacral wound is stable with no active bleeding. The operative blood loss was 50 ml. She does have IV dilution as her I's/O's are positive about 10 liters. Will continue to monitor as the patient is on Lovenox for her DVT.
[2019-05-14] VITALS (51 sets, daily range): BP systolic 74–135; BP diastolic 36–100; PULSE 9–110; RESP 14–22; TEMP 36.3–36.6; O2SAT 94–100
[2019-05-14] MEDS: 0.9% Normal Saline 1,000 ML 125 ML IV (00:10)
[2019-05-14] MEDS: Acetaminophen 500 MG Tablet 1000 MG PO ×3 (06:04→22:11)
[2019-05-14] MEDS: Levothyroxine 125 MCG Tablet PO (06:05)
[2019-05-14] MEDS: Enoxaparin 60 MG/0.6 ML Syringe SC ×2 (06:07→17:54)
--- NOTE | 2019-05-14 06:24 | PCM.CON.CC ---
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 The patient has been under the care of Dr. Blake in the wound care center. The patient's hospital course included a return to the operating room on May 12 where she underwent excision of infected necrotic sacral pressure sore with partial ostectomy for osteo-myelitis. Intraoperative blood loss was only estimated to be 50 mL's. The patient has been followed throughout her hospital course by infectious diseases. The patient was last noted to have a low-grade fever of 99.2 ?F on the morning of May 13. The patient was also noted to be hypotensive throughout the entire course of the day on May 13 with systolic pressures at times in the 70s. The patient did receive transfusion of packed red blood cells then day previous due to a hemoglobin of 7.3 g/dL. Attempts at IV fluid resuscitation was undertaken. Unfortunately, the patient remained hypotensive and was therefore transferred to the medical intensive care unit for further management on the evening of May 13. The patient is currently documented to be overall net +13.4 L for the admission. Overnight, the patient was started on levo fed to maintain hemodynamic stability. This has been weaned slowly and is currently infusing at 2 mcg. 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 Smoking Status: Never smoker Tobacco Use: Non-smoker Alcohol: None Drugs: None - *Family History Maternal History Items: Heart Disease - CHF Review of Systems Unable to obtain accurate/complete ROS d/t: Due to baseline encephalopathy Objective: The patient's most recent lab work, culture data and imaging studies have all been personally reviewed. Surface echocardiogram revealed normal LV size and thickness with an ejection fraction of 65%, along with stage I diastolic dysfunction. Right ventricular systolic pressure was estimated to be 33 mmHg. Sacral wound was positive for Citrobacter, staph aureus and Corynebacterium. - Physical Exam Vitals/I&O's: Vital Signs Temp Pulse Resp BP Pulse Ox 97.3 F L 90 16 107/73 98 05/14/19 04:00 05/14/19 06:00 05/14/19 06:00 05/14/19 06:00 05/14/19 06:00 Oxygen Flow Rate (L/min) 2 Oxygen Delivery Method Room Air Weight: 181 lb 7.047 oz Body Mass Index (BMI) 23.3 Intake and Output for Last 24 Hours 05/12/19 05/13/19 05/14/19 23:59 23:59 23:59 Intake Total 3789.25 / 3789.25 3627.17 / 3627.17 1189.28 / 1189.28 Output Total 450 / 450 125 / 125 700 / 700 Balance 3339.25 / 3339.25 3502.17 / 3502.17 489.28 / 489.28 General: Confused, - - Arouses to verbal stimulation and answer simple questions. Alert and oriented to person only. Frail and cachectic in appearance. HEENT: Atraumatic, PERRLA, Normocephalic Oral: Dry Mucosa Neck: Supple, No Nodes, Trachea Midline Lungs: Diminished, - - Poor inspiratory effort Cardiovascular: Regular rate, Regular Rhythm, Normal S1, Normal S2 Abdomen: Bowel Sounds Present, Soft, Non Tender Extremities: No clubbing, No cyanosis Skin: Ulcer/ Wound, - - Sacral wound VAC in place Musculoskeletal: Cachexia Lymphatic: No Cervical, Supraclavicular, or Inguinal Adenopathy Neurological: - - No focal neurological deficits. Psych/Mental Status: Flat Affect Labs (Last 48 Hours) 05/10/19 05/10/19 05/12/19 13:02 13:02 08:30 WBC RBC Hgb 7.4 L Hct 24.3 L MCV MCH MCHC RDW Std Deviation RDW Coeff of Eusebio Plt Count MPV Immature Gran % (Auto) Neut % (Auto) Lymph % (Auto) [place] % (Auto) Eos % (Auto) Baso % (Auto) Absolute Neuts (auto) Absolute Lymphs (auto) Nucleated RBC % Sodium Potassium Chloride Carbon Dioxide Anion Gap BUN Creatinine Estim Creat Clear Calc Est GFR (MDRD) Af Amer Est GFR (MDRD) Non-Af BUN/Creatinine Ratio Glucose Calcium Total Bilirubin AST ALT Alkaline Phosphatase Total Protein Albumin Globulin Albumin/Globulin Ratio Prealbumin Urine Color Urine Clarity Urine pH Ur Specific [place] Urine Protein Urine Glucose (UA) Urine Ketones Urine Occult Blood Urine Nitrite Urine Bilirubin Urine Urobilinogen Ur Leukocyte Esterase Urine RBC Urine WBC Ur Squamous Epith Cells Amorphous Sediment Urine Bacteria Urine Mucus Crossmatch See Detail See Detail 05/12/19 05/13/19 05/13/19 23:50 04:53 04:53 WBC 6.0 RBC 3.06 L Hgb 8.8 L Hct 27.9 L MCV 91.2 MCH 28.8 MCHC 31.5 L RDW Std Deviation 51.8 H RDW Coeff of Eusebio 15.8 H Plt Count 231 MPV 9.9 Immature Gran % (Auto) 0.200 Neut % (Auto) 54.1 Lymph % (Auto) 32.2 [place] % (Auto) 10.7 H Eos % (Auto) 2.3 Baso % (Auto) 0.5 Absolute Neuts (auto) 3.2 Absolute Lymphs (auto) 1.93 Nucleated RBC % 0 Sodium 141 Potassium 3.7 Chloride 110 H Carbon Dioxide 25.0 Anion Gap 6 BUN 29 H Creatinine 0.54 L Estim Creat Clear Calc 33.71 Est GFR (MDRD) Af Amer 138 Est GFR (MDRD) Non-Af 114 BUN/Creatinine Ratio 53.5 H Glucose 93 Calcium 7.0 L Total Bilirubin 0.40 AST 19 ALT 8 L Alkaline Phosphatase 164 H Total Protein 4.9 L Albumin 1.2 L Globulin 3.7 Albumin/Globulin Ratio 0.3 L Prealbumin 3.9 L Urine Color Yellow Urine Clarity Sl. Cloudy Urine pH 6.0 Ur Specific [place] 1.015 Urine Protein Negative Urine Glucose (UA) Normal Urine Ketones Negative Urine Occult Blood Negative Urine Nitrite Negative Urine Bilirubin Negative Urine Urobilinogen Normal Ur Leukocyte Esterase 25 H Urine RBC 0 SEEN Urine WBC 10-25 SEEN Ur Squamous Epith Cells 0 SEEN Amorphous Sediment 1+ Urine Bacteria 0 SEEN Urine Mucus 0 SEEN Crossmatch Microbiology 05/12/19 10:40 Bone - Other Gram Stain - Final 05/12/19 10:40 Bone - Other Wound Culture - Preliminary Gram positive organism 05/12/19 10:35 Tissue - Other Gram Stain - Final 05/12/19 10:35 Tissue - Other Wound Culture - Preliminary Mixed Gram Pos & Gram Neg Org 05/09/19 14:30 Wound - Sacral Gram Stain - Final 05/09/19 14:30 Wound - Sacral Wound Culture - Final Citrobacter freundii Staphylococcus aureus Corynebacterium striatum Clinical Impression(s) from Imaging Studies Pelvis CT 05/09/19 14:20 IMPRESSION: Large ulcerated lesion in the left medial buttock with the extension to the underlying sacrum suggestive of a chronic osseous myelitis. Subcutaneous edema. Tiny air collection in the aspect of the right buttock as well. Electronically Signed: Domingo Ryan, at 15:38 EST , Service support , Abdomen/Pelvis CT 05/10/19 08:39 IMPRESSION: Tiny bilateral pleural effusions slightly worse on the right side. Distended urinary bladder. Known decubitus ulcers overlying the posterior aspect of the sacrum. Electronically Signed: Domingo Ryan, at 12:45 EST , Service support , Chest X-Ray 05/12/19 21:56 IMPRESSION: Linear right basilar opacity suggestive of subsegmental atelectasis. at 2225 Reported and signed by: Heather Woodruff MD Electronically Signed: Heather Woodruff MD at 22:25 EST Tel , Service support , Current Medications Acetaminophen (Tylenol) 1,000 mg PO Q8 [facility] Last Admin: 05/14/19 06:04 Dose: 1,000 mg Documented by: Docusate Sodium (Colace) 100 mg PO BID [facility] Last Admin: 05/13/19 22:07 Dose: 100 mg Documented by: Enoxaparin Sodium (Lovenox) 60 mg SC Q12@0600,1800 [facility] Last Admin: 05/14/19 06:07 Dose: 60 mg Documented by: Enteral Nutritional Formula (Ensure Surgery) 237 ml PO 0600,1300,2000 [facility] Last Admin: 05/14/19 06:05 Dose: Not Given Documented by: Sodium Chloride () 250 mls @ 15 mls/hr IV .[id number] PRN PRN Reason: Saline Flush Last Infusion: 05/13/19 08:08 Dose: 0 mls/hr Documented by: Piperacillin Sod/Tazobactam (Sod 3.375 gm/ Sodium Chloride) 50 mls @ 12.5 mls/hr IV Q8 [facility] Last Admin: 05/14/19 06:04 Dose: 12.5 mls/hr Documented by: Sodium Chloride () 1,000 mls @ 125 mls/hr IV .Q8H [facility] Last Admin: 05/14/19 00:10 Dose: 125 mls/hr Documented by: Norepinephrine Bitartrate 8 mg (/ Sodium Chloride) 250 mls @ 9.375 mls/hr CONT INF .[id number] [facility]; Protocol Last Titration: 05/14/19 06:00 Dose: 2 mcg/min, 3.8 mls/hr Documented by: Levothyroxine Sodium (Synthroid) 125 mcg PO DAILY@0600 [facility] Last Admin: 05/14/19 06:05 Dose: 125 mcg Documented by: Nutritional Formula (Donte - [place] Flavor) 1 packet PO BIDCM [facility] Last Admin: 05/13/19 17:15 Dose: 1 packet Documented by: Ondansetron HCl (Zofran) 4 mg IV Q6H PRN PRN PRN Reason: NAUSEA Oxycodone HCl (Oxyir) 5 mg PO Q6H PRN PRN PRN Reason: Pain Score 6-10/10 Last Admin: 05/13/19 07:40 Dose: 5 mg Documented by: Potassium Chloride (K-Dur) 10 meq PO DAILY@0800 [facility] Last Admin: 05/13/19 07:41 Dose: 10 meq Documented by: Sodium Chloride () 10 - 40 ml IV UD PRN PRN Reason: SALINE FLUSH Last Admin: 05/13/19 10:55 Dose: 10 ml Documented by: Assessment/Plan RECOMMENDATIONS: 1. Continue antimicrobials per infectious diseases recommendations. 2. Discontinue supplemental IV fluids, as the patient is significantly volume overloaded for the hospital stay. 3. Continue Levophed to maintain a mean arterial pressure at or above 65 mmHg. 4. Obtain repeat labs this morning. 5. Transfuse for hemoglobin less than 7 g/dL. IMPRESSIONS: 1. Septic shock secondary to sacral osteomyelitis, now POD #2 s/p excision of infected necrotic sacral pressure ulcer I do suspect that the patient's hypotension is likely multifactorial in etiology with underlying sacral osteomyelitis and anemia contributing. The patient is volume up for the hospitalization. Therefore I did recommend discontinuation of IV fluids. The patient was started on vasopressor support to maintain a mean arterial pressure at or above 65 mmHg, which will be weaned accordingly. Continue antimicrobial coverage per infectious diseases recommendations. Recheck morning labs to ensure stability and blood counts. I do feel that the probability that the patient will make a meaningful recovery, given her deconditioned state coupled with her relative immobility and poor nutritional status, is unlikely. There apparently are tentative plans for the patient to discuss initiation of hospice care services today. 2. Anemia The patient was initially noted to have a hemoglobin of 7.3 g/dL on May 12, for which she has received a total of 2 units of packed red blood cells. Hemoglobin is currently stable. There is no indication for the transfusion of additional blood products. 3. Lower extremity DVT Continue Lovenox as ordered. 4. Advanced age and deconditioning/severe protein calorie malnutrition/hypothyroidism Complicates care, management, recovery and prognosis. Physical therapy and dietary services are following. TIME: 38 minutes of critical care time, independent of procedures, was spent addressing the patient's septic shock, sacral osteomyelitis, anemia, lower extremity DVT, review of all data and collaboration with the care team. ([id number]) Code Visit 9xxxx: [id number] Critical care first hour
[2019-05-14] MEDS: oxyCODONE 5 MG Tablet PO (08:53)
[2019-05-14] MEDS: 0.9% Saline Lock 10 ML Syringe IV (09:01)
[2019-05-14 09:21] LABS: Absolute Lymphocyte Count 2.47 X10^3/uL (0.83-4.51); Absolute Neutrophil Count 2.4 X10^3/uL (2.0-7.7); Basophil# 0.04 X10^3/uL; Basophil% 0.7 % (0-1); Eosinophil# 0.25 X10^3/uL; Eosinophils% 4.4 % (0-5); Hematocrit 34.4 % (37-47); Hemoglobin 10.8 g/dL (12.0-15.0); Lymphocyte # 2.47 X10^3/ul (4.0); Lymphocyte % 43.2 % (19-41); Mean Corp Hgb Conc 31.4 g/dL (32-36); Mean Corpuscular Hgb 28.4 pg (27.0-32.0); Mean Corpuscular Volume 90.5 fL (81-99); Mean Platelet Vol. 9.9 fl (6.2-12.0); Monocyte# 0.57 X10^3/uL; NRBC Flagged by Analyzer 0 % (0-5); Neutrophil # 2.36 X10^3/uL (2.7-7.7); Neutrophil % 41.2 % (47-70); Platelet Count 241 K/mm3 (150-450); RBC Distribution Width CV 16.3 % (11.6-14.6); RBC Distribution Width SD 53.1 fl (35.1-43.9); White Blood Count 5.7 K/mm3 (4.4-11.0)
--- NOTE | 2019-05-14 09:22 | CM.UR ---
Participated in interdisciplinary rounds this am. No family present. Family declined colostomy that was planned for Thursday. She currently has a wound vac on wound. The RN is going to place a mckee for retention. She is having little po intake. The family are meeting today to discuss possibly hospice. Discussed that she would probably not go to TCU, if she goes hospice. Requested the [place], the RN let me know once they family meets and what they decide. she verb agreement. Yasmani Banks RN, CCM.
[2019-05-14 09:37] LABS: ALB/GLOB Ratio 0.3 RATIO (0.9-2.4); AST(SGOT) 24 U/L (15-37); Alanine Aminotransfer ALT/SGPT 8 U/L (13-56); Albumin, Serum 1.2 g/dL (3.2-5.0); Alkaline Phosphatase 152 U/L (45-117); Anion Gap 4 (5-15); BUN 33 mg/dL (7-18); BUN/Creat Ratio 69.9 RATIO (10-20); Calcium,Total 7.3 mg/dL (8.5-10.1); Chloride 115 mmol/L (98-107); Creatinine, Serum 0.47 mg/dL (0.55-1.02); EST Glomerular Filtration Rate 134 mL/min (>60); Est Glom Filt Rate - Afr Amer 162 mL/min (>60); Estimated Creatinine Clearance 33.71 ml/min; Globulin 3.6 g/dL (2.2-4.2); Glucose 94 mg/dL (74-106); Potassium 3.5 mmol/L (3.5-5.1); Protein, Total 4.8 g/dL (6.4-8.2); Sodium Level 143 mmol/L (136-145)
[2019-05-14] MEDS: Docusate Sodium 100 MG Capsule PO ×2 (10:31→22:11)
[2019-05-14] MEDS: Ensure Surgery 237 ML LIQUID PO ×3 (10:36→22:12)
[2019-05-14 12:56] LABS: Intestinal Fraction 0 % (0-18)
--- NOTE | 2019-05-14 16:30 | PCM.PN.HOSP ---
Subjective: Follow-up on hypertension, infected sacral decubitus ulcer: Patient was seen and examined. She has been on Levophed overnight. No acute events. Family reportedly met and seems agreeable to diverging colostomy. Hemoglobin this morning is 10.8. Objective: Physical exam: General: Alert, Cooperative, Confused, not on oxygen HEENT: Atraumatic, PERRLA, EOMI, Normocephalic Neck: Supple, No JVD, Negative Carotid Bruits Lungs: Clear to auscultation, Normal air movement Cardiovascular: Regular rate, No murmurs Abdomen: Bowel Sounds Present, Soft, Non Tender Extremities: No edema, Capillary Refill Less than 3 Seconds Skin: Wound VAC to the sacral region, wound pictures seen, see under nurse's notes Musculoskeletal: No Tenderness to Palpation of Joints or Extremities Neurological: Cranial nerves II-XII grossly intact Psych/Mental Status: Normal Affect, - - pleasantly confused Vitals/I&O's: Vital Signs Temp Pulse Resp BP Pulse Ox 97.9 F 96 20 H 113/98 H 100 05/14/19 12:00 05/14/19 15:15 05/14/19 15:15 05/14/19 15:15 05/14/19 15:15 Oxygen Flow Rate (L/min) 2 Oxygen Delivery Method Room Air Weight: 82.3 kg Body Mass Index (BMI) 23.3 Intake and Output for Last 24 Hours 05/12/19 05/13/19 05/14/19 23:59 23:59 23:59 Intake Total 3789.25 / 3789.25 3627.17 / 3627.17 1402.97 / 1402.97 Output Total 450 / 450 125 / 125 775 / 775 Balance 3339.25 / 3339.25 3502.17 / 3502.17 627.97 / 627.97 Microbiology Past 72 Hours 05/12/19 10:40 Bone - Other Gram Stain - Final 05/12/19 10:40 Bone - Other Wound Culture - Preliminary Staphylococcus aureus Gram positive kianna 05/12/19 10:35 Tissue - Other Gram Stain - Final 05/12/19 10:35 Tissue - Other Wound Culture - Preliminary Staphylococcus species Gram positive kianna Gram negative kianna 05/12/19 23:50 Urine Catheter - Catheter Urine Culture - Preliminary Culture exhibits no growth. 05/09/19 14:30 Wound - Sacral Gram Stain - Final 05/09/19 14:30 Wound - Sacral Wound Culture - Final Citrobacter freundii Staphylococcus aureus Corynebacterium striatum Laboratory Results 05/11/19 05:30: Alk Phos Iso-Intestine 0, Alk Phos Iso-Bone 40, Alk Phos Iso-Liver 60, Alk Phos Isoenzymes 184 H 05/14/19 09:00: WBC 5.7, RBC 3.80 L, Hgb 10.8 L, Hct 34.4 L, MCV 90.5, MCH 28.4, MCHC 31.4 L, RDW Std Deviation 53.1 H, RDW Coeff of Eusebio 16.3 H, Plt Count 241, MPV 9.9, Immature Gran % (Auto) 0.500, Neut % (Auto) 41.2 L, Lymph % (Auto) 43.2 H, [place] % (Auto) 10.0, Eos % (Auto) 4.4, Baso % (Auto) 0.7, Absolute Neuts (auto) 2.4, Absolute Lymphs (auto) 2.47, Nucleated RBC % 0 05/14/19 09:00: Sodium 143, Potassium 3.5, Chloride 115 H, Carbon Dioxide 24.0, Anion Gap 4 L, BUN 33 H, Creatinine 0.47 L, Estim Creat Clear Calc 33.71, Est GFR (MDRD) Af Amer 162, Est GFR (MDRD) Non-Af 134, BUN/Creatinine Ratio 69.9 H, Glucose 94, Calcium 7.3 L, Total Bilirubin 0.40, AST 24, ALT 8 L, Alkaline Phosphatase 152 H, Total Protein 4.8 L, Albumin 1.2 L, Globulin 3.6, Albumin/Globulin Ratio 0.3 L Current Medications Acetaminophen (Tylenol) 1,000 mg PO Q8 [facility] Last Admin: 05/14/19 13:26 Dose: 1,000 mg Documented by: Docusate Sodium (Colace) 100 mg PO BID [facility] Last Admin: 05/14/19 10:31 Dose: 100 mg Documented by: Enoxaparin Sodium (Lovenox) 60 mg SC Q12@0600,1800 [facility] Last Admin: 05/14/19 06:07 Dose: 60 mg Documented by: Enteral Nutritional Formula (Ensure Surgery) 237 ml PO 0600,1300,2000 [facility] Last Admin: 05/14/19 13:31 Dose: 237 ml Documented by: Sodium Chloride () 250 mls @ 15 mls/hr IV .[id number] PRN PRN Reason: Saline Flush Last Infusion: 05/13/19 08:08 Dose: 0 mls/hr Documented by: Piperacillin Sod/Tazobactam (Sod 3.375 gm/ Sodium Chloride) 50 mls @ 12.5 mls/hr IV Q8 [facility] Last Admin: 05/14/19 13:22 Dose: 12.5 mls/hr Documented by: Norepinephrine Bitartrate 8 mg (/ Sodium Chloride) 250 mls @ 9.375 mls/hr CONT INF .[id number] [facility]; Protocol Last Titration: 05/14/19 15:15 Dose: 4 mcg/min, 7.5 mls/hr Documented by: Levothyroxine Sodium (Synthroid) 125 mcg PO DAILY@0600 [facility] Last Admin: 05/14/19 06:05 Dose: 125 mcg Documented by: Nutritional Formula (Donte - [place] Flavor) 1 packet PO BIDCM [facility] Last Admin: 05/14/19 08:49 Dose: 1 packet Documented by: Ondansetron HCl (Zofran) 4 mg IV Q6H PRN PRN PRN Reason: NAUSEA Oxycodone HCl (Oxyir) 5 mg PO Q6H PRN PRN PRN Reason: Pain Score 6-10/10 Last Admin: 05/14/19 08:53 Dose: 5 mg Documented by: Potassium Chloride (K-Dur) 10 meq PO DAILY@0800 [facility] Last Admin: 05/14/19 10:34 Dose: 10 meq Documented by: Sodium Chloride () 10 - 40 ml IV UD PRN PRN Reason: SALINE FLUSH Last Admin: 05/14/19 09:01 Dose: 20 ml Documented by: STROKE Vital Signs/Narrative: Vital Signs Pulse Resp BP BP Pulse Ox 05/14/19 15:15 96 20 H 113/98 H 100 05/14/19 15:06 88 05/14/19 15:00 89 14 103/78 100 05/14/19 14:45 82 14 99/53 L 99 05/14/19 14:30 84 14 96/50 L 99 05/14/19 14:15 86 15 75/42 L 98 05/14/19 14:00 90 14 87/50 L 99 05/14/19 13:00 91 20 H 104/63 99 Medical Necessity - Tobacco Use Smoking Status: Never smoker Tobacco Use: Non-smoker Assessment/Plan All Active Problems Pressure injury, stage 4, with infection (Acute) Skin necrosis (Acute) Incontinence of feces (Acute) Pressure injury of deep tissue of left hip (Acute) Sacral osteomyelitis (Acute) Multiple falls (Acute) 1. Hypotension, unclear etiology, likely hypovolemia from acute blood loss/post-op related/medications Blood cultures are pending. Urine culture shows no growth. Bone cultures growing staph aureus and gram-positive and negative rods. Continue on IV Zosyn and pressors to keep map above 65 2. POD #2, status post excision infected necrotic sacral pressure ulcer, stage IV with partial ostectomy Status post wound VAC placement Previous wound cultures growing Citrobacter, MSSA, corynebacterium Intra-op cultures growing staph aureus, gram-positive gram-negative kianna. ID following, continue on Zosyn Continue with pain control 3. Anemia, acute blood loss, status post 2 unit packed RBCs Hb is 10.8, will continue to monitor especially whilst on Lovenox for acute DVT. 5. Severe protein calorie malnutrition, on supplements, nutrition is following 6. Hypothyroidism, on Synthroid 7. Acute DVT of the left femoral vein, on Lovenox SC 8. Code status - Full code Code Visit Inpatient E&M: 99976 Subs Hosp L3
[2019-05-15] VITALS (32 sets, daily range): BP systolic 71–132; BP diastolic 46–97; PULSE 93–119; RESP 15–29; TEMP 36.2–37.2; O2SAT 96–100
[2019-05-15] MEDS: Levothyroxine 125 MCG Tablet PO (05:04)
[2019-05-15] MEDS: Acetaminophen 500 MG Tablet 1000 MG PO (05:04)
[2019-05-15] MEDS: Enoxaparin 60 MG/0.6 ML Syringe SC (05:05)
[2019-05-15] MEDS: Ensure Surgery 237 ML LIQUID PO (05:12)
[2019-05-15 06:14] LABS: Absolute Lymphocyte Count 2.05 X10^3/uL (0.83-4.51); Basophil# 0.04 X10^3/uL; Basophil% 0.6 % (0-1); Eosinophil# 0.15 X10^3/uL; Eosinophils% 2.1 % (0-5); Hematocrit 33.3 % (37-47); Hemoglobin 10.5 g/dL (12.0-15.0); Lymphocyte # 2.05 X10^3/ul (4.0); Lymphocyte % 29.3 % (19-41); Mean Corp Hgb Conc 31.5 g/dL (32-36); Mean Corpuscular Hgb 28.4 pg (27.0-32.0); Mean Platelet Vol. 10.3 fl (6.2-12.0); Monocyte# 0.74 X10^3/uL; Monocyte% 10.6 % (0-10); NRBC Flagged by Analyzer 0 % (0-5); Neutrophil % 57.1 % (47-70); Platelet Count 266 K/mm3 (150-450); RBC Distribution Width CV 16.6 % (11.6-14.6); RBC Distribution Width SD 53.3 fl (35.1-43.9)
--- NOTE | 2019-05-15 06:24 | PN_ITS ---
Subjective: The patient was seen and examined at the bedside this morning. Events from the last 24 hours have been reviewed. The patient is currently afebrile, but is still requiring Levophed at 3 mcg/min to maintain hemodynamic stability. She is maintaining appropriate oxygen saturations on room air. The patient remains confused and disoriented. Urine output has been decreasing. P.o. intake is minimal. Objective: The patient's most recent lab work, culture data and imaging studies have all been personally reviewed. General: Alert, Cooperative, Confused, Disoriented HEENT: Atraumatic, PERRLA, Normocephalic Oral: No Gingival or Mucosal Lesions/ Ulcerations Neck: Supple, No Nodes, Trachea Midline Lungs: No rhonchi, No wheeze, No rales, Diminished, - - Poor inspiratory effort Cardiovascular: Normal S1, Normal S2, No murmurs, Tachycardic Abdomen: Bowel Sounds Present, Soft, Non Tender Extremities: No clubbing, No cyanosis Skin: Ulcer/ Wound, - - Sacral wound VAC in place Musculoskeletal: Cachexia Lymphatic: No Cervical, Supraclavicular, or Inguinal Adenopathy Neurological: - - No focal neurological deficits. Psych/Mental Status: Flat Affect Vital Signs Temp Pulse Resp BP Pulse Ox 97.6 F L 98 18 99/60 97 05/15/19 00:00 05/15/19 05:00 05/15/19 05:00 05/15/19 05:00 05/15/19 05:00 Oxygen Flow Rate (L/min) 2 Oxygen Delivery Method Room Air Weight: 181 lb 7.047 oz Body Mass Index (BMI) 23.3 Intake and Output for Last 24 Hours 05/13/19 05/14/19 05/15/19 23:59 23:59 23:59 Intake Total 3627.17 / 3627.17 2896.85 / 2902.45 83.6 / 83.6 Output Total 125 / 125 925 / 1075 150 / 150 Balance 3502.17 / 3502.17 1971.85 / 1827.45 -66.4 / -66.4 Labs (Last 48 Hours) 05/10/19 05/10/19 05/11/19 13:02 13:02 05:30 WBC RBC Hgb Hct MCV MCH MCHC RDW Std Deviation RDW Coeff of Eusebio Plt Count MPV Immature Gran % (Auto) Neut % (Auto) Lymph % (Auto) [place] % (Auto) Eos % (Auto) Baso % (Auto) Absolute Neuts (auto) Absolute Lymphs (auto) Nucleated RBC % Sodium Potassium Chloride Carbon Dioxide Anion Gap BUN Creatinine Estim Creat Clear Calc Est GFR (MDRD) Af Amer Est GFR (MDRD) Non-Af BUN/Creatinine Ratio Glucose Calcium Total Bilirubin AST ALT Alkaline Phosphatase Alk Phos Iso-Intestine 0 Alk Phos Iso-Bone 40 Alk Phos Iso-Liver 60 Alk Phos Isoenzymes 184 H Total Protein Albumin Globulin Albumin/Globulin Ratio Crossmatch See Detail See Detail 05/14/19 05/14/19 05/15/19 09:00 09:00 05:10 WBC 5.7 7.0 RBC 3.80 L 3.70 L Hgb 10.8 L 10.5 L Hct 34.4 L 33.3 L MCV 90.5 90.0 MCH 28.4 28.4 MCHC 31.4 L 31.5 L RDW Std Deviation 53.1 H 53.3 H RDW Coeff of Eusebio 16.3 H 16.6 H Plt Count 241 266 MPV 9.9 10.3 Immature Gran % (Auto) 0.500 0.300 Neut % (Auto) 41.2 L 57.1 Lymph % (Auto) 43.2 H 29.3 [place] % (Auto) 10.0 10.6 H Eos % (Auto) 4.4 2.1 Baso % (Auto) 0.7 0.6 Absolute Neuts (auto) 2.4 4.0 Absolute Lymphs (auto) 2.47 2.05 Nucleated RBC % 0 0 Sodium 143 Potassium 3.5 Chloride 115 H Carbon Dioxide 24.0 Anion Gap 4 L BUN 33 H Creatinine 0.47 L Estim Creat Clear Calc 33.71 Est GFR (MDRD) Af Amer 162 Est GFR (MDRD) Non-Af 134 BUN/Creatinine Ratio 69.9 H Glucose 94 Calcium 7.3 L Total Bilirubin 0.40 AST 24 ALT 8 L Alkaline Phosphatase 152 H Alk Phos Iso-Intestine Alk Phos Iso-Bone Alk Phos Iso-Liver Alk Phos Isoenzymes Total Protein 4.8 L Albumin 1.2 L Globulin 3.6 Albumin/Globulin Ratio 0.3 L Crossmatch 05/15/19 05:10 WBC RBC Hgb Hct MCV MCH MCHC RDW Std Deviation RDW Coeff of Eusebio Plt Count MPV Immature Gran % (Auto) Neut % (Auto) Lymph % (Auto) [place] % (Auto) Eos % (Auto) Baso % (Auto) Absolute Neuts (auto) Absolute Lymphs (auto) Nucleated RBC % Sodium Pending Potassium Pending Chloride Pending Carbon Dioxide Pending Anion Gap Pending BUN Pending Creatinine Pending Estim Creat Clear Calc Est GFR (MDRD) Af Amer Pending Est GFR (MDRD) Non-Af Pending BUN/Creatinine Ratio Pending Glucose Pending Calcium Pending Total Bilirubin Pending AST Pending ALT Pending Alkaline Phosphatase Pending Alk Phos Iso-Intestine Alk Phos Iso-Bone Alk Phos Iso-Liver Alk Phos Isoenzymes Total Protein Pending Albumin Pending Globulin Albumin/Globulin Ratio Crossmatch Microbiology 05/12/19 10:40 Bone - Other Gram Stain - Final 05/12/19 10:40 Bone - Other Wound Culture - Preliminary Staphylococcus aureus Gram positive kianna 05/12/19 10:35 Tissue - Other Gram Stain - Final 05/12/19 10:35 Tissue - Other Wound Culture - Preliminary Staphylococcus species Gram positive kianna Gram negative kianna 05/12/19 23:50 Urine Catheter - Catheter Urine Culture - Preliminary Culture exhibits no growth. Clinical Impression(s) from Imaging Studies Pelvis CT 05/09/19 14:20 IMPRESSION: Large ulcerated lesion in the left medial buttock with the extension to the underlying sacrum suggestive of a chronic osseous myelitis. Subcutaneous edema. Tiny air collection in the aspect of the right buttock as well. Electronically Signed: Domingo Ryan, at 15:38 EST , Service support , Abdomen/Pelvis CT 05/10/19 08:39 IMPRESSION: Tiny bilateral pleural effusions slightly worse on the right side. Distended urinary bladder. Known decubitus ulcers overlying the posterior aspect of the sacrum. Electronically Signed: Domingo Ryan, at 12:45 EST , Service support , Chest X-Ray 05/12/19 21:56 IMPRESSION: Linear right basilar opacity suggestive of subsegmental atelectasis. at 2225 Reported and signed by: Heather Woodruff MD Electronically Signed: Heather Woodruff MD at 22:25 EST Tel , Service support , Medical Necessity - Tobacco Use Smoking Status: Never smoker Tobacco Use: Non-smoker Assessment/Plan All Active Problems Pressure injury, stage 4, with infection (Acute) Skin necrosis (Acute) Incontinence of feces (Acute) Pressure injury of deep tissue of left hip (Acute) Sacral osteomyelitis (Acute) Multiple falls (Acute) RECOMMENDATIONS: 1. Continue antimicrobials per infectious diseases recommendations. 2. Start dextrose containing gentle IV fluid hydration to offset insensible losses, given poor p.o. intake. 3. Continue Levophed to maintain a mean arterial pressure at or above 65 mmHg. 4. Transfuse for hemoglobin less than 7 g/dL. 5. Family goals of care discussion. IMPRESSIONS: 1. Septic shock secondary to sacral osteomyelitis, now POD #3 s/p excision of infected necrotic sacral pressure ulcer I do suspect that the patient's hypotension is likely multifactorial in etiology with underlying sacral osteomyelitis and anemia contributing. The patient is volume up for the hospitalization. We will plan to continue to wean vasopressor support to maintain a mean arterial pressure at or above 65 mmHg. Continue current antimicrobial coverage per infectious diseases recommendations. The patient can be started on dextrose containing supplemental IV fluids to offset insensible losses, given poor p.o. intake. I do feel that the probability that the patient will make a meaningful recovery, given her deconditioned state coupled with her relative immobility and poor nutritional status, is unlikely. We are awaiting goals of care discussion with the patient's family. 2. Anemia The patient was initially noted to have a hemoglobin of 7.3 g/dL on May 12, for which she has received a total of 2 units of packed red blood cells. Hemoglobin is currently stable. There is no indication for the transfusion of additional blood products. 3. Lower extremity DVT Continue Lovenox as ordered. 4. Advanced age and deconditioning/severe protein calorie malnutrition/hypothyroidism Complicates care, management, recovery and prognosis. Physical therapy and dietary services are following. TIME: 39 minutes of critical care time, independent of procedures, was spent addressing the patient's septic shock, sacral osteomyelitis, anemia, lower extremity DVT, review of all data and collaboration with the care team. (0800- 0900) Code Visit 9xxxx: [id number] Critical care first hour
[2019-05-15 06:46] LABS: ALB/GLOB Ratio 0.3 RATIO (0.9-2.4); AST(SGOT) 165 U/L (15-37); Alanine Aminotransfer ALT/SGPT 39 U/L (13-56); Alkaline Phosphatase 173 U/L (45-117); Anion Gap 6 (5-15); BUN 34 mg/dL (7-18); Calcium,Total 7.1 mg/dL (8.5-10.1); Chloride 114 mmol/L (98-107); Creatinine, Serum 0.44 mg/dL (0.55-1.02); EST Glomerular Filtration Rate 147 mL/min (>60); Est Glom Filt Rate - Afr Amer 177 mL/min (>60); Estimated Creatinine Clearance 33.71 ml/min; Globulin 3.6 g/dL (2.2-4.2); Glucose 100 mg/dL (74-106); Potassium 3.7 mmol/L (3.5-5.1); Protein, Total 4.6 g/dL (6.4-8.2); Sodium Level 143 mmol/L (136-145)
--- NOTE | 2019-05-15 10:12 | PCM.PN.HOSP ---
Subjective: Follow-up on hypotension: Kenny was seen and examined. No acute events overnight. Remains on Levophed 3mcg/min. She denies any chest pain or dizziness or palpitations. Objective: Physical exam: General: Alert, Cooperative, Confused, not on oxygen HEENT: Atraumatic, PERRLA, EOMI, Normocephalic Neck: Supple, No JVD, Negative Carotid Bruits Lungs: Clear to auscultation, Normal air movement Cardiovascular: Regular rate, No murmurs Abdomen: Bowel Sounds Present, Soft, Non Tender Extremities: No edema, Capillary Refill Less than 3 Seconds Skin: Wound VAC to the sacral region, wound pictures seen, see under nurse's notes Musculoskeletal: No Tenderness to Palpation of Joints or Extremities Neurological: Cranial nerves II-XII grossly intact Psych/Mental Status: Normal Affect, - - pleasantly confused Vitals/I&O's: Vital Signs Temp Pulse Resp BP Pulse Ox 97.2 F L 105 H 20 H 117/54 L 96 05/15/19 06:00 05/15/19 06:00 05/15/19 06:00 05/15/19 06:00 05/15/19 06:00 Oxygen Flow Rate (L/min) 2 Oxygen Delivery Method Room Air Weight: 82.3 kg Body Mass Index (BMI) 23.3 Intake and Output for Last 24 Hours 05/13/19 05/14/19 05/15/19 23:59 23:59 23:59 Intake Total 3627.17 / 3627.17 2896.85 / 2902.45 139.2 / 139.2 Output Total 125 / 125 925 / 1075 325 / 325 Balance 3502.17 / 3502.17 1971.85 / 1827.45 -185.8 / -185.8 Microbiology Past 72 Hours 05/13/19 04:40 Blood Culture (Wb) - Pic Blood Culture - Preliminary No growth in 48 hours. 05/13/19 02:57 Blood Culture (Wb) - Left Hand Blood Culture - Preliminary No growth in 48 hours. 05/12/19 23:50 Urine Catheter - Catheter Urine Culture - Final Culture exhibits no growth. 05/12/19 10:40 Bone - Other Gram Stain - Final 05/12/19 10:40 Bone - Other Wound Culture - Final Staphylococcus aureus Corynebacterium striatum 05/12/19 10:35 Tissue - Other Gram Stain - Final 05/12/19 10:35 Tissue - Other Wound Culture - Final Staphylococcus capitis Corynebacterium striatum Klebsiella oxytoca 05/09/19 14:30 Wound - Sacral Gram Stain - Final 05/09/19 14:30 Wound - Sacral Wound Culture - Final Citrobacter freundii Staphylococcus aureus Corynebacterium striatum Laboratory Results 05/11/19 05:30: Alk Phos Iso-Intestine 0, Alk Phos Iso-Bone 40, Alk Phos Iso-Liver 60, Alk Phos Isoenzymes 184 H 05/15/19 05:10: WBC 7.0, RBC 3.70 L, Hgb 10.5 L, Hct 33.3 L, MCV 90.0, MCH 28.4, MCHC 31.5 L, RDW Std Deviation 53.3 H, RDW Coeff of Eusebio 16.6 H, Plt Count 266, MPV 10.3, Immature Gran % (Auto) 0.300, Neut % (Auto) 57.1, Lymph % (Auto) 29.3, [place] % (Auto) 10.6 H, Eos % (Auto) 2.1, Baso % (Auto) 0.6, Absolute Neuts (auto) 4.0, Absolute Lymphs (auto) 2.05, Nucleated RBC % 0 05/15/19 05:10: Sodium 143, Potassium 3.7, Chloride 114 H, Carbon Dioxide 23.0, Anion Gap 6, BUN 34 H, Creatinine 0.44 L, Estim Creat Clear Calc 33.71, Est GFR (MDRD) Af Amer 177, Est GFR (MDRD) Non-Af 147, BUN/Creatinine Ratio 78.0 H, Glucose 100, Calcium 7.1 L, Total Bilirubin 0.70, AST 165 H, ALT 39, Alkaline Phosphatase 173 H, Total Protein 4.6 L, Albumin 1.0 L, Globulin 3.6, Albumin/Globulin Ratio 0.3 L Current Medications Acetaminophen (Tylenol) 1,000 mg PO Q8 [facility] Last Admin: 05/15/19 05:04 Dose: 1,000 mg Documented by: Docusate Sodium (Colace) 100 mg PO BID [facility] Last Admin: 05/14/19 22:11 Dose: 100 mg Documented by: Enoxaparin Sodium (Lovenox) 60 mg SC Q12@0600,1800 [facility] Last Admin: 05/15/19 05:05 Dose: 60 mg Documented by: Enteral Nutritional Formula (Ensure Surgery) 237 ml PO 0600,1300,2000 [facility] Last Admin: 05/15/19 05:12 Dose: 237 ml Documented by: Sodium Chloride () 250 mls @ 15 mls/hr IV .[id number] PRN PRN Reason: Saline Flush Last Infusion: 05/13/19 08:08 Dose: 0 mls/hr Documented by: Piperacillin Sod/Tazobactam (Sod 3.375 gm/ Sodium Chloride) 50 mls @ 12.5 mls/hr IV Q8 [facility] Last Admin: 05/15/19 05:12 Dose: 12.5 mls/hr Documented by: Norepinephrine Bitartrate 8 mg (/ Sodium Chloride) 250 mls @ 9.375 mls/hr CONT INF .[id number] [facility]; Protocol Last Titration: 05/15/19 06:00 Dose: 3 mcg/min, 5.6 mls/hr Documented by: Dextrose/Sodium Chloride () 1,000 mls @ 100 mls/hr IV .Q10H [facility] Levothyroxine Sodium (Synthroid) 125 mcg PO DAILY@0600 [facility] Last Admin: 05/15/19 05:04 Dose: 125 mcg Documented by: Nutritional Formula (Donte - Burt Flavor) 1 packet PO BIDCM [facility] Last Admin: 05/14/19 17:54 Dose: 1 packet Documented by: Ondansetron HCl (Zofran) 4 mg IV Q6H PRN PRN PRN Reason: NAUSEA Oxycodone HCl (Oxyir) 5 mg PO Q6H PRN PRN PRN Reason: Pain Score 6-10/10 Last Admin: 05/14/19 08:53 Dose: 5 mg Documented by: Potassium Chloride (K-Dur) 10 meq PO DAILY@0800 [facility] Last Admin: 05/14/19 10:34 Dose: 10 meq Documented by: Sodium Chloride () 10 - 40 ml IV UD PRN PRN Reason: SALINE FLUSH Last Admin: 05/14/19 09:01 Dose: 20 ml Documented by: Medical Necessity - Tobacco Use Smoking Status: Never smoker Tobacco Use: Non-smoker Assessment/Plan All Active Problems Pressure injury, stage 4, with infection (Acute) Skin necrosis (Acute) Incontinence of feces (Acute) Pressure injury of deep tissue of left hip (Acute) Sacral osteomyelitis (Acute) Multiple falls (Acute) 1. Hypotension, unclear etiology, likely hypovolemia from acute blood loss/post-op related/medications Blood cultures are negative. Urine culture shows no growth. Bone cultures growing staph aureus, corynebacterium striatum, Klebsiella, almost pansensitive Continue on IV Zosyn and pressors to keep map above 65 2. POD #3, status post excision infected necrotic sacral pressure ulcer, stage IV with partial ostectomy Status post wound VAC placement Previous wound cultures growing Citrobacter, MSSA, corynebacterium Intra-op cultures growing staph aureus, corynebacterium striatum, Klebsiella Continue with pain control 3. Anemia, acute blood loss, status post 2 unit packed RBCs Hb is 10.5, will continue to monitor especially whilst on Lovenox for acute DVT. 4. Severe protein calorie malnutrition, on supplements, nutrition is following 5. Hypothyroidism, on Synthroid 6. Acute DVT of the left femoral vein, on Lovenox SC 7. Code status - Full code Code Visit Inpatient E&M: 53955 Subs Hosp L2
[2019-05-15] MEDS: Dext 5%-0.45% NS 1,000 ML 100 ML IV (10:54)
[2019-05-15] MEDS: Docusate Sodium 100 MG Capsule PO (12:19)
--- NOTE | 2019-05-15 18:46 | DCINST_ITS ---
Allergies/Adverse Reactions: Allergies codeine Adverse Reaction (Verified 04/07/19 20:52) Vomiting morphine Adverse Reaction (Verified 04/07/19 20:52) Vomiting Medications to take at Discharge Ensure Enlive 120 ml PO DAILY 03/15/19 Levothyroxine [Synthroid] 125 mcg PO DAILY@0600 03/15/19 Potassium Chloride [Klor-Con M10] 10 meq PO DAILY 03/31/19 Diazepam [Valium] 2 mg PO QHS PRN PRN 05/09/19 Docusate Sodium [Colace] 100 mg PO BID 05/09/19 Primary Care Physician: Manohar Duran Chi, MD [Primary Care Provider] - Test Results: Test results from this visit will be discussed in further detail at your follow- up appointment, if applicable. Proposed Discharge Date: 05/15/19
--- NOTE | 2019-05-15 18:48 | PCM.DC.SUM ---
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) Decreased mobility (Chronic) Hospital Course and Treatment Consultations 05/09/19 13:40 Consult: Onc/Wound/train planner Routine Comment: Reason for Consult:: sacral wound Operations: None Summary of Care Provided: The patient is a 83 year old F [] - Physical Exam Vitals/I&O's: Vital Signs Temp Pulse Resp BP Pulse Ox 98.0 F 94 17 100/62 97 05/15/19 12:00 05/15/19 15:00 05/15/19 15:00 05/15/19 15:45 05/15/19 15:00 Oxygen Flow Rate (L/min) 2 Oxygen Delivery Method Room Air Weight: 82.3 kg Body Mass Index (BMI) 23.3 Intake and Output for Last 24 Hours 05/13/19 05/14/19 05/15/19 23:59 23:59 23:59 Intake Total 3627.17 / 3627.17 2896.85 / 2902.45 251.36 / 251.36 Output Total 125 / 125 925 / 1075 325 / 325 Balance 3502.17 / 3502.17 1971.85 / 1827.45 -73.64 / -73.64 Microbiology Past 72 Hours 05/13/19 04:40 Blood Culture (Wb) - Pic Blood Culture - Preliminary No growth in 48 hours. 05/13/19 02:57 Blood Culture (Wb) - Left Hand Blood Culture - Preliminary No growth in 48 hours. 05/12/19 23:50 Urine Catheter - Catheter Urine Culture - Final Culture exhibits no growth. 05/12/19 10:40 Bone - Other Gram Stain - Final 05/12/19 10:40 Bone - Other Wound Culture - Final Staphylococcus aureus Corynebacterium striatum 05/12/19 10:35 Tissue - Other Gram Stain - Final 05/12/19 10:35 Tissue - Other Wound Culture - Final Staphylococcus capitis Corynebacterium striatum Klebsiella oxytoca Laboratory Results 05/15/19 05:10: WBC 7.0, RBC 3.70 L, Hgb 10.5 L, Hct 33.3 L, MCV 90.0, MCH 28.4, MCHC 31.5 L, RDW Std Deviation 53.3 H, RDW Coeff of Eusebio 16.6 H, Plt Count 266, MPV 10.3, Immature Gran % (Auto) 0.300, Neut % (Auto) 57.1, Lymph % (Auto) 29.3, Burt % (Auto) 10.6 H, Eos % (Auto) 2.1, Baso % (Auto) 0.6, Absolute Neuts (auto) 4.0, Absolute Lymphs (auto) 2.05, Nucleated RBC % 0 05/15/19 05:10: Sodium 143, Potassium 3.7, Chloride 114 H, Carbon Dioxide 23.0, Anion Gap 6, BUN 34 H, Creatinine 0.44 L, Estim Creat Clear Calc 33.71, Est GFR (MDRD) Af Amer 177, Est GFR (MDRD) Non-Af 147, BUN/Creatinine Ratio 78.0 H, Glucose 100, Calcium 7.1 L, Total Bilirubin 0.70, AST 165 H, ALT 39, Alkaline Phosphatase 173 H, Total Protein 4.6 L, Albumin 1.0 L, Globulin 3.6, Albumin/Globulin Ratio 0.3 L Current Medications Acetaminophen (Tylenol) 1,000 mg PO Q8 [facility] Last Admin: 05/15/19 14:30 Dose: Not Given Documented by: Docusate Sodium (Colace) 100 mg PO BID [facility] Last Admin: 05/15/19 12:19 Dose: 100 mg Documented by: Enoxaparin Sodium (Lovenox) 60 mg SC Q12@0600,1800 [facility] Last Admin: 05/15/19 05:05 Dose: 60 mg Documented by: Enteral Nutritional Formula (Ensure Surgery) 237 ml PO 0600,1300,2000 [facility] Last Admin: 05/15/19 15:43 Dose: Not Given Documented by: Sodium Chloride () 250 mls @ 15 mls/hr IV .[id number] PRN PRN Reason: Saline Flush Last Infusion: 05/13/19 08:08 Dose: 0 mls/hr Documented by: Piperacillin Sod/Tazobactam (Sod 3.375 gm/ Sodium Chloride) 50 mls @ 12.5 mls/hr IV Q8 [facility] Last Admin: 05/15/19 14:18 Dose: 12.5 mls/hr Documented by: Norepinephrine Bitartrate 8 mg (/ Sodium Chloride) 250 mls @ 9.375 mls/hr CONT INF .[id number] [facility]; Protocol Last Titration: 05/15/19 15:45 Dose: 3 mcg/min, 5.6 mls/hr Documented by: Dextrose/Sodium Chloride () 1,000 mls @ 100 mls/hr IV .Q10H [facility] Last Infusion: 05/15/19 11:01 Dose: 100 mls/hr Documented by: Levothyroxine Sodium (Synthroid) 125 mcg PO DAILY@0600 [facility] Last Admin: 05/15/19 05:04 Dose: 125 mcg Documented by: Nutritional Formula (Donte - [place] Flavor) 1 packet PO BIDCM [facility] Last Admin: 05/15/19 10:54 Dose: 1 packet Documented by: Ondansetron HCl (Zofran) 4 mg IV Q6H PRN PRN PRN Reason: NAUSEA Oxycodone HCl (Oxyir) 5 mg PO Q6H PRN PRN PRN Reason: Pain Score 6-10/10 Last Admin: 05/14/19 08:53 Dose: 5 mg Documented by: Potassium Chloride (K-Dur) 10 meq PO DAILY@0800 [facility] Last Admin: 05/14/19 10:34 Dose: 10 meq Documented by: Sodium Chloride () 10 - 40 ml IV UD PRN PRN Reason: SALINE FLUSH Last Admin: 05/14/19 09:01 Dose: 20 ml Documented by: Home Medications: Medications to take at Discharge Ensure Enlive 120 ml PO DAILY 03/15/19 Levothyroxine [Synthroid] 125 mcg PO DAILY@0600 03/15/19 Potassium Chloride [Klor-Con M10] 10 meq PO DAILY 03/31/19 Diazepam [Valium] 2 mg PO QHS PRN PRN 05/09/19 Docusate Sodium [Colace] 100 mg PO BID 05/09/19 Primary Care Physician: Manohar Duran Chi, MD [Primary Care Provider] - Medical Necessity - Tobacco Use Smoking Status: Never smoker Tobacco Use: Non-smoker
--- NOTE | 2019-05-15 18:50 | PCM.PN.BLA ---
Progress Note I met with Ms Juarez's children at 1 pm. Daughter, Analy and sons were present. Analy has the medical POA. I updated the family and talked about the plan of care. They said they were confused and want to do what is best for their mother. They asked their mother what she wanted and the patient said clearly she did not want any more surgery. I explained that it will mean that her wound will be contaminated. She expressed the same wish for no more aggressive care. The children decided not to pursue any more surgeries. I introduced the subject of Hospice and they seem willing to have Hospice speak to them. I clarified code status and explained the different kinds of code status and answered all questions. They chose DNR-CC. Time spent discussing plan of care, goals of care, introducing Hospice, coordinating with Hospice care: 1 hr 15 mins STROKE Vital Signs/Narrative: Vital Signs Pulse Resp BP Pulse Ox 05/15/19 15:45 100/62 05/15/19 15:30 100/56 L 05/15/19 15:15 98/55 L 05/15/19 15:00 94 17 92/54 L 97 Code Visit Procedures: 57743 Prolonged InPt Service; first hour
--- NOTE | 2019-05-15 19:14 | DS.PCM_ITS ---
Discharge Date and Diagnosis Date of Admission: 05/09/19 Date of Discharge: 05/15/19 - Primary Discharge Diagnosis Infected sacral pressure sore with necrosis, Stage IV. Clinical osteomyelitis posterior aspect of pelvis in sacral area. Left trochanteric pressure injury with skin necrosis, unstageable. Recent stool contamination. Left lower extremity DVT. Anemia of chronic disease, acute on chronic. Atelectasis. Hypotension. Septic shock. - Secondary Discharge Diagnosis History of total right knee replacement Osteomyelitis of left side of pelvis Hypothyroid Inability to ambulate due to right knee Decreased mobility Late effect right periprosthetic femur fracture. Hospital Course and Treatment Imaging Results: Diagnostic Data Pelvis CT 05/09/19 14:20 IMPRESSION: Large ulcerated lesion in the left medial buttock with the extension to the underlying sacrum suggestive of a chronic osseous myelitis. Subcutaneous edema. Tiny air collection in the aspect of the right buttock as well. Electronically Signed: Domingo Ryan, at 15:38 EST , Service support , Abdomen/Pelvis CT 05/10/19 08:39 IMPRESSION: Tiny bilateral pleural effusions slightly worse on the right side. Distended urinary bladder. Known decubitus ulcers overlying the posterior aspect of the sacrum. Electronically Signed: Domingo Ryan, at 12:45 EST , Service support , Chest X-Ray 05/12/19 21:56 IMPRESSION: Linear right basilar opacity suggestive of subsegmental atelectasis. at 2225 Reported and signed by: Heather Woodruff MD Electronically Signed: Heather Woodruff MD at 22:25 EST Tel , Service support , Consultations 05/09/19 13:40 Consult: Onc/Wound/web feeder Routine Comment: Reason for Consult:: sacral wound Hospitalist Group - Dr. Galicia, Dr. Juarez, Dr. Prescott. Infectious Diseases - Dr. Del Rosario. Conservation [employer] - Dr. Hankins. Operations: - - 05/12/19 - Excision infected necrotic sacral pressure sore, Stage IV, with partial ostectomy for osteomyeltis. Procedures: Blood transfusion, PICC line placement, Wound vac placement, - - Venous Ultrasound. Summary of Care Provided: 83 year old woman presents with a left buttock pressure sore extending medially to the sacrum that developed after falling in August,. She sustained a right periprosthetic femur fracture and was placed in an immobilizer. She was discharged to an ECF. With lack of mobility, she developed the pressure sore. It was treated with Santyl initially and has been changed to Dakin's dressing changes daily. It was noted there was substantial undermining medially toward the sacrum. She had an MRI done on 03/07/19 which showed osteomyelitis. Wound culture from 03/09/19 showed E. coli, Proteus mirabilis, and Streptococcus group A. She initially was placed on Bactrim and Augmentin was added. Due to the amount of undermining present, surgical excision was recommended to unroof the sore to help with the wound care postoperatively. It is hard to pack a wound adequately when it is done through a blind tunnel. She was taken to surgery on 04/04/19 where she underwent excision left sacral pressure sore with superomedial undermining at posterior aspect of pelvis, Stage IV, (120 cm2) and partial ostectomy for osteomyelitis. She tolerated the procedure well and was discharged home with the VAC. Since being at home for about a month since the surgery, she has gotten weaker and finds it very difficult to get out of bed and her legs are getting weaker. She also had recent stool contamination of the pressure sore and there is now odor in the wound along with increasing size and necrotic ulceration inferiorly and some necrotic soft tissue at the base of the wound inferiorly. Will stop the VAC initially and clean up the wound with Dakin's dressing changes. Also in this short time span she has developed a severe pressure injury on the left trochanteric area with necrotic eschar. I suspect the pressure injury to be at least a Stage III-IV. Admission to the hospital was recommended for more aggressive wound care along with IV antibiotics and evaluation for an ECF as the family is finding it more difficult to care for her at home. IV antibiotics were started with Unasyn. Infectious Diseases was consulted to assist with medical management. The Unasyn was changed to Zosyn. A PICC line was placed in anticipation of care home IV antibiotics at the ECF. Hospitalist Group was consulted for medical management. CT Pelvis was done which was suspicious for osteomyelitis. Initial labs had Alkaline Phosphatase elevated at 306. CT Abdomen and Pelvis showed normal liver and evidence of cholecystectomy. Isoenzymes were obtained which were normal. It has decreased to 173. She also developed left leg swelling. Venous ultrasound was positive for DVT and Lovenox was started. Her appetite was poor as her Prealbumin was 6.1 initially and continued to drift downward to 3.9. In order to clean up the wound in preparation for discharge to TCU, further operative excision of the necrotic tissue in the pressure sore was recommended. On 05/12/19 she went to the OR where she underwent excision infected necrotic sacral pressure sore, Stage IV, with partial ostectomy for osteomyelitis. The VAC was placed the next day. Operative cultures showed Staphylococcus capitis, Corynebacterium striatum, and Klebsiella oxytoca in the soft tissue and Staphylococcus aureus and Corynebacterium striatum in the bone. The Pathology was pending. Patient developed anemia of chronic disease, acute on chronic as her Hgb drifted down to 7.3. There was 50 ml of operative blood loss but she had several liters of IV fluid dilution. She received PRBC and at discharge it was 10.5. Over the weekend, she developed hypotension most likely from septic shock and required Levophed. CXR also showed atelectasis. Initially there was discussion of a diverting colostomy. After going back and forth for a couple of days, the patient stated clearly that she wanted no more surgery. So the family decided on going with Hospice care. She was discharged to Hospice Care on postop day #3. Subjective: Postop #3 Patient is resting comfortably. - Physical Exam Vitals/I&O's: Vital Signs Temp Pulse Resp BP Pulse Ox 98.0 F 100 17 100/62 97 05/15/19 12:00 05/15/19 16:00 05/15/19 15:00 05/15/19 15:45 05/15/19 15:00 Oxygen Flow Rate (L/min) 2 Oxygen Delivery Method Room Air Weight: 181 lb 7.047 oz Body Mass Index (BMI) 23.3 Intake and Output for Last 24 Hours 05/13/19 05/14/19 05/15/19 23:59 23:59 23:59 Intake Total 3627.17 / 3627.17 2896.85 / 2902.45 301.36 / 301.36 Output Total 125 / 125 925 / 1075 325 / 325 Balance 3502.17 / 3502.17 1971.85 / 1827.45 -23.64 / -23.64 General: Alert, Oriented x3, - - had a moment of clarity today and refused any further surgeries so the family opted for Hospice care. HEENT: PERRLA, EOMI Oral: Moist Mucosa Neck: Supple Cardiovascular: Regular rate, Regular Rhythm Abdomen: Soft, Non-Distended Skin: Ulcer/ Wound - sacral wound is stable. No active bleeding noted., - - left trochanteric pressure injury is stable. Eschar is dry without evidence of infection at this time. Neurological: Cranial nerves II-XII grossly intact Psych/Mental Status: Normal Affect, Appropriate Microbiology Past 72 Hours 05/13/19 04:40 Blood Culture (Wb) - Pic Blood Culture - Preliminary No growth in 48 hours. 05/13/19 02:57 Blood Culture (Wb) - Left Hand Blood Culture - Preliminary No growth in 48 hours. 05/12/19 23:50 Urine Catheter - Catheter Urine Culture - Final Culture exhibits no growth. 05/12/19 10:40 Bone - Other Gram Stain - Final 05/12/19 10:40 Bone - Other Wound Culture - Final Staphylococcus aureus Corynebacterium striatum 05/12/19 10:35 Tissue - Other Gram Stain - Final 05/12/19 10:35 Tissue - Other Wound Culture - Final Staphylococcus capitis Corynebacterium striatum Klebsiella oxytoca Laboratory Results 05/15/19 05:10: WBC 7.0, RBC 3.70 L, Hgb 10.5 L, Hct 33.3 L, MCV 90.0, MCH 28.4, MCHC 31.5 L, RDW Std Deviation 53.3 H, RDW Coeff of Eusebio 16.6 H, Plt Count 266, MPV 10.3, Immature Gran % (Auto) 0.300, Neut % (Auto) 57.1, Lymph % (Auto) 29.3, [place] % (Auto) 10.6 H, Eos % (Auto) 2.1, Baso % (Auto) 0.6, Absolute Neuts (auto) 4.0, Absolute Lymphs (auto) 2.05, Nucleated RBC % 0 05/15/19 05:10: Sodium 143, Potassium 3.7, Chloride 114 H, Carbon Dioxide 23.0, Anion Gap 6, BUN 34 H, Creatinine 0.44 L, Estim Creat Clear Calc 33.71, Est GFR (MDRD) Af Amer 177, Est GFR (MDRD) Non-Af 147, BUN/Creatinine Ratio 78.0 H, Glucose 100, Calcium 7.1 L, Total Bilirubin 0.70, AST 165 H, ALT 39, Alkaline Phosphatase 173 H, Total Protein 4.6 L, Albumin 1.0 L, Globulin 3.6, Albumin/Globulin Ratio 0.3 L Current Medications Acetaminophen (Tylenol) 1,000 mg PO Q8 [facility] Last Admin: 05/15/19 14:30 Dose: Not Given Documented by: Docusate Sodium (Colace) 100 mg PO BID [facility] Last Admin: 05/15/19 12:19 Dose: 100 mg Documented by: Enoxaparin Sodium (Lovenox) 60 mg SC Q12@0600,1800 [facility] Last Admin: 05/15/19 05:05 Dose: 60 mg Documented by: Enteral Nutritional Formula (Ensure Surgery) 237 ml PO 0600,1300,2000 [facility] Last Admin: 05/15/19 15:43 Dose: Not Given Documented by: Sodium Chloride () 250 mls @ 15 mls/hr IV .[id number] PRN PRN Reason: Saline Flush Last Infusion: 05/13/19 08:08 Dose: 0 mls/hr Documented by: Piperacillin Sod/Tazobactam (Sod 3.375 gm/ Sodium Chloride) 50 mls @ 12.5 mls/hr IV Q8 [facility] Last Infusion: 05/15/19 18:18 Dose: Infused Documented by: Norepinephrine Bitartrate 8 mg (/ Sodium Chloride) 250 mls @ 9.375 mls/hr CONT INF .[id number] [facility]; Protocol Last Titration: 05/15/19 15:45 Dose: 3 mcg/min, 5.6 mls/hr Documented by: Dextrose/Sodium Chloride () 1,000 mls @ 100 mls/hr IV .Q10H [facility] Last Infusion: 05/15/19 11:01 Dose: 100 mls/hr Documented by: Levothyroxine Sodium (Synthroid) 125 mcg PO DAILY@0600 [facility] Last Admin: 05/15/19 05:04 Dose: 125 mcg Documented by: Nutritional Formula (Donte - [place] Flavor) 1 packet PO BIDCM [facility] Last Admin: 05/15/19 10:54 Dose: 1 packet Documented by: Ondansetron HCl (Zofran) 4 mg IV Q6H PRN PRN PRN Reason: NAUSEA Oxycodone HCl (Oxyir) 5 mg PO Q6H PRN PRN PRN Reason: Pain Score 6-10/10 Last Admin: 05/14/19 08:53 Dose: 5 mg Documented by: Potassium Chloride (K-Dur) 10 meq PO DAILY@0800 [facility] Last Admin: 05/14/19 10:34 Dose: 10 meq Documented by: Sodium Chloride () 10 - 40 ml IV UD PRN PRN Reason: SALINE FLUSH Last Admin: 05/14/19 09:01 Dose: 20 ml Documented by: Discharge Diet: No Restrictions Weight Bearing Status: Weight bearing as tolerated Call your doctor if your incision/area has: - - Patient has been discharged to Hospice care. Change Dressing in (Days):: 1 - vac has been cancelled as the patient has been discharged to Hospice care. will do saline dressing changes daily as needed. Home Medications: Medications to take at Discharge Ensure Enlive 120 ml PO DAILY 03/15/19 Levothyroxine [Synthroid] 125 mcg PO DAILY@0600 03/15/19 Potassium Chloride [Klor-Con M10] 10 meq PO DAILY 03/31/19 Diazepam [Valium] 2 mg PO QHS PRN PRN 05/09/19 Docusate Sodium [Colace] 100 mg PO BID 05/09/19 Primary Care Physician: Manohar Duran Chi, MD [Primary Care Provider] - Please Follow Up With: Hospice Care When: Patient has been discharged to Hospice Care. Disposition: Hospice Medical Facility Minutes spent on discharge:: 35 Patient Condition:: Guarded - patient has been discharged to Hospice Care. Medical Necessity - Tobacco Use Smoking Status: Never smoker Tobacco Use: Non-smoker Meaningful Use Info Meaningful Use Diagnoses (Choose all that apply): None applicable
[2019-05-15] MEDS: fentaNYL 100 MCG/2 ML Ampul 50 MCG IV (19:37)
[2019-05-15] MEDS: 0.9% Saline Lock 10 ML Syringe IV (19:38)
--- NOTE | 2019-05-15 20:42 | NURSING ---
[facility] for pt. provided update on pt to transport team. current VS HR 102 BP 90/63 SpO2 97% RR 20. family at bedside. assisted with transferring pt to transport cot.
== END 2019-05-15 21:12 | disposition hospice, inpatient (51) | DRG 579 ==
LOC: PCU 05-12 07:21 → MS3 05-12 09:43 → ICU 05-16 09:09 → MS3 05-16 09:09
PROVIDERS: Family Medicine; Internal Medicine; Physician Assistant; Admitting Provider Surgery; Family Provider Family Medicine Geriatric Medicine; PCP Family Medicine Geriatric Medicine; Visit Provider Internal Medicine
PROC: 0QB10ZZ Excision of Sacrum, Open Approach (ICD-10-PCS; principal; 2019-05-12 09:10)
DX: L89.154 Pressure ulcer of sacral region, stage 4 (principal); R65.21 Severe sepsis with septic shock; A41.9 Sepsis, unspecified organism; E43 Unspecified severe protein-calorie malnutrition; M46.28 Osteomyelitis of vertebra, sacral and sacrococcygeal region; E87.1 Hypo-osmolality and hyponatremia; I82.412 Acute embolism and thrombosis of left femoral vein; I96 Gangrene, not elsewhere classified; L89.320 Pressure ulcer of left buttock, unstageable; E03.9 Hypothyroidism, unspecified; R01.1 Cardiac murmur, unspecified; Z68.23 Body mass index [BMI] 23.0-23.9, adult; Z96.651 Presence of right artificial knee joint; Z66 Do not resuscitate; Z51.5 Encounter for palliative care; D63.8 Anemia in other chronic diseases classified elsewhere; Z86.14 Personal history of Methicillin resistant Staphylococcus aureus infection; Z86.19 Personal history of other infectious and parasitic diseases; S70.02XA Contusion of left hip, initial encounter; X58.XXXA Exposure to other specified factors, initial encounter
CPT/HCPCS: 11043; 11046; 36415; 36569; 71045; 72192; 74177; 80048; 80053; 81001; 82728; 83540; 83550; 84075; 84080; 84134; 84443; 85014; 85018; 85025; 85027; 85652; 86140; 86850; 86900; 86901; 86920; 87040; 87070; 87075; 87077; 87086; 87102; 87176; 87186; 87205; 87206; 87640; 88305; 88311; 93005; 93306; 93970; 97162; 97166; 97530; 97802; 97803; J2997; J7030; J7040; J7050; J7120; P9016; Q9967; A4216; J0295; J7799